=== PATIENT | male | born 1940 | race Caucasian/White ===

== ENCOUNTER 2017-11-10 04:03 | Inpatient (IN) | payer MEDICARE ==
[~2017-11-10] VITALS: Ht 185.4 cm; Wt 71.0 kg
[~2017-11-10 04:03] MED LIST: ACET325T9 PO; BENZ0.5T32 PO; CITA40TA5 PO; DULO30CA2 PO; HALO5TAB PO; LAMO100T PO; LORA0.5T PO; MAG355OR12 PO; MAGN2400 PO; MAGN400T3 PO; MENT113G6 TP; PRAZ2CAP2 PO; TRAZ-86 PO
[2017-11-10] MEDS ORDERED: TAMS0.4C2 PO (08:42)
[2017-11-10] MEDS ORDERED: HYDR25TA PO (08:42)
[2017-11-10] MEDS ORDERED: CEPH-264 PO (08:42)
[2017-11-10] MEDS ORDERED: ACETAMINOPHEN 325 MG TABLET PO PRN (09:45)
[2017-11-10] MEDS ORDERED: METHYL SALICYLATE/MENTHOL TOPICAL OINTMENT 29GM TUBE. TP PRN (09:45)
[2017-11-10] MEDS ORDERED: MAGNESIUM HYDROXIDE 2,400 MG/30 ML ORAL.SUSP. PO PRN (09:45)
[2017-11-10] MEDS ORDERED: MAG HYDROX/AL HYDROX/SIMETH 30 ML ORAL.SUSP PO PRN (09:45)
[2017-11-10 10:03] VITALS: BP 158/90
[2017-11-10 10:05] LABS: BASO % 0 % (0-3); EOS # 0.1 x10^3/uL (0.0-0.7); EOS % 1 % (0-3); HEMATOCRIT 45.3 % (39.0-53.0); HEMOGLOBIN 15.5 g/dL (13.0-17.5); LYMPH # 1.6 x10^3/uL (1.0-4.8); LYMPH % 21 % (24-48); MEAN CORPUSCULAR HEMOGLOBIN 32 pg (25-35); MEAN CORPUSCULAR HGB CONC 34 g/dL (31-37); MEAN CORPUSCULAR VOLUME 92 fL (79-100); MONO # 0.5 x10^3/uL (0.0-1.1); MONO % 7 % (0-9); NEUT # 5.3 x10^3uL (1.8-7.7); NEUT % 71 % (31-73); PLATELET COUNT 131 x10^3/uL (140-400); RED BLOOD COUNT 4.92 x10^6/uL (4.30-5.70); RED CELL DISTRIBUTION WIDTH 13.6 % (11.5-14.5); WHITE BLOOD COUNT 7.6 x10^3/uL (4.0-11.0)
[2017-11-10 10:25] LABS: ALBUMIN 3.6 g/dL (3.4-5.0); CALCIUM 8.9 mg/dL (8.5-10.1); CREATININE 0.9 mg/dL (0.7-1.3); GFR 82.3; POTASSIUM 4.2 mmol/L (3.5-5.1); TOTAL BILIRUBIN 0.6 mg/dL (0.2-1.0); TOTAL PROTEIN 7.1 g/dL (6.4-8.2)
--- NOTE | 2017-11-10 14:40 | CONS ---
DATE OF CONSULTATION: 11/10/2017 REASON FOR CONSULTATION: Medical management. HISTORY OF PRESENT ILLNESS: The patient is a 76-year-old male patient who was seen at [facility] Emergency Room. Apparently, police were called to his house by his as the patient apparently reported that on their arrival, the patient pulled live electrical wires out of the wall and appeared to be working on the furnace with exposed guidelines which was actively leaking gas. The patient reports he has been working on the wiring and gas in his house and he was mad that his called 911. He reports he believes that his is trying to kill him as she has taken out multiple life insurance policies including a 1-million policy on him and is angry that she has spent $40 per week to keep policies up-to-date. He also reported that he wrote letters to his and son about adjustment, but remainder of the speech is incoherent, very tangential, not with flight of ideas but denied any suicidal or homicidal ideation. The patient denies any hallucination, but he does report insomnia and difficulty sleeping. He is no longer taking his trazodone for sleep as it is ineffective. He was extensively evaluated in the Emergency Room, was found to have urinary tract infection and he did receive 1 gram of Rocephin and was [facility] stabilization. PAST MEDICAL HISTORY: Significant for benign prostatic hypertrophy, depression, schizophrenia, basal cell carcinoma. PAST SURGICAL HISTORY: Significant for cancerous skin resection, had also appendectomy. FAMILY HISTORY: Unremarkable. SOCIAL HISTORY: He is and lives with his . He does not smoke, drink alcohol or do recreational drugs. He is a former smoker, stopped about 20 years ago. REVIEW OF SYSTEMS: As per history of present illness. PHYSICAL EXAMINATION GENERAL: When I examined him, he was sitting on the edge of the bed, comfortably, in no apparent distress. There was no pallor, jaundice or cyanosis. No lymphadenopathy, no thyromegaly. No jugular venous distension. No limb edema. VITAL SIGNS: His heart rate was 89, blood pressure 158/90, temperature was 97.9, respiratory rate was 18 and oxygen saturation was 96%. HEENT: Showed normocephalic, atraumatic. NECK: Supple. HEART: Showed normal first and second sounds. No gallop, rub or murmur. CHEST: Clear to auscultation. No crepitation or rhonchi. ABDOMEN: Distended, soft, nontender. NEUROLOGIC: He was awake, alert, responding appropriately. He is very emotional ____. All his cranial nerves are intact. EXTREMITIES: He moves extremities without difficulty. LABORATORY DATA: Showed a white cell count of 7600, hemoglobin 15.5, hematocrit 45, MCV 92, and platelet count 231,000 with normal with manual differential. His serum sodium was 141, potassium 4.2, chloride 103, bicarbonate 30, anion gap of 8, BUN 20, creatinine 0.9, estimated GFR was 82 mL per minute. His glucose was 103, calcium was 8.9, magnesium 2. Total bilirubin, AST, ALT, alkaline phosphatase were normal. Total protein 7.1, albumin was 3.6. MEDICATIONS: He is currently on following medications: He is on cephalexin 500 mg twice a day, tamsulosin 0.4 mg at bedtime and hydroxyzine 25 mg 4 times a day as needed. IMPRESSION: In summary, this is a 76-year-old male patient who was taking apart the furnace, stopped taking medication, destroyed a water heater and cut holes in the roof, not sleeping and was brought to the Emergency Room by police. He was evaluated in the Emergency Room at the [facility] and was found to have urinary tract infection for which he was treated with IV antibiotic and was admitted to this facility for inpatient psychiatric stabilization. Medically, he is known to have UTI, hypertension, benign prostatic hypertrophy. He is also known to have basal cell carcinoma. Psychiatric history is significant depression and schizophrenia. All in all, medically seems to be stable. All his vital signs and all the lab work that are available now do seem to be stable. I will continue with all his current medications. Thank you, Dr. Hawk, for allowing me to participate in the care of this patient. MARYAM MARAVILLA MD DR: JOCELYNN/jessica JOB#: [id number] / [id number]
[2017-11-10 15:25] LABS: THYROID STIM HORMONE (TSH) 1.604 uIU/mL (0.358-3.740)
[2017-11-10 17:07] VITALS: BP 132/76
[2017-11-10 18:22] LABS: BILIRUBIN,URINE NEG (NEG); CLARITY,URINE CLOUDY; COLOR,URINE YELLOW; GLUCOSE,URINE NEG (NEG); NITRITE,URINE NEG (NEG); UROBILINOGEN,URINE 0.2 mg/dL (0.2 mg/dL)
[2017-11-10 18:23] LABS: BACTERIA,URINE FEW /HPF (0-FEW); SQUAMOUS EPITHELIAL CELL,UR OCC /LPF; WBC,URINE >40 /HPF (0-4)
[2017-11-10] MEDS: LACTOBACILLUS RHAMNOSUS GG 1 CAPSULE. PO SCH (19:36)
[2017-11-10] MEDS: hydrOXYzine HCL 25 MG TABLET PO PRN (19:36)
[2017-11-10] MEDS: CEPHALEXIN 250 MG CAPSULE PO SCH (19:36)
--- NOTE | 2017-11-10 20:48 | PDOC ---
Exam Note: Preston Note: Please also refer to the separate dictated note~for this date of service dictated separately.~Patient seen individually. Discussed the patient with Nursing staff reviewed the chart.~Reviewed interim history and current functioning. Reviewed vital signs,~Labs/ Radiology~and current medications noted below. Continue current treatment with the changes noted in the dictated addendum note Assessment: Vital Signs: Vital Signs Date Time Temp Pulse Resp B/P (MAP) Pulse Ox O2 Delivery O2 Flow Rate FiO2 11/10/17 17:07 97.5 69 18 132/76 (94) 96 Labs: Laboratory Tests Test 11/10/17 09:52 11/10/17 16:15 White Blood Count 7.6 x10^3/uL (4.0-11.0) Red Blood Count 4.92 x10^6/uL (4.30-5.70) Hemoglobin 15.5 g/dL (13.0-17.5) Hematocrit 45.3 % (39.0-53.0) Mean Corpuscular Volume 92 fL (79-100) Mean Corpuscular Hemoglobin 32 pg (25-35) Mean Corpuscular Hemoglobin Concent 34 g/dL (31-37) Red Cell Distribution Width 13.6 % (11.5-14.5) Platelet Count 131 x10^3/uL (140-400) L Neutrophils (%) (Auto) 71 % (31-73) Lymphocytes (%) (Auto) 21 % (24-48) L Monocytes (%) (Auto) 7 % (0-9) Eosinophils (%) (Auto) 1 % (0-3) Basophils (%) (Auto) 0 % (0-3) Neutrophils # (Auto) 5.3 x10^3uL (1.8-7.7) Lymphocytes # (Auto) 1.6 x10^3/uL (1.0-4.8) Monocytes # (Auto) 0.5 x10^3/uL (0.0-1.1) Eosinophils # (Auto) 0.1 x10^3/uL (0.0-0.7) Basophils # (Auto) 0.0 x10^3/uL (0.0-0.2) Sodium Level 141 mmol/L (136-145) Potassium Level 4.2 mmol/L (3.5-5.1) Chloride Level 103 mmol/L (98-107) Carbon Dioxide Level 30 mmol/L (21-32) Anion Gap 8 (6-14) Blood Urea Nitrogen 20 mg/dL (8-26) Creatinine 0.9 mg/dL (0.7-1.3) Estimated GFR (Cockcroft-Gault) 82.3 BUN/Creatinine Ratio 22 (6-20) H Glucose Level 103 mg/dL (70-99) H Calcium Level 8.9 mg/dL (8.5-10.1) Magnesium Level 2.0 mg/dL (1.8-2.4) Iron Level 90 ug/dL (65-175) Total Iron Binding Capacity 269 ug/dL (250-450) Iron Saturation 33 % (15-34) Total Bilirubin 0.6 mg/dL (0.2-1.0) Aspartate Amino Transferase (AST) 23 U/L (15-37) Alanine Aminotransferase (ALT) 34 U/L (16-63) Alkaline Phosphatase 99 U/L (46-116) Total Protein 7.1 g/dL (6.4-8.2) Albumin 3.6 g/dL (3.4-5.0) Albumin/Globulin Ratio 1.0 (1.0-1.7) Triglycerides Level 83 mg/dL (0-150) Cholesterol Level 184 mg/dL (0-200) LDL Cholesterol, Calculated 132 mg/dL (0-100) H VLDL Cholesterol, Calculated 16 mg/dL (0-40) Non-HDL Cholesterol Calculated 148 mg/dL (0-129) H HDL Cholesterol 36 mg/dL (40-60) L Cholesterol/HDL Ratio 5.0 Vitamin B12 Level 314 pg/mL (247-911) 25-Hydroxy Vitamin D Total 23.4 ng/mL (30-100) L Thyroid Stimulating Hormone (TSH) 1.604 uIU/mL (0.358-3.740) Treponema pallidum Antibody Nonreactive (Nonreactive) Urine Collection Type Unknown Urine Color Yellow Urine Clarity Cloudy Urine pH 6.5 Urine Specific [place] 1.020 Urine Protein Neg (NEG-TRACE) Urine Glucose (UA) Neg mg/dL (NEG) Urine Ketones (Stick) Neg mg/dL (NEG) Urine Blood Trace (NEG) Urine Nitrite Neg (NEG) Urine Bilirubin Neg (NEG) Urine Urobilinogen Dipstick 0.2 mg/dL (0.2 mg/dL) Urine Leukocyte Esterase Mod (NEG) Urine RBC 6-10 /HPF (0-2) Urine WBC >40 /HPF (0-4) Urine Squamous Epithelial Cells Occ /LPF Urine Bacteria Few /HPF (0-FEW) Current Medications: Meds: Current Medications Olanzapine (ZyPREXA ZYDIS) 2.5 mg PRN Q2HR PRN PO PSYCHOSIS; Start 11/10/17 at 08:45 Acetaminophen (Tylenol) 650 mg PRN Q6HRS PRN PO PAIN / TEMP; Start 11/10/17 at 09:45 Multi-Ingredient Ointment (Analgesic [place]) 1 maximo PRN QID PRN TP MUSCLE PAIN; Start 11/10/17 at 09:45 Al Hydroxide/Mg Hydroxide (Mylanta Plus Xs) 15 ml PRN AFTMEALHC PRN PO DYSPEPSIA; Start 11/10/17 at 09:45 Magnesium Hydroxide (Milk Of Magnesia) 2,400 mg PRN QHS PRN PO CONSTIPATION; Start 11/10/17 at 09:45 Hydroxyzine HCl (Atarax) 25 mg PRN QID PRN PO ANXIETY / AGITATION Last administered on 11/10/17at 19:36; Start 11/10/17 at 09:45 Tamsulosin HCl (Flomax) 0.4 mg DAILY PO ; Start 11/11/17 at 09:00 Cephalexin HCl (Keflex) 500 mg BID PO Last administered on 11/10/17at 19:36; Start 11/10/17 at 21:00; Stop 11/16/17 at 21:01 Lactobacillus Rhamnosus (Culturelle) 1 cap BID PO Last administered on at 19:36; Start 11/10/17 at 21:00 Active Scripts Active Reported Tamsulosin Hcl 0.4 Mg Cap.er.24h 0.4 Mg PO DAILY Hydroxyzine Hcl 25 Mg Tablet 25 Mg PO PRN QID PRN Keflex (Cephalexin) 500 Mg Capsule 500 Mg PO BID I have reviewed the current psychotropics carefully including drug interactions. Risk benefit ratio favors no change other than as noted in my dictated progress note. Diagnosis: Problems: (1) Schizoaffective disorder (2) Anxiety disorder (3) Bipolar affective, mixed, sev w/ psych (4) Impulse control disorder (5) Schizophrenia, paranoid, chronic with acute exacerbation ARABELLA PEACE MD Nov 10, 2017 20:48
[2017-11-10 22:10] LABS: THYROXINE 7.1 ug/dL (4.5-12.0)
--- NOTE | 2017-11-10 22:31 | HP ---
ADMIT DATE: 11/10/2017 PSYCHIATRIC ADMISSION HISTORY/EVALUATION This note covers elements not covered in my initial note 11/10/2017. IDENTIFYING DATA: The patient is a 76-year-old male who was referred to us from the Emergency Room at [facility]. I was called around 3 a.m. this morning after the patient was taken to the Emergency Room after he took apart the furnace in his house and there was a smell of gas all over the house. He had destroyed the water heater, cut holes in the roof of the house, had stopped taking his medications for schizoaffective disorder, bipolar type, prescribed by Dr. Escamilla at the [facility] [place]. He had marked insomnia. The police had been called to the home and he was brought to the Emergency Room by police on account of his dangerous behaviors. He was evaluated in the ER, found additionally to have a UTI, started on Keflex. 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 CHIEF COMPLAINT: "I had just opened the gas pipe. They said they would call the ambulance, but they called the police." The patient is extremely labile in his mood, crying, tearful as I met with him at some length in his room. Additionally, he has stopped all his psychotropics for some time at home. HISTORY OF PRESENT ILLNESS: The patient has a long history of schizoaffective disorder, bipolar type. He has been going to the [facility] [place] in [place], treated by Dr. Escamilla, psychiatrist. He has been noncompliant with the psychotropics for some time and getting increasingly psychotic with marked insomnia, agitation, mood lability, crying spells, and the dangerous behaviors noted above. No active suicidal or homicidal ideation. PAST PSYCHIATRIC HISTORY: The patient was hospitalized on the unit in 08/2015 after he slashed his throat while at home in a serious suicide attempt again after having stopped his psychotropics for some time for his schizoaffective disorder, bipolar type. He has been in outpatient treatment as above since then. In the past, the patient has been treated on Lamictal of 250 mg a day, Haldol decanoate, and Cymbalta along with oral Haldol 7.5 mg daily. PAST MEDICAL HISTORY: Positive for UTI, hypertension, BPH, basal cell carcinoma. PAST SURGICAL HISTORY: Status post appendectomy. ACCU-CHEKS: None. DIET: Regular, takes his medications whole, ambulates up ad tani. CODE STATUS: Full code. DRUG ALLERGIES: Negative. CURRENT PSYCHOTROPICS: Zyprexa was started p.r.n. 2.5 mg q. 2 hours max 10 mg 24 hours, hydroxyzine p.r.n. FAMILY HISTORY: Noncontributory. SOCIAL HISTORY: No alcohol, drug abuse, physical, sexual or elder abuse history is noted. Not known to be a perpetrator. He lives at home with his . REACTION TO HOSPITALIZATION: The patient accepting of it. ASSETS: Supportive and family and he lives at home with his . MENTAL STATUS EXAM: The patient was seen individually in his room evening of 11/10/2017. He is aware of the date 11/10/2017, extremely labile in his mood, crying, hyperverbal, difficult to understand at times. Insight limited, judgment marginal, language function intact, attention span short. Mood and affect labile. He is quite paranoid, psychotic. IMPRESSION: Schizoaffective disorder, bipolar type, mixed with psychotic features; bipolar 1 disorder, mixed with psychotic features; anxiety disorder, unspecified; impulse control disorder, unspecified; urinary tract infection. Rest as above. PLAN: Admit to geropsychiatry unit, [facility]. I will see the patient daily individually from a psychiatric standpoint, medical followup per Dr. Torres/Dr Cao. Continue the patient on his current psychotropics and after baseline assessment, we will restart oral Haldol and possible Haldol Decanoate. Consider restarting Lamictal for his bipolar disorder or Depakote. Further adjustments per baseline assessment. ARABELLA PEACE MD DR: WHITNEY/jessica JOB#: [id number] / [id number]
[2017-11-11 01:08] LABS: HEMOGLOBIN A1C 5.6 % (4.8-5.6)
[2017-11-11 05:51] VITALS: BP 103/70
[2017-11-11] MEDS: LACTOBACILLUS RHAMNOSUS GG 1 CAPSULE. PO SCH ×2 (10:03→20:15)
[2017-11-11] MEDS: TAMSULOSIN 0.4 MG CAP.ER.24H. PO SCH (10:03)
[2017-11-11] MEDS: CEPHALEXIN 250 MG CAPSULE PO SCH ×2 (10:03→20:15)
[2017-11-11 16:03] VITALS: BP 161/77
[2017-11-11] MEDS ORDERED: CHOLECALCIFEROL (VITAMIN D3) 50,000 UNIT CAPSULE PO SCH (18:15)
[2017-11-11] MEDS: HALOPERIDOL 5 MG TABLET PO SCH (20:15)
[2017-11-11] MEDS: ATORVASTATIN CALCIUM 10 MG TABLET. PO SCH (20:15)
[2017-11-11] MEDS: CHOLECALCIFEROL (VITAMIN D3) 50,000 UNIT CAPSULE PO SCH (20:16)
[2017-11-11] MEDS: lamoTRIgine 25 MG TABLET. PO SCH (20:16)
--- NOTE | 2017-11-11 20:47 | PDOC ---
Exam Note: Preston Note: Please also refer to the separate dictated note~for this date of service dictated separately.~Patient seen individually. Discussed the patient with Nursing staff reviewed the chart.~Reviewed interim history and current functioning. Reviewed vital signs,~Labs/ Radiology~and current medications noted below. Continue current treatment with the changes noted in the dictated addendum note Assessment: Vital Signs: Vital Signs Date Time Temp Pulse Resp B/P (MAP) Pulse Ox O2 Delivery O2 Flow Rate FiO2 11/11/17 16:03 97.7 92 20 161/77 (105) 96 I&O Intake and Output 11/11/17 07:00 Intake Total 1560 ml Balance 1560 ml Intake Oral 1560 ml # Voids 1 Current Medications: Meds: Current Medications Olanzapine (ZyPREXA ZYDIS) 2.5 mg PRN Q2HR PRN PO PSYCHOSIS; Start 11/10/17 at 08:45 Acetaminophen (Tylenol) 650 mg PRN Q6HRS PRN PO PAIN / TEMP; Start 11/10/17 at 09:45 Multi-Ingredient Ointment (Analgesic [place]) 1 maximo PRN QID PRN TP MUSCLE PAIN; Start 11/10/17 at 09:45 Al Hydroxide/Mg Hydroxide (Mylanta Plus Xs) 15 ml PRN AFTMEALHC PRN PO DYSPEPSIA; Start 11/10/17 at 09:45 Magnesium Hydroxide (Milk Of Magnesia) 2,400 mg PRN QHS PRN PO CONSTIPATION; Start 11/10/17 at 09:45 Hydroxyzine HCl (Atarax) 25 mg PRN QID PRN PO ANXIETY / AGITATION Last administered on 11/10/17at 19:36; Start 11/10/17 at 09:45 Tamsulosin HCl (Flomax) 0.4 mg DAILY PO Last administered on 11/11/17at 10:03; Start 11/11/17 at 09:00 Cephalexin HCl (Keflex) 500 mg BID PO Last administered on 11/11/17at 20:15; Start 11/10/17 at 21:00; Stop 11/16/17 at 21:01 Lactobacillus Rhamnosus (Culturelle) 1 cap BID PO Last administered on at 20:15; Start 11/10/17 at 21:00 Lamotrigine (LaMICtal) 25 mg HS PO Last administered on 11/11/17at 20:16; Start 11/11/17 at 21:00; Stop 11/16/17 at 09:00 Lamotrigine (LaMICtal) 50 mg HS PO ; Start 11/16/17 at 21:00; Stop 11/21/17 at 09 :00 Lamotrigine (LaMICtal) 75 mg HS PO ; Start 11/21/17 at 21:00; Stop 11/25/17 at 09: 00 Lamotrigine (LaMICtal) 100 mg HS PO ; Start 11/25/17 at 21:00 Haloperidol (Haldol) 5 mg HS PO Last administered on 11/11/17at 20:15; Start at 21:00 Vitamin D (Vitamin D3) 50,000 unit WEEKLY PO ; Start 11/11/17 at 18:15; Stop at 18:29; Status DC Atorvastatin Calcium (Lipitor) 10 mg QHS PO Last administered on 11/11/17 20: 15; Start 11/11/17 at 21:00 Vitamin D (Vitamin D3) 50,000 unit WEEKLY PO Last administered on 11/11/17at 20: 16; Start 11/11/17 at 21:00 Active Scripts Active Reported Tamsulosin Hcl 0.4 Mg Cap.er.24h 0.4 Mg PO DAILY Hydroxyzine Hcl 25 Mg Tablet 25 Mg PO PRN QID PRN Keflex (Cephalexin) 500 Mg Capsule 500 Mg PO BID I have reviewed the current psychotropics carefully including drug interactions. Risk benefit ratio favors no change other than as noted in my dictated progress note. Diagnosis: Problems: (1) Schizoaffective disorder (2) Anxiety disorder (3) Bipolar affective, mixed, sev w/ psych (4) Impulse control disorder (5) Schizophrenia, paranoid, chronic with acute exacerbation ARABELLA PEACE MD Nov 11, 2017 20:47
[2017-11-12 05:45] VITALS: BP 134/86
[2017-11-12] MEDS: CEPHALEXIN 250 MG CAPSULE PO SCH ×2 (08:56→20:17)
[2017-11-12] MEDS: LACTOBACILLUS RHAMNOSUS GG 1 CAPSULE. PO SCH ×2 (08:56→20:16)
[2017-11-12] MEDS: TAMSULOSIN 0.4 MG CAP.ER.24H. PO SCH (08:56)
[2017-11-12 16:07] VITALS: BP 158/86
--- NOTE | 2017-11-12 18:41 | PN ---
DATE: 11/11/2017 This late entry 11/11/2017 covers elements not covered in my initial note. SUBJECTIVE: I met with the patient in the evening. The patient was making statements to nursing staff that his is a prostitute and when he gets home, he is going to fix the furnace irrespective of what everyone thinks about it. He had made holes in the hinton, had made large hole on the side of the furnace, had stripped wires and they were found naked and a gas leak in the house. As a consequence of his actions, prompting this admission, but he is fairly oblivious of this and rationalizes all of this is appropriate. I have reviewed his past psychiatric records from his last hospitalization at [facility] in 2016. At the time of discharge, he was on Lamictal and Haldol along with Haldol Decanoate and the oral Haldol was 7.5 mg p.o. at bedtime. He had done well on that combination together with Cymbalta at that time. He does have a UTI, which is being treated. REVIEW OF SYSTEMS: No CV, , pulmonary, eye, ENT system symptoms on review. MENTAL STATUS EXAM: Oriented to himself and situation. Speech coherent, can be pressured at times. Abstraction fair, computation impaired, language function intact, attention span short. Mood and affect remains labile. LABORATORY DATA: Reviewed. IMPRESSION: Schizoaffective disorder, bipolar type, mixed with psychotic features; anxiety disorder, unspecified; cognitive disorder, unspecified. PLAN: Lengthy review of his past treatments. We will restart him on Lamictal 25 mg a day increasing in 5 days to 50 mg a day, 5 days later to 75, and 5 days later to 100 mg a day and start Haldol oral 5 mg p.o. at bedtime. Consider Cymbalta as an antidepressant, Depakote as a mood stabilizer if manic spells are more evident. We will make further adjustments as clinically indicated. MAN Barrera PEACE MD DR: WHITNEY/jessica JOB#: [id number] / [id number]
[2017-11-12] MEDS: ATORVASTATIN CALCIUM 10 MG TABLET. PO SCH (20:16)
[2017-11-12] MEDS: HALOPERIDOL 5 MG TABLET PO SCH (20:16)
[2017-11-12] MEDS: lamoTRIgine 25 MG TABLET. PO SCH (20:17)
--- NOTE | 2017-11-12 20:47 | PDOC ---
Exam Note: Preston Note: Please also refer to the separate dictated note~for this date of service dictated separately.~Patient seen individually. Discussed the patient with Nursing staff reviewed the chart.~Reviewed interim history and current functioning. Reviewed vital signs,~Labs/ Radiology~and current medications noted below. Continue current treatment with the changes noted in the dictated addendum note Assessment: Vital Signs: Vital Signs Date Time Temp Pulse Resp B/P (MAP) Pulse Ox O2 Delivery O2 Flow Rate FiO2 11/12/17 16:07 97.6 102 20 158/86 (110) 98 I&O Intake and Output 11/12/17 07:00 Intake Total 1680 ml Balance 1680 ml Intake Oral 1680 ml Current Medications: Meds: Current Medications Olanzapine (ZyPREXA ZYDIS) 2.5 mg PRN Q2HR PRN PO PSYCHOSIS; Start 11/10/17 at 08:45 Acetaminophen (Tylenol) 650 mg PRN Q6HRS PRN PO PAIN / TEMP; Start 11/10/17 at 09:45 Multi-Ingredient Ointment (Analgesic [place]) 1 maximo PRN QID PRN TP MUSCLE PAIN; Start 11/10/17 at 09:45 Al Hydroxide/Mg Hydroxide (Mylanta Plus Xs) 15 ml PRN AFTMEALHC PRN PO DYSPEPSIA; Start 11/10/17 at 09:45 Magnesium Hydroxide (Milk Of Magnesia) 2,400 mg PRN QHS PRN PO CONSTIPATION; Start 11/10/17 at 09:45 Hydroxyzine HCl (Atarax) 25 mg PRN QID PRN PO ANXIETY / AGITATION Last administered on 11/10/17at 19:36; Start 11/10/17 at 09:45 Tamsulosin HCl (Flomax) 0.4 mg DAILY PO Last administered on 11/12/17at 08:56; Start 11/11/17 at 09:00 Cephalexin HCl (Keflex) 500 mg BID PO Last administered on 11/12/17at 20:17; Start 11/10/17 at 21:00; Stop 11/16/17 at 21:01 Lactobacillus Rhamnosus (Culturelle) 1 cap BID PO Last administered on at 20:16; Start 11/10/17 at 21:00 Lamotrigine (LaMICtal) 25 mg HS PO Last administered on 11/12/17at 20:17; Start 11/11/17 at 21:00; Stop 11/16/17 at 09:00 Lamotrigine (LaMICtal) 50 mg HS PO ; Start 11/16/17 at 21:00; Stop 11/21/17 at 09 :00 Lamotrigine (LaMICtal) 75 mg HS PO ; Start 11/21/17 at 21:00; Stop 11/25/17 at 09: 00 Lamotrigine (LaMICtal) 100 mg HS PO ; Start 11/25/17 at 21:00 Haloperidol (Haldol) 5 mg HS PO Last administered on 11/12/17at 20:16; Start at 21:00 Vitamin D (Vitamin D3) 50,000 unit WEEKLY PO ; Start 11/11/17 at 18:15; Stop at 18:29; Status DC Atorvastatin Calcium (Lipitor) 10 mg QHS PO Last administered on 11/12/17at 20: 16; Start 11/11/17 at 21:00 Vitamin D (Vitamin D3) 50,000 unit WEEKLY PO Last administered on 11/11/17at 20: 16; Start 11/11/17 at 21:00 Active Scripts Active Reported Tamsulosin Hcl 0.4 Mg Cap.er.24h 0.4 Mg PO DAILY Hydroxyzine Hcl 25 Mg Tablet 25 Mg PO PRN QID PRN Keflex (Cephalexin) 500 Mg Capsule 500 Mg PO BID I have reviewed the current psychotropics carefully including drug interactions. Risk benefit ratio favors no change other than as noted in my dictated progress note. Diagnosis: Problems: (1) Schizoaffective disorder (2) Anxiety disorder (3) Bipolar affective, mixed, sev w/ psych (4) Impulse control disorder (5) Schizophrenia, paranoid, chronic with acute exacerbation ARABELLA PEACE MD Nov 12, 2017 20:47
[2017-11-13 05:45] VITALS: BP 157/81
[2017-11-13] MEDS: LACTOBACILLUS RHAMNOSUS GG 1 CAPSULE. PO SCH ×2 (08:23→20:00)
[2017-11-13] MEDS: CEPHALEXIN 250 MG CAPSULE PO SCH ×2 (08:23→20:02)
[2017-11-13] MEDS: TAMSULOSIN 0.4 MG CAP.ER.24H. PO SCH (08:23)
[2017-11-13 15:59] VITALS: BP_SYST 140; BP_SYST 151; BP_DIAS 68; BP_DIAS 84
[2017-11-13] MEDS: HALOPERIDOL 5 MG TABLET PO SCH (20:00)
[2017-11-13] MEDS: ATORVASTATIN CALCIUM 10 MG TABLET. PO SCH (20:00)
[2017-11-13] MEDS: lamoTRIgine 25 MG TABLET. PO SCH (20:00)
--- NOTE | 2017-11-13 22:45 | PDOC ---
Exam Note: Preston Note: Please also refer to the separate dictated note~for this date of service dictated separately.~Patient seen individually. Discussed the patient with Nursing staff reviewed the chart.~Reviewed interim history and current functioning. Reviewed vital signs,~Labs/ Radiology~and current medications noted below. Continue current treatment with the changes noted in the dictated addendum note Assessment: Vital Signs: Vital Signs Date Time Temp Pulse Resp B/P (MAP) Pulse Ox O2 Delivery O2 Flow Rate FiO2 11/13/17 15:59 97.4 64 20 151/84 (106) 96 I&O Intake and Output 11/13/17 07:00 Intake Total 1798 ml Balance 1798 ml Intake Oral 1798 ml Current Medications: Meds: Current Medications Olanzapine (ZyPREXA ZYDIS) 2.5 mg PRN Q2HR PRN PO PSYCHOSIS; Start 11/10/17 at 08:45 Acetaminophen (Tylenol) 650 mg PRN Q6HRS PRN PO PAIN / TEMP; Start 11/10/17 at 09:45 Multi-Ingredient Ointment (Analgesic [place]) 1 maximo PRN QID PRN TP MUSCLE PAIN; Start 11/10/17 at 09:45 Al Hydroxide/Mg Hydroxide (Mylanta Plus Xs) 15 ml PRN AFTMEALHC PRN PO DYSPEPSIA; Start 11/10/17 at 09:45 Magnesium Hydroxide (Milk Of Magnesia) 2,400 mg PRN QHS PRN PO CONSTIPATION; Start 11/10/17 at 09:45 Hydroxyzine HCl (Atarax) 25 mg PRN QID PRN PO ANXIETY / AGITATION Last administered on 11/10/17at 19:36; Start 11/10/17 at 09:45 Tamsulosin HCl (Flomax) 0.4 mg DAILY PO Last administered on 11/13/17at 08:23; Start 11/11/17 at 09:00 Cephalexin HCl (Keflex) 500 mg BID PO Last administered on 11/13/17at 20:02; Start 11/10/17 at 21:00; Stop 11/16/17 at 21:01 Lactobacillus Rhamnosus (Culturelle) 1 cap BID PO Last administered on at 20:00; Start 11/10/17 at 21:00 Lamotrigine (LaMICtal) 25 mg HS PO Last administered on 11/13/17at 20:00; Start 11/11/17 at 21:00; Stop 11/16/17 at 09:00 Lamotrigine (LaMICtal) 50 mg HS PO ; Start 11/16/17 at 21:00; Stop 11/21/17 at 09 :00 Lamotrigine (LaMICtal) 75 mg HS PO ; Start 11/21/17 at 21:00; Stop 11/25/17 at 09: 00 Lamotrigine (LaMICtal) 100 mg HS PO ; Start 11/25/17 at 21:00 Haloperidol (Haldol) 5 mg HS PO Last administered on 11/13/17at 20:00; Start at 21:00 Vitamin D (Vitamin D3) 50,000 unit WEEKLY PO ; Start 11/11/17 at 18:15; Stop at 18:29; Status DC Atorvastatin Calcium (Lipitor) 10 mg QHS PO Last administered on 11/13/17at 20: 00; Start 11/11/17 at 21:00 Vitamin D (Vitamin D3) 50,000 unit WEEKLY PO Last administered on 11/11/17at 20: 16; Start 11/11/17 at 21:00 Active Scripts Active Reported Tamsulosin Hcl 0.4 Mg Cap.er.24h 0.4 Mg PO DAILY Hydroxyzine Hcl 25 Mg Tablet 25 Mg PO PRN QID PRN Keflex (Cephalexin) 500 Mg Capsule 500 Mg PO BID I have reviewed the current psychotropics carefully including drug interactions. Risk benefit ratio favors no change other than as noted in my dictated progress note. Diagnosis: Problems: (1) Schizoaffective disorder (2) Anxiety disorder (3) Bipolar affective, mixed, sev w/ psych (4) Impulse control disorder (5) Schizophrenia, paranoid, chronic with acute exacerbation ARABELLA PEACE MD Nov 13, 2017 22:45
[2017-11-14 06:07] VITALS: BP 137/89
[2017-11-14] MEDS: CEPHALEXIN 250 MG CAPSULE PO SCH ×2 (08:27→19:48)
[2017-11-14] MEDS: TAMSULOSIN 0.4 MG CAP.ER.24H. PO SCH (08:27)
[2017-11-14] MEDS: LACTOBACILLUS RHAMNOSUS GG 1 CAPSULE. PO SCH ×2 (08:27→19:48)
[2017-11-14 16:11] VITALS: BP 167/73
--- NOTE | 2017-11-14 17:56 | PN ---
DATE: 11/12/2017 This is a late entry 11/12/2017 covers elements not covered in my initial note 11/12/2017. SUBJECTIVE: I met with the patient in the evening. The patient slept 7 hours previous evening, he remains somewhat hyperverbal at times but otherwise appropriate on the unit. REVIEW OF SYSTEMS: No CV, , pulmonary, eye system symptoms on review. MENTAL STATUS EXAM: Oriented to himself and situation. Speech is coherent, rapid at times. Abstraction fair, computation impaired, language function intact. Mood and affect remain somewhat labile, anxious at times, grandiose. 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 He did participate in exercise group and pleasant, medication compliant. I processed the above with him and he is reluctant, hesitant discussing this further. LABORATORY DATA: Reviewed. IMPRESSION: Schizoaffective disorder, bipolar type, mixed with psychotic features; cognitive disorder, unspecified; urinary tract infection. Rest unchanged. PLAN: Treat the UTI. The patient has been started on Haldol 5 mg at bedtime and he responded to Lamictal in the past, which has been reinitiated and we will increase gradually. ARABELLA PEACE MD DR: WHITNEY/jessica JOB#: [id number] / [id number]
[2017-11-14] MEDS: ATORVASTATIN CALCIUM 10 MG TABLET. PO SCH (19:48)
[2017-11-14] MEDS: lamoTRIgine 25 MG TABLET. PO SCH (19:49)
[2017-11-14] MEDS: HALOPERIDOL 5 MG TABLET PO SCH (19:49)
--- NOTE | 2017-11-14 20:53 | PDOC ---
Exam Note: Preston Note: Please also refer to the separate dictated note~for this date of service dictated separately.~Patient seen individually. Discussed the patient with Nursing staff reviewed the chart.~Reviewed interim history and current functioning. Reviewed vital signs,~Labs/ Radiology~and current medications noted below. Continue current treatment with the changes noted in the dictated addendum note Assessment: Vital Signs: Vital Signs Date Time Temp Pulse Resp B/P (MAP) Pulse Ox O2 Delivery O2 Flow Rate FiO2 11/14/17 16:11 98.0 85 18 167/73 (104) 96 I&O Intake and Output 11/14/17 07:00 Intake Total 1440 ml Balance 1440 ml Intake Oral 1440 ml Current Medications: Meds: Current Medications Olanzapine (ZyPREXA ZYDIS) 2.5 mg PRN Q2HR PRN PO PSYCHOSIS; Start 11/10/17 at 08:45 Acetaminophen (Tylenol) 650 mg PRN Q6HRS PRN PO PAIN / TEMP; Start 11/10/17 at 09:45 Multi-Ingredient Ointment (Analgesic [place]) 1 maximo PRN QID PRN TP MUSCLE PAIN; Start 11/10/17 at 09:45 Al Hydroxide/Mg Hydroxide (Mylanta Plus Xs) 15 ml PRN AFTMEALHC PRN PO DYSPEPSIA; Start 11/10/17 at 09:45 Magnesium Hydroxide (Milk Of Magnesia) 2,400 mg PRN QHS PRN PO CONSTIPATION; Start 11/10/17 at 09:45 Hydroxyzine HCl (Atarax) 25 mg PRN QID PRN PO ANXIETY / AGITATION Last administered on 11/10/17at 19:36; Start 11/10/17 at 09:45 Tamsulosin HCl (Flomax) 0.4 mg DAILY PO Last administered on 11/14/17at 08:27; Start 11/11/17 at 09:00 Cephalexin HCl (Keflex) 500 mg BID PO Last administered on 11/14/17at 19:48; Start 11/10/17 at 21:00; Stop 11/16/17 at 21:01 Lactobacillus Rhamnosus (Culturelle) 1 cap BID PO Last administered on at 19:48; Start 11/10/17 at 21:00 Lamotrigine (LaMICtal) 25 mg HS PO Last administered on 11/14/17 19:49; Start 11/11/17 at 21:00; Stop 11/16/17 at 09:00 Lamotrigine (LaMICtal) 50 mg HS PO ; Start 11/16/17 at 21:00; Stop 11/21/17 at 09 :00 Lamotrigine (LaMICtal) 75 mg HS PO ; Start 11/21/17 at 21:00; Stop 11/25/17 at 09: 00 Lamotrigine (LaMICtal) 100 mg HS PO ; Start 11/25/17 at 21:00 Haloperidol (Haldol) 5 mg HS PO Last administered on 11/14/17 19:49; Start at 21:00 Vitamin D (Vitamin D3) 50,000 unit WEEKLY PO ; Start 11/11/17 at 18:15; Stop at 18:29; Status DC Atorvastatin Calcium (Lipitor) 10 mg QHS PO Last administered on 11/14/17 19: 48; Start 11/11/17 at 21:00 Vitamin D (Vitamin D3) 50,000 unit WEEKLY PO Last administered on 11/11/17at 20: 16; Start 11/11/17 at 21:00 Active Scripts Active Reported Tamsulosin Hcl 0.4 Mg Cap.er.24h 0.4 Mg PO DAILY Hydroxyzine Hcl 25 Mg Tablet 25 Mg PO PRN QID PRN Keflex (Cephalexin) 500 Mg Capsule 500 Mg PO BID I have reviewed the current psychotropics carefully including drug interactions. Risk benefit ratio favors no change other than as noted in my dictated progress note. Diagnosis: Problems: (1) Schizoaffective disorder (2) Anxiety disorder (3) Bipolar affective, mixed, sev w/ psych (4) Impulse control disorder (5) Schizophrenia, paranoid, chronic with acute exacerbation ARABELLA PEACE MD Nov 14, 2017 20:53
--- NOTE | 2017-11-14 22:44 | PN ---
DATE: 11/13/2017 This late entry 11/13/2017 covers elements not covered in my initial note. SUBJECTIVE: I met with the patient in the evening. 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 REVIEW OF SYSTEMS: No CV, , pulmonary, eye, ENT system symptoms on review. Reliability varies. MENTAL STATUS EXAM: Oriented to himself and situation. Speech coherent, still somewhat pressured. Abstraction fair, computation impaired, language function intact. Mood and affect less labile. LABORATORY DATA: Reviewed. IMPRESSION: Unchanged from initial note. PLAN: Continue current psychotropics including Haldol, gradually increase the Lamictal. MAN Barrera PEACE MD DR: WHITNEY/jessica JOB#: [id number] / [id number]
--- NOTE | 2017-11-14 23:17 | PN ---
DATE: 11/14/2017 This note covers elements not covered in my initial note 11/14/2017. SUBJECTIVE: I met with the patient in the evening. I met with him in his room. He states he talked to his today, told her he wanted to be discharged tomorrow, but the told him he was not ready to come home. She is really concerned about circumstances prompting admission. REVIEW OF SYSTEMS: No CV, , pulmonary, eye, ENT system symptoms on review. MENTAL STATUS EXAM: Oriented to himself and situation. Speech coherent, less pressured. Abstraction fair, computation impaired, language function intact. Mood and affect less labile. LABORATORY DATA: Reviewed. IMPRESSION: Unchanged from initial note. PLAN: No change from a psychiatric standpoint, gradually increase Lamictal. Maintain Haldol. MAN Barrera PEACE MD DR: WHITNEY/jessica JOB#: [id number] / [id number]
[2017-11-15 05:54] VITALS: BP 146/83
[2017-11-15] MEDS: TAMSULOSIN 0.4 MG CAP.ER.24H. PO SCH (08:23)
[2017-11-15] MEDS: LACTOBACILLUS RHAMNOSUS GG 1 CAPSULE. PO SCH ×2 (08:23→19:32)
[2017-11-15] MEDS: CEPHALEXIN 250 MG CAPSULE PO SCH ×2 (08:24→19:32)
[2017-11-15 16:23] VITALS: BP 150/96
[2017-11-15] MEDS: HALOPERIDOL 5 MG TABLET PO SCH (19:32)
[2017-11-15] MEDS: lamoTRIgine 25 MG TABLET. PO SCH (19:32)
[2017-11-15] MEDS: ATORVASTATIN CALCIUM 10 MG TABLET. PO SCH (19:32)
--- NOTE | 2017-11-15 20:51 | PDOC ---
Exam Note: Preston Note: Please also refer to the separate dictated note~for this date of service dictated separately.~Patient seen individually. Discussed the patient with Nursing staff reviewed the chart.~Reviewed interim history and current functioning. Reviewed vital signs,~Labs/ Radiology~and current medications noted below. Continue current treatment with the changes noted in the dictated addendum note Assessment: Vital Signs: Vital Signs Date Time Temp Pulse Resp B/P (MAP) Pulse Ox O2 Delivery O2 Flow Rate FiO2 11/15/17 16:23 97.5 105 20 150/96 (114) 95 Room Air I&O Intake and Output 11/15/17 07:00 Intake Total 1440 ml Balance 1440 ml Intake Oral 1440 ml Current Medications: Meds: Current Medications Olanzapine (ZyPREXA ZYDIS) 2.5 mg PRN Q2HR PRN PO PSYCHOSIS; Start 11/10/17 at 08:45 Acetaminophen (Tylenol) 650 mg PRN Q6HRS PRN PO PAIN / TEMP; Start 11/10/17 at 09:45 Multi-Ingredient Ointment (Analgesic [place]) 1 maximo PRN QID PRN TP MUSCLE PAIN; Start 11/10/17 at 09:45 Al Hydroxide/Mg Hydroxide (Mylanta Plus Xs) 15 ml PRN AFTMEALHC PRN PO DYSPEPSIA; Start 11/10/17 at 09:45 Magnesium Hydroxide (Milk Of Magnesia) 2,400 mg PRN QHS PRN PO CONSTIPATION; Start 11/10/17 at 09:45 Hydroxyzine HCl (Atarax) 25 mg PRN QID PRN PO ANXIETY / AGITATION Last administered on 11/10/17at 19:36; Start 11/10/17 at 09:45 Tamsulosin HCl (Flomax) 0.4 mg DAILY PO Last administered on 11/15/17at 08:23; Start 11/11/17 at 09:00 Cephalexin HCl (Keflex) 500 mg BID PO Last administered on 11/15/17at 19:32; Start 11/10/17 at 21:00; Stop 11/16/17 at 21:01 Lactobacillus Rhamnosus (Culturelle) 1 cap BID PO Last administered on at 19:32; Start 11/10/17 at 21:00 Lamotrigine (LaMICtal) 25 mg HS PO Last administered on 11/15/17 19:32; Start 11/11/17 at 21:00; Stop 11/16/17 at 09:00 Lamotrigine (LaMICtal) 50 mg HS PO ; Start 11/16/17 at 21:00; Stop 11/21/17 at 09 :00 Lamotrigine (LaMICtal) 75 mg HS PO ; Start 11/21/17 at 21:00; Stop 11/25/17 at 09: 00 Lamotrigine (LaMICtal) 100 mg HS PO ; Start 11/25/17 at 21:00 Haloperidol (Haldol) 5 mg HS PO Last administered on 11/15/17 19:32; Start at 21:00 Vitamin D (Vitamin D3) 50,000 unit WEEKLY PO ; Start 11/11/17 at 18:15; Stop at 18:29; Status DC Atorvastatin Calcium (Lipitor) 10 mg QHS PO Last administered on 11/15/17 19: 32; Start 11/11/17 at 21:00 Vitamin D (Vitamin D3) 50,000 unit WEEKLY PO Last administered on 11/11/17at 20: 16; Start 11/11/17 at 21:00 Active Scripts Active Reported Tamsulosin Hcl 0.4 Mg Cap.er.24h 0.4 Mg PO DAILY Hydroxyzine Hcl 25 Mg Tablet 25 Mg PO PRN QID PRN Keflex (Cephalexin) 500 Mg Capsule 500 Mg PO BID I have reviewed the current psychotropics carefully including drug interactions. Risk benefit ratio favors no change other than as noted in my dictated progress note. Diagnosis: Problems: (1) Schizoaffective disorder (2) Anxiety disorder (3) Bipolar affective, mixed, sev w/ psych (4) Impulse control disorder (5) Schizophrenia, paranoid, chronic with acute exacerbation ARABELLA PEACE MD Nov 15, 2017 20:51
[2017-11-16 07:24] VITALS: BP 131/84
[2017-11-16] MEDS: TAMSULOSIN 0.4 MG CAP.ER.24H. PO SCH (09:00)
[2017-11-16] MEDS: LACTOBACILLUS RHAMNOSUS GG 1 CAPSULE. PO SCH ×2 (09:00→19:20)
[2017-11-16] MEDS: CEPHALEXIN 250 MG CAPSULE PO SCH ×2 (09:00→19:21)
[2017-11-16 16:36] VITALS: BP 150/90
[2017-11-16] MEDS: ATORVASTATIN CALCIUM 10 MG TABLET. PO SCH (19:21)
[2017-11-16] MEDS: HALOPERIDOL 5 MG TABLET PO SCH (19:21)
--- NOTE | 2017-11-16 19:57 | PN ---
DATE: 11/15/2017 PSYCHIATRIC PROGRESS NOTE This is a late entry for 11/15/2017, covers elements not covered in my initial note. SUBJECTIVE: I met with the patient in the evening. The patient did well the previous evening and during the day, he is less hyperverbal, less grandiose. He still has pressure of speech. REVIEW OF SYSTEMS: No CV, , pulmonary, eye, ENT system symptoms on review. Reliability varies. MENTAL STATUS EXAM: Oriented to himself and situation. Speech coherent, rapid at times. Abstraction fair, computation impaired, language function intact, attention span short. Mood and affect somewhat labile, manic, but less so than before. LABORATORY DATA: Reviewed. IMPRESSION: Schizoaffective disorder, bipolar type, mixed with psychotic features, in partial remission; urinary tract infection. PLAN: Continue current psychotropics including gradually increasing the Lamictal. Maintain Haldol 5 mg at bedtime. MAN Barrera PEACE MD DR: WHITNEY/jessica JOB#: [id number] / [id number]
[2017-11-16] MEDS ORDERED: lamoTRIgine 25 MG TABLET. PO SCH (21:00)
[2017-11-17 05:32] VITALS: BP 140/82
[2017-11-17 06:44] LABS: ALBUMIN 3.8 g/dL (3.4-5.0); ALBUMIN/GLOBULIN RATIO 1.1 (1.0-1.7); CALCIUM 9.4 mg/dL (8.5-10.1); CREATININE 0.9 mg/dL (0.7-1.3); GFR 82.3; POTASSIUM 4.3 mmol/L (3.5-5.1); TOTAL BILIRUBIN 0.7 mg/dL (0.2-1.0); TOTAL PROTEIN 7.4 g/dL (6.4-8.2)
[2017-11-17 06:53] LABS: BASO % 0 % (0-3); EOS # 0.1 x10^3/uL (0.0-0.7); EOS % 2 % (0-3); HEMATOCRIT 47.5 % (39.0-53.0); HEMOGLOBIN 16.3 g/dL (13.0-17.5); LYMPH # 2.4 x10^3/uL (1.0-4.8); LYMPH % 30 % (24-48); MEAN CORPUSCULAR HEMOGLOBIN 32 pg (25-35); MEAN CORPUSCULAR HGB CONC 34 g/dL (31-37); MEAN CORPUSCULAR VOLUME 92 fL (79-100); MONO # 0.7 x10^3/uL (0.0-1.1); MONO % 9 % (0-9); NEUT # 4.8 x10^3uL (1.8-7.7); NEUT % 59 % (31-73); PLATELET COUNT 115 x10^3/uL (140-400); RED BLOOD COUNT 5.17 x10^6/uL (4.30-5.70); RED CELL DISTRIBUTION WIDTH 13.3 % (11.5-14.5); WHITE BLOOD COUNT 8.1 x10^3/uL (4.0-11.0)
[2017-11-17] MEDS: TAMSULOSIN 0.4 MG CAP.ER.24H. PO SCH (08:03)
[2017-11-17] MEDS: LACTOBACILLUS RHAMNOSUS GG 1 CAPSULE. PO SCH ×2 (08:03→20:17)
[2017-11-17 15:54] VITALS: BP 129/77
--- NOTE | 2017-11-17 18:40 | PN ---
DATE: 11/16/2017 PSYCHIATRIC PROGRESS NOTE This is a late entry for 11/16/2017, covers elements not covered in my initial note. SUBJECTIVE: I met with the patient in the evening. The patient is alert, oriented x 4. Slept 6-3/4 hours. She has been anxious, restless, hyperverbal at times, ambulating up and down the hallway. REVIEW OF SYSTEMS: No CV, , pulmonary, eye, ENT system symptoms on review. MENTAL STATUS EXAM: Oriented to himself and situation. Speech coherent, rapid at times. Abstraction fair, computation impaired, language function intact, attention span short. Mood and affect remain somewhat labile, manic, but less so than before. LABORATORY DATA: Reviewed. IMPRESSION: Unchanged from initial note. PLAN: Continue current psychotropics. Adjust as clinically indicated. MAN Barrera PEACE MD DR: WHITNEY/jessica JOB#: [id number] / [id number]
--- NOTE | 2017-11-17 20:01 | PDOC ---
Exam Note: Preston Note: Late entry for date of service 16 November 2017. Please also refer to the separate dictated note~for this date of service dictated separately.~Patient seen individually. Discussed the patient with Nursing staff reviewed the chart.~ Reviewed interim history and current functioning. Reviewed vital signs,~Labs/ Radiology~and current medications noted below. Continue current treatment with the changes noted in the dictated addendum note Assessment: Vital Signs: VS - Last 72 Hours, by Label Date Time Temp Pulse Resp B/P (MAP) Pulse Ox O2 Delivery O2 Flow Rate FiO2 11/17/17 15:54 98.5 83 18 129/77 (94) 95 Room Air 11/17/17 05:32 97.5 69 20 140/82 (101) 97 Room Air 11/16/17 16:36 97.7 109 18 150/90 (110) 96 11/16/17 07:24 98.1 87 22 131/84 (100) 95 Room Air 11/15/17 16:23 97.5 105 20 150/96 (114) 95 Room Air 11/15/17 05:54 98.6 91 20 146/83 (104) 95 Room Air Vital Signs Date Time Temp Pulse Resp B/P (MAP) Pulse Ox O2 Delivery O2 Flow Rate FiO2 11/17/17 15:54 98.5 83 18 129/77 (94) 95 Room Air I&O Intake and Output 11/17/17 07:00 Intake Total 1560 ml Balance 1560 ml Intake Oral 1560 ml # Bowel Movements 1 Labs: Laboratory Tests Test 11/17/17 06:13 White Blood Count 8.1 x10^3/uL (4.0-11.0) Red Blood Count 5.17 x10^6/uL (4.30-5.70) Hemoglobin 16.3 g/dL (13.0-17.5) Hematocrit 47.5 % (39.0-53.0) Mean Corpuscular Volume 92 fL (79-100) Mean Corpuscular Hemoglobin 32 pg (25-35) Mean Corpuscular Hemoglobin Concent 34 g/dL (31-37) Red Cell Distribution Width 13.3 % (11.5-14.5) Platelet Count 115 x10^3/uL (140-400) L Neutrophils (%) (Auto) 59 % (31-73) Lymphocytes (%) (Auto) 30 % (24-48) Monocytes (%) (Auto) 9 % (0-9) Eosinophils (%) (Auto) 2 % (0-3) Basophils (%) (Auto) 0 % (0-3) Neutrophils # (Auto) 4.8 x10^3uL (1.8-7.7) Lymphocytes # (Auto) 2.4 x10^3/uL (1.0-4.8) Monocytes # (Auto) 0.7 x10^3/uL (0.0-1.1) Eosinophils # (Auto) 0.1 x10^3/uL (0.0-0.7) Basophils # (Auto) 0.0 x10^3/uL (0.0-0.2) Sodium Level 137 mmol/L (136-145) Potassium Level 4.3 mmol/L (3.5-5.1) Chloride Level 102 mmol/L (98-107) Carbon Dioxide Level 33 mmol/L (21-32) H Anion Gap 2 (6-14) L Blood Urea Nitrogen 12 mg/dL (8-26) Creatinine 0.9 mg/dL (0.7-1.3) Estimated GFR (Cockcroft-Gault) 82.3 BUN/Creatinine Ratio 13 (6-20) Glucose Level 101 mg/dL (70-99) H Calcium Level 9.4 mg/dL (8.5-10.1) Total Bilirubin 0.7 mg/dL (0.2-1.0) Aspartate Amino Transferase (AST) 20 U/L (15-37) Alanine Aminotransferase (ALT) 35 U/L (16-63) Alkaline Phosphatase 96 U/L (46-116) Total Protein 7.4 g/dL (6.4-8.2) Albumin 3.8 g/dL (3.4-5.0) Albumin/Globulin Ratio 1.1 (1.0-1.7) Current Medications: Meds: Current Medications Olanzapine (ZyPREXA ZYDIS) 2.5 mg PRN Q2HR PRN PO PSYCHOSIS; Start 11/10/17 at 08:45 Acetaminophen (Tylenol) 650 mg PRN Q6HRS PRN PO PAIN / TEMP; Start 11/10/17 at 09:45 Multi-Ingredient Ointment (Analgesic [place]) 1 maximo PRN QID PRN TP MUSCLE PAIN; Start 11/10/17 at 09:45 Al Hydroxide/Mg Hydroxide (Mylanta Plus Xs) 15 ml PRN AFTMEALHC PRN PO DYSPEPSIA; Start 11/10/17 at 09:45 Magnesium Hydroxide (Milk Of Magnesia) 2,400 mg PRN QHS PRN PO CONSTIPATION; Start 11/10/17 at 09:45 Hydroxyzine HCl (Atarax) 25 mg PRN QID PRN PO ANXIETY / AGITATION Last administered on 11/10/17at 19:36; Start 11/10/17 at 09:45 Tamsulosin HCl (Flomax) 0.4 mg DAILY PO Last administered on 11/17/17at 08:03; Start 11/11/17 at 09:00 Cephalexin HCl (Keflex) 500 mg BID PO Last administered on 11/16/17at 19:21; Start 11/10/17 at 21:00; Stop 11/16/17 at 21:01; Status DC Lactobacillus Rhamnosus (Culturelle) 1 cap BID PO Last administered on at 08:03; Start 11/10/17 at 21:00 Lamotrigine (LaMICtal) 25 mg HS PO Last administered on 11/15/17at 19:32; Start 11/11/17 at 21:00; Stop 11/16/17 at 09:00; Status DC Lamotrigine (LaMICtal) 50 mg HS PO Last administered on 11/16/17at 19:41; Start 11/16/17 at 21:00; Stop 11/17/17 at 18:29; Status DC Lamotrigine (LaMICtal) 75 mg HS PO ; Start 11/21/17 at 21:00; Stop 11/21/17 at 21: 00; Status DC Lamotrigine (LaMICtal) 100 mg HS PO ; Start 11/25/17 at 21:00; Stop 11/25/17 at 21 :00; Status DC Haloperidol (Haldol) 5 mg HS PO Last administered on 11/16/17at 19:21; Start at 21:00 Vitamin D (Vitamin D3) 50,000 unit WEEKLY PO ; Start 11/11/17 at 18:15; Stop at 18:29; Status DC Atorvastatin Calcium (Lipitor) 10 mg QHS PO Last administered on 11/16/17at 19: 21; Start 11/11/17 at 21:00 Vitamin D (Vitamin D3) 50,000 unit WEEKLY PO Last administered on 11/11/17at 20: 16; Start 11/11/17 at 21:00 Divalproex Sodium (Depakote Er) 500 mg QHS PO ; Start 11/17/17 at 21:00 Active Scripts Active Reported Tamsulosin Hcl 0.4 Mg Cap.er.24h 0.4 Mg PO DAILY Hydroxyzine Hcl 25 Mg Tablet 25 Mg PO PRN QID PRN Keflex (Cephalexin) 500 Mg Capsule 500 Mg PO BID I have reviewed the current psychotropics carefully including drug interactions. Risk benefit ratio favors no change other than as noted in my dictated progress note. Diagnosis: Problems: (1) Schizoaffective disorder (2) Anxiety disorder (3) Bipolar affective, mixed, sev w/ psych (4) Impulse control disorder (5) Schizophrenia, paranoid, chronic with acute exacerbation ARABELLA PEACE MD Nov 17, 2017 20:01
[2017-11-17] MEDS: HALOPERIDOL 5 MG TABLET PO SCH (20:17)
[2017-11-17] MEDS: ATORVASTATIN CALCIUM 10 MG TABLET. PO SCH (20:17)
[2017-11-17] MEDS: DIVALPROEX ER 500 MG TAB.ER.24H PO SCH (20:19)
[2017-11-18 05:28] VITALS: BP 135/79
[2017-11-18] MEDS: LACTOBACILLUS RHAMNOSUS GG 1 CAPSULE. PO SCH ×2 (07:55→19:27)
[2017-11-18] MEDS: TAMSULOSIN 0.4 MG CAP.ER.24H. PO SCH (07:55)
[2017-11-18] MEDS: CHOLECALCIFEROL (VITAMIN D3) 50,000 UNIT CAPSULE PO SCH (07:56)
[2017-11-18 15:59] VITALS: BP 154/80
[2017-11-18] MEDS: ATORVASTATIN CALCIUM 10 MG TABLET. PO SCH (19:27)
[2017-11-18] MEDS: HALOPERIDOL 5 MG TABLET PO SCH (19:27)
[2017-11-18] MEDS: DIVALPROEX ER 500 MG TAB.ER.24H PO SCH (19:27)
--- NOTE | 2017-11-18 20:49 | PDOC ---
Exam Note: Preston Note: Please also refer to the separate dictated note~for this date of service dictated separately.~Patient seen individually. Discussed the patient with Nursing staff reviewed the chart.~Reviewed interim history and current functioning. Reviewed vital signs,~Labs/ Radiology~and current medications noted below. Continue current treatment with the changes noted in the dictated addendum note Assessment: Vital Signs: Vital Signs Date Time Temp Pulse Resp B/P (MAP) Pulse Ox O2 Delivery O2 Flow Rate FiO2 11/18/17 15:59 96.7 79 20 154/80 (104) 96 Room Air I&O Intake and Output 11/18/17 06:59 Intake Total 1200 ml Balance 1200 ml Intake Oral 1200 ml Current Medications: Meds: Current Medications Olanzapine (ZyPREXA ZYDIS) 2.5 mg PRN Q2HR PRN PO PSYCHOSIS; Start 11/10/17 at 08:45 Acetaminophen (Tylenol) 650 mg PRN Q6HRS PRN PO PAIN / TEMP; Start 11/10/17 at 09:45 Multi-Ingredient Ointment (Analgesic [place]) 1 maximo PRN QID PRN TP MUSCLE PAIN; Start 11/10/17 at 09:45 Al Hydroxide/Mg Hydroxide (Mylanta Plus Xs) 15 ml PRN AFTMEALHC PRN PO DYSPEPSIA; Start 11/10/17 at 09:45 Magnesium Hydroxide (Milk Of Magnesia) 2,400 mg PRN QHS PRN PO CONSTIPATION; Start 11/10/17 at 09:45 Hydroxyzine HCl (Atarax) 25 mg PRN QID PRN PO ANXIETY / AGITATION Last administered on 11/10/17at 19:36; Start 11/10/17 at 09:45 Tamsulosin HCl (Flomax) 0.4 mg DAILY PO Last administered on 11/18/17at 07:55; Start 11/11/17 at 09:00 Cephalexin HCl (Keflex) 500 mg BID PO Last administered on 11/16/17at 19:21; Start 11/10/17 at 21:00; Stop 11/16/17 at 21:01; Status DC Lactobacillus Rhamnosus (Culturelle) 1 cap BID PO Last administered on at 19:27; Start 11/10/17 at 21:00 Lamotrigine (LaMICtal) 25 mg HS PO Last administered on 11/15/17 19:32; Start 11/11/17 at 21:00; Stop 11/16/17 at 09:00; Status DC Lamotrigine (LaMICtal) 50 mg HS PO Last administered on 11/16/17 19:41; Start 11/16/17 at 21:00; Stop 11/17/17 at 18:29; Status DC Lamotrigine (LaMICtal) 75 mg HS PO ; Start 11/21/17 at 21:00; Stop 11/21/17 at 21: 00; Status DC Lamotrigine (LaMICtal) 100 mg HS PO ; Start 11/25/17 at 21:00; Stop 11/25/17 at 21 :00; Status DC Haloperidol (Haldol) 5 mg HS PO Last administered on 11/18/17 19:27; Start at 21:00 Vitamin D (Vitamin D3) 50,000 unit WEEKLY PO ; Start 11/11/17 at 18:15; Stop at 18:29; Status DC Atorvastatin Calcium (Lipitor) 10 mg QHS PO Last administered on 11/18/17at 19: 27; Start 11/11/17 at 21:00 Vitamin D (Vitamin D3) 50,000 unit WEEKLY PO Last administered on 11/18/17at 07: 56; Start 11/11/17 at 21:00 Divalproex Sodium (Depakote Er) 500 mg QHS PO Last administered on 11/18/17 19 :27; Start 11/17/17 at 21:00 Active Scripts Active Reported Tamsulosin Hcl 0.4 Mg Cap.er.24h 0.4 Mg PO DAILY Hydroxyzine Hcl 25 Mg Tablet 25 Mg PO PRN QID PRN Keflex (Cephalexin) 500 Mg Capsule 500 Mg PO BID I have reviewed the current psychotropics carefully including drug interactions. Risk benefit ratio favors no change other than as noted in my dictated progress note. Diagnosis: Problems: (1) Schizoaffective disorder (2) Anxiety disorder (3) Bipolar affective, mixed, sev w/ psych (4) Impulse control disorder (5) Schizophrenia, paranoid, chronic with acute exacerbation ARABELLA PEACE MD Nov 18, 2017 20:49
[2017-11-19 05:42] VITALS: BP 139/81
[2017-11-19] MEDS: LACTOBACILLUS RHAMNOSUS GG 1 CAPSULE. PO SCH ×2 (07:53→19:20)
[2017-11-19] MEDS: TAMSULOSIN 0.4 MG CAP.ER.24H. PO SCH (07:53)
[2017-11-19 15:53] VITALS: BP 136/85
[2017-11-19] MEDS: ATORVASTATIN CALCIUM 10 MG TABLET. PO SCH (19:20)
[2017-11-19] MEDS: HALOPERIDOL 5 MG TABLET PO SCH (19:20)
[2017-11-19] MEDS: DIVALPROEX ER 500 MG TAB.ER.24H PO SCH (19:20)
[2017-11-19] MEDS: traZODone 50 MG TABLET. PO SCH (19:23)
--- NOTE | 2017-11-19 19:55 | PDOC ---
Exam Note: Preston Note: Please also refer to the separate dictated note~for this date of service dictated separately.~Patient seen individually. Discussed the patient with Nursing staff reviewed the chart.~Reviewed interim history and current functioning. Reviewed vital signs,~Labs/ Radiology~and current medications noted below. Continue current treatment with the changes noted in the dictated addendum note Assessment: Vital Signs: Vital Signs Date Time Temp Pulse Resp B/P (MAP) Pulse Ox O2 Delivery O2 Flow Rate FiO2 11/19/17 15:53 98.1 80 16 136/85 (102) 97 11/18/17 15:59 Room Air I&O Intake and Output 11/19/17 06:59 Intake Total 1320 ml Balance 1320 ml Intake Oral 1320 ml Current Medications: Meds: Current Medications Olanzapine (ZyPREXA ZYDIS) 2.5 mg PRN Q2HR PRN PO PSYCHOSIS; Start 11/10/17 at 08:45 Acetaminophen (Tylenol) 650 mg PRN Q6HRS PRN PO PAIN / TEMP; Start 11/10/17 at 09:45 Multi-Ingredient Ointment (Analgesic [place]) 1 maximo PRN QID PRN TP MUSCLE PAIN; Start 11/10/17 at 09:45 Al Hydroxide/Mg Hydroxide (Mylanta Plus Xs) 15 ml PRN AFTMEALHC PRN PO DYSPEPSIA; Start 11/10/17 at 09:45 Magnesium Hydroxide (Milk Of Magnesia) 2,400 mg PRN QHS PRN PO CONSTIPATION; Start 11/10/17 at 09:45 Hydroxyzine HCl (Atarax) 25 mg PRN QID PRN PO ANXIETY / AGITATION Last administered on 11/10/17at 19:36; Start 11/10/17 at 09:45 Tamsulosin HCl (Flomax) 0.4 mg DAILY PO Last administered on 11/19/17at 07:53; Start 11/11/17 at 09:00 Cephalexin HCl (Keflex) 500 mg BID PO Last administered on 11/16/17at 19:21; Start 11/10/17 at 21:00; Stop 11/16/17 at 21:01; Status DC Lactobacillus Rhamnosus (Culturelle) 1 cap BID PO Last administered on at 19:20; Start 11/10/17 at 21:00 Lamotrigine (LaMICtal) 25 mg HS PO Last administered on 11/15/17at 19:32; Start 11/11/17 at 21:00; Stop 11/16/17 at 09:00; Status DC Lamotrigine (LaMICtal) 50 mg HS PO Last administered on 11/16/17at 19:41; Start 11/16/17 at 21:00; Stop 11/17/17 at 18:29; Status DC Lamotrigine (LaMICtal) 75 mg HS PO ; Start 11/21/17 at 21:00; Stop 11/21/17 at 21: 00; Status DC Lamotrigine (LaMICtal) 100 mg HS PO ; Start 11/25/17 at 21:00; Stop 11/25/17 at 21 :00; Status DC Haloperidol (Haldol) 5 mg HS PO Last administered on 11/19/17at 19:20; Start at 21:00 Vitamin D (Vitamin D3) 50,000 unit WEEKLY PO ; Start 11/11/17 at 18:15; Stop at 18:29; Status DC Atorvastatin Calcium (Lipitor) 10 mg QHS PO Last administered on 11/19/17at 19: 20; Start 11/11/17 at 21:00 Vitamin D (Vitamin D3) 50,000 unit WEEKLY PO Last administered on 11/18/17at 07: 56; Start 11/11/17 at 21:00 Divalproex Sodium (Depakote Er) 500 mg QHS PO Last administered on 11/19/17at 19 :20; Start 11/17/17 at 21:00 Trazodone HCl (Desyrel) 50 mg QHS PO Last administered on 11/19/17at 19:23; Start 11/19/17 at 21:00 Trazodone HCl (Desyrel) 50 mg PRN QHS PRN PO insomnia; Start 11/19/17 at 18:45 Active Scripts Active Reported Tamsulosin Hcl 0.4 Mg Cap.er.24h 0.4 Mg PO DAILY Hydroxyzine Hcl 25 Mg Tablet 25 Mg PO PRN QID PRN Keflex (Cephalexin) 500 Mg Capsule 500 Mg PO BID I have reviewed the current psychotropics carefully including drug interactions. Risk benefit ratio favors no change other than as noted in my dictated progress note. Diagnosis: Problems: (1) Schizoaffective disorder (2) Anxiety disorder (3) Bipolar affective, mixed, sev w/ psych (4) Impulse control disorder (5) Schizophrenia, paranoid, chronic with acute exacerbation ARABELLA PEACE MD Nov 19, 2017 19:55
--- NOTE | 2017-11-19 23:43 | PN ---
DATE: 11/17/2017 PSYCHIATRIC PROGRESS NOTE This is a late entry 11/17/2017 covers elements not covered in my initial note 11/17/2017. SUBJECTIVE: I met with the patient in the evening. The patient has been tearful, anxious, slept 6 hours previous evening. 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 Addressed this with him, insight is somewhat limited. REVIEW OF SYSTEMS: No CV, , pulmonary, eye, ENT system symptoms on review. MENTAL STATUS EXAM: Reasonably oriented. Speech coherent, somewhat pressured. Abstraction fair, computation impaired, language function intact, attention span short. Mood and affect remain somewhat labile. LABORATORY DATA: Reviewed. IMPRESSION: Unchanged from initial note. PLAN: Continue psychotropics from initial note. Given his bipolar symptoms, we will change the Lamictal to Depakote ER 500 mg at bedtime. Check CBC, CMP, valproic acid level in 3 days. Adjust as clinically indicated. MAN Barrera PEACE MD DR: WHITNEY/jessica JOB#: [id number] / [id number]
--- NOTE | 2017-11-19 23:44 | PN ---
DATE: 11/18/2017 PSYCHIATRIC PROGRESS NOTE This is a late entry 11/18/2017, covers elements not covered in my initial note 11/18/2017. SUBJECTIVE: The patient was staffed at treatment team meeting morning of 11/18/2017. Seen individually in the evening. Reviewed his progress history at length. He slept 6 hours previous evening. Appetite 100%, cooperative, pleasant, tearful at times, still delusional about his . REVIEW OF SYSTEMS: No CV, , pulmonary, eye system symptoms on review. MENTAL STATUS EXAM: Reasonably oriented. Speech coherent, somewhat pressured at times. Abstraction fair, computation impaired, language function intact, attention span short. Mood and affect somewhat anxious, labile. He was tearful in the morning, better in the evening. LABORATORY DATA: Reviewed. IMPRESSION: Bipolar 1 disorder, mixed with psychotic features; anxiety disorder, unspecified. PLAN: Continue psychotropics from initial note including the Haldol, Depakote along with Zyprexa and hydroxyzine p.r.n. MAN Barrera PEACE MD DR: WHITNEY/jessica JOB#: [id number] / [id number]
[2017-11-20 05:52] VITALS: BP 123/72
[2017-11-20 07:39] LABS: BASO % 0 % (0-3); EOS # 0.1 x10^3/uL (0.0-0.7); EOS % 1 % (0-3); HEMATOCRIT 48.2 % (39.0-53.0); HEMOGLOBIN 16.3 g/dL (13.0-17.5); LYMPH # 2.3 x10^3/uL (1.0-4.8); LYMPH % 31 % (24-48); MEAN CORPUSCULAR HEMOGLOBIN 31 pg (25-35); MEAN CORPUSCULAR HGB CONC 34 g/dL (31-37); MEAN CORPUSCULAR VOLUME 93 fL (79-100); MONO # 0.6 x10^3/uL (0.0-1.1); MONO % 8 % (0-9); NEUT # 4.4 x10^3uL (1.8-7.7); NEUT % 59 % (31-73); PLATELET COUNT 116 x10^3/uL (140-400); RED CELL DISTRIBUTION WIDTH 13.4 % (11.5-14.5); WHITE BLOOD COUNT 7.3 x10^3/uL (4.0-11.0)
[2017-11-20] MEDS: TAMSULOSIN 0.4 MG CAP.ER.24H. PO SCH (08:16)
[2017-11-20] MEDS: LACTOBACILLUS RHAMNOSUS GG 1 CAPSULE. PO SCH ×2 (08:16→19:57)
[2017-11-20 08:20] LABS: ALBUMIN 3.5 g/dL (3.4-5.0); ALBUMIN/GLOBULIN RATIO 0.9 (1.0-1.7); ALK PHOS 93 U/L (46-116); ALT (SGPT) 30 U/L (16-63); ANION GAP 3 (6-14); AST (SGOT) 17 U/L (15-37); BLOOD UREA NITROGEN 12 mg/dL (8-26); BUN/CREATININE RATIO 12 (6-20); CALCIUM 9.3 mg/dL (8.5-10.1); CARBON DIOXIDE 35 mmol/L (21-32); CHLORIDE 103 mmol/L (98-107); GFR 72.8; GLUCOSE 88 mg/dL (70-99); POTASSIUM 4.6 mmol/L (3.5-5.1); SODIUM 141 mmol/L (136-145); TOTAL BILIRUBIN 0.6 mg/dL (0.2-1.0); TOTAL PROTEIN 7.2 g/dL (6.4-8.2)
[2017-11-20 08:24] LABS: VAL ACID 38 mcg/mL (50-100)
[2017-11-20 15:56] VITALS: BP 148/76
[2017-11-20] MEDS: DIVALPROEX ER 500 MG TAB.ER.24H PO SCH (19:59)
[2017-11-20] MEDS: HALOPERIDOL 5 MG TABLET PO SCH (19:59)
[2017-11-20] MEDS: ATORVASTATIN CALCIUM 10 MG TABLET. PO SCH (19:59)
[2017-11-20] MEDS: traZODone 50 MG TABLET. PO SCH (19:59)
--- NOTE | 2017-11-20 22:23 | PDOC ---
Exam Note: Preston Note: Please also refer to the separate dictated note~for this date of service dictated separately.~Patient seen individually. Discussed the patient with Nursing staff reviewed the chart.~Reviewed interim history and current functioning. Reviewed vital signs,~Labs/ Radiology~and current medications noted below. Continue current treatment with the changes noted in the dictated addendum note Assessment: Vital Signs: Vital Signs Date Time Temp Pulse Resp B/P (MAP) Pulse Ox O2 Delivery O2 Flow Rate FiO2 11/20/17 15:56 98.1 78 18 148/76 (100) 96 11/18/17 15:59 Room Air I&O Intake and Output 11/20/17 06:59 Intake Total 1200 ml Balance 1200 ml Intake Oral 1200 ml Labs: Laboratory Tests Test 11/20/17 07:17 White Blood Count 7.3 x10^3/uL (4.0-11.0) Red Blood Count 5.20 x10^6/uL (4.30-5.70) Hemoglobin 16.3 g/dL (13.0-17.5) Hematocrit 48.2 % (39.0-53.0) Mean Corpuscular Volume 93 fL (79-100) Mean Corpuscular Hemoglobin 31 pg (25-35) Mean Corpuscular Hemoglobin Concent 34 g/dL (31-37) Red Cell Distribution Width 13.4 % (11.5-14.5) Platelet Count 116 x10^3/uL (140-400) L Neutrophils (%) (Auto) 59 % (31-73) Lymphocytes (%) (Auto) 31 % (24-48) Monocytes (%) (Auto) 8 % (0-9) Eosinophils (%) (Auto) 1 % (0-3) Basophils (%) (Auto) 0 % (0-3) Neutrophils # (Auto) 4.4 x10^3uL (1.8-7.7) Lymphocytes # (Auto) 2.3 x10^3/uL (1.0-4.8) Monocytes # (Auto) 0.6 x10^3/uL (0.0-1.1) Eosinophils # (Auto) 0.1 x10^3/uL (0.0-0.7) Basophils # (Auto) 0.0 x10^3/uL (0.0-0.2) Sodium Level 141 mmol/L (136-145) Potassium Level 4.6 mmol/L (3.5-5.1) Chloride Level 103 mmol/L (98-107) Carbon Dioxide Level 35 mmol/L (21-32) H Anion Gap 3 (6-14) L Blood Urea Nitrogen 12 mg/dL (8-26) Creatinine 1.0 mg/dL (0.7-1.3) Estimated GFR (Cockcroft-Gault) 72.8 BUN/Creatinine Ratio 12 (6-20) Glucose Level 88 mg/dL (70-99) Calcium Level 9.3 mg/dL (8.5-10.1) Total Bilirubin 0.6 mg/dL (0.2-1.0) Aspartate Amino Transferase (AST) 17 U/L (15-37) Alanine Aminotransferase (ALT) 30 U/L (16-63) Alkaline Phosphatase 93 U/L (46-116) Total Protein 7.2 g/dL (6.4-8.2) Albumin 3.5 g/dL (3.4-5.0) Albumin/Globulin Ratio 0.9 (1.0-1.7) L Valproic Acid Level 38 mcg/mL (50-100) L Valproic Acid Last Dose Date 11/19/17 Valproic Acid Last Dose Time 2100 Current Medications: Meds: Current Medications Olanzapine (ZyPREXA ZYDIS) 2.5 mg PRN Q2HR PRN PO PSYCHOSIS; Start 11/10/17 at 08:45 Acetaminophen (Tylenol) 650 mg PRN Q6HRS PRN PO PAIN / TEMP; Start 11/10/17 at 09:45 Multi-Ingredient Ointment (Analgesic [place]) 1 maximo PRN QID PRN TP MUSCLE PAIN; Start 11/10/17 at 09:45 Al Hydroxide/Mg Hydroxide (Mylanta Plus Xs) 15 ml PRN AFTMEALHC PRN PO DYSPEPSIA; Start 11/10/17 at 09:45 Magnesium Hydroxide (Milk Of Magnesia) 2,400 mg PRN QHS PRN PO CONSTIPATION; Start 11/10/17 at 09:45 Hydroxyzine HCl (Atarax) 25 mg PRN QID PRN PO ANXIETY / AGITATION Last administered on 11/10/17at 19:36; Start 11/10/17 at 09:45 Tamsulosin HCl (Flomax) 0.4 mg DAILY PO Last administered on 11/20/17 08:16; Start 11/11/17 at 09:00 Cephalexin HCl (Keflex) 500 mg BID PO Last administered on 11/16/17 19:21; Start 11/10/17 at 21:00; Stop 11/16/17 at 21:01; Status DC Lactobacillus Rhamnosus (Culturelle) 1 cap BID PO Last administered on at 19:57; Start 11/10/17 at 21:00 Lamotrigine (LaMICtal) 25 mg HS PO Last administered on 11/15/17 19:32; Start 11/11/17 at 21:00; Stop 11/16/17 at 09:00; Status DC Lamotrigine (LaMICtal) 50 mg HS PO Last administered on 11/16/17at 19:41; Start 11/16/17 at 21:00; Stop 11/17/17 at 18:29; Status DC Lamotrigine (LaMICtal) 75 mg HS PO ; Start 11/21/17 at 21:00; Stop 11/21/17 at 21: 00; Status DC Lamotrigine (LaMICtal) 100 mg HS PO ; Start 11/25/17 at 21:00; Stop 11/25/17 at 21 :00; Status DC Haloperidol (Haldol) 5 mg HS PO Last administered on 11/20/17at 19:59; Start at 21:00 Vitamin D (Vitamin D3) 50,000 unit WEEKLY PO ; Start 11/11/17 at 18:15; Stop at 18:29; Status DC Atorvastatin Calcium (Lipitor) 10 mg QHS PO Last administered on 11/20/17at 19: 59; Start 11/11/17 at 21:00 Vitamin D (Vitamin D3) 50,000 unit WEEKLY PO Last administered on 11/18/17at 07: 56; Start 11/11/17 at 21:00 Divalproex Sodium (Depakote Er) 500 mg QHS PO Last administered on 11/19/17at 19 :20; Start 11/17/17 at 21:00; Stop 11/20/17 at 18:17; Status DC Trazodone HCl (Desyrel) 50 mg QHS PO Last administered on 11/20/17at 19:59; Start 11/19/17 at 21:00 Trazodone HCl (Desyrel) 50 mg PRN QHS PRN PO insomnia; Start 11/19/17 at 18:45 Divalproex Sodium (Depakote Er) 1,000 mg QHS PO Last administered on 11/20/17at 19:59; Start 11/20/17 at 21:00 Active Scripts Active Reported Tamsulosin Hcl 0.4 Mg Cap.er.24h 0.4 Mg PO DAILY Hydroxyzine Hcl 25 Mg Tablet 25 Mg PO PRN QID PRN Keflex (Cephalexin) 500 Mg Capsule 500 Mg PO BID I have reviewed the current psychotropics carefully including drug interactions. Risk benefit ratio favors no change other than as noted in my dictated progress note. Diagnosis: Problems: (1) Schizoaffective disorder (2) Anxiety disorder (3) Bipolar affective, mixed, sev w/ psych (4) Impulse control disorder (5) Schizophrenia, paranoid, chronic with acute exacerbation ARABELLA PEACE MD Nov 20, 2017 22:23
[2017-11-20] MEDS: traZODone 50 MG TABLET. PO PRN (23:02)
[2017-11-21] MEDS: hydrOXYzine HCL 25 MG TABLET PO PRN (00:12)
[2017-11-21 05:58] VITALS: BP 130/75
[2017-11-21] MEDS: LACTOBACILLUS RHAMNOSUS GG 1 CAPSULE. PO SCH ×2 (07:57→20:01)
[2017-11-21] MEDS: TAMSULOSIN 0.4 MG CAP.ER.24H. PO SCH (07:57)
[2017-11-21 16:15] VITALS: BP 128/76
[2017-11-21] MEDS: traZODone 50 MG TABLET. PO SCH (20:01)
[2017-11-21] MEDS: ATORVASTATIN CALCIUM 10 MG TABLET. PO SCH (20:01)
[2017-11-21] MEDS: HALOPERIDOL 5 MG TABLET PO SCH (20:01)
[2017-11-21] MEDS: DIVALPROEX ER 500 MG TAB.ER.24H PO SCH (20:01)
--- NOTE | 2017-11-21 20:55 | PDOC ---
Exam Note: Preston Note: Please also refer to the separate dictated note~for this date of service dictated separately.~Patient seen individually. Discussed the patient with Nursing staff reviewed the chart.~Reviewed interim history and current functioning. Reviewed vital signs,~Labs/ Radiology~and current medications noted below. Continue current treatment with the changes noted in the dictated addendum note Assessment: Vital Signs: Vital Signs Date Time Temp Pulse Resp B/P (MAP) Pulse Ox O2 Delivery O2 Flow Rate FiO2 11/21/17 16:15 97.4 70 16 128/76 (93) 98 11/21/17 05:58 Room Air I&O Intake and Output 11/21/17 07:00 Intake Total 1680 ml Balance 1680 ml Intake Oral 1680 ml Current Medications: Meds: Current Medications Olanzapine (ZyPREXA ZYDIS) 2.5 mg PRN Q2HR PRN PO PSYCHOSIS; Start 11/10/17 at 08:45 Acetaminophen (Tylenol) 650 mg PRN Q6HRS PRN PO PAIN / TEMP; Start 11/10/17 at 09:45 Multi-Ingredient Ointment (Analgesic [place]) 1 maximo PRN QID PRN TP MUSCLE PAIN; Start 11/10/17 at 09:45 Al Hydroxide/Mg Hydroxide (Mylanta Plus Xs) 15 ml PRN AFTMEALHC PRN PO DYSPEPSIA; Start 11/10/17 at 09:45 Magnesium Hydroxide (Milk Of Magnesia) 2,400 mg PRN QHS PRN PO CONSTIPATION; Start 11/10/17 at 09:45 Hydroxyzine HCl (Atarax) 25 mg PRN QID PRN PO ANXIETY / AGITATION Last administered on 11/21/17at 00:12; Start 11/10/17 at 09:45 Tamsulosin HCl (Flomax) 0.4 mg DAILY PO Last administered on 11/21/17at 07:57; Start 11/11/17 at 09:00 Cephalexin HCl (Keflex) 500 mg BID PO Last administered on 11/16/17at 19:21; Start 11/10/17 at 21:00; Stop 11/16/17 at 21:01; Status DC Lactobacillus Rhamnosus (Culturelle) 1 cap BID PO Last administered on at 20:01; Start 11/10/17 at 21:00 Lamotrigine (LaMICtal) 25 mg HS PO Last administered on 11/15/17at 19:32; Start 11/11/17 at 21:00; Stop 11/16/17 at 09:00; Status DC Lamotrigine (LaMICtal) 50 mg HS PO Last administered on 11/16/17at 19:41; Start 11/16/17 at 21:00; Stop 11/17/17 at 18:29; Status DC Lamotrigine (LaMICtal) 75 mg HS PO ; Start 11/21/17 at 21:00; Stop 11/21/17 at 21: 00; Status DC Lamotrigine (LaMICtal) 100 mg HS PO ; Start 11/25/17 at 21:00; Stop 11/25/17 at 21 :00; Status DC Haloperidol (Haldol) 5 mg HS PO Last administered on 11/21/17at 20:01; Start at 21:00 Vitamin D (Vitamin D3) 50,000 unit WEEKLY PO ; Start 11/11/17 at 18:15; Stop at 18:29; Status DC Atorvastatin Calcium (Lipitor) 10 mg QHS PO Last administered on 11/21/17at 20:01 ; Start 11/11/17 at 21:00 Vitamin D (Vitamin D3) 50,000 unit WEEKLY PO Last administered on 11/18/17at 07: 56; Start 11/11/17 at 21:00 Divalproex Sodium (Depakote Er) 500 mg QHS PO Last administered on 11/19/17at 19 :20; Start 11/17/17 at 21:00; Stop 11/20/17 at 18:17; Status DC Trazodone HCl (Desyrel) 50 mg QHS PO Last administered on 11/21/17at 20:01; Start 11/19/17 at 21:00 Trazodone HCl (Desyrel) 50 mg PRN QHS PRN PO insomnia Last administered on 11/20at 23:02; Start 11/19/17 at 18:45 Divalproex Sodium (Depakote Er) 1,000 mg QHS PO Last administered on 11/21/17at 20:01; Start 11/20/17 at 21:00 Active Scripts Active Reported Tamsulosin Hcl 0.4 Mg Cap.er.24h 0.4 Mg PO DAILY Hydroxyzine Hcl 25 Mg Tablet 25 Mg PO PRN QID PRN Keflex (Cephalexin) 500 Mg Capsule 500 Mg PO BID I have reviewed the current psychotropics carefully including drug interactions. Risk benefit ratio favors no change other than as noted in my dictated progress note. Diagnosis: Problems: (1) Schizoaffective disorder (2) Anxiety disorder (3) Bipolar affective, mixed, sev w/ psych (4) Impulse control disorder (5) Schizophrenia, paranoid, chronic with acute exacerbation ARABELLA PEACE MD Nov 21, 2017 20:55
[2017-11-21] MEDS ORDERED: lamoTRIgine 25 MG TABLET. PO SCH (21:00)
[2017-11-21] MEDS: traZODone 50 MG TABLET. PO PRN (22:34)
--- NOTE | 2017-11-21 23:07 | PN ---
DATE: 11/19/2017 This is a late entry, 11/19/2017, covers the elements not covered in my initial note. SUBJECTIVE: I met with the patient in the evening. The patient slept 4-1/4 hours the previous evening. He remains somewhat hyperverbal, fixated on rationalizing what he did at home including making holes in [place] and destroying the water heater, was something that he had to do to fix the "problem." Processed this with him. REVIEW OF SYSTEMS: No CV, , pulmonary, eye, ENT system symptoms on review. MENTAL STATUS EXAM: Oriented to himself and situation. Speech coherent, rapid at times. Abstraction fair, computation impaired, language function intact, attention span short. Mood and affect remain somewhat labile at times, hypomanic, but improved. LABORATORY DATA: Reviewed. IMPRESSION: Unchanged from initial note. PLAN: Start trazodone 50 mg at bedtime as needed, may repeat x 1 for insomnia. Continue rest unchanged and follow labs level of the Depakote on 11/20/2017, and adjust further as clinically indicated to reach therapeutic level. MAN Barrera PEACE MD DR: WHITNEY/jessica JOB#: [id number] / [id number]
--- NOTE | 2017-11-21 23:10 | PN ---
DATE: 11/20/2017 This is a late entry, 11/20/2017, covers the elements not covered in my initial note. SUBJECTIVE: I met with the patient in the evening. The patient has been fairly pleasant, slept 8-1/2 hours, remains somewhat hyperverbal, still rationalizes the circumstances prompting his admission. REVIEW OF SYSTEMS: No CV, , pulmonary, eye, ENT system symptoms on review. MENTAL STATUS EXAM: Oriented to himself and situation. Speech coherent, less pressured. Abstraction fair, computation impaired, language function intact, attention span short. Mood and affect remain somewhat labile, grandiose at times, less so than before. Valproic acid level is 38. IMPRESSION: Unchanged from initial note. PLAN: Increase Depakote ER from 500 mg at bedtime to 1000 mg at bedtime. Check CBC, CMP, valproic acid level in 3 days. Rest unchanged from initial note. MAN Barrera PEACE MD DR: WHITNEY/jessica JOB#: [id number] / [id number]
--- NOTE | 2017-11-21 23:13 | PN ---
DATE: 11/21/2017 This note covers the elements not covered in my initial note, 11/21/2017. SUBJECTIVE: I met with the patient in the evening in his room. The patient slept 3-3/4 hours the previous evening. He woke up in the evening after a nap, was somewhat delusional per nursing report; states, he saw a doctor he does not like and believes that someone from his past, unsure of this. Otherwise, calm, cooperative, pleasant, social, still somewhat hyperverbal. REVIEW OF SYSTEMS: No CV, , pulmonary, eye system symptoms on review. MENTAL STATUS EXAM: Oriented to himself and situation. Speech coherent, less pressured. Abstraction fair, computation impaired, language function intact, attention span short. Mood and affect somewhat labile, but improved. LABORATORY DATA: Reviewed. IMPRESSION: Unchanged from initial note. PLAN: No change from a psychiatric standpoint, Depakote was increased. ARABELLA PEACE MD DR: WHITNEY/jessica JOB#: [id number] / [id number]
[2017-11-22 06:16] VITALS: BP 131/86
[2017-11-22] MEDS: TAMSULOSIN 0.4 MG CAP.ER.24H. PO SCH (08:22)
[2017-11-22] MEDS: LACTOBACILLUS RHAMNOSUS GG 1 CAPSULE. PO SCH ×2 (08:22→19:34)
[2017-11-22 15:57] VITALS: BP 126/74
[2017-11-22] MEDS: HALOPERIDOL 5 MG TABLET PO SCH (19:34)
[2017-11-22] MEDS: traZODone 50 MG TABLET. PO SCH (19:34)
[2017-11-22] MEDS: DIVALPROEX ER 500 MG TAB.ER.24H PO SCH (19:34)
[2017-11-22] MEDS: ATORVASTATIN CALCIUM 10 MG TABLET. PO SCH (19:34)
--- NOTE | 2017-11-22 20:55 | PDOC ---
Exam Note: Preston Note: Please also refer to the separate dictated note~for this date of service dictated separately.~Patient seen individually. Discussed the patient with Nursing staff reviewed the chart.~Reviewed interim history and current functioning. Reviewed vital signs,~Labs/ Radiology~and current medications noted below. Continue current treatment with the changes noted in the dictated addendum note Assessment: Vital Signs: Vital Signs Date Time Temp Pulse Resp B/P (MAP) Pulse Ox O2 Delivery O2 Flow Rate FiO2 11/22/17 15:57 98.0 69 20 126/74 (91) 97 11/21/17 05:58 Room Air I&O Intake and Output 11/22/17 06:59 Intake Total 1800 ml Balance 1800 ml Intake Oral 1800 ml # Voids 1 Current Medications: Meds: Current Medications Olanzapine (ZyPREXA ZYDIS) 2.5 mg PRN Q2HR PRN PO PSYCHOSIS; Start 11/10/17 at 08:45 Acetaminophen (Tylenol) 650 mg PRN Q6HRS PRN PO PAIN / TEMP; Start 11/10/17 at 09:45 Multi-Ingredient Ointment (Analgesic [place]) 1 maximo PRN QID PRN TP MUSCLE PAIN; Start 11/10/17 at 09:45 Al Hydroxide/Mg Hydroxide (Mylanta Plus Xs) 15 ml PRN AFTMEALHC PRN PO DYSPEPSIA; Start 11/10/17 at 09:45 Magnesium Hydroxide (Milk Of Magnesia) 2,400 mg PRN QHS PRN PO CONSTIPATION; Start 11/10/17 at 09:45 Hydroxyzine HCl (Atarax) 25 mg PRN QID PRN PO ANXIETY / AGITATION Last administered on 11/21/17at 00:12; Start 11/10/17 at 09:45 Tamsulosin HCl (Flomax) 0.4 mg DAILY PO Last administered on 11/22/17at 08:22; Start 11/11/17 at 09:00 Cephalexin HCl (Keflex) 500 mg BID PO Last administered on 11/16/17at 19:21; Start 11/10/17 at 21:00; Stop 11/16/17 at 21:01; Status DC Lactobacillus Rhamnosus (Culturelle) 1 cap BID PO Last administered on at 19:34; Start 11/10/17 at 21:00 Lamotrigine (LaMICtal) 25 mg HS PO Last administered on 11/15/17 19:32; Start 11/11/17 at 21:00; Stop 11/16/17 at 09:00; Status DC Lamotrigine (LaMICtal) 50 mg HS PO Last administered on 11/16/17at 19:41; Start 11/16/17 at 21:00; Stop 11/17/17 at 18:29; Status DC Lamotrigine (LaMICtal) 75 mg HS PO ; Start 11/21/17 at 21:00; Stop 11/21/17 at 21: 00; Status DC Lamotrigine (LaMICtal) 100 mg HS PO ; Start 11/25/17 at 21:00; Stop 11/25/17 at 21 :00; Status DC Haloperidol (Haldol) 5 mg HS PO Last administered on 11/22/17 19:34; Start at 21:00 Vitamin D (Vitamin D3) 50,000 unit WEEKLY PO ; Start 11/11/17 at 18:15; Stop at 18:29; Status DC Atorvastatin Calcium (Lipitor) 10 mg QHS PO Last administered on 11/22/17 19:34 ; Start 11/11/17 at 21:00 Vitamin D (Vitamin D3) 50,000 unit WEEKLY PO Last administered on 11/18/17at 07: 56; Start 11/11/17 at 21:00 Divalproex Sodium (Depakote Er) 500 mg QHS PO Last administered on 11/19/17at 19 :20; Start 11/17/17 at 21:00; Stop 11/20/17 at 18:17; Status DC Trazodone HCl (Desyrel) 50 mg QHS PO Last administered on 11/22/17 19:34; Start 11/19/17 at 21:00 Trazodone HCl (Desyrel) 50 mg PRN QHS PRN PO insomnia Last administered on 22:34; Start 11/19/17 at 18:45 Divalproex Sodium (Depakote Er) 1,000 mg QHS PO Last administered on 11/22/17 19:34; Start 11/20/17 at 21:00 Active Scripts Active Reported Tamsulosin Hcl 0.4 Mg Cap.er.24h 0.4 Mg PO DAILY Hydroxyzine Hcl 25 Mg Tablet 25 Mg PO PRN QID PRN Keflex (Cephalexin) 500 Mg Capsule 500 Mg PO BID I have reviewed the current psychotropics carefully including drug interactions. Risk benefit ratio favors no change other than as noted in my dictated progress note. Diagnosis: Problems: (1) Schizoaffective disorder (2) Anxiety disorder (3) Bipolar affective, mixed, sev w/ psych (4) Impulse control disorder (5) Schizophrenia, paranoid, chronic with acute exacerbation ARABELLA PEACE MD Nov 22, 2017 20:55
[2017-11-23 06:34] VITALS: BP 132/79
[2017-11-23 07:02] LABS: BASO % 0 % (0-3); EOS # 0.1 x10^3/uL (0.0-0.7); EOS % 2 % (0-3); HEMATOCRIT 45.3 % (39.0-53.0); HEMOGLOBIN 15.4 g/dL (13.0-17.5); LYMPH # 2.1 x10^3/uL (1.0-4.8); LYMPH % 34 % (24-48); MEAN CORPUSCULAR HEMOGLOBIN 32 pg (25-35); MEAN CORPUSCULAR HGB CONC 34 g/dL (31-37); MEAN CORPUSCULAR VOLUME 93 fL (79-100); MONO # 0.5 x10^3/uL (0.0-1.1); MONO % 8 % (0-9); NEUT # 3.5 x10^3uL (1.8-7.7); NEUT % 56 % (31-73); PLATELET COUNT 104 x10^3/uL (140-400); RED BLOOD COUNT 4.86 x10^6/uL (4.30-5.70); RED CELL DISTRIBUTION WIDTH 13.1 % (11.5-14.5); WHITE BLOOD COUNT 6.2 x10^3/uL (4.0-11.0)
[2017-11-23 07:16] LABS: ALBUMIN 3.3 g/dL (3.4-5.0); ALK PHOS 82 U/L (46-116); ALT (SGPT) 28 U/L (16-63); ANION GAP 3 (6-14); AST (SGOT) 14 U/L (15-37); BLOOD UREA NITROGEN 10 mg/dL (8-26); BUN/CREATININE RATIO 11 (6-20); CALCIUM 9.1 mg/dL (8.5-10.1); CARBON DIOXIDE 34 mmol/L (21-32); CHLORIDE 102 mmol/L (98-107); CREATININE 0.9 mg/dL (0.7-1.3); GFR 82.3; GLUCOSE 84 mg/dL (70-99); POTASSIUM 4.2 mmol/L (3.5-5.1); SODIUM 139 mmol/L (136-145); TOTAL BILIRUBIN 0.5 mg/dL (0.2-1.0); TOTAL PROTEIN 6.7 g/dL (6.4-8.2)
[2017-11-23 07:18] LABS: VAL ACID 60 mcg/mL (50-100)
[2017-11-23] MEDS: TAMSULOSIN 0.4 MG CAP.ER.24H. PO SCH (08:53)
[2017-11-23] MEDS: LACTOBACILLUS RHAMNOSUS GG 1 CAPSULE. PO SCH ×2 (08:53→19:52)
[2017-11-23 16:21] VITALS: BP 137/76
[2017-11-23] MEDS: traZODone 50 MG TABLET. PO SCH (19:53)
[2017-11-23] MEDS: ATORVASTATIN CALCIUM 10 MG TABLET. PO SCH (19:53)
[2017-11-23] MEDS: DIVALPROEX ER 500 MG TAB.ER.24H PO SCH (19:53)
[2017-11-23] MEDS: HALOPERIDOL 5 MG TABLET PO SCH (19:53)
--- NOTE | 2017-11-23 20:36 | PDOC ---
Exam Note: [place] Note: Please also refer to the separate dictated note~for this date of service dictated separately.~Patient seen individually. Discussed the patient with Nursing staff reviewed the chart.~Reviewed interim history and current functioning. Reviewed vital signs,~Labs/ Radiology~and current medications noted below. Continue current treatment with the changes noted in the dictated addendum note Assessment: Vital Signs: Vital Signs Date Time Temp Pulse Resp B/P (MAP) Pulse Ox O2 Delivery O2 Flow Rate FiO2 11/23/17 16:21 97.5 74 16 137/76 (96) 98 11/21/17 05:58 Room Air I&O Intake and Output 11/23/17 06:59 Intake Total 1680 ml Balance 1680 ml Intake Oral 1680 ml # Voids 1 Labs: Laboratory Tests Test 11/23/17 06:19 White Blood Count 6.2 x10^3/uL (4.0-11.0) Red Blood Count 4.86 x10^6/uL (4.30-5.70) Hemoglobin 15.4 g/dL (13.0-17.5) Hematocrit 45.3 % (39.0-53.0) Mean Corpuscular Volume 93 fL (79-100) Mean Corpuscular Hemoglobin 32 pg (25-35) Mean Corpuscular Hemoglobin Concent 34 g/dL (31-37) Red Cell Distribution Width 13.1 % (11.5-14.5) Platelet Count 104 x10^3/uL (140-400) L Neutrophils (%) (Auto) 56 % (31-73) Lymphocytes (%) (Auto) 34 % (24-48) Monocytes (%) (Auto) 8 % (0-9) Eosinophils (%) (Auto) 2 % (0-3) Basophils (%) (Auto) 0 % (0-3) Neutrophils # (Auto) 3.5 x10^3uL (1.8-7.7) Lymphocytes # (Auto) 2.1 x10^3/uL (1.0-4.8) Monocytes # (Auto) 0.5 x10^3/uL (0.0-1.1) Eosinophils # (Auto) 0.1 x10^3/uL (0.0-0.7) Basophils # (Auto) 0.0 x10^3/uL (0.0-0.2) Sodium Level 139 mmol/L (136-145) Potassium Level 4.2 mmol/L (3.5-5.1) Chloride Level 102 mmol/L (98-107) Carbon Dioxide Level 34 mmol/L (21-32) H Anion Gap 3 (6-14) L Blood Urea Nitrogen 10 mg/dL (8-26) Creatinine 0.9 mg/dL (0.7-1.3) Estimated GFR (Cockcroft-Gault) 82.3 BUN/Creatinine Ratio 11 (6-20) Glucose Level 84 mg/dL (70-99) Calcium Level 9.1 mg/dL (8.5-10.1) Total Bilirubin 0.5 mg/dL (0.2-1.0) Aspartate Amino Transferase (AST) 14 U/L (15-37) L Alanine Aminotransferase (ALT) 28 U/L (16-63) Alkaline Phosphatase 82 U/L (46-116) Total Protein 6.7 g/dL (6.4-8.2) Albumin 3.3 g/dL (3.4-5.0) L Albumin/Globulin Ratio 1.0 (1.0-1.7) Valproic Acid Level 60 mcg/mL (50-100) Valproic Acid Last Dose Date 11/22/17 Valproic Acid Last Dose Time 2100 Current Medications: Meds: Current Medications Olanzapine (ZyPREXA ZYDIS) 2.5 mg PRN Q2HR PRN PO PSYCHOSIS; Start 11/10/17 at 08:45 Acetaminophen (Tylenol) 650 mg PRN Q6HRS PRN PO PAIN / TEMP; Start 11/10/17 at 09:45 Multi-Ingredient Ointment (Analgesic [place]) 1 maximo PRN QID PRN TP MUSCLE PAIN; Start 11/10/17 at 09:45 Al Hydroxide/Mg Hydroxide (Mylanta Plus Xs) 15 ml PRN AFTMEALHC PRN PO DYSPEPSIA; Start 11/10/17 at 09:45 Magnesium Hydroxide (Milk Of Magnesia) 2,400 mg PRN QHS PRN PO CONSTIPATION; Start 11/10/17 at 09:45 Hydroxyzine HCl (Atarax) 25 mg PRN QID PRN PO ANXIETY / AGITATION Last administered on 11/21/17at 00:12; Start 11/10/17 at 09:45 Tamsulosin HCl (Flomax) 0.4 mg DAILY PO Last administered on 11/23/17 08:53; Start 11/11/17 at 09:00 Cephalexin HCl (Keflex) 500 mg BID PO Last administered on 11/16/17 19:21; Start 11/10/17 at 21:00; Stop 11/16/17 at 21:01; Status DC Lactobacillus Rhamnosus (Culturelle) 1 cap BID PO Last administered on 19:52; Start 11/10/17 at 21:00 Lamotrigine (LaMICtal) 25 mg HS PO Last administered on 11/15/17 19:32; Start 11/11/17 at 21:00; Stop 11/16/17 at 09:00; Status DC Lamotrigine (LaMICtal) 50 mg HS PO Last administered on 11/16/17 19:41; Start 11/16/17 at 21:00; Stop 11/17/17 at 18:29; Status DC Lamotrigine (LaMICtal) 75 mg HS PO ; Start 11/21/17 at 21:00; Stop 11/21/17 at 21: 00; Status DC Lamotrigine (LaMICtal) 100 mg HS PO ; Start 11/25/17 at 21:00; Stop 11/25/17 at 21 :00; Status DC Haloperidol (Haldol) 5 mg HS PO Last administered on 11/23/17 19:53; Start at 21:00 Vitamin D (Vitamin D3) 50,000 unit WEEKLY PO ; Start 11/11/17 at 18:15; Stop at 18:29; Status DC Atorvastatin Calcium (Lipitor) 10 mg QHS PO Last administered on 11/23/17 19:53 ; Start 11/11/17 at 21:00 Vitamin D (Vitamin D3) 50,000 unit WEEKLY PO Last administered on 11/18/17at 07: 56; Start 11/11/17 at 21:00 Divalproex Sodium (Depakote Er) 500 mg QHS PO Last administered on 11/19/17at 19 :20; Start 11/17/17 at 21:00; Stop 11/20/17 at 18:17; Status DC Trazodone HCl (Desyrel) 50 mg QHS PO Last administered on 11/23/17at 19:53; Start 11/19/17 at 21:00 Trazodone HCl (Desyrel) 50 mg PRN QHS PRN PO insomnia Last administered on at 22:34; Start 11/19/17 at 18:45 Divalproex Sodium (Depakote Er) 1,000 mg QHS PO Last administered on 11/23/17 19:53; Start 11/20/17 at 21:00 Active Scripts Active Reported Tamsulosin Hcl 0.4 Mg Cap.er.24h 0.4 Mg PO DAILY Hydroxyzine Hcl 25 Mg Tablet 25 Mg PO PRN QID PRN Keflex (Cephalexin) 500 Mg Capsule 500 Mg PO BID I have reviewed the current psychotropics carefully including drug interactions. Risk benefit ratio favors no change other than as noted in my dictated progress note. Diagnosis: Problems: (1) Schizoaffective disorder (2) Anxiety disorder (3) Bipolar affective, mixed, sev w/ psych (4) Impulse control disorder (5) Schizophrenia, paranoid, chronic with acute exacerbation ARABELLA PEACE MD Nov 23, 2017 20:36
--- NOTE | 2017-11-23 21:39 | PN ---
DATE: 11/22/2017 PSYCHIATRIC PROGRESS NOTE This is a late entry, 11/22/2017, covers elements not covered in my initial note. SUBJECTIVE: I met with the patient in the evening. The patient slept 6-1/2 hours previous evening, compliant with medications. Overall, doing better, less hyperverbal. REVIEW OF SYSTEMS: No CV, , pulmonary, eye, ENT system symptoms on review. He still feels he needs to work on the equipment in his home, but not as fixated on this. MENTAL STATUS EXAM: Oriented to himself and situation. Speech coherent with some pressure of speech, less so than before. Abstraction fair, computation impaired, language function intact, attention span short. Mood and affect less manic and less grandiose. LABORATORY DATA: Reviewed. IMPRESSION: Schizoaffective disorder, bipolar type, mixed, in partial remission. PLAN: Continue psychotropics from my initial note. Check valproic acid level on 11/23/2017, adjust to reach therapeutic level. Previous level was 38, subtherapeutic. MAN Barrera PEACE MD DR: WHITNEY/jessica JOB#: [id number] / [id number]
[2017-11-24 06:12] VITALS: BP 137/84
[2017-11-24] MEDS: TAMSULOSIN 0.4 MG CAP.ER.24H. PO SCH (08:45)
[2017-11-24] MEDS: LACTOBACILLUS RHAMNOSUS GG 1 CAPSULE. PO SCH ×2 (08:45→19:58)
[2017-11-24 16:10] VITALS: BP 123/67
[2017-11-24] MEDS: HALOPERIDOL 5 MG TABLET PO SCH (19:58)
[2017-11-24] MEDS: traZODone 50 MG TABLET. PO SCH (19:58)
[2017-11-24] MEDS: ATORVASTATIN CALCIUM 10 MG TABLET. PO SCH (19:58)
[2017-11-24] MEDS: DIVALPROEX ER 500 MG TAB.ER.24H PO SCH (19:59)
--- NOTE | 2017-11-24 20:31 | PDOC ---
Exam Note: [place] Note: Please also refer to the separate dictated note~for this date of service dictated separately.~Patient seen individually. Discussed the patient with Nursing staff reviewed the chart.~Reviewed interim history and current functioning. Reviewed vital signs,~Labs/ Radiology~and current medications noted below. Continue current treatment with the changes noted in the dictated addendum note Assessment: Vital Signs: Vital Signs Date Time Temp Pulse Resp B/P (MAP) Pulse Ox O2 Delivery O2 Flow Rate FiO2 11/24/17 16:10 97.5 86 20 123/67 (85) 95 11/21/17 05:58 Room Air I&O Intake and Output 11/24/17 07:00 Intake Total 1500 ml Balance 1500 ml Intake Oral 1500 ml # Voids 1 Current Medications: Meds: Current Medications Olanzapine (ZyPREXA ZYDIS) 2.5 mg PRN Q2HR PRN PO PSYCHOSIS; Start 11/10/17 at 08:45 Acetaminophen (Tylenol) 650 mg PRN Q6HRS PRN PO PAIN / TEMP; Start 11/10/17 at 09:45 Multi-Ingredient Ointment (Analgesic [place]) 1 maximo PRN QID PRN TP MUSCLE PAIN; Start 11/10/17 at 09:45 Al Hydroxide/Mg Hydroxide (Mylanta Plus Xs) 15 ml PRN AFTMEALHC PRN PO DYSPEPSIA; Start 11/10/17 at 09:45 Magnesium Hydroxide (Milk Of Magnesia) 2,400 mg PRN QHS PRN PO CONSTIPATION; Start 11/10/17 at 09:45 Hydroxyzine HCl (Atarax) 25 mg PRN QID PRN PO ANXIETY / AGITATION Last administered on 11/21/17at 00:12; Start 11/10/17 at 09:45 Tamsulosin HCl (Flomax) 0.4 mg DAILY PO Last administered on 11/24/17at 08:45; Start 11/11/17 at 09:00 Cephalexin HCl (Keflex) 500 mg BID PO Last administered on 11/16/17at 19:21; Start 11/10/17 at 21:00; Stop 11/16/17 at 21:01; Status DC Lactobacillus Rhamnosus (Culturelle) 1 cap BID PO Last administered on at 19:58; Start 11/10/17 at 21:00 Lamotrigine (LaMICtal) 25 mg HS PO Last administered on 11/15/17 19:32; Start 11/11/17 at 21:00; Stop 11/16/17 at 09:00; Status DC Lamotrigine (LaMICtal) 50 mg HS PO Last administered on 11/16/17 19:41; Start 11/16/17 at 21:00; Stop 11/17/17 at 18:29; Status DC Lamotrigine (LaMICtal) 75 mg HS PO ; Start 11/21/17 at 21:00; Stop 11/21/17 at 21: 00; Status DC Lamotrigine (LaMICtal) 100 mg HS PO ; Start 11/25/17 at 21:00; Stop 11/25/17 at 21 :00; Status DC Haloperidol (Haldol) 5 mg HS PO Last administered on 11/24/17 19:58; Start at 21:00 Vitamin D (Vitamin D3) 50,000 unit WEEKLY PO ; Start 11/11/17 at 18:15; Stop at 18:29; Status DC Atorvastatin Calcium (Lipitor) 10 mg QHS PO Last administered on 11/24/17 19:58 ; Start 11/11/17 at 21:00 Vitamin D (Vitamin D3) 50,000 unit WEEKLY PO Last administered on 11/18/17 07: 56; Start 11/11/17 at 21:00 Divalproex Sodium (Depakote Er) 500 mg QHS PO Last administered on 11/19/17at 19 :20; Start 11/17/17 at 21:00; Stop 11/20/17 at 18:17; Status DC Trazodone HCl (Desyrel) 50 mg QHS PO Last administered on 11/24/17 19:58; Start 11/19/17 at 21:00 Trazodone HCl (Desyrel) 50 mg PRN QHS PRN PO insomnia Last administered on 22:34; Start 11/19/17 at 18:45 Divalproex Sodium (Depakote Er) 1,000 mg QHS PO Last administered on 11/24/17 19:59; Start 11/20/17 at 21:00 Active Scripts Active Reported Tamsulosin Hcl 0.4 Mg Cap.er.24h 0.4 Mg PO DAILY Hydroxyzine Hcl 25 Mg Tablet 25 Mg PO PRN QID PRN Keflex (Cephalexin) 500 Mg Capsule 500 Mg PO BID I have reviewed the current psychotropics carefully including drug interactions. Risk benefit ratio favors no change other than as noted in my dictated progress note. Diagnosis: Problems: (1) Schizoaffective disorder (2) Anxiety disorder (3) Bipolar affective, mixed, sev w/ psych (4) Impulse control disorder (5) Schizophrenia, paranoid, chronic with acute exacerbation ARABELLA PEACE MD Nov 24, 2017 20:31
--- NOTE | 2017-11-24 23:13 | PN ---
DATE: 11/23/2017 PSYCHIATRIC PROGRESS NOTE This is a late entry 11/23/2017 covers elements not covered in my initial note 11/23/2017. SUBJECTIVE: I met with the patient in the evening. The patient slept 6-3/4 hours previous evening. came to visit and thinks patient is doing better. He is less fixated on completing the repairs on his appliances at home after he is discharged. REVIREW OF SYSTEMS: No CV, , pulmonary, eye, ENT system symptoms on review. MENTAL STATUS EXAM: Oriented to himself and situation. Speech coherent, pressured at times, less so than before. Abstraction fair, computation impaired, language function intact, attention span short. Mood and affect remain somewhat withdrawn at times. LABORATORY DATA: Better. IMPRESSION: Unchanged from initial note. PLAN: Continue psychotropics from my initial note. MAN Barrera PEACE MD DR: WHITNEY/jessica JOB#: [id number] / [id number]
--- NOTE | 2017-11-24 23:17 | PN ---
DATE: 11/24/2017 PSYCHIATRIC PROGRESS NOTE This late entry 11/24/2017 covers elements not covered in my initial note 11/24/2017. SUBJECTIVE: I met with the patient in the afternoon. The patient slept 6-3/4 hours previous evening, pleasant, cooperative with shower. Family did not visit today. When questioned, he states he will hire someone to fix the furnace rather than doing it himself. REVIEW OF SYSTEMS: No CV, , pulmonary, eye, ENT system symptoms on review. MENTAL STATUS EXAM: Reasonably oriented. Speech coherent, abstraction fair, computation impaired, still some pressure of speech is evident. No suicidal or homicidal ideation. LABORATORY DATA: Reviewed. IMPRESSION: Unchanged from initial note. PLAN: Valproic acid level therapeutic at 60, continued Depakote at current dosage along with Haldol 5 mg at bedtime, hydroxyzine and Zyprexa p.r.n. MAN Barrera PEACE MD DR: WHITNEY/jessica JOB#: [id number] / [id number]
[2017-11-25 05:44] VITALS: BP 118/77
[2017-11-25] MEDS: CHOLECALCIFEROL (VITAMIN D3) 50,000 UNIT CAPSULE PO SCH (09:15)
[2017-11-25] MEDS: LACTOBACILLUS RHAMNOSUS GG 1 CAPSULE. PO SCH ×2 (09:15→20:09)
[2017-11-25] MEDS: TAMSULOSIN 0.4 MG CAP.ER.24H. PO SCH (09:15)
[2017-11-25 15:55] VITALS: BP 134/88
[2017-11-25] MEDS: DIVALPROEX ER 500 MG TAB.ER.24H PO SCH (20:08)
[2017-11-25] MEDS: traZODone 50 MG TABLET. PO SCH (20:09)
[2017-11-25] MEDS: HALOPERIDOL 5 MG TABLET PO SCH (20:09)
[2017-11-25] MEDS: ATORVASTATIN CALCIUM 10 MG TABLET. PO SCH (20:09)
--- NOTE | 2017-11-25 20:53 | PDOC ---
Exam Note: [place] Note: Please also refer to the separate dictated note~for this date of service dictated separately.~Patient seen individually. Discussed the patient with Nursing staff reviewed the chart.~Reviewed interim history and current functioning. Reviewed vital signs,~Labs/ Radiology~and current medications noted below. Continue current treatment with the changes noted in the dictated addendum note Assessment: Vital Signs: Vital Signs Date Time Temp Pulse Resp B/P (MAP) Pulse Ox O2 Delivery O2 Flow Rate FiO2 11/25/17 15:55 98.1 90 20 134/88 (103) 95 11/21/17 05:58 Room Air I&O Intake and Output 11/25/17 06:59 Intake Total 1558 ml Balance 1558 ml Intake Oral 1558 ml # Voids 1 Current Medications: Meds: Current Medications Olanzapine (ZyPREXA ZYDIS) 2.5 mg PRN Q2HR PRN PO PSYCHOSIS; Start 11/10/17 at 08:45 Acetaminophen (Tylenol) 650 mg PRN Q6HRS PRN PO PAIN / TEMP; Start 11/10/17 at 09:45 Multi-Ingredient Ointment (Analgesic [place]) 1 maximo PRN QID PRN TP MUSCLE PAIN; Start 11/10/17 at 09:45 Al Hydroxide/Mg Hydroxide (Mylanta Plus Xs) 15 ml PRN AFTMEALHC PRN PO DYSPEPSIA; Start 11/10/17 at 09:45 Magnesium Hydroxide (Milk Of Magnesia) 2,400 mg PRN QHS PRN PO CONSTIPATION; Start 11/10/17 at 09:45 Hydroxyzine HCl (Atarax) 25 mg PRN QID PRN PO ANXIETY / AGITATION Last administered on 11/21/17at 00:12; Start 11/10/17 at 09:45 Tamsulosin HCl (Flomax) 0.4 mg DAILY PO Last administered on 11/25/17at 09:15; Start 11/11/17 at 09:00 Cephalexin HCl (Keflex) 500 mg BID PO Last administered on 11/16/17at 19:21; Start 11/10/17 at 21:00; Stop 11/16/17 at 21:01; Status DC Lactobacillus Rhamnosus (Culturelle) 1 cap BID PO Last administered on at 20:09; Start 11/10/17 at 21:00 Lamotrigine (LaMICtal) 25 mg HS PO Last administered on 11/15/17 19:32; Start 11/11/17 at 21:00; Stop 11/16/17 at 09:00; Status DC Lamotrigine (LaMICtal) 50 mg HS PO Last administered on 11/16/17at 19:41; Start 11/16/17 at 21:00; Stop 11/17/17 at 18:29; Status DC Lamotrigine (LaMICtal) 75 mg HS PO ; Start 11/21/17 at 21:00; Stop 11/21/17 at 21: 00; Status DC Lamotrigine (LaMICtal) 100 mg HS PO ; Start 11/25/17 at 21:00; Stop 11/25/17 at 21 :00; Status DC Haloperidol (Haldol) 5 mg HS PO Last administered on 11/25/17 20:09; Start at 21:00 Vitamin D (Vitamin D3) 50,000 unit WEEKLY PO ; Start 11/11/17 at 18:15; Stop at 18:29; Status DC Atorvastatin Calcium (Lipitor) 10 mg QHS PO Last administered on 11/25/17 20:09 ; Start 11/11/17 at 21:00 Vitamin D (Vitamin D3) 50,000 unit WEEKLY PO Last administered on 11/25/17 09: 15; Start 11/11/17 at 21:00 Divalproex Sodium (Depakote Er) 500 mg QHS PO Last administered on 11/19/17 19 :20; Start 11/17/17 at 21:00; Stop 11/20/17 at 18:17; Status DC Trazodone HCl (Desyrel) 50 mg QHS PO Last administered on 11/25/17 20:09; Start 11/19/17 at 21:00 Trazodone HCl (Desyrel) 50 mg PRN QHS PRN PO insomnia Last administered on 22:34; Start 11/19/17 at 18:45 Divalproex Sodium (Depakote Er) 1,000 mg QHS PO Last administered on 11/25/17 20:08; Start 11/20/17 at 21:00 Active Scripts Active Reported Tamsulosin Hcl 0.4 Mg Cap.er.24h 0.4 Mg PO DAILY Hydroxyzine Hcl 25 Mg Tablet 25 Mg PO PRN QID PRN Keflex (Cephalexin) 500 Mg Capsule 500 Mg PO BID I have reviewed the current psychotropics carefully including drug interactions. Risk benefit ratio favors no change other than as noted in my dictated progress note. Diagnosis: Problems: (1) Schizoaffective disorder (2) Anxiety disorder (3) Bipolar affective, mixed, sev w/ psych (4) Impulse control disorder (5) Schizophrenia, paranoid, chronic with acute exacerbation ARABELLA PEACE MD Nov 25, 2017 20:53
[2017-11-25] MEDS ORDERED: lamoTRIgine 100 MG TABLET. PO SCH (21:00)
[2017-11-26 05:43] VITALS: BP 127/75
[2017-11-26] MEDS: TAMSULOSIN 0.4 MG CAP.ER.24H. PO SCH (08:57)
[2017-11-26] MEDS: LACTOBACILLUS RHAMNOSUS GG 1 CAPSULE. PO SCH ×2 (08:57→19:45)
[2017-11-26 16:33] VITALS: BP 138/79
[2017-11-26] MEDS: HALOPERIDOL 5 MG TABLET PO SCH (19:45)
[2017-11-26] MEDS: DIVALPROEX ER 500 MG TAB.ER.24H PO SCH (19:45)
[2017-11-26] MEDS: traZODone 50 MG TABLET. PO SCH (19:45)
[2017-11-26] MEDS: ATORVASTATIN CALCIUM 10 MG TABLET. PO SCH (19:45)
--- NOTE | 2017-11-26 22:38 | PN ---
DATE: 11/25/2017 PSYCHIATRIC PROGRESS NOTE This is a late entry 11/25/2017, covers elements not covered in my initial note 11/25/2017. SUBJECTIVE: I met with the patient in the evening, staffed at treatment team meeting with the entire team in the morning. The patient slept 4-1/2 hours previous evening, average 7 hours. Appetite 100%. REVIEW OF SYSTEMS: No CV, , pulmonary, eye, ENT system symptoms on review. MENTAL STATUS EXAM: Oriented to himself and situation. Speech coherent, still somewhat pressured. Abstraction fair, computation impaired, language function intact. Mood and affect, lability and grandiosity are improved. No suicidal or homicidal ideation. IMPRESSION: Unchanged from initial note. PLAN: Continue psychotropics mentioned in my initial note. MAN Barrera PEACE MD DR: WHITNEY/jessica JOB#: [id number] / [id number]
--- NOTE | 2017-11-26 23:00 | PDOC ---
Exam Note: [place] Note: Please also refer to the separate dictated note~for this date of service dictated separately.~Patient seen individually. Discussed the patient with Nursing staff reviewed the chart.~Reviewed interim history and current functioning. Reviewed vital signs,~Labs/ Radiology~and current medications noted below. Continue current treatment with the changes noted in the dictated addendum note Assessment: Vital Signs: Vital Signs Date Time Temp Pulse Resp B/P (MAP) Pulse Ox O2 Delivery O2 Flow Rate FiO2 11/26/17 16:33 97.8 76 20 138/79 (98) 98 Room Air I&O Intake and Output 11/26/17 06:59 Intake Total 810 ml Balance 810 ml Intake Oral 810 ml # Voids 1 Current Medications: Meds: Current Medications Olanzapine (ZyPREXA ZYDIS) 2.5 mg PRN Q2HR PRN PO PSYCHOSIS; Start 11/10/17 at 08:45 Acetaminophen (Tylenol) 650 mg PRN Q6HRS PRN PO PAIN / TEMP; Start 11/10/17 at 09:45 Multi-Ingredient Ointment (Analgesic [place]) 1 maximo PRN QID PRN TP MUSCLE PAIN; Start 11/10/17 at 09:45 Al Hydroxide/Mg Hydroxide (Mylanta Plus Xs) 15 ml PRN AFTMEALHC PRN PO DYSPEPSIA; Start 11/10/17 at 09:45 Magnesium Hydroxide (Milk Of Magnesia) 2,400 mg PRN QHS PRN PO CONSTIPATION; Start 11/10/17 at 09:45 Hydroxyzine HCl (Atarax) 25 mg PRN QID PRN PO ANXIETY / AGITATION Last administered on 11/21/17at 00:12; Start 11/10/17 at 09:45 Tamsulosin HCl (Flomax) 0.4 mg DAILY PO Last administered on 11/26/17at 08:57; Start 11/11/17 at 09:00 Cephalexin HCl (Keflex) 500 mg BID PO Last administered on 11/16/17at 19:21; Start 11/10/17 at 21:00; Stop 11/16/17 at 21:01; Status DC Lactobacillus Rhamnosus (Culturelle) 1 cap BID PO Last administered on at 19:45; Start 11/10/17 at 21:00 Lamotrigine (LaMICtal) 25 mg HS PO Last administered on 11/15/17 19:32; Start 11/11/17 at 21:00; Stop 11/16/17 at 09:00; Status DC Lamotrigine (LaMICtal) 50 mg HS PO Last administered on 11/16/17at 19:41; Start 11/16/17 at 21:00; Stop 11/17/17 at 18:29; Status DC Lamotrigine (LaMICtal) 75 mg HS PO ; Start 11/21/17 at 21:00; Stop 11/21/17 at 21: 00; Status DC Lamotrigine (LaMICtal) 100 mg HS PO ; Start 11/25/17 at 21:00; Stop 11/25/17 at 21 :00; Status DC Haloperidol (Haldol) 5 mg HS PO Last administered on 11/26/17 19:45; Start at 21:00 Vitamin D (Vitamin D3) 50,000 unit WEEKLY PO ; Start 11/11/17 at 18:15; Stop at 18:29; Status DC Atorvastatin Calcium (Lipitor) 10 mg QHS PO Last administered on 11/26/17 19:45 ; Start 11/11/17 at 21:00 Vitamin D (Vitamin D3) 50,000 unit WEEKLY PO Last administered on 11/25/17at 09: 15; Start 11/11/17 at 21:00 Divalproex Sodium (Depakote Er) 500 mg QHS PO Last administered on 11/19/17 19 :20; Start 11/17/17 at 21:00; Stop 11/20/17 at 18:17; Status DC Trazodone HCl (Desyrel) 50 mg QHS PO Last administered on 11/26/17 19:45; Start 11/19/17 at 21:00 Trazodone HCl (Desyrel) 50 mg PRN QHS PRN PO insomnia Last administered on 22:34; Start 11/19/17 at 18:45 Divalproex Sodium (Depakote Er) 1,000 mg QHS PO Last administered on 11/26/17 19:45; Start 11/20/17 at 21:00 Active Scripts Active Reported Tamsulosin Hcl 0.4 Mg Cap.er.24h 0.4 Mg PO DAILY Hydroxyzine Hcl 25 Mg Tablet 25 Mg PO PRN QID PRN Keflex (Cephalexin) 500 Mg Capsule 500 Mg PO BID I have reviewed the current psychotropics carefully including drug interactions. Risk benefit ratio favors no change other than as noted in my dictated progress note. Diagnosis: Problems: (1) Schizoaffective disorder (2) Anxiety disorder (3) Bipolar affective, mixed, sev w/ psych (4) Impulse control disorder (5) Schizophrenia, paranoid, chronic with acute exacerbation ARABELLA PEACE MD Nov 26, 2017 23:00
[2017-11-27 06:10] VITALS: BP 127/83
[2017-11-27] MEDS: TAMSULOSIN 0.4 MG CAP.ER.24H. PO SCH (08:11)
[2017-11-27] MEDS: LACTOBACILLUS RHAMNOSUS GG 1 CAPSULE. PO SCH ×2 (08:12→20:13)
[2017-11-27 16:12] VITALS: BP 135/76
[2017-11-27] MEDS: traZODone 50 MG TABLET. PO SCH (20:13)
[2017-11-27] MEDS: ATORVASTATIN CALCIUM 10 MG TABLET. PO SCH (20:13)
[2017-11-27] MEDS: DIVALPROEX ER 500 MG TAB.ER.24H PO SCH (20:13)
[2017-11-27] MEDS: HALOPERIDOL 5 MG TABLET PO SCH (20:13)
--- NOTE | 2017-11-27 22:32 | PDOC ---
Exam Note: [place] Note: Please also refer to the separate dictated note~for this date of service dictated separately.~Patient seen individually. Discussed the patient with Nursing staff reviewed the chart.~Reviewed interim history and current functioning. Reviewed vital signs,~Labs/ Radiology~and current medications noted below. Continue current treatment with the changes noted in the dictated addendum note Assessment: Vital Signs: Vital Signs Date Time Temp Pulse Resp B/P (MAP) Pulse Ox O2 Delivery O2 Flow Rate FiO2 11/27/17 16:12 98.8 73 18 135/76 (95) 97 Room Air I&O Intake and Output 11/27/17 06:59 Intake Total 720 ml Balance 720 ml Intake Oral 720 ml Current Medications: Meds: Current Medications Olanzapine (ZyPREXA ZYDIS) 2.5 mg PRN Q2HR PRN PO PSYCHOSIS; Start 11/10/17 at 08:45 Acetaminophen (Tylenol) 650 mg PRN Q6HRS PRN PO PAIN / TEMP; Start 11/10/17 at 09:45 Multi-Ingredient Ointment (Analgesic [place]) 1 maximo PRN QID PRN TP MUSCLE PAIN; Start 11/10/17 at 09:45 Al Hydroxide/Mg Hydroxide (Mylanta Plus Xs) 15 ml PRN AFTMEALHC PRN PO DYSPEPSIA; Start 11/10/17 at 09:45 Magnesium Hydroxide (Milk Of Magnesia) 2,400 mg PRN QHS PRN PO CONSTIPATION; Start 11/10/17 at 09:45 Hydroxyzine HCl (Atarax) 25 mg PRN QID PRN PO ANXIETY / AGITATION Last administered on 11/21/17at 00:12; Start 11/10/17 at 09:45 Tamsulosin HCl (Flomax) 0.4 mg DAILY PO Last administered on 11/27/17at 08:11; Start 11/11/17 at 09:00 Cephalexin HCl (Keflex) 500 mg BID PO Last administered on 11/16/17at 19:21; Start 11/10/17 at 21:00; Stop 11/16/17 at 21:01; Status DC Lactobacillus Rhamnosus (Culturelle) 1 cap BID PO Last administered on at 20:13; Start 11/10/17 at 21:00 Lamotrigine (LaMICtal) 25 mg HS PO Last administered on 11/15/17 19:32; Start 11/11/17 at 21:00; Stop 11/16/17 at 09:00; Status DC Lamotrigine (LaMICtal) 50 mg HS PO Last administered on 11/16/17at 19:41; Start 11/16/17 at 21:00; Stop 11/17/17 at 18:29; Status DC Lamotrigine (LaMICtal) 75 mg HS PO ; Start 11/21/17 at 21:00; Stop 11/21/17 at 21: 00; Status DC Lamotrigine (LaMICtal) 100 mg HS PO ; Start 11/25/17 at 21:00; Stop 11/25/17 at 21 :00; Status DC Haloperidol (Haldol) 5 mg HS PO Last administered on 11/27/17 20:13; Start at 21:00 Vitamin D (Vitamin D3) 50,000 unit WEEKLY PO ; Start 11/11/17 at 18:15; Stop at 18:29; Status DC Atorvastatin Calcium (Lipitor) 10 mg QHS PO Last administered on 11/27/17 20:13 ; Start 11/11/17 at 21:00 Vitamin D (Vitamin D3) 50,000 unit WEEKLY PO Last administered on 11/25/17 09: 15; Start 11/11/17 at 21:00 Divalproex Sodium (Depakote Er) 500 mg QHS PO Last administered on 11/19/17 19 :20; Start 11/17/17 at 21:00; Stop 11/20/17 at 18:17; Status DC Trazodone HCl (Desyrel) 50 mg QHS PO Last administered on 11/27/17 20:13; Start 11/19/17 at 21:00 Trazodone HCl (Desyrel) 50 mg PRN QHS PRN PO insomnia Last administered on 22:34; Start 11/19/17 at 18:45 Divalproex Sodium (Depakote Er) 1,000 mg QHS PO Last administered on 11/27/17 20:13; Start 11/20/17 at 21:00 Active Scripts Active Reported Tamsulosin Hcl 0.4 Mg Cap.er.24h 0.4 Mg PO DAILY Hydroxyzine Hcl 25 Mg Tablet 25 Mg PO PRN QID PRN Keflex (Cephalexin) 500 Mg Capsule 500 Mg PO BID I have reviewed the current psychotropics carefully including drug interactions. Risk benefit ratio favors no change other than as noted in my dictated progress note. Diagnosis: Problems: (1) Schizoaffective disorder (2) Anxiety disorder (3) Bipolar affective, mixed, sev w/ psych (4) Impulse control disorder (5) Schizophrenia, paranoid, chronic with acute exacerbation ARABELLA PEACE MD Nov 27, 2017 22:32
[2017-11-28 06:01] VITALS: BP 115/73
[2017-11-28] MEDS: LACTOBACILLUS RHAMNOSUS GG 1 CAPSULE. PO SCH ×2 (07:19→20:59)
[2017-11-28] MEDS: TAMSULOSIN 0.4 MG CAP.ER.24H. PO SCH (07:19)
[2017-11-28 16:12] VITALS: BP 134/74
--- NOTE | 2017-11-28 20:22 | PN ---
DATE: 11/27/2017 This is a late entry for 11/27/2017 and covers the elements not covered in my initial note. SUBJECTIVE: I met with the patient in the evening. The patient slept 6-1/2 hours previous evening. His visited him, the visit went well. Per nursing report, he has been cooperative, compliant, able to talk about getting professional help for this once again as I addressed with him individually. REVIEW OF SYSTEM: No CV, , pulmonary, eye, ENT system symptoms on review. MENTAL STATUS EXAM: Oriented to himself and situation. Speech coherent, less pressured. Abstraction fair, computation impaired, language function intact. Mood and affect improved. LABORATORY DATA: Reviewed. IMPRESSION: Unchanged from initial note. PLAN: Continue current psychotropics. MAN Barrera PEACE MD DR: WHITNEY/jessica JOB#: [id number] / [id number]
--- NOTE | 2017-11-28 20:41 | PDOC ---
Exam Note: Preston Note: Please also refer to the separate dictated note~for this date of service dictated separately.~Patient seen individually. Discussed the patient with Nursing staff reviewed the chart.~Reviewed interim history and current functioning. Reviewed vital signs,~Labs/ Radiology~and current medications noted below. Continue current treatment with the changes noted in the dictated addendum note Assessment: Vital Signs: Vital Signs Date Time Temp Pulse Resp B/P (MAP) Pulse Ox O2 Delivery O2 Flow Rate FiO2 11/28/17 16:12 97.9 81 20 134/74 (94) 97 11/28/17 06:01 Room Air I&O Intake and Output 11/28/17 06:59 Intake Total 1805 ml Balance 1805 ml Intake Oral 1805 ml Current Medications: Meds: Current Medications Olanzapine (ZyPREXA ZYDIS) 2.5 mg PRN Q2HR PRN PO PSYCHOSIS; Start 11/10/17 at 08:45 Acetaminophen (Tylenol) 650 mg PRN Q6HRS PRN PO PAIN / TEMP; Start 11/10/17 at 09:45 Multi-Ingredient Ointment (Analgesic [place]) 1 maximo PRN QID PRN TP MUSCLE PAIN; Start 11/10/17 at 09:45 Al Hydroxide/Mg Hydroxide (Mylanta Plus Xs) 15 ml PRN AFTMEALHC PRN PO DYSPEPSIA; Start 11/10/17 at 09:45 Magnesium Hydroxide (Milk Of Magnesia) 2,400 mg PRN QHS PRN PO CONSTIPATION; Start 11/10/17 at 09:45 Hydroxyzine HCl (Atarax) 25 mg PRN QID PRN PO ANXIETY / AGITATION Last administered on 11/21/17at 00:12; Start 11/10/17 at 09:45 Tamsulosin HCl (Flomax) 0.4 mg DAILY PO Last administered on 11/28/17at 07:19; Start 11/11/17 at 09:00 Cephalexin HCl (Keflex) 500 mg BID PO Last administered on 11/16/17at 19:21; Start 11/10/17 at 21:00; Stop 11/16/17 at 21:01; Status DC Lactobacillus Rhamnosus (Culturelle) 1 cap BID PO Last administered on at 07:19; Start 11/10/17 at 21:00 Lamotrigine (LaMICtal) 25 mg HS PO Last administered on 11/15/17 19:32; Start 11/11/17 at 21:00; Stop 11/16/17 at 09:00; Status DC Lamotrigine (LaMICtal) 50 mg HS PO Last administered on 11/16/17at 19:41; Start 11/16/17 at 21:00; Stop 11/17/17 at 18:29; Status DC Lamotrigine (LaMICtal) 75 mg HS PO ; Start 11/21/17 at 21:00; Stop 11/21/17 at 21: 00; Status DC Lamotrigine (LaMICtal) 100 mg HS PO ; Start 11/25/17 at 21:00; Stop 11/25/17 at 21 :00; Status DC Haloperidol (Haldol) 5 mg HS PO Last administered on 11/27/17at 20:13; Start at 21:00 Vitamin D (Vitamin D3) 50,000 unit WEEKLY PO ; Start 11/11/17 at 18:15; Stop at 18:29; Status DC Atorvastatin Calcium (Lipitor) 10 mg QHS PO Last administered on 11/27/17 20:13 ; Start 11/11/17 at 21:00 Vitamin D (Vitamin D3) 50,000 unit WEEKLY PO Last administered on 11/25/17 09: 15; Start 11/11/17 at 21:00 Divalproex Sodium (Depakote Er) 500 mg QHS PO Last administered on 11/19/17at 19 :20; Start 11/17/17 at 21:00; Stop 11/20/17 at 18:17; Status DC Trazodone HCl (Desyrel) 50 mg QHS PO Last administered on 11/27/17 20:13; Start 11/19/17 at 21:00 Trazodone HCl (Desyrel) 50 mg PRN QHS PRN PO insomnia Last administered on at 22:34; Start 11/19/17 at 18:45 Divalproex Sodium (Depakote Er) 1,000 mg QHS PO Last administered on 11/27/17 20:13; Start 11/20/17 at 21:00 Active Scripts Active Reported Tamsulosin Hcl 0.4 Mg Cap.er.24h 0.4 Mg PO DAILY Hydroxyzine Hcl 25 Mg Tablet 25 Mg PO PRN QID PRN Keflex (Cephalexin) 500 Mg Capsule 500 Mg PO BID I have reviewed the current psychotropics carefully including drug interactions. Risk benefit ratio favors no change other than as noted in my dictated progress note. Diagnosis: Problems: (1) Schizoaffective disorder (2) Anxiety disorder (3) Bipolar affective, mixed, sev w/ psych (4) Impulse control disorder (5) Schizophrenia, paranoid, chronic with acute exacerbation ARABELLA PEACE MD Nov 28, 2017 20:41
[2017-11-28] MEDS: ATORVASTATIN CALCIUM 10 MG TABLET. PO SCH (20:59)
[2017-11-28] MEDS: traZODone 50 MG TABLET. PO SCH (20:59)
[2017-11-28] MEDS: DIVALPROEX ER 500 MG TAB.ER.24H PO SCH (21:00)
[2017-11-28] MEDS: HALOPERIDOL 5 MG TABLET PO SCH (21:00)
--- NOTE | 2017-11-29 00:39 | PN ---
DATE: 11/26/2017 This is a late entry for 11/26/2017 covers elements not covered in my initial note. SUBJECTIVE: I met with the patient in the evening. The patient slept reasonably well. He remains a little hyperverbal, but has spent quite a bit of time with him individually in his room as he sat with me. He talked at length about getting back home and hiring professional help to fix any problems with the furnace etc. rather than doing it himself. Able to process in detail reasons for his change of plans. REVIEW OF SYSTEMS: No CV, , pulmonary, eye, ENT system symptoms on review. MENTAL STATUS EXAM: Oriented to himself and situation. Speech slightly pressured, improved. Abstraction fair, computation impaired, language function intact, attention span short. Mood and affect less manic. IMPRESSION: Unchanged from initial note. PLAN: Continue current psychotropics. Valproic acid level therapeutic at 60. ARABELLA PEACE MD DR: WHITNEY/jessica JOB#: [id number] / [id number]
[2017-11-29 06:03] VITALS: BP 128/73
[2017-11-29] MEDS: LACTOBACILLUS RHAMNOSUS GG 1 CAPSULE. PO SCH ×2 (07:23→19:17)
[2017-11-29] MEDS: TAMSULOSIN 0.4 MG CAP.ER.24H. PO SCH (07:23)
[2017-11-29 16:00] VITALS: BP 121/79
[2017-11-29] MEDS: ATORVASTATIN CALCIUM 10 MG TABLET. PO SCH (19:17)
[2017-11-29] MEDS: DIVALPROEX ER 500 MG TAB.ER.24H PO SCH (19:17)
[2017-11-29] MEDS: HALOPERIDOL 5 MG TABLET PO SCH (19:18)
[2017-11-29] MEDS: traZODone 50 MG TABLET. PO SCH (19:18)
--- NOTE | 2017-11-29 19:57 | PDOC ---
Exam Note: Preston Note: Please also refer to the separate dictated note~for this date of service dictated separately.~Patient seen individually. Discussed the patient with Nursing staff reviewed the chart.~Reviewed interim history and current functioning. Reviewed vital signs,~Labs/ Radiology~and current medications noted below. Continue current treatment with the changes noted in the dictated addendum note Assessment: Vital Signs: Vital Signs Date Time Temp Pulse Resp B/P (MAP) Pulse Ox O2 Delivery O2 Flow Rate FiO2 11/29/17 16:00 97.4 86 19 121/79 (93) 99 11/28/17 06:01 Room Air I&O Intake and Output 11/29/17 06:59 Intake Total 1565 ml Balance 1565 ml Intake Oral 1565 ml Current Medications: Meds: Current Medications Olanzapine (ZyPREXA ZYDIS) 2.5 mg PRN Q2HR PRN PO PSYCHOSIS; Start 11/10/17 at 08:45 Acetaminophen (Tylenol) 650 mg PRN Q6HRS PRN PO PAIN / TEMP; Start 11/10/17 at 09:45 Multi-Ingredient Ointment (Analgesic [place]) 1 maximo PRN QID PRN TP MUSCLE PAIN; Start 11/10/17 at 09:45 Al Hydroxide/Mg Hydroxide (Mylanta Plus Xs) 15 ml PRN AFTMEALHC PRN PO DYSPEPSIA; Start 11/10/17 at 09:45 Magnesium Hydroxide (Milk Of Magnesia) 2,400 mg PRN QHS PRN PO CONSTIPATION; Start 11/10/17 at 09:45 Hydroxyzine HCl (Atarax) 25 mg PRN QID PRN PO ANXIETY / AGITATION Last administered on 11/21/17at 00:12; Start 11/10/17 at 09:45 Tamsulosin HCl (Flomax) 0.4 mg DAILY PO Last administered on 11/29/17at 07:23; Start 11/11/17 at 09:00 Cephalexin HCl (Keflex) 500 mg BID PO Last administered on 11/16/17at 19:21; Start 11/10/17 at 21:00; Stop 11/16/17 at 21:01; Status DC Lactobacillus Rhamnosus (Culturelle) 1 cap BID PO Last administered on at 19:17; Start 11/10/17 at 21:00 Lamotrigine (LaMICtal) 25 mg HS PO Last administered on 11/15/17 19:32; Start 11/11/17 at 21:00; Stop 11/16/17 at 09:00; Status DC Lamotrigine (LaMICtal) 50 mg HS PO Last administered on 11/16/17at 19:41; Start 11/16/17 at 21:00; Stop 11/17/17 at 18:29; Status DC Lamotrigine (LaMICtal) 75 mg HS PO ; Start 11/21/17 at 21:00; Stop 11/21/17 at 21: 00; Status DC Lamotrigine (LaMICtal) 100 mg HS PO ; Start 11/25/17 at 21:00; Stop 11/25/17 at 21 :00; Status DC Haloperidol (Haldol) 5 mg HS PO Last administered on 11/29/17 19:18; Start at 21:00 Vitamin D (Vitamin D3) 50,000 unit WEEKLY PO ; Start 11/11/17 at 18:15; Stop at 18:29; Status DC Atorvastatin Calcium (Lipitor) 10 mg QHS PO Last administered on 11/29/17 19:17 ; Start 11/11/17 at 21:00 Vitamin D (Vitamin D3) 50,000 unit WEEKLY PO Last administered on 11/25/17at 09: 15; Start 11/11/17 at 21:00 Divalproex Sodium (Depakote Er) 500 mg QHS PO Last administered on 11/19/17at 19 :20; Start 11/17/17 at 21:00; Stop 11/20/17 at 18:17; Status DC Trazodone HCl (Desyrel) 50 mg QHS PO Last administered on 11/29/17 19:18; Start 11/19/17 at 21:00 Trazodone HCl (Desyrel) 50 mg PRN QHS PRN PO insomnia Last administered on at 22:34; Start 11/19/17 at 18:45 Divalproex Sodium (Depakote Er) 1,000 mg QHS PO Last administered on 11/29/17at 19:17; Start 11/20/17 at 21:00 Active Scripts Active Reported Tamsulosin Hcl 0.4 Mg Cap.er.24h 0.4 Mg PO DAILY Hydroxyzine Hcl 25 Mg Tablet 25 Mg PO PRN QID PRN Keflex (Cephalexin) 500 Mg Capsule 500 Mg PO BID I have reviewed the current psychotropics carefully including drug interactions. Risk benefit ratio favors no change other than as noted in my dictated progress note. Diagnosis: Problems: (1) Schizoaffective disorder (2) Anxiety disorder (3) Bipolar affective, mixed, sev w/ psych (4) Impulse control disorder (5) Schizophrenia, paranoid, chronic with acute exacerbation ARABELLA PEACE MD Nov 29, 2017 19:57
--- NOTE | 2017-11-29 22:49 | PN ---
DATE: 11/28/2017 PSYCHIATRIC PROGRESS NOTE This is a late entry 11/28/2017, covers elements not covered in my initial note. SUBJECTIVE: I met with the patient in the evening. The patient slept 5-3/4 hours previous evening. Overall, more cooperative, compliant. He has been little suspicious that his is having an affair since he tried to call her, probably dialed the wrong number and the gentleman answered the telephone. This is per nursing report. REVIEW OF SYSTEMS: No CV, , pulmonary, eye, ENT system symptoms on review. MENTAL STATUS EXAM: Oriented, reasonably speech coherent, little pressured at times. Abstraction fair, computation impaired, language function intact, attention span short. Mood and affect showing improvement, less lability. LABORATORY DATA: Reviewed. IMPRESSION: Unchanged from initial note. PLAN: Continue current psychotropics. Valproic acid level therapeutic at 60. MAN Barrera PEACE MD DR: WHITNEY/jessica JOB#: [id number] / [id number]
[2017-11-30] MEDS ORDERED: ATOR10TA60 PO (05:03)
[2017-11-30] MEDS ORDERED: CHOL500021 PO (05:04)
[2017-11-30] MEDS ORDERED: DIVA500T17 PO (05:05)
[2017-11-30] MEDS ORDERED: HALO5TAB PO (05:06)
[2017-11-30] MEDS ORDERED: LACT1CAP21 PO (05:07)
[2017-11-30] MEDS ORDERED: OLAN5TAB9 PO (05:08)
[2017-11-30] MEDS ORDERED: TRAZ-85 PO ×2 (05:09→05:10)
[2017-11-30 06:05] VITALS: BP 128/73
[2017-11-30] MEDS: LACTOBACILLUS RHAMNOSUS GG 1 CAPSULE. PO SCH (08:56)
[2017-11-30] MEDS: TAMSULOSIN 0.4 MG CAP.ER.24H. PO SCH (08:57)
--- NOTE | 2017-11-30 18:32 | PDOC ---
Exam Note: Preston Note: Please also refer to the separate dictated note~for this date of service dictated separately.~Patient seen individually. Discussed the patient with Nursing staff reviewed the chart.~Reviewed interim history and current functioning. Reviewed vital signs,~Labs/ Radiology~and current medications noted below. Continue current treatment with the changes noted in the dictated addendum note Assessment: Vital Signs: Vital Signs Date Time Temp Pulse Resp B/P (MAP) Pulse Ox O2 Delivery O2 Flow Rate FiO2 11/30/17 06:05 98.0 78 17 128/73 (91) 96 11/28/17 06:01 Room Air I&O Intake and Output 11/30/17 07:00 Intake Total 1800 ml Balance 1800 ml Intake Oral 1800 ml Current Medications: Meds: Current Medications Olanzapine (ZyPREXA ZYDIS) 2.5 mg PRN Q2HR PRN PO PSYCHOSIS; Start 11/10/17 at 08:45; Stop 11/30/17 at 13:13; Status DC Acetaminophen (Tylenol) 650 mg PRN Q6HRS PRN PO PAIN / TEMP; Start 11/10/17 at 09:45; Stop 11/30/17 at 13:13; Status DC Multi-Ingredient Ointment (Analgesic [place]) 1 maximo PRN QID PRN TP MUSCLE PAIN; Start 11/10/17 at 09:45; Stop 11/30/17 at 13:13; Status DC Al Hydroxide/Mg Hydroxide (Mylanta Plus Xs) 15 ml PRN AFTMEALHC PRN PO DYSPEPSIA; Start 11/10/17 at 09:45; Stop 11/30/17 at 13:13; Status DC Magnesium Hydroxide (Milk Of Magnesia) 2,400 mg PRN QHS PRN PO CONSTIPATION; Start 11/10/17 at 09:45; Stop 11/30/17 at 13:13; Status DC Hydroxyzine HCl (Atarax) 25 mg PRN QID PRN PO ANXIETY / AGITATION Last administered on 11/21/17at 00:12; Start 11/10/17 at 09:45; Stop 11/30/17 at 13:13 ; Status DC Tamsulosin HCl (Flomax) 0.4 mg DAILY PO Last administered on 11/30/17at 08:57; Start 11/11/17 at 09:00; Stop 11/30/17 at 13:13; Status DC Cephalexin HCl (Keflex) 500 mg BID PO Last administered on 11/16/17 19:21; Start 11/10/17 at 21:00; Stop 11/16/17 at 21:01; Status DC Lactobacillus Rhamnosus (Culturelle) 1 cap BID PO Last administered on at 08:56; Start 11/10/17 at 21:00; Stop 11/30/17 at 13:13; Status DC Lamotrigine (LaMICtal) 25 mg HS PO Last administered on 11/15/17at 19:32; Start 11/11/17 at 21:00; Stop 11/16/17 at 09:00; Status DC Lamotrigine (LaMICtal) 50 mg HS PO Last administered on 11/16/17at 19:41; Start 11/16/17 at 21:00; Stop 11/17/17 at 18:29; Status DC Lamotrigine (LaMICtal) 75 mg HS PO ; Start 11/21/17 at 21:00; Stop 11/21/17 at 21: 00; Status DC Lamotrigine (LaMICtal) 100 mg HS PO ; Start 11/25/17 at 21:00; Stop 11/25/17 at 21 :00; Status DC Haloperidol (Haldol) 5 mg HS PO Last administered on 11/29/17 19:18; Start at 21:00; Stop 11/30/17 at 13:13; Status DC Vitamin D (Vitamin D3) 50,000 unit WEEKLY PO ; Start 11/11/17 at 18:15; Stop at 18:29; Status DC Atorvastatin Calcium (Lipitor) 10 mg QHS PO Last administered on 11/29/17 19:17 ; Start 11/11/17 at 21:00; Stop 11/30/17 at 13:13; Status DC Vitamin D (Vitamin D3) 50,000 unit WEEKLY PO Last administered on 11/25/17 09: 15; Start 11/11/17 at 21:00; Stop 11/30/17 at 13:13; Status DC Divalproex Sodium (Depakote Er) 500 mg QHS PO Last administered on 11/19/17at 19 :20; Start 11/17/17 at 21:00; Stop 11/20/17 at 18:17; Status DC Trazodone HCl (Desyrel) 50 mg QHS PO Last administered on 11/29/17at 19:18; Start 11/19/17 at 21:00; Stop 11/30/17 at 13:13; Status DC Trazodone HCl (Desyrel) 50 mg PRN QHS PRN PO insomnia Last administered on 22:34; Start 11/19/17 at 18:45; Stop 11/30/17 at 13:13; Status DC Divalproex Sodium (Depakote Er) 1,000 mg QHS PO Last administered on 11/29/17at 19:17; Start 11/20/17 at 21:00; Stop 11/30/17 at 13:13; Status DC Active Scripts Active Reported Trazodone Hcl 50 Mg Tablet 50 Mg PO PRN QHS PRN Trazodone Hcl 50 Mg Tablet 50 Mg PO HS Olanzapine 5 Mg Tablet 2.5 Mg PO PRN Q2HR PRN Culturelle (Lactobacillus Rhamnosus Gg) 1 Each Capsule 1 Each PO BID Haloperidol 5 Mg Tablet 5 Mg PO HS Divalproex Sodium Er (Divalproex Sodium) 500 Mg Tab.er.24h 2 Tab PO QHS D3-50 (Cholecalciferol (Vitamin D3)) 50,000 Unit Capsule 1 Cap PO WEEKLY Atorvastatin Calcium 10 Mg Tablet 10 Mg PO QHS Tamsulosin Hcl 0.4 Mg Cap.er.24h 0.4 Mg PO DAILY Hydroxyzine Hcl 25 Mg Tablet 25 Mg PO PRN QID PRN I have reviewed the current psychotropics carefully including drug interactions. Risk benefit ratio favors no change other than as noted in my dictated progress note. Diagnosis: Problems: (1) Schizoaffective disorder, bipolar type (2) Anxiety disorder (3) Bipolar affective, mixed, sev w/ psych (4) Impulse control disorder ARABELLA PEACE MD Nov 30, 2017 18:32
--- NOTE | 2017-12-01 01:16 | PN ---
DATE: 11/29/2017 PSYCHIATRIC PROGRESS NOTE This is a late entry 11/29/2017 covers elements not covered in my initial note 11/29/2017. SUBJECTIVE: I met with the patient in the evening. The patient's valproic acid level is 60. Overall, he is doing reasonably well. He slept 4 hours previous evening. REVIEW OF SYSTEMS: No CV, , pulmonary, eye, ENT system symptoms on review. Reliability fair. MENTAL STATUS EXAM: Oriented to himself and situation. Speech coherent, less pressured. Abstraction fair, computation impaired, language function intact, attention span short. Mood and affect showing improvement, less labile. LABORATORY DATA: Reviewed. IMPRESSION: Unchanged from initial note. PLAN: Continue current psychotropics with discharge to outpatient treatment 11/30/2017. MAN Barrera PEACE MD DR: WHITNEY/jessica JOB#: [id number] / [id number]
--- NOTE | 2017-12-01 13:06 | DS ---
DATE OF DISCHARGE: 11/30/2017 DISCHARGE SUMMARY/PSYCHIATRIC PROGRESS NOTE This is a late entry for date of service 11/30/2017 and covers the elements not covered in my initial note of 11/30/2017. REASON FOR ADMISSION: Please refer to the admission history for details. Briefly, the patient is a 76-year-old male referred to us from Emergency [facility] where he presented from home after he took apart his furnace at home, destroyed the water heater, cut holes in the roof, was manic, hyperverbal, psychotic, who had not been taking his medications. He has had marked insomnia. [facility] Behaviors were deemed dangerous, unmanageable at home, at significant risk according to the and then brought to the ER and referred to us for inpatient psychiatric stabilization. SIGNIFICANT FINDINGS AND CLINICAL COURSE: Following admission, the patient was seen daily individually by myself from a psychiatric standpoint, medical followup per Dr. Torres/Dr. Ziegler. The patient is extremely manic, grandiose, hyperverbal, psychotic and paranoid. His psychotropics were readjusted and he seemed to be stabilized on a combination of Depakote ER 1000 mg at bedtime with a Valproic acid level therapeutic at 60, Zyprexa p.r.n., hydroxyzine p.r.n. anxiety, Haldol 5 mg at bedtime and trazodone 50 mg at bedtime may repeat x 1 for insomnia. Gradually mood appeared to improve. He was much less hyperverbal, less psychotic, able to stop and think, and appropriate in his responses with the decision to "I will hire someone to do the job." CONDITION AT DISCHARGE: Improved. REVIEW OF SYSTEMS: No CV, , pulmonary, eye, ENT system symptoms on review. MENTAL STATUS EXAM: Oriented to himself and situation. Speech coherent, less pressured. Abstraction fair, computation impaired, language function intact, attention span short. Mood and affect improved. No psychotic symptoms, suicidal or homicidal ideation. LABORATORY DATA: Reviewed. FINAL DIAGNOSES: Bipolar 1 disorder, mixed with psychotic features, in partial remission; anxiety disorder, unspecified; impulse control disorder, unspecified; schizoaffective disorder, bipolar type, mixed with psychotic features, in partial remission. Rest unchanged from admission. DISCHARGE MEDICATIONS: Please refer to the MRAD. DISCHARGE INSTRUCTIONS: Outpatient psychiatric and medical followup at the local mental health center and with his primary care physician. Time for discharge day management greater than 30 minutes. ARABELLA PEACE MD DR: WHITNEY/jessica JOB#: [id number] / [id number]
== END 2017-11-30 13:00 | disposition home or self-care (01) | DRG 885 ==
LOC: GEROPSY 09:00
PROVIDERS: ADMIT Psychiatry & Neurology Psychiatry; ATTEND Psychiatry & Neurology Psychiatry
DX: F25.0 Schizoaffective disorder, bipolar type (principal); N39.0 Urinary tract infection, site not specified; C44.91 Basal cell carcinoma of skin, unspecified; F09 Unspecified mental disorder due to known physiological condition; F63.9 Impulse disorder, unspecified; G47.00 Insomnia, unspecified; I10 Essential (primary) hypertension; N40.0 Benign prostatic hyperplasia without lower urinary tract symptoms; Z79.899 Other long term (current) drug therapy; Z85.828 Personal history of other malignant neoplasm of skin; Z87.891 Personal history of nicotine dependence; Z90.49 Acquired absence of other specified parts of digestive tract; Z91.19 Patient's noncompliance with other medical treatment and regimen
CPT/HCPCS: 36415; 80053; 80061; 80164; 81001; 82306; 82607; 83036; 83540; 83550; 83735; 84436; 84443; 84480; 85025; 86592; 87086

== ENCOUNTER 2018-07-19 22:06 | Inpatient (IN) | payer MEDICARE ==
[~2018-07-19] VITALS: Ht 182.9 cm; Wt 93.0 kg
[~2018-07-19 22:06] MED LIST changes: +ATOR10TA60 PO; +CEPH-264 PO; +CHOL500021 PO; +DIVA500T17 PO; +HYDR25TA PO; +LACT1CAP21 PO; +OLAN5TAB9 PO; +TAMS0.4C2 PO; +TRAZ-120 PO
--- NOTE | 2018-07-19 22:21 | PDOC ---
Exam Note: Preston Note: Please also refer to the separate dictated note~for this date of service dictated separately. Discussed the patient with Nursing staff reviewed the chart.~Reviewed interim history and current functioning. Reviewed vital signs,~ Labs/ Radiology~and current medications noted below. Continue current treatment with the changes noted in the dictated addendum note Current Medications: Meds: Active Scripts Active Reported Trazodone Hcl 50 Mg Tablet 50 Mg PO PRN QHS PRN Trazodone Hcl 50 Mg Tablet 50 Mg PO HS Olanzapine 5 Mg Tablet 2.5 Mg PO PRN Q2HR PRN Culturelle (Lactobacillus Rhamnosus Gg) 1 Each Capsule 1 Each PO BID Haloperidol 5 Mg Tablet 5 Mg PO HS Divalproex Sodium Er (Divalproex Sodium) 500 Mg Tab.er.24h 2 Tab PO QHS D3-50 (Cholecalciferol (Vitamin D3)) 50,000 Unit Capsule 1 Cap PO WEEKLY Atorvastatin Calcium 10 Mg Tablet 10 Mg PO QHS Tamsulosin Hcl 0.4 Mg Cap.er.24h 0.4 Mg PO DAILY Hydroxyzine Hcl 25 Mg Tablet 25 Mg PO PRN QID PRN I have reviewed the current psychotropics carefully including drug interactions. Risk benefit ratio favors no change other than as noted in my dictated progress note. Diagnosis: Problems: (1) Schizoaffective disorder, bipolar type (2) Schizoaffective disorder (3) Anxiety disorder (4) Bipolar affective, mixed, sev w/ psych (5) Impulse control disorder (6) Schizophrenia, paranoid, chronic with acute exacerbation ARABELLA PEACE MD Jul 19, 2018 22:21
[2018-07-20] MEDS ORDERED: ACETAMINOPHEN 325 MG TABLET PO PRN (02:30)
[2018-07-20] MEDS ORDERED: MAG HYDROX/AL HYDROX/SIMETH 30 ML ORAL.SUSP PO PRN (02:30)
[2018-07-20] MEDS ORDERED: MAGNESIUM HYDROXIDE 2,400 MG/30 ML ORAL.SUSP. PO PRN (02:30)
[2018-07-20] MEDS ORDERED: METHYL SALICYLATE/MENTHOL TOPICAL OINTMENT 29GM TUBE. TP PRN (02:30)
[2018-07-20 02:35] VITALS: BP 160/77
[2018-07-20] MEDS ORDERED: CIPR250T30 PO (02:47)
[2018-07-20 06:08] VITALS: BP 134/82
[2018-07-20 07:47] LABS: ALBUMIN 3.7 g/dL (3.4-5.0); ALBUMIN/GLOBULIN RATIO 0.9 (1.0-1.7); CALCIUM 8.9 mg/dL (8.5-10.1); CREATININE 0.9 mg/dL (0.7-1.3); MAGNESIUM 1.9 mg/dL (1.8-2.4); POTASSIUM 4.2 mmol/L (3.5-5.1); TOTAL BILIRUBIN 0.5 mg/dL (0.2-1.0); TOTAL PROTEIN 7.6 g/dL (6.4-8.2)
[2018-07-20] MEDS: TAMSULOSIN 0.4 MG CAP.ER.24H. PO SCH (11:01)
[2018-07-20 16:07] VITALS: BP 181/93
--- NOTE | 2018-07-20 22:36 | PDOC ---
Exam Note: Preston Note: Please also refer to the separate dictated note~for this date of service dictated separately.~Patient seen individually. Discussed the patient with Nursing staff reviewed the chart.~Reviewed interim history and current functioning. Reviewed vital signs,~Labs/ Radiology~and current medications noted below. Continue current treatment with the changes noted in the dictated addendum note Assessment: Vital Signs: Vital Signs Date Time Temp Pulse Resp B/P (MAP) Pulse Ox O2 Delivery O2 Flow Rate FiO2 07/20/18 16:07 98.7 96 22 181/93 (122) 94 I&O Intake and Output 07/20/18 06:59 Intake Total 0 ml Balance 0 ml Intake Oral 0 ml Labs: Laboratory Tests Test 07/20/18 07:07 Sodium Level 143 mmol/L (136-145) Potassium Level 4.2 mmol/L (3.5-5.1) Chloride Level 104 mmol/L (98-107) Carbon Dioxide Level 31 mmol/L (21-32) Anion Gap 8 (6-14) Blood Urea Nitrogen 25 mg/dL (8-26) Creatinine 0.9 mg/dL (0.7-1.3) Estimated GFR (Cockcroft-Gault) 82.0 BUN/Creatinine Ratio 28 (6-20) H Glucose Level 106 mg/dL (70-99) H Calcium Level 8.9 mg/dL (8.5-10.1) Magnesium Level 1.9 mg/dL (1.8-2.4) Iron Level 99 ug/dL (65-175) Total Iron Binding Capacity 280 ug/dL (250-450) Iron Saturation 35 % (15-34) H Total Bilirubin 0.5 mg/dL (0.2-1.0) Aspartate Amino Transferase (AST) 15 U/L (15-37) Alanine Aminotransferase (ALT) 22 U/L (16-63) Alkaline Phosphatase 86 U/L (46-116) Total Protein 7.6 g/dL (6.4-8.2) Albumin 3.7 g/dL (3.4-5.0) Albumin/Globulin Ratio 0.9 (1.0-1.7) L 25-Hydroxy Vitamin D Total 25.8 ng/mL (30-100) L Thyroid Stimulating Hormone (TSH) 1.440 uIU/mL (0.358-3.740) Thyroxine (T4) 7.0 ug/dL (4.5-12.0) Total Triiodothyronine (TT3) 109 ng/dL (71-180) Treponema pallidum Antibody Nonreactive (Nonreactive) Current Medications: Meds: Current Medications Acetaminophen (Tylenol) 650 mg PRN Q6HRS PRN PO PAIN / TEMP Last administered on 07/20/18at 11:23; Start 07/20/18 at 02:30 Multi-Ingredient Ointment (Analgesic [place]) 1 maximo PRN QID PRN TP MUSCLE PAIN; Start 07/20/18 at 02:30 Al Hydroxide/Mg Hydroxide (Mylanta Plus Xs) 15 ml PRN AFTMEALHC PRN PO DYSPEPSIA; Start 07/20/18 at 02:30 Magnesium Hydroxide (Milk Of Magnesia) 2,400 mg PRN QHS PRN PO CONSTIPATION; Start 07/20/18 at 02:30 Tamsulosin HCl (Flomax) 0.4 mg DAILY PO Last administered on 07/20/18at 11:01; Start 07/20/18 at 09:00 Active Scripts Active Reported Cipro (Ciprofloxacin Hcl) 250 Mg Tablet 250 Mg PO BID 5 Days Trazodone Hcl 50 Mg Tablet 50 Mg PO PRN QHS PRN Trazodone Hcl 50 Mg Tablet 50 Mg PO HS Olanzapine 5 Mg Tablet 2.5 Mg PO PRN Q2HR PRN Culturelle (Lactobacillus Rhamnosus Gg) 1 Each Capsule 1 Each PO BID Haloperidol 5 Mg Tablet 5 Mg PO HS Divalproex Sodium Er (Divalproex Sodium) 500 Mg Tab.er.24h 2 Tab PO QHS D3-50 (Cholecalciferol (Vitamin D3)) 50,000 Unit Capsule 1 Cap PO WEEKLY Atorvastatin Calcium 10 Mg Tablet 10 Mg PO QHS Tamsulosin Hcl 0.4 Mg Cap.er.24h 0.4 Mg PO DAILY Hydroxyzine Hcl 25 Mg Tablet 25 Mg PO PRN QID PRN I have reviewed the current psychotropics carefully including drug interactions. Risk benefit ratio favors no change other than as noted in my dictated progress note. Diagnosis: Problems: (1) Schizoaffective disorder, bipolar type (2) Schizoaffective disorder (3) Anxiety disorder (4) Bipolar affective, mixed, sev w/ psych (5) Impulse control disorder (6) Schizophrenia, paranoid, chronic with acute exacerbation KOBI,MAN M MD Jul 20, 2018 22:36
--- NOTE | 2018-07-20 23:03 | CONS ---
DATE OF CONSULTATION: 07/20/2018 REASON FOR CONSULTATION: Consult for medical management. HISTORY OF PRESENT ILLNESS: The patient is a 77-year-old male patient, who apparently was admitted on account of taking gas water heater apart causing gas leak, he is paranoid, all these in a background of schizoaffective bipolar disorder and he was admitted here for inpatient psychiatric stabilization. PAST MEDICAL HISTORY: His past medical history is significant for benign prostatic hypertrophy, depression, schizophrenia, basal cell carcinoma. PAST SURGICAL HISTORY: Past surgical history is significant for cancerous skin section. He has had also appendectomy. FAMILY HISTORY: Unremarkable. SOCIAL HISTORY: He is , lives with his . He does not smoke, drink alcohol or use recreational drugs. He is a former smoker, stopped about 20 years ago. REVIEW OF SYSTEMS: As per history of present illness. PHYSICAL EXAMINATION: GENERAL: On examining him, he was standing in the corridor comfortably, in no apparent distress, slightly pale, but no jaundice, cyanosis or thyromegaly. No jugular venous distention. No lower limb edema. VITAL SIGNS: His heart rate was 73, blood pressure was 134/82, temperature was 97.5, respiratory rate 20 and oxygen saturation was 93%. HEENT: Examination of the head, eyes, ears, nose and throat showed normocephalic, atraumatic. NECK: Supple. HEART: Showed normal first and second heart sounds. No gallop, rub or murmur. CHEST: Clear to auscultation. No crepitation or rhonchi. ABDOMEN: Distended, soft, nontender. NEUROLOGIC: He was awake, alert and somewhat confused; however, has no lateralizing sign. All his cranial nerves are intact. EXTREMITIES: He moves extremities without difficulty. He ambulates without assistance or assistive devices. ALLERGIES: He has no known drug allergies. MEDICATIONS: He is currently on following medications: He is on ciprofloxacin 250 mg p.o. b.i.d. for urinary tract infection, tamsulosin 0.4 mg at bedtime for benign prostatic hypertrophy, atorvastatin calcium 10 mg at bedtime, divalproex sodium 500 mg, he takes 1000 mg at bedtime; trazodone 50 mg at bedtime and another 50 mg as needed at bedtime for insomnia, haloperidol 5 mg at bedtime, olanzapine for Zyprexa Zydis 5 mg, he takes 2.5 mg every 2 hours; hydroxyzine 25 mg 4 times a day, lactobacillus, rhamnosus 1 capsule twice a day, cholecalciferol for vitamin D3 50,000 international units once a week. LABORATORY DATA: His lab work showed serum sodium 143, potassium 4.2, chloride 104, bicarbonate 31, anion gap of 8, BUN 25, creatinine was 0.9, estimated GFR was 82 mL per minute. His glucose was 106, calcium was 8.9, magnesium was 1.9. Total bilirubin, AST, ALT, alkaline phosphatase were normal. His total protein was 7.6, albumin was 3.7. His other lab works are still pending at the time of this dictation. IMPRESSION AND PLAN: So, in summary, this is a 77-year-old male patient who was admitted on account of taking as gas water heater apart causing gas leak. Apparently, his called the police and he was yelling at her, paranoid. This is already the second time that he was admitted to this unit with the same complaint. Medically, he has multiple medical problems including urinary tract infection, hypertension, benign prostatic hypertrophy. He apparently has basal cell carcinoma removed; however all in all, the patient seems to be medically stable. All his vital signs are within normal range. His lab works just available for review are within normal range. I will follow up the rest of his labs and make any necessary recommendation. Thank you, Dr. Hawk, for allowing me to participate in the care of this patient. MARYAM MARAVILLA MD DR: JOCELYNN/jessica JOB#: [id number] / [id number]
[2018-07-21 05:51] VITALS: BP 155/88
[2018-07-21 07:25] LABS: BILIRUBIN,URINE NEG (NEG); CLARITY,URINE HAZY; COLOR,URINE YELLOW; GLUCOSE,URINE NEG (NEG); NITRITE,URINE NEG (NEG); RBC,URINE 0 /HPF (0-2); UROBILINOGEN,URINE 0.2 mg/dL (0.2 mg/dL)
[2018-07-21 07:26] LABS: BACTERIA,URINE 0 /HPF (0-FEW); SQUAMOUS EPITHELIAL CELL,UR OCC /LPF
[2018-07-21] MEDS: TAMSULOSIN 0.4 MG CAP.ER.24H. PO SCH (08:28)
[2018-07-21] MEDS: CHOLECALCIFEROL (VITAMIN D3) 50,000 UNIT CAPSULE PO SCH (12:59)
[2018-07-21 16:27] VITALS: BP 149/88
--- NOTE | 2018-07-21 19:25 | HP ---
ADMIT DATE: 07/20/2018 PSYCHIATRIC ADMISSION HISTORY AND EVALUATION This late entry date of service 07/20/2018 covers the elements not covered in my initial note. I met with the patient evening of 07/20/2018 and previously discussed with nursing staff on several occasions including prior to the patient's admission discussion with Gideon Shi, client care coordinator. IDENTIFYING DATA: The patient is a 77-year-old male referred back to us from the Emergency Room at where he presented with his on account of dangerous, out of control behaviors and failure for outpatient treatment at the [facility]. The patient was dismantling the hot water heater. He tried to install security cameras, was paranoid, suspicious, taking apart multiple objects in the home, was having reportedly flight of ideas, thinks his was a prostitute on the [employer] top 10 list. He presented to the Emergency Room with the assistance of the police department that the had called because of his dangerous out of control behaviors. He has been an inpatient in the past with us diagnosed with schizoaffective disorder, bipolar type, with psychotic features, then he stopped all his psychotropics. Shortly after he returned home from his last hospitalization. He had also refused to go to the [facility] for his outpatient treatment. CHIEF COMPLAINT: "I paid for the house. She is doing this. She is trying to take it away from me. I have to put cameras for this. Everyone is on it." HISTORY OF PRESENT ILLNESS: The patient has a history of schizoaffective disorder, bipolar type, mixed with psychotic features. He has been living at home with his , getting increasingly agitated with sleep and appetite changes, worsening mood swings, paranoia and anxiety. He took the gas heater apart caused gas leak, yelling at his , paranoid. He has had sleep and appetite changes. No active suicidal or homicidal ideation. PAST PSYCHIATRIC HISTORY: As above. MEDICAL HISTORY: Positive for BPH, hypertension, anxiety, skin cancer. DRUG ALLERGIES: Negative. CODE STATUS: Full code. ACCU-CHEKS: None. DIET: Regular. MEDICATIONS: Refused all his medications: Ambulates up ad tani. UA, 07/19/2018 ER was positive. He was started on Cipro for his UTI. CURRENT PSYCHOTROPICS: The patient was not taking any psychotropics prior to his admission having discontinued everything, but in the past, he was on Depakote ER 1000 mg at bedtime, Haldol 5 mg at bedtime, trazodone 50 mg at bedtime, may repeat x 1, Zyprexa p.r.n., and Atarax p.r.n. FAMILY HISTORY: Noncontributory. SOCIAL HISTORY: No history of alcohol, drug abuse, physical, sexual or elder abuse. He is not known to be a perpetrator. He has been admitted by his , Stacey Quiros who is his DPOA and is referred by Dr. Belinda Miller, his primary care physician. REACTION TO HOSPITALIZATION: The patient accepting of it albeit reluctantly. ASSETS: Supportive and he is cognitively reasonably intact. REVIEW OF SYSTEMS: No CV, , pulmonary, eye, ENT system symptoms on review. He has vague somatic symptoms. MENTAL STATUS EXAMINATION: The patient is oriented to himself and situation. Speech coherent, rapid at times difficult to understand. Abstraction fair, computation impaired, language function intact, attention span short. Mood and affect quite labile, anxious, distractable. No active suicidal or homicidal ideation. He is very paranoid as above. IMPRESSION: Schizoaffective disorder, bipolar type mixed with psychotic features; anxiety disorder, unspecified; impulse control disorder, unspecified. Rest as above. PLAN: Admit to Geropsychiatry Unit at [facility]. I will see the patient daily individually from a psychiatric standpoint. Medical followup per Dr. Torres. Restart patient on Depakote, but at a lower dosage Depakote ER 500 mg p.o. at bedtime. Check CBC, CMP, valproic acid level in 3 days. Restart Haldol 5 mg at bedtime, Zyprexa p.r.n., Atarax p.r.n. We will observe the patient's baseline, then make further adjustments as clinically indicated. MAN Barrera PEACE MD DR: WHITNEY/jessica JOB#: [id number] / [id number]
[2018-07-21] MEDS: ATORVASTATIN CALCIUM 10 MG TABLET. PO SCH (20:17)
[2018-07-21] MEDS: HALOPERIDOL 5 MG TABLET PO SCH (20:17)
[2018-07-21] MEDS: LACTOBACILLUS RHAMNOSUS GG 1 CAPSULE. PO SCH (20:17)
[2018-07-21] MEDS: DIVALPROEX ER 500 MG TAB.ER.24H PO SCH (20:17)
[2018-07-21] MEDS: traZODone 50 MG TABLET. PO SCH (20:18)
[2018-07-21] MEDS ORDERED: traZODone 50 MG TABLET. PO PRN (21:00)
--- NOTE | 2018-07-21 22:32 | PDOC ---
Exam Note: Preston Note: Please also refer to the separate dictated note~for this date of service dictated separately.~Patient seen individually. Discussed the patient with Nursing staff reviewed the chart.~Reviewed interim history and current functioning. Reviewed vital signs,~Labs/ Radiology~and current medications noted below. Continue current treatment with the changes noted in the dictated addendum note Assessment: Vital Signs: Vital Signs Date Time Temp Pulse Resp B/P (MAP) Pulse Ox O2 Delivery O2 Flow Rate FiO2 07/21/18 16:27 97.6 88 18 149/88 (108) 97 Room Air I&O Intake and Output 07/21/18 07:00 Intake Total 1320 ml Balance 1320 ml Intake Oral 1320 ml # Voids 1 Labs: Laboratory Tests Test 07/21/18 06:15 Urine Collection Type Unknown Urine Color Yellow Urine Clarity Hazy Urine pH 6.0 Urine Specific [place] 1.015 Urine Protein Neg (NEG-TRACE) Urine Glucose (UA) Neg mg/dL (NEG) Urine Ketones (Stick) Neg mg/dL (NEG) Urine Blood Neg (NEG) Urine Nitrite Neg (NEG) Urine Bilirubin Neg (NEG) Urine Urobilinogen Dipstick 0.2 mg/dL (0.2 mg/dL) Urine Leukocyte Esterase Trace (NEG) Urine RBC 0 /HPF (0-2) Urine WBC 1-4 /HPF (0-4) Urine Squamous Epithelial Cells Occ /LPF Urine Bacteria 0 /HPF (0-FEW) Current Medications: Meds: Current Medications Acetaminophen (Tylenol) 650 mg PRN Q6HRS PRN PO PAIN / TEMP Last administered on 07/20/18at 11:23; Start 07/20/18 at 02:30 Multi-Ingredient Ointment (Analgesic [place]) 1 maximo PRN QID PRN TP MUSCLE PAIN; Start 07/20/18 at 02:30 Al Hydroxide/Mg Hydroxide (Mylanta Plus Xs) 15 ml PRN AFTMEALHC PRN PO DYSPEPSIA; Start 07/20/18 at 02:30 Magnesium Hydroxide (Milk Of Magnesia) 2,400 mg PRN QHS PRN PO CONSTIPATION; Start 07/20/18 at 02:30 Tamsulosin HCl (Flomax) 0.4 mg DAILY PO Last administered on 07/21/18at 08:28; Start 07/20/18 at 09:00 Hydroxyzine HCl (Atarax) 25 mg PRN QID PRN PO ANXIETY / AGITATION; Start at 07:00 Divalproex Sodium (Depakote Er) 1,000 mg QHS PO Last administered on 07/21/18at 20:17; Start 07/21/18 at 21:00 Haloperidol (Haldol) 5 mg QHS PO Last administered on 07/21/18 20:17; Start at 21:00 Olanzapine (ZyPREXA ZYDIS) 2.5 mg PRN Q2HR PRN PO ANXIETY / AGITATION; Start at 07:00 Trazodone HCl (Desyrel) 50 mg QHS PO Last administered on 07/21/18at 20:18; Start 07/21/18 at 21:00 Trazodone HCl (Desyrel) 50 mg PRN QHS PRN PO INSOMNIA, MAY REPEAT X1; Start at 21:00 Vitamin D (Vitamin D3) 50,000 unit WEEKLY PO ; Start 07/28/18 at 09:00; Status UNV Atorvastatin Calcium (Lipitor) 10 mg QHS PO Last administered on 07/21/18 20: 17; Start 07/21/18 at 21:00 Lactobacillus Rhamnosus (Culturelle) 1 cap BID PO Last administered on at 20:17; Start 07/21/18 at 21:00 Vitamin D (Vitamin D3) 50,000 unit WEEKLY PO Last administered on 07/21/18at 12: 59; Start 07/21/18 at 12:30 Active Scripts Active Reported Cipro (Ciprofloxacin Hcl) 250 Mg Tablet 250 Mg PO BID 5 Days Trazodone Hcl 50 Mg Tablet 50 Mg PO PRN QHS PRN Trazodone Hcl 50 Mg Tablet 50 Mg PO HS Olanzapine 5 Mg Tablet 2.5 Mg PO PRN Q2HR PRN Culturelle (Lactobacillus Rhamnosus Gg) 1 Each Capsule 1 Each PO BID Haloperidol 5 Mg Tablet 5 Mg PO HS Divalproex Sodium Er (Divalproex Sodium) 500 Mg Tab.er.24h 2 Tab PO QHS D3-50 (Cholecalciferol (Vitamin D3)) 50,000 Unit Capsule 1 Cap PO WEEKLY Atorvastatin Calcium 10 Mg Tablet 10 Mg PO QHS Tamsulosin Hcl 0.4 Mg Cap.er.24h 0.4 Mg PO DAILY Hydroxyzine Hcl 25 Mg Tablet 25 Mg PO PRN QID PRN I have reviewed the current psychotropics carefully including drug interactions. Risk benefit ratio favors no change other than as noted in my dictated progress note. Diagnosis: Problems: (1) Schizoaffective disorder, bipolar type (2) Schizoaffective disorder (3) Anxiety disorder (4) Bipolar affective, mixed, sev w/ psych (5) Impulse control disorder (6) Schizophrenia, paranoid, chronic with acute exacerbation ARABELLA PEACE MD Jul 21, 2018 22:31
[2018-07-22 06:16] VITALS: BP 167/92
[2018-07-22] MEDS: LACTOBACILLUS RHAMNOSUS GG 1 CAPSULE. PO SCH ×2 (07:37→20:11)
[2018-07-22] MEDS: TAMSULOSIN 0.4 MG CAP.ER.24H. PO SCH (07:37)
[2018-07-22 15:53] VITALS: BP 150/84
[2018-07-22] MEDS: ATORVASTATIN CALCIUM 10 MG TABLET. PO SCH (20:12)
[2018-07-22] MEDS: HALOPERIDOL 5 MG TABLET PO SCH (20:12)
[2018-07-22] MEDS: traZODone 50 MG TABLET. PO SCH (20:12)
[2018-07-22] MEDS: DIVALPROEX ER 500 MG TAB.ER.24H PO SCH (20:12)
--- NOTE | 2018-07-22 21:54 | PDOC ---
Exam Note: Preston Note: Please also refer to the separate dictated note~for this date of service dictated separately.~Patient seen individually. Discussed the patient with Nursing staff reviewed the chart.~Reviewed interim history and current functioning. Reviewed vital signs,~Labs/ Radiology~and current medications noted below. Continue current treatment with the changes noted in the dictated addendum note Assessment: Vital Signs: Vital Signs Date Time Temp Pulse Resp B/P (MAP) Pulse Ox O2 Delivery O2 Flow Rate FiO2 07/22/18 15:53 98.2 96 20 150/84 (106) 95 Room Air I&O Intake and Output 07/22/18 06:59 Intake Total 840 ml Output Total 400 ml Balance 440 ml Intake Oral 840 ml Output Urine Total 400 ml # Voids 1 Current Medications: Meds: Current Medications Acetaminophen (Tylenol) 650 mg PRN Q6HRS PRN PO PAIN / TEMP Last administered on 07/20/18at 11:23; Start 07/20/18 at 02:30 Multi-Ingredient Ointment (Analgesic [place]) 1 maximo PRN QID PRN TP MUSCLE PAIN; Start 07/20/18 at 02:30 Al Hydroxide/Mg Hydroxide (Mylanta Plus Xs) 15 ml PRN AFTMEALHC PRN PO DYSPEPSIA; Start 07/20/18 at 02:30 Magnesium Hydroxide (Milk Of Magnesia) 2,400 mg PRN QHS PRN PO CONSTIPATION; Start 07/20/18 at 02:30 Tamsulosin HCl (Flomax) 0.4 mg DAILY PO Last administered on 07/22/18at 07:37; Start 07/20/18 at 09:00 Hydroxyzine HCl (Atarax) 25 mg PRN QID PRN PO ANXIETY / AGITATION; Start at 07:00 Divalproex Sodium (Depakote Er) 1,000 mg QHS PO Last administered on 07/22/18 20:12; Start 07/21/18 at 21:00 Haloperidol (Haldol) 5 mg QHS PO Last administered on 07/22/18at 20:12; Start at 21:00 Olanzapine (ZyPREXA ZYDIS) 2.5 mg PRN Q2HR PRN PO ANXIETY / AGITATION; Start at 07:00 Trazodone HCl (Desyrel) 50 mg QHS PO Last administered on 07/22/18at 20:12; Start 07/21/18 at 21:00 Trazodone HCl (Desyrel) 50 mg PRN QHS PRN PO INSOMNIA, MAY REPEAT X1; Start at 21:00 Vitamin D (Vitamin D3) 50,000 unit WEEKLY PO ; Start 07/28/18 at 09:00; Status UNV Atorvastatin Calcium (Lipitor) 10 mg QHS PO Last administered on 07/22/18at 20:12 ; Start 07/21/18 at 21:00 Lactobacillus Rhamnosus (Culturelle) 1 cap BID PO Last administered on at 20:11; Start 07/21/18 at 21:00 Vitamin D (Vitamin D3) 50,000 unit WEEKLY PO Last administered on 07/21/18at 12: 59; Start 07/21/18 at 12:30 Active Scripts Active Reported Cipro (Ciprofloxacin Hcl) 250 Mg Tablet 250 Mg PO BID 5 Days Trazodone Hcl 50 Mg Tablet 50 Mg PO PRN QHS PRN Trazodone Hcl 50 Mg Tablet 50 Mg PO HS Olanzapine 5 Mg Tablet 2.5 Mg PO PRN Q2HR PRN Culturelle (Lactobacillus Rhamnosus Gg) 1 Each Capsule 1 Each PO BID Haloperidol 5 Mg Tablet 5 Mg PO HS Divalproex Sodium Er (Divalproex Sodium) 500 Mg Tab.er.24h 2 Tab PO QHS D3-50 (Cholecalciferol (Vitamin D3)) 50,000 Unit Capsule 1 Cap PO WEEKLY Atorvastatin Calcium 10 Mg Tablet 10 Mg PO QHS Tamsulosin Hcl 0.4 Mg Cap.er.24h 0.4 Mg PO DAILY Hydroxyzine Hcl 25 Mg Tablet 25 Mg PO PRN QID PRN I have reviewed the current psychotropics carefully including drug interactions. Risk benefit ratio favors no change other than as noted in my dictated progress note. Diagnosis: Problems: (1) Schizoaffective disorder, bipolar type (2) Schizoaffective disorder (3) Anxiety disorder (4) Bipolar affective, mixed, sev w/ psych (5) Impulse control disorder (6) Schizophrenia, paranoid, chronic with acute exacerbation ARABELLA PEACE MD Jul 22, 2018 21:54
--- NOTE | 2018-07-22 23:52 | PN ---
DATE: 07/21/2018 This late entry for 07/21/2018 covers elements not covered in my initial note. SUBJECTIVE: I met with the patient in the evening at length and staffed at treatment team meeting. The patient remains quite psychotic, paranoid. He had stopped all his psychotropics prior to admission. We restarted Haldol and Depakote. We will repeat labs level. Slept 6-1/2 hours previous night. REVIEW OF SYSTEMS: No CV, , pulmonary, eye system symptoms on review. MENTAL STATUS EXAM: Oriented to himself and situation. Speech coherent, rapid at times, very paranoid, talking about his , things he was doing at home trying to justify it where he was taking apart the gas line, amongst other things. Abstraction fair, computation impaired, language function intact. Short-term memory is impaired. No suicidal or homicidal ideation. LABORATORY DATA: Reviewed. IMPRESSION: Unchanged from initial note, schizoaffective disorder, bipolar type, mixed with psychotic features. Rest unchanged. PLAN: Continue current psychotropics that we restarted and follow labs level on the Depakote. MAN Barrera PEACE MD DR: WHITNEY/jessica JOB#: [id number] / [id number]
[2018-07-23 05:37] VITALS: BP 160/89
[2018-07-23] MEDS: LACTOBACILLUS RHAMNOSUS GG 1 CAPSULE. PO SCH ×2 (08:57→19:35)
[2018-07-23] MEDS: TAMSULOSIN 0.4 MG CAP.ER.24H. PO SCH (08:57)
[2018-07-23 15:36] VITALS: BP 126/80
[2018-07-23] MEDS: HALOPERIDOL 5 MG TABLET PO SCH (19:35)
[2018-07-23] MEDS: DIVALPROEX ER 500 MG TAB.ER.24H PO SCH (19:35)
[2018-07-23] MEDS: ATORVASTATIN CALCIUM 10 MG TABLET. PO SCH (19:35)
[2018-07-23] MEDS: traZODone 50 MG TABLET. PO SCH (19:35)
[2018-07-23] MEDS: MIRTAZAPINE 7.5 MG TABLET. PO SCH (20:28)
--- NOTE | 2018-07-23 21:57 | PDOC ---
Exam Note: Preston Note: Please also refer to the separate dictated note~for this date of service dictated separately.~Patient seen individually. Discussed the patient with Nursing staff reviewed the chart.~Reviewed interim history and current functioning. Reviewed vital signs,~Labs/ Radiology~and current medications noted below. Continue current treatment with the changes noted in the dictated addendum note Assessment: Vital Signs: Vital Signs Date Time Temp Pulse Resp B/P (MAP) Pulse Ox O2 Delivery O2 Flow Rate FiO2 07/23/18 15:36 97.6 71 18 126/80 (95) 97 07/23/18 05:37 Room Air I&O Intake and Output 07/23/18 06:59 Intake Total 600 ml Balance 600 ml Intake Oral 600 ml Current Medications: Meds: Current Medications Acetaminophen (Tylenol) 650 mg PRN Q6HRS PRN PO PAIN / TEMP Last administered on 07/20/18at 11:23; Start 07/20/18 at 02:30 Multi-Ingredient Ointment (Analgesic [place]) 1 maximo PRN QID PRN TP MUSCLE PAIN; Start 07/20/18 at 02:30 Al Hydroxide/Mg Hydroxide (Mylanta Plus Xs) 15 ml PRN AFTMEALHC PRN PO DYSPEPSIA; Start 07/20/18 at 02:30 Magnesium Hydroxide (Milk Of Magnesia) 2,400 mg PRN QHS PRN PO CONSTIPATION; Start 07/20/18 at 02:30 Tamsulosin HCl (Flomax) 0.4 mg DAILY PO Last administered on 07/23/18at 08:57; Start 07/20/18 at 09:00 Hydroxyzine HCl (Atarax) 25 mg PRN QID PRN PO ANXIETY / AGITATION; Start at 07:00 Divalproex Sodium (Depakote Er) 1,000 mg QHS PO Last administered on 07/23/18at 19:35; Start 07/21/18 at 21:00 Haloperidol (Haldol) 5 mg QHS PO Last administered on 07/23/18at 19:35; Start at 21:00 Olanzapine (ZyPREXA ZYDIS) 2.5 mg PRN Q2HR PRN PO ANXIETY / AGITATION; Start at 07:00 Trazodone HCl (Desyrel) 50 mg QHS PO Last administered on 07/23/18 19:35; Start 07/21/18 at 21:00 Trazodone HCl (Desyrel) 50 mg PRN QHS PRN PO INSOMNIA, MAY REPEAT X1; Start at 21:00 Vitamin D (Vitamin D3) 50,000 unit WEEKLY PO ; Start 07/28/18 at 09:00; Status UNV Atorvastatin Calcium (Lipitor) 10 mg QHS PO Last administered on 07/23/18 19:35 ; Start 07/21/18 at 21:00 Lactobacillus Rhamnosus (Culturelle) 1 cap BID PO Last administered on 19:35; Start 07/21/18 at 21:00 Vitamin D (Vitamin D3) 50,000 unit WEEKLY PO Last administered on 07/21/18at 12: 59; Start 07/21/18 at 12:30 Mirtazapine (Remeron) 7.5 mg QHS PO Last administered on 07/23/18at 20:28; Start 07/23/18 at 21:00 Active Scripts Active Reported Cipro (Ciprofloxacin Hcl) 250 Mg Tablet 250 Mg PO BID 5 Days Trazodone Hcl 50 Mg Tablet 50 Mg PO PRN QHS PRN Trazodone Hcl 50 Mg Tablet 50 Mg PO HS Olanzapine 5 Mg Tablet 2.5 Mg PO PRN Q2HR PRN Culturelle (Lactobacillus Rhamnosus Gg) 1 Each Capsule 1 Each PO BID Haloperidol 5 Mg Tablet 5 Mg PO HS Divalproex Sodium Er (Divalproex Sodium) 500 Mg Tab.er.24h 2 Tab PO QHS D3-50 (Cholecalciferol (Vitamin D3)) 50,000 Unit Capsule 1 Cap PO WEEKLY Atorvastatin Calcium 10 Mg Tablet 10 Mg PO QHS Tamsulosin Hcl 0.4 Mg Cap.er.24h 0.4 Mg PO DAILY Hydroxyzine Hcl 25 Mg Tablet 25 Mg PO PRN QID PRN I have reviewed the current psychotropics carefully including drug interactions. Risk benefit ratio favors no change other than as noted in my dictated progress note. Diagnosis: Problems: (1) Schizoaffective disorder, bipolar type (2) Schizoaffective disorder (3) Anxiety disorder (4) Bipolar affective, mixed, sev w/ psych (5) Impulse control disorder (6) Schizophrenia, paranoid, chronic with acute exacerbation ARABELLA PEACE MD Jul 23, 2018 21:57
[2018-07-24 05:57] VITALS: BP_SYST 149
[2018-07-24] MEDS: LACTOBACILLUS RHAMNOSUS GG 1 CAPSULE. PO SCH ×2 (08:09→19:45)
[2018-07-24] MEDS: TAMSULOSIN 0.4 MG CAP.ER.24H. PO SCH (08:09)
[2018-07-24 08:10] LABS: HEMATOCRIT 47.6 % (39.0-53.0); HEMOGLOBIN 16.2 g/dL (13.0-17.5); RED BLOOD COUNT 5.12 x10^6/uL (4.30-5.70); RED CELL DISTRIBUTION WIDTH 13.6 % (11.5-14.5); WHITE BLOOD COUNT 6.3 x10^3/uL (4.0-11.0)
[2018-07-24 08:26] LABS: ALBUMIN 3.6 g/dL (3.4-5.0); ALBUMIN/GLOBULIN RATIO 0.9 (1.0-1.7); ALK PHOS 83 U/L (46-116); ALT (SGPT) 19 U/L (16-63); ANION GAP 7 (6-14); AST (SGOT) 13 U/L (15-37); BLOOD UREA NITROGEN 16 mg/dL (8-26); BUN/CREATININE RATIO 18 (6-20); CALCIUM 9.1 mg/dL (8.5-10.1); CARBON DIOXIDE 30 mmol/L (21-32); CHLORIDE 104 mmol/L (98-107); CREATININE 0.9 mg/dL (0.7-1.3); GLUCOSE 93 mg/dL (70-99); POTASSIUM 4.1 mmol/L (3.5-5.1); SODIUM 141 mmol/L (136-145); TOTAL BILIRUBIN 0.7 mg/dL (0.2-1.0); TOTAL PROTEIN 7.7 g/dL (6.4-8.2)
[2018-07-24 08:28] LABS: VAL ACID 41 mcg/mL (50-100)
[2018-07-24 16:10] VITALS: BP 169/96
[2018-07-24] MEDS: HALOPERIDOL 5 MG TABLET PO SCH (19:44)
[2018-07-24] MEDS: ATORVASTATIN CALCIUM 10 MG TABLET. PO SCH (19:45)
[2018-07-24] MEDS: traZODone 50 MG TABLET. PO SCH (19:45)
[2018-07-24] MEDS: DIVALPROEX ER 500 MG TAB.ER.24H PO SCH (19:45)
[2018-07-24] MEDS: MIRTAZAPINE 7.5 MG TABLET. PO SCH (19:46)
--- NOTE | 2018-07-24 22:16 | PN ---
DATE: 07/22/2018 PSYCHIATRIC PROGRESS NOTE This late entry 07/22/2018 covers elements not covered in my initial note. SUBJECTIVE: I met with the patient in the evening. The patient slept 5 hours previous night. He has had a good day, quite obsessive about believing his is stealing his money, restless at night. During the day on 07/22/2018, he was smiling, rambling in his speech, somewhat labile in his mood. REVIEW OF SYSTEMS: No CV, , pulmonary, eye, ENT system symptoms on review. MENTAL STATUS EXAM: Oriented to himself and situation. Speech coherent, rapid at times. Abstraction fair, computation impaired, language function intact, attention span short. Mood and affect remain somewhat grandiose, labile. LABORATORY DATA: Reviewed. We will check valproic acid level post-3 doses of Depakote. IMPRESSION: Unchanged from initial note. PLAN: No change from initial note. TSH is 1.8. MAN Barrera PEACE MD DR: WHITNEY/jessica JOB#: [id number] / [id number]
--- NOTE | 2018-07-24 22:43 | PDOC ---
Exam Note: Preston Note: Please also refer to the separate dictated note~for this date of service dictated separately.~Patient seen individually. Discussed the patient with Nursing staff reviewed the chart.~Reviewed interim history and current functioning. Reviewed vital signs,~Labs/ Radiology~and current medications noted below. Continue current treatment with the changes noted in the dictated addendum note Assessment: Vital Signs: Vital Signs Date Time Temp Pulse Resp B/P (MAP) Pulse Ox O2 Delivery O2 Flow Rate FiO2 07/24/18 16:10 98.7 102 20 169/96 (120) 94 07/23/18 05:37 Room Air I&O Intake and Output 07/24/18 07:00 Intake Total 600 ml Balance 600 ml Intake Oral 600 ml Labs: Laboratory Tests Test 07/24/18 07:54 White Blood Count 6.3 x10^3/uL (4.0-11.0) Red Blood Count 5.12 x10^6/uL (4.30-5.70) Hemoglobin 16.2 g/dL (13.0-17.5) Hematocrit 47.6 % (39.0-53.0) Mean Corpuscular Volume 93 fL (79-100) Mean Corpuscular Hemoglobin 32 pg (25-35) Mean Corpuscular Hemoglobin Concent 34 g/dL (31-37) Red Cell Distribution Width 13.6 % (11.5-14.5) Platelet Count 120 x10^3/uL (140-400) L Sodium Level 141 mmol/L (136-145) Potassium Level 4.1 mmol/L (3.5-5.1) Chloride Level 104 mmol/L (98-107) Carbon Dioxide Level 30 mmol/L (21-32) Anion Gap 7 (6-14) Blood Urea Nitrogen 16 mg/dL (8-26) Creatinine 0.9 mg/dL (0.7-1.3) Estimated GFR (Cockcroft-Gault) 82.0 BUN/Creatinine Ratio 18 (6-20) Glucose Level 93 mg/dL (70-99) Calcium Level 9.1 mg/dL (8.5-10.1) Total Bilirubin 0.7 mg/dL (0.2-1.0) Aspartate Amino Transferase (AST) 13 U/L (15-37) L Alanine Aminotransferase (ALT) 19 U/L (16-63) Alkaline Phosphatase 83 U/L (46-116) Total Protein 7.7 g/dL (6.4-8.2) Albumin 3.6 g/dL (3.4-5.0) Albumin/Globulin Ratio 0.9 (1.0-1.7) L Valproic Acid Level 41 mcg/mL (50-100) L Valproic Acid Last Dose Date 07/23/2018 Valproic Acid Last Dose Time 2100 Current Medications: Meds: Current Medications Acetaminophen (Tylenol) 650 mg PRN Q6HRS PRN PO PAIN / TEMP Last administered on 07/20/18at 11:23; Start 07/20/18 at 02:30 Multi-Ingredient Ointment (Analgesic [place]) 1 maximo PRN QID PRN TP MUSCLE PAIN; Start 07/20/18 at 02:30 Al Hydroxide/Mg Hydroxide (Mylanta Plus Xs) 15 ml PRN AFTMEALHC PRN PO DYSPEPSIA; Start 07/20/18 at 02:30 Magnesium Hydroxide (Milk Of Magnesia) 2,400 mg PRN QHS PRN PO CONSTIPATION; Start 07/20/18 at 02:30 Tamsulosin HCl (Flomax) 0.4 mg DAILY PO Last administered on 07/24/18at 08:09; Start 07/20/18 at 09:00 Hydroxyzine HCl (Atarax) 25 mg PRN QID PRN PO ANXIETY / AGITATION; Start at 07:00 Divalproex Sodium (Depakote Er) 1,000 mg QHS PO Last administered on 07/24/18 19:45; Start 07/21/18 at 21:00 Haloperidol (Haldol) 5 mg QHS PO Last administered on 07/24/18at 19:44; Start at 21:00 Olanzapine (ZyPREXA ZYDIS) 2.5 mg PRN Q2HR PRN PO ANXIETY / AGITATION; Start at 07:00 Trazodone HCl (Desyrel) 50 mg QHS PO Last administered on 07/24/18at 19:45; Start 07/21/18 at 21:00 Trazodone HCl (Desyrel) 50 mg PRN QHS PRN PO INSOMNIA, MAY REPEAT X1; Start at 21:00 Vitamin D (Vitamin D3) 50,000 unit WEEKLY PO ; Start 07/28/18 at 09:00; Status UNV Atorvastatin Calcium (Lipitor) 10 mg QHS PO Last administered on 07/24/18 19:45 ; Start 07/21/18 at 21:00 Lactobacillus Rhamnosus (Culturelle) 1 cap BID PO Last administered on 19:45; Start 07/21/18 at 21:00 Vitamin D (Vitamin D3) 50,000 unit WEEKLY PO Last administered on 07/21/18at 12: 59; Start 07/21/18 at 12:30 Mirtazapine (Remeron) 7.5 mg QHS PO Last administered on 07/24/18 19:46; Start 07/23/18 at 21:00 Risperidone (RisperDAL CONSTA) 25 mg Q2WKS IM ; Start 07/25/18 at 09:00 Active Scripts Active Reported Cipro (Ciprofloxacin Hcl) 250 Mg Tablet 250 Mg PO BID 5 Days Trazodone Hcl 50 Mg Tablet 50 Mg PO PRN QHS PRN Trazodone Hcl 50 Mg Tablet 50 Mg PO HS Olanzapine 5 Mg Tablet 2.5 Mg PO PRN Q2HR PRN Culturelle (Lactobacillus Rhamnosus Gg) 1 Each Capsule 1 Each PO BID Haloperidol 5 Mg Tablet 5 Mg PO HS Divalproex Sodium Er (Divalproex Sodium) 500 Mg Tab.er.24h 2 Tab PO QHS D3-50 (Cholecalciferol (Vitamin D3)) 50,000 Unit Capsule 1 Cap PO WEEKLY Atorvastatin Calcium 10 Mg Tablet 10 Mg PO QHS Tamsulosin Hcl 0.4 Mg Cap.er.24h 0.4 Mg PO DAILY Hydroxyzine Hcl 25 Mg Tablet 25 Mg PO PRN QID PRN I have reviewed the current psychotropics carefully including drug interactions. Risk benefit ratio favors no change other than as noted in my dictated progress note. Diagnosis: Problems: (1) Schizoaffective disorder, bipolar type (2) Schizoaffective disorder (3) Anxiety disorder (4) Bipolar affective, mixed, sev w/ psych (5) Impulse control disorder (6) Schizophrenia, paranoid, chronic with acute exacerbation ARABELLA PEACE MD Jul 24, 2018 22:43
[2018-07-25 05:48] VITALS: BP 170/78
[2018-07-25] MEDS: LACTOBACILLUS RHAMNOSUS GG 1 CAPSULE. PO SCH ×2 (07:59→20:22)
[2018-07-25] MEDS: TAMSULOSIN 0.4 MG CAP.ER.24H. PO SCH (07:59)
[2018-07-25] MEDS: risperiDONE MICROSPHERES 25 MG/2 ML DISP.SYRIN. IM SCH (09:57)
[2018-07-25 16:07] VITALS: BP 131/80
[2018-07-25] MEDS: HALOPERIDOL 5 MG TABLET PO SCH (20:22)
[2018-07-25] MEDS: DIVALPROEX ER 500 MG TAB.ER.24H PO SCH (20:22)
[2018-07-25] MEDS: traZODone 50 MG TABLET. PO SCH (20:22)
[2018-07-25] MEDS: MIRTAZAPINE 7.5 MG TABLET. PO SCH (20:23)
[2018-07-25] MEDS: ATORVASTATIN CALCIUM 10 MG TABLET. PO SCH (20:23)
--- NOTE | 2018-07-25 22:39 | PDOC ---
Exam Note: Preston Note: Please also refer to the separate dictated note~for this date of service dictated separately.~Patient seen individually. Discussed the patient with Nursing staff reviewed the chart.~Reviewed interim history and current functioning. Reviewed vital signs,~Labs/ Radiology~and current medications noted below. Continue current treatment with the changes noted in the dictated addendum note Assessment: Vital Signs: Vital Signs Date Time Temp Pulse Resp B/P (MAP) Pulse Ox O2 Delivery O2 Flow Rate FiO2 07/25/18 16:07 97.6 84 20 131/80 (97) 96 07/23/18 05:37 Room Air I&O Intake and Output 07/25/18 07:00 Intake Total 1500 ml Balance 1500 ml Intake Oral 1500 ml Current Medications: Meds: Current Medications Acetaminophen (Tylenol) 650 mg PRN Q6HRS PRN PO PAIN / TEMP Last administered on 07/20/18at 11:23; Start 07/20/18 at 02:30 Multi-Ingredient Ointment (Analgesic [place]) 1 maximo PRN QID PRN TP MUSCLE PAIN; Start 07/20/18 at 02:30 Al Hydroxide/Mg Hydroxide (Mylanta Plus Xs) 15 ml PRN AFTMEALHC PRN PO DYSPEPSIA; Start 07/20/18 at 02:30 Magnesium Hydroxide (Milk Of Magnesia) 2,400 mg PRN QHS PRN PO CONSTIPATION; Start 07/20/18 at 02:30 Tamsulosin HCl (Flomax) 0.4 mg DAILY PO Last administered on 07/25/18at 07:59; Start 07/20/18 at 09:00 Hydroxyzine HCl (Atarax) 25 mg PRN QID PRN PO ANXIETY / AGITATION; Start at 07:00 Divalproex Sodium (Depakote Er) 1,000 mg QHS PO Last administered on 07/25/18 20:22; Start 07/21/18 at 21:00 Haloperidol (Haldol) 5 mg QHS PO Last administered on 07/25/18at 20:22; Start at 21:00 Olanzapine (ZyPREXA ZYDIS) 2.5 mg PRN Q2HR PRN PO ANXIETY / AGITATION; Start at 07:00 Trazodone HCl (Desyrel) 50 mg QHS PO Last administered on 07/25/18 20:22; Start 07/21/18 at 21:00 Trazodone HCl (Desyrel) 50 mg PRN QHS PRN PO INSOMNIA, MAY REPEAT X1; Start at 21:00 Vitamin D (Vitamin D3) 50,000 unit WEEKLY PO ; Start 07/28/18 at 09:00; Status UNV Atorvastatin Calcium (Lipitor) 10 mg QHS PO Last administered on 07/25/18 20:23 ; Start 07/21/18 at 21:00 Lactobacillus Rhamnosus (Culturelle) 1 cap BID PO Last administered on 20:22; Start 07/21/18 at 21:00 Vitamin D (Vitamin D3) 50,000 unit WEEKLY PO Last administered on 07/21/18at 12: 59; Start 07/21/18 at 12:30 Mirtazapine (Remeron) 7.5 mg QHS PO Last administered on 07/25/18 20:23; Start 07/23/18 at 21:00 Risperidone (RisperDAL CONSTA) 25 mg Q2WKS IM Last administered on 07/25/18 09: 57; Start 07/25/18 at 09:00 Active Scripts Active Reported Cipro (Ciprofloxacin Hcl) 250 Mg Tablet 250 Mg PO BID 5 Days Trazodone Hcl 50 Mg Tablet 50 Mg PO PRN QHS PRN Trazodone Hcl 50 Mg Tablet 50 Mg PO HS Olanzapine 5 Mg Tablet 2.5 Mg PO PRN Q2HR PRN Culturelle (Lactobacillus Rhamnosus Gg) 1 Each Capsule 1 Each PO BID Haloperidol 5 Mg Tablet 5 Mg PO HS Divalproex Sodium Er (Divalproex Sodium) 500 Mg Tab.er.24h 2 Tab PO QHS D3-50 (Cholecalciferol (Vitamin D3)) 50,000 Unit Capsule 1 Cap PO WEEKLY Atorvastatin Calcium 10 Mg Tablet 10 Mg PO QHS Tamsulosin Hcl 0.4 Mg Cap.er.24h 0.4 Mg PO DAILY Hydroxyzine Hcl 25 Mg Tablet 25 Mg PO PRN QID PRN I have reviewed the current psychotropics carefully including drug interactions. Risk benefit ratio favors no change other than as noted in my dictated progress note. Diagnosis: Problems: (1) Schizoaffective disorder, bipolar type (2) Schizoaffective disorder (3) Anxiety disorder (4) Bipolar affective, mixed, sev w/ psych (5) Impulse control disorder (6) Schizophrenia, paranoid, chronic with acute exacerbation ARABELLA PEACE MD Jul 25, 2018 22:39
--- NOTE | 2018-07-25 22:45 | PN ---
DATE: 07/23/2018 This late entry for 07/23/2018 covers elements not covered in my initial note. SUBJECTIVE: I met with the patient in the evening. The patient slept 3-3/4 hours previous night. He has been wandering, crying, somewhat depressed, paranoid, saying he is going to "today." I processed this with him. REVIEW OF SYSTEMS: No CV, , pulmonary, eye, ENT system symptoms on review. Reliability varies. MENTAL STATUS EXAM: Oriented to himself and situation. Speech is coherent, low in volume. Abstraction fair, computation impaired, language function intact. Mood and affect somewhat dysphoric, depressed. LABORATORY DATA: Reviewed. IMPRESSION: Unchanged from initial note. PLAN: Start Remeron 7.5 mg p.o. at bedtime to help with insomnia and anxiety. Rest unchanged for initial note. MAN Barrera PEACE MD DR: WHITNEY/jessica JOB#: [id number] / [id number]
--- NOTE | 2018-07-25 22:46 | PN ---
DATE: 07/24/2018 This late entry for 07/24/2018 covers elements not covered in my initial note. SUBJECTIVE: I met with the patient in the evening. The patient slept 9 hours previous night. He has been somewhat depressed, anxious, paranoid, but better. He was hugging me during rounds, wanting to make sure he can get to go home. REVIEW OF SYSTEMS: No CV, , pulmonary, eye system symptoms on review. MENTAL STATUS EXAM: Oriented to himself and situation. Speech, low in volume, at times pressured. Abstraction fair, computation impaired, language function intact, attention span short. Mood and affect somewhat anxious, labile. LABORATORY DATA: Reviewed. IMPRESSION: Unchanged from initial note. PLAN: No change from initial note. MAN Barrera PEACE MD DR: WHITNEY/jessica JOB#: [id number] / [id number]
[2018-07-26 05:54] VITALS: BP 136/64
[2018-07-26] MEDS: LACTOBACILLUS RHAMNOSUS GG 1 CAPSULE. PO SCH ×2 (08:12→20:34)
[2018-07-26] MEDS: TAMSULOSIN 0.4 MG CAP.ER.24H. PO SCH (08:12)
[2018-07-26 16:25] VITALS: BP 122/80
--- NOTE | 2018-07-26 18:54 | PN ---
DATE: 07/25/2018 PSYCHIATRIC PROGRESS NOTE This late entry 07/25/2018 covers elements not covered in my initial note. SUBJECTIVE: I met with the patient in the evening. The patient slept 5-3/4 hours previous night. He has been somewhat demanding, especially at shift change. He is paranoid, believes people are trying to kill him. He told the nursing staff he believed there were giving him pills to commit suicide, asking staff to check his to make sure there were giving it to the right person. He did take his medications. REVIEW OF SYSTEMS: No CV, , pulmonary, eye, ENT system symptoms on review. He recognizes he may not be returning home and was quite agitated about this, processed with him individually. MENTAL STATUS EXAM: Oriented to himself and situation. Speech is coherent, pressured at times. Abstraction fair, computation impaired, language function intact, attention span short. Mood and affect remain somewhat labile, grandiose at times. LABORATORY DATA: Reviewed. IMPRESSION: Unchanged from initial note, bipolar 1 disorder, mixed with psychotic features. Rest unchanged. PLAN: Start Risperdal Consta 25 mg IM q.2 weeks. Continue rest unchanged for now. ARABELLA PEACE MD DR: WHITNEY/jessica JOB#: [id number] / [id number]
[2018-07-26] MEDS: MIRTAZAPINE 7.5 MG TABLET. PO SCH (20:34)
[2018-07-26] MEDS: HALOPERIDOL 5 MG TABLET PO SCH (20:34)
[2018-07-26] MEDS: DIVALPROEX ER 500 MG TAB.ER.24H PO SCH (20:36)
[2018-07-26] MEDS: DIVALPROEX ER 250 MG TAB.ER.24H. PO SCH (20:37)
[2018-07-26] MEDS: traZODone 50 MG TABLET. PO SCH (20:37)
[2018-07-26] MEDS: ATORVASTATIN CALCIUM 10 MG TABLET. PO SCH (20:37)
--- NOTE | 2018-07-26 22:12 | PDOC ---
Exam Note: Preston Note: Please also refer to the separate dictated note~for this date of service dictated separately.~Patient seen individually. Discussed the patient with Nursing staff reviewed the chart.~Reviewed interim history and current functioning. Reviewed vital signs,~Labs/ Radiology~and current medications noted below. Continue current treatment with the changes noted in the dictated addendum note Assessment: Vital Signs: Vital Signs Date Time Temp Pulse Resp B/P (MAP) Pulse Ox O2 Delivery O2 Flow Rate FiO2 07/26/18 16:25 98.4 89 24 122/80 (94) 95 Room Air I&O Intake and Output 07/26/18 06:59 Intake Total 1500 ml Balance 1500 ml Intake Oral 1500 ml Current Medications: Meds: Current Medications Acetaminophen (Tylenol) 650 mg PRN Q6HRS PRN PO PAIN / TEMP Last administered on 07/20/18at 11:23; Start 07/20/18 at 02:30 Multi-Ingredient Ointment (Analgesic [place]) 1 maximo PRN QID PRN TP MUSCLE PAIN; Start 07/20/18 at 02:30 Al Hydroxide/Mg Hydroxide (Mylanta Plus Xs) 15 ml PRN AFTMEALHC PRN PO DYSPEPSIA; Start 07/20/18 at 02:30 Magnesium Hydroxide (Milk Of Magnesia) 2,400 mg PRN QHS PRN PO CONSTIPATION; Start 07/20/18 at 02:30 Tamsulosin HCl (Flomax) 0.4 mg DAILY PO Last administered on 07/26/18at 08:12; Start 07/20/18 at 09:00 Hydroxyzine HCl (Atarax) 25 mg PRN QID PRN PO ANXIETY / AGITATION; Start at 07:00 Divalproex Sodium (Depakote Er) 1,000 mg QHS PO Last administered on 07/25/18at 20:22; Start 07/21/18 at 21:00; Stop 07/26/18 at 18:22; Status DC Haloperidol (Haldol) 5 mg QHS PO Last administered on 07/26/18at 20:34; Start at 21:00 Olanzapine (ZyPREXA ZYDIS) 2.5 mg PRN Q2HR PRN PO ANXIETY / AGITATION; Start at 07:00 Trazodone HCl (Desyrel) 50 mg QHS PO Last administered on 07/26/18 20:37; Start 07/21/18 at 21:00 Trazodone HCl (Desyrel) 50 mg PRN QHS PRN PO INSOMNIA, MAY REPEAT X1; Start at 21:00 Vitamin D (Vitamin D3) 50,000 unit WEEKLY PO ; Start 07/28/18 at 09:00; Status UNV Atorvastatin Calcium (Lipitor) 10 mg QHS PO Last administered on 07/26/18 20:37 ; Start 07/21/18 at 21:00 Lactobacillus Rhamnosus (Culturelle) 1 cap BID PO Last administered on 20:34; Start 07/21/18 at 21:00 Vitamin D (Vitamin D3) 50,000 unit WEEKLY PO Last administered on 07/21/18 12: 59; Start 07/21/18 at 12:30 Mirtazapine (Remeron) 7.5 mg QHS PO Last administered on 07/26/18 20:34; Start 07/23/18 at 21:00 Risperidone (RisperDAL CONSTA) 25 mg Q2WKS IM Last administered on 07/25/18 09: 57; Start 07/25/18 at 09:00 Divalproex Sodium (Depakote Er) 1,000 mg QHS PO Last administered on 07/26/18 20:36; Start 07/26/18 at 21:00 Divalproex Sodium (Depakote Er) 250 mg QHS PO Last administered on 07/26/18 20: 37; Start 07/26/18 at 21:00 Active Scripts Active Reported Cipro (Ciprofloxacin Hcl) 250 Mg Tablet 250 Mg PO BID 5 Days Trazodone Hcl 50 Mg Tablet 50 Mg PO PRN QHS PRN Trazodone Hcl 50 Mg Tablet 50 Mg PO HS Olanzapine 5 Mg Tablet 2.5 Mg PO PRN Q2HR PRN Culturelle (Lactobacillus Rhamnosus Gg) 1 Each Capsule 1 Each PO BID Haloperidol 5 Mg Tablet 5 Mg PO HS Divalproex Sodium Er (Divalproex Sodium) 500 Mg Tab.er.24h 2 Tab PO QHS D3-50 (Cholecalciferol (Vitamin D3)) 50,000 Unit Capsule 1 Cap PO WEEKLY Atorvastatin Calcium 10 Mg Tablet 10 Mg PO QHS Tamsulosin Hcl 0.4 Mg Cap.er.24h 0.4 Mg PO DAILY Hydroxyzine Hcl 25 Mg Tablet 25 Mg PO PRN QID PRN I have reviewed the current psychotropics carefully including drug interactions. Risk benefit ratio favors no change other than as noted in my dictated progress note. Diagnosis: Problems: (1) Schizoaffective disorder, bipolar type (2) Schizoaffective disorder (3) Anxiety disorder (4) Bipolar affective, mixed, sev w/ psych (5) Impulse control disorder (6) Schizophrenia, paranoid, chronic with acute exacerbation ARABELLA PEACE MD Jul 26, 2018 22:12
[2018-07-27 05:50] VITALS: BP 160/83
[2018-07-27] MEDS: LACTOBACILLUS RHAMNOSUS GG 1 CAPSULE. PO SCH ×2 (07:49→21:12)
[2018-07-27] MEDS: TAMSULOSIN 0.4 MG CAP.ER.24H. PO SCH (07:49)
--- NOTE | 2018-07-27 13:34 | EKG ---
[address] [address] Test Date: 2018-07-23 Test Time: 05:33:03 Pat Name: HERBERT WINTERS Department: Room: [facility] Gender: Net Programmer: : [id number] Requested By: ARABELLA PEACE Order Number: [id number] Reading MD: Carl Singh MD Measurements Intervals [place] Rate: P: OR: QRS: QRSD: T: QT: QTc: Interpretive Statements SR PAC'S Electronically Signed On 07-28-2018 11:37:04 [employer] by Carl Singh MD
[2018-07-27 16:20] VITALS: BP 128/75
--- NOTE | 2018-07-27 20:47 | PN ---
DATE: 07/26/2018 PSYCHIATRIC PROGRESS NOTE This late entry 07/26/2018 covers elements not covered in my initial note. SUBJECTIVE: I met with the patient in the evening. The patient slept 8 hours previous night. He did well at night. Today, during the day on 07/26/2018, he did well until 4:30 p.m., then was intrusive, calling the nursing aides "dumsonia bitch." This is per nursing report. He threw his Zyprexa on the floor, trying to push the trash out of the trashcan, disorganized, had to be placed in the vest hallway, which is where I met with him. REVIEW OF SYSTEMS: No CV, , pulmonary, eye, ENT system symptoms on review. Reliability poor. MENTAL STATUS EXAM: Oriented to himself and situation. Speech coherent, rapid at times somewhat circumstantial, disorganized. Abstraction fair, computation impaired, language function intact, attention span short. Mood and affect labile. LABORATORY DATA: Reviewed. IMPRESSION: Schizoaffective disorder, bipolar type, mixed with psychotic features. Rest unchanged. PLAN: Valproic acid level subtherapeutic at 41 on Depakote ER 1000 mg at bedtime. We will increase to 1250 mg at bedtime. Check CBC, CMP, valproic acid level in 3 days. Continue Risperdal Consta. Rest unchanged for now. MAN Barrera PEACE MD DR: WHITNEY/jessica JOB#: [id number] / [id number]
[2018-07-27] MEDS: ATORVASTATIN CALCIUM 10 MG TABLET. PO SCH (21:11)
[2018-07-27] MEDS: traZODone 50 MG TABLET. PO SCH (21:11)
[2018-07-27] MEDS: DIVALPROEX ER 250 MG TAB.ER.24H. PO SCH (21:12)
[2018-07-27] MEDS: MIRTAZAPINE 7.5 MG TABLET. PO SCH (21:12)
[2018-07-27] MEDS: HALOPERIDOL 5 MG TABLET PO SCH (21:12)
[2018-07-27] MEDS: DIVALPROEX ER 500 MG TAB.ER.24H PO SCH (21:12)
--- NOTE | 2018-07-27 22:28 | PDOC ---
Exam Note: Preston Note: Please also refer to the separate dictated note~for this date of service dictated separately.~Patient seen individually. Discussed the patient with Nursing staff reviewed the chart.~Reviewed interim history and current functioning. Reviewed vital signs,~Labs/ Radiology~and current medications noted below. Continue current treatment with the changes noted in the dictated addendum note Assessment: Vital Signs: Vital Signs Date Time Temp Pulse Resp B/P (MAP) Pulse Ox O2 Delivery O2 Flow Rate FiO2 07/27/18 16:20 97.8 80 16 128/75 (92) 96 07/26/18 16:25 Room Air I&O Intake and Output 07/27/18 06:59 Intake Total 780 ml Balance 780 ml Intake Oral 780 ml Current Medications: Meds: Current Medications Acetaminophen (Tylenol) 650 mg PRN Q6HRS PRN PO PAIN / TEMP Last administered on 07/20/18at 11:23; Start 07/20/18 at 02:30 Multi-Ingredient Ointment (Analgesic [place]) 1 maximo PRN QID PRN TP MUSCLE PAIN; Start 07/20/18 at 02:30 Al Hydroxide/Mg Hydroxide (Mylanta Plus Xs) 15 ml PRN AFTMEALHC PRN PO DYSPEPSIA; Start 07/20/18 at 02:30 Magnesium Hydroxide (Milk Of Magnesia) 2,400 mg PRN QHS PRN PO CONSTIPATION; Start 07/20/18 at 02:30 Tamsulosin HCl (Flomax) 0.4 mg DAILY PO Last administered on 07/27/18at 07:49; Start 07/20/18 at 09:00 Hydroxyzine HCl (Atarax) 25 mg PRN QID PRN PO ANXIETY / AGITATION; Start at 07:00 Divalproex Sodium (Depakote Er) 1,000 mg QHS PO Last administered on 07/25/18at 20:22; Start 07/21/18 at 21:00; Stop 07/26/18 at 18:22; Status DC Haloperidol (Haldol) 5 mg QHS PO Last administered on 07/27/18at 21:12; Start at 21:00 Olanzapine (ZyPREXA ZYDIS) 2.5 mg PRN Q2HR PRN PO ANXIETY / AGITATION; Start at 07:00 Trazodone HCl (Desyrel) 50 mg QHS PO Last administered on 07/27/18 21:11; Start 07/21/18 at 21:00 Trazodone HCl (Desyrel) 50 mg PRN QHS PRN PO INSOMNIA, MAY REPEAT X1; Start at 21:00 Vitamin D (Vitamin D3) 50,000 unit WEEKLY PO ; Start 07/28/18 at 09:00; Status UNV Atorvastatin Calcium (Lipitor) 10 mg QHS PO Last administered on 07/27/18 21:11 ; Start 07/21/18 at 21:00 Lactobacillus Rhamnosus (Culturelle) 1 cap BID PO Last administered on 21:12; Start 07/21/18 at 21:00 Vitamin D (Vitamin D3) 50,000 unit WEEKLY PO Last administered on 07/21/18 12: 59; Start 07/21/18 at 12:30 Mirtazapine (Remeron) 7.5 mg QHS PO Last administered on 07/27/18 21:12; Start 07/23/18 at 21:00 Risperidone (RisperDAL CONSTA) 25 mg Q2WKS IM Last administered on 07/25/18 09: 57; Start 07/25/18 at 09:00 Divalproex Sodium (Depakote Er) 1,000 mg QHS PO Last administered on 07/27/18 21:12; Start 07/26/18 at 21:00 Divalproex Sodium (Depakote Er) 250 mg QHS PO Last administered on 07/27/18 21: 12; Start 07/26/18 at 21:00 Active Scripts Active Reported Cipro (Ciprofloxacin Hcl) 250 Mg Tablet 250 Mg PO BID 5 Days Trazodone Hcl 50 Mg Tablet 50 Mg PO PRN QHS PRN Trazodone Hcl 50 Mg Tablet 50 Mg PO HS Olanzapine 5 Mg Tablet 2.5 Mg PO PRN Q2HR PRN Culturelle (Lactobacillus Rhamnosus Gg) 1 Each Capsule 1 Each PO BID Haloperidol 5 Mg Tablet 5 Mg PO HS Divalproex Sodium Er (Divalproex Sodium) 500 Mg Tab.er.24h 2 Tab PO QHS D3-50 (Cholecalciferol (Vitamin D3)) 50,000 Unit Capsule 1 Cap PO WEEKLY Atorvastatin Calcium 10 Mg Tablet 10 Mg PO QHS Tamsulosin Hcl 0.4 Mg Cap.er.24h 0.4 Mg PO DAILY Hydroxyzine Hcl 25 Mg Tablet 25 Mg PO PRN QID PRN I have reviewed the current psychotropics carefully including drug interactions. Risk benefit ratio favors no change other than as noted in my dictated progress note. Diagnosis: Problems: (1) Schizoaffective disorder, bipolar type (2) Schizoaffective disorder (3) Anxiety disorder (4) Bipolar affective, mixed, sev w/ psych (5) Impulse control disorder (6) Schizophrenia, paranoid, chronic with acute exacerbation ARABELLA PEACE MD Jul 27, 2018 22:28
[2018-07-28 06:13] VITALS: BP 137/89
[2018-07-28] MEDS: LACTOBACILLUS RHAMNOSUS GG 1 CAPSULE. PO SCH ×2 (07:39→19:34)
[2018-07-28] MEDS: TAMSULOSIN 0.4 MG CAP.ER.24H. PO SCH (07:39)
[2018-07-28] MEDS: CHOLECALCIFEROL (VITAMIN D3) 50,000 UNIT CAPSULE PO SCH (07:42)
[2018-07-28] MEDS ORDERED: CHOLECALCIFEROL (VITAMIN D3) 50,000 UNIT CAPSULE PO SCH (09:00)
[2018-07-28 16:30] VITALS: BP 140/85
[2018-07-28] MEDS: DIVALPROEX ER 250 MG TAB.ER.24H. PO SCH (19:34)
[2018-07-28] MEDS: ATORVASTATIN CALCIUM 10 MG TABLET. PO SCH (19:34)
[2018-07-28] MEDS: DIVALPROEX ER 500 MG TAB.ER.24H PO SCH (19:34)
[2018-07-28] MEDS: traZODone 50 MG TABLET. PO SCH (19:34)
[2018-07-28] MEDS: HALOPERIDOL 5 MG TABLET PO SCH (19:35)
[2018-07-28] MEDS: MIRTAZAPINE 7.5 MG TABLET. PO SCH (19:43)
--- NOTE | 2018-07-28 22:18 | PDOC ---
Exam Note: [place] Note: Please also refer to the separate dictated note~for this date of service dictated separately.~Patient seen individually. Discussed the patient with Nursing staff reviewed the chart.~Reviewed interim history and current functioning. Reviewed vital signs,~Labs/ Radiology~and current medications noted below. Continue current treatment with the changes noted in the dictated addendum note Assessment: Vital Signs: Vital Signs Date Time Temp Pulse Resp B/P (MAP) Pulse Ox O2 Delivery O2 Flow Rate FiO2 07/28/18 16:30 97.7 85 17 140/85 (103) 96 Room Air I&O Intake and Output 07/28/18 06:59 Intake Total 1320 ml Balance 1320 ml Intake Oral 1320 ml # Voids 1 Current Medications: Meds: Current Medications Acetaminophen (Tylenol) 650 mg PRN Q6HRS PRN PO PAIN / TEMP Last administered on 07/20/18at 11:23; Start 07/20/18 at 02:30 Multi-Ingredient Ointment (Analgesic [place]) 1 maximo PRN QID PRN TP MUSCLE PAIN; Start 07/20/18 at 02:30 Al Hydroxide/Mg Hydroxide (Mylanta Plus Xs) 15 ml PRN AFTMEALHC PRN PO DYSPEPSIA; Start 07/20/18 at 02:30 Magnesium Hydroxide (Milk Of Magnesia) 2,400 mg PRN QHS PRN PO CONSTIPATION; Start 07/20/18 at 02:30 Tamsulosin HCl (Flomax) 0.4 mg DAILY PO Last administered on 07/28/18at 07:39; Start 07/20/18 at 09:00 Hydroxyzine HCl (Atarax) 25 mg PRN QID PRN PO ANXIETY / AGITATION; Start at 07:00 Divalproex Sodium (Depakote Er) 1,000 mg QHS PO Last administered on 07/25/18at 20:22; Start 07/21/18 at 21:00; Stop 07/26/18 at 18:22; Status DC Haloperidol (Haldol) 5 mg QHS PO Last administered on 07/28/18at 19:35; Start at 21:00 Olanzapine (ZyPREXA ZYDIS) 2.5 mg PRN Q2HR PRN PO ANXIETY / AGITATION; Start at 07:00 Trazodone HCl (Desyrel) 50 mg QHS PO Last administered on 07/28/18 19:34; Start 07/21/18 at 21:00 Trazodone HCl (Desyrel) 50 mg PRN QHS PRN PO INSOMNIA, MAY REPEAT X1; Start at 21:00 Vitamin D (Vitamin D3) 50,000 unit WEEKLY PO ; Start 07/28/18 at 09:00; Status UNV Atorvastatin Calcium (Lipitor) 10 mg QHS PO Last administered on 07/28/18 19:34 ; Start 07/21/18 at 21:00 Lactobacillus Rhamnosus (Culturelle) 1 cap BID PO Last administered on 19:34; Start 07/21/18 at 21:00 Vitamin D (Vitamin D3) 50,000 unit WEEKLY PO Last administered on 07/28/18 07: 42; Start 07/21/18 at 12:30 Mirtazapine (Remeron) 7.5 mg QHS PO Last administered on 07/28/18 19:43; Start 07/23/18 at 21:00 Risperidone (RisperDAL CONSTA) 25 mg Q2WKS IM Last administered on 07/25/18 09: 57; Start 07/25/18 at 09:00 Divalproex Sodium (Depakote Er) 1,000 mg QHS PO Last administered on 07/28/18 19:34; Start 07/26/18 at 21:00 Divalproex Sodium (Depakote Er) 250 mg QHS PO Last administered on 07/28/18 19: 34; Start 07/26/18 at 21:00 Active Scripts Active Reported Cipro (Ciprofloxacin Hcl) 250 Mg Tablet 250 Mg PO BID 5 Days Trazodone Hcl 50 Mg Tablet 50 Mg PO PRN QHS PRN Trazodone Hcl 50 Mg Tablet 50 Mg PO HS Olanzapine 5 Mg Tablet 2.5 Mg PO PRN Q2HR PRN Culturelle (Lactobacillus Rhamnosus Gg) 1 Each Capsule 1 Each PO BID Haloperidol 5 Mg Tablet 5 Mg PO HS Divalproex Sodium Er (Divalproex Sodium) 500 Mg Tab.er.24h 2 Tab PO QHS D3-50 (Cholecalciferol (Vitamin D3)) 50,000 Unit Capsule 1 Cap PO WEEKLY Atorvastatin Calcium 10 Mg Tablet 10 Mg PO QHS Tamsulosin Hcl 0.4 Mg Cap.er.24h 0.4 Mg PO DAILY Hydroxyzine Hcl 25 Mg Tablet 25 Mg PO PRN QID PRN I have reviewed the current psychotropics carefully including drug interactions. Risk benefit ratio favors no change other than as noted in my dictated progress note. Diagnosis: Problems: (1) Schizoaffective disorder, bipolar type (2) Schizoaffective disorder (3) Anxiety disorder (4) Bipolar affective, mixed, sev w/ psych (5) Impulse control disorder (6) Schizophrenia, paranoid, chronic with acute exacerbation ARABELLA PEACE MD Jul 28, 2018 22:18
[2018-07-29 06:53] VITALS: BP 128/80
[2018-07-29 07:42] LABS: BASO % 0 % (0-3); EOS # 0.1 x10^3/uL (0.0-0.7); EOS % 2 % (0-3); HEMATOCRIT 46.1 % (39.0-53.0); HEMOGLOBIN 15.6 g/dL (13.0-17.5); LYMPH # 2.1 x10^3/uL (1.0-4.8); LYMPH % 37 % (24-48); MEAN CORPUSCULAR HEMOGLOBIN 31 pg (25-35); MEAN CORPUSCULAR HGB CONC 34 g/dL (31-37); MEAN CORPUSCULAR VOLUME 92 fL (79-100); MONO # 0.5 x10^3/uL (0.0-1.1); MONO % 9 % (0-9); NEUT # 2.9 x10^3uL (1.8-7.7); NEUT % 52 % (31-73); PLATELET COUNT 106 x10^3/uL (140-400); RED CELL DISTRIBUTION WIDTH 13.5 % (11.5-14.5); WHITE BLOOD COUNT 5.7 x10^3/uL (4.0-11.0)
[2018-07-29 07:55] LABS: ALBUMIN 3.5 g/dL (3.4-5.0); ALBUMIN/GLOBULIN RATIO 0.9 (1.0-1.7); ALK PHOS 75 U/L (46-116); ALT (SGPT) 20 U/L (16-63); ANION GAP 7 (6-14); AST (SGOT) 14 U/L (15-37); BLOOD UREA NITROGEN 16 mg/dL (8-26); BUN/CREATININE RATIO 18 (6-20); CALCIUM 9.2 mg/dL (8.5-10.1); CARBON DIOXIDE 31 mmol/L (21-32); CHLORIDE 101 mmol/L (98-107); CREATININE 0.9 mg/dL (0.7-1.3); GLUCOSE 83 mg/dL (70-99); POTASSIUM 4.2 mmol/L (3.5-5.1); SODIUM 139 mmol/L (136-145); TOTAL BILIRUBIN 0.6 mg/dL (0.2-1.0); TOTAL PROTEIN 7.3 g/dL (6.4-8.2)
[2018-07-29 08:11] LABS: VAL ACID 85 mcg/mL (50-100)
[2018-07-29] MEDS: LACTOBACILLUS RHAMNOSUS GG 1 CAPSULE. PO SCH ×2 (08:18→19:51)
[2018-07-29] MEDS: TAMSULOSIN 0.4 MG CAP.ER.24H. PO SCH (08:18)
[2018-07-29 15:42] VITALS: BP 127/73
[2018-07-29] MEDS: DIVALPROEX ER 250 MG TAB.ER.24H. PO SCH (19:50)
[2018-07-29] MEDS: ATORVASTATIN CALCIUM 10 MG TABLET. PO SCH (19:51)
[2018-07-29] MEDS: HALOPERIDOL 5 MG TABLET PO SCH (19:51)
[2018-07-29] MEDS: DIVALPROEX ER 500 MG TAB.ER.24H PO SCH (19:51)
[2018-07-29] MEDS: traZODone 50 MG TABLET. PO SCH (19:52)
[2018-07-29] MEDS: MIRTAZAPINE 7.5 MG TABLET. PO SCH (19:53)
--- NOTE | 2018-07-29 21:19 | PN ---
DATE: 07/27/2018 PSYCHIATRIC PROGRESS NOTE This late entry 07/27/2018 covers elements not covered in my initial note. SUBJECTIVE: I met with the patient in the evening. The patient slept 6 hours previous night. He was quite delusional, psychotic previous night and nursing staff described him as being "manic and crazy" at night. He is delusional, believes his is a prostitute, [place] stole his dog and quite disorganized. REVIEW OF SYSTEMS: No CV, , pulmonary, eye, ENT system symptoms on review. Reliability poor. MENTAL STATUS EXAM: Oriented to himself and situation. Speech coherent, rapid at times. Abstraction fair, computation impaired, language function intact, attention span short. Mood and affect labile, psychotic. LABORATORY DATA: Reviewed. IMPRESSION: Unchanged from initial note. PLAN: No change from initial note. We started Risperdal Consta, will adjust as indicated. ARABELLA PEACE MD DR: WIHTNEY/jessica JOB#: [id number] / [id number]
--- NOTE | 2018-07-29 21:20 | PN ---
DATE: 07/28/2018 PSYCHIATRIC PROGRESS NOTE This late entry 07/28/2018 covers elements not covered in my initial note. SUBJECTIVE: I met with the patient in the evening and staffed at a treatment team meeting with the entire team earlier in the day. The patient slept 5 hours previous night. Appetite 100%. He has been sexually inappropriate with one of the female staff members, manic, still hyperverbal. REVIEW OF SYSTEMS: No CV, , pulmonary, eye system symptoms on review. Reliability poor. MENTAL STATUS EXAM: Oriented to himself and situation. Speech coherent, rapid at times. Abstraction fair, computation impaired, language function intact. Mood and affect labile. LABORATORY DATA: Reviewed. IMPRESSION: Unchanged from initial note. PLAN: No change from initial note. MAN Barrera PEACE MD DR: WHITNEY/jessica JOB#: [id number] / [id number]
--- NOTE | 2018-07-29 22:37 | PDOC ---
Exam Note: [place] Note: Please also refer to the separate dictated note~for this date of service dictated separately.~Patient seen individually. Discussed the patient with Nursing staff reviewed the chart.~Reviewed interim history and current functioning. Reviewed vital signs,~Labs/ Radiology~and current medications noted below. Continue current treatment with the changes noted in the dictated addendum note Assessment: Vital Signs: Vital Signs Date Time Temp Pulse Resp B/P (MAP) Pulse Ox O2 Delivery O2 Flow Rate FiO2 07/29/18 15:42 97.8 84 20 127/73 (91) 96 Room Air I&O Intake and Output 07/29/18 06:59 Intake Total 840 ml Balance 840 ml Intake Oral 840 ml Labs: Laboratory Tests Test 07/29/18 07:13 White Blood Count 5.7 x10^3/uL (4.0-11.0) Red Blood Count 5.00 x10^6/uL (4.30-5.70) Hemoglobin 15.6 g/dL (13.0-17.5) Hematocrit 46.1 % (39.0-53.0) Mean Corpuscular Volume 92 fL (79-100) Mean Corpuscular Hemoglobin 31 pg (25-35) Mean Corpuscular Hemoglobin Concent 34 g/dL (31-37) Red Cell Distribution Width 13.5 % (11.5-14.5) Platelet Count 106 x10^3/uL (140-400) L Neutrophils (%) (Auto) 52 % (31-73) Lymphocytes (%) (Auto) 37 % (24-48) Monocytes (%) (Auto) 9 % (0-9) Eosinophils (%) (Auto) 2 % (0-3) Basophils (%) (Auto) 0 % (0-3) Neutrophils # (Auto) 2.9 x10^3uL (1.8-7.7) Lymphocytes # (Auto) 2.1 x10^3/uL (1.0-4.8) Monocytes # (Auto) 0.5 x10^3/uL (0.0-1.1) Eosinophils # (Auto) 0.1 x10^3/uL (0.0-0.7) Basophils # (Auto) 0.0 x10^3/uL (0.0-0.2) Sodium Level 139 mmol/L (136-145) Potassium Level 4.2 mmol/L (3.5-5.1) Chloride Level 101 mmol/L (98-107) Carbon Dioxide Level 31 mmol/L (21-32) Anion Gap 7 (6-14) Blood Urea Nitrogen 16 mg/dL (8-26) Creatinine 0.9 mg/dL (0.7-1.3) Estimated GFR (Cockcroft-Gault) 82.0 BUN/Creatinine Ratio 18 (6-20) Glucose Level 83 mg/dL (70-99) Calcium Level 9.2 mg/dL (8.5-10.1) Total Bilirubin 0.6 mg/dL (0.2-1.0) Aspartate Amino Transferase (AST) 14 U/L (15-37) L Alanine Aminotransferase (ALT) 20 U/L (16-63) Alkaline Phosphatase 75 U/L (46-116) Total Protein 7.3 g/dL (6.4-8.2) Albumin 3.5 g/dL (3.4-5.0) Albumin/Globulin Ratio 0.9 (1.0-1.7) L Valproic Acid Level 85 mcg/mL (50-100) Valproic Acid Last Dose Date 07/28/18 Valproic Acid Last Dose Time 2100 Current Medications: Meds: Current Medications Acetaminophen (Tylenol) 650 mg PRN Q6HRS PRN PO PAIN / TEMP Last administered on 07/20/18at 11:23; Start 07/20/18 at 02:30 Multi-Ingredient Ointment (Analgesic [place]) 1 maximo PRN QID PRN TP MUSCLE PAIN; Start 07/20/18 at 02:30 Al Hydroxide/Mg Hydroxide (Mylanta Plus Xs) 15 ml PRN AFTMEALHC PRN PO DYSPEPSIA; Start 07/20/18 at 02:30 Magnesium Hydroxide (Milk Of Magnesia) 2,400 mg PRN QHS PRN PO CONSTIPATION; Start 07/20/18 at 02:30 Tamsulosin HCl (Flomax) 0.4 mg DAILY PO Last administered on 07/29/18at 08:18; Start 07/20/18 at 09:00 Hydroxyzine HCl (Atarax) 25 mg PRN QID PRN PO ANXIETY / AGITATION; Start at 07:00 Divalproex Sodium (Depakote Er) 1,000 mg QHS PO Last administered on 07/25/18 20:22; Start 07/21/18 at 21:00; Stop 07/26/18 at 18:22; Status DC Haloperidol (Haldol) 5 mg QHS PO Last administered on 07/29/18 19:51; Start at 21:00 Olanzapine (ZyPREXA ZYDIS) 2.5 mg PRN Q2HR PRN PO ANXIETY / AGITATION; Start at 07:00 Trazodone HCl (Desyrel) 50 mg QHS PO Last administered on 07/29/18 19:52; Start 07/21/18 at 21:00 Trazodone HCl (Desyrel) 50 mg PRN QHS PRN PO INSOMNIA, MAY REPEAT X1; Start at 21:00 Vitamin D (Vitamin D3) 50,000 unit WEEKLY PO ; Start 07/28/18 at 09:00; Status UNV Atorvastatin Calcium (Lipitor) 10 mg QHS PO Last administered on 07/29/18 19:51 ; Start 07/21/18 at 21:00 Lactobacillus Rhamnosus (Culturelle) 1 cap BID PO Last administered on 19:51; Start 07/21/18 at 21:00 Vitamin D (Vitamin D3) 50,000 unit WEEKLY PO Last administered on 07/28/18 07: 42; Start 07/21/18 at 12:30 Mirtazapine (Remeron) 7.5 mg QHS PO Last administered on 07/29/18 19:53; Start 07/23/18 at 21:00 Risperidone (RisperDAL CONSTA) 25 mg Q2WKS IM Last administered on 07/25/18 09: 57; Start 07/25/18 at 09:00 Divalproex Sodium (Depakote Er) 1,000 mg QHS PO Last administered on 07/29/18 19:51; Start 07/26/18 at 21:00 Divalproex Sodium (Depakote Er) 250 mg QHS PO Last administered on 07/29/18 19: 50; Start 07/26/18 at 21:00 Active Scripts Active Reported Cipro (Ciprofloxacin Hcl) 250 Mg Tablet 250 Mg PO BID 5 Days Trazodone Hcl 50 Mg Tablet 50 Mg PO PRN QHS PRN Trazodone Hcl 50 Mg Tablet 50 Mg PO HS Olanzapine 5 Mg Tablet 2.5 Mg PO PRN Q2HR PRN Culturelle (Lactobacillus Rhamnosus Gg) 1 Each Capsule 1 Each PO BID Haloperidol 5 Mg Tablet 5 Mg PO HS Divalproex Sodium Er (Divalproex Sodium) 500 Mg Tab.er.24h 2 Tab PO QHS D3-50 (Cholecalciferol (Vitamin D3)) 50,000 Unit Capsule 1 Cap PO WEEKLY Atorvastatin Calcium 10 Mg Tablet 10 Mg PO QHS Tamsulosin Hcl 0.4 Mg Cap.er.24h 0.4 Mg PO DAILY Hydroxyzine Hcl 25 Mg Tablet 25 Mg PO PRN QID PRN I have reviewed the current psychotropics carefully including drug interactions. Risk benefit ratio favors no change other than as noted in my dictated progress note. Diagnosis: Problems: (1) Schizoaffective disorder, bipolar type (2) Schizoaffective disorder (3) Anxiety disorder (4) Bipolar affective, mixed, sev w/ psych (5) Impulse control disorder (6) Schizophrenia, paranoid, chronic with acute exacerbation ARABELLA PEACE MD Jul 29, 2018 22:37
[2018-07-30 05:57] VITALS: BP 151/92
[2018-07-30] MEDS: TAMSULOSIN 0.4 MG CAP.ER.24H. PO SCH (08:30)
[2018-07-30] MEDS: LACTOBACILLUS RHAMNOSUS GG 1 CAPSULE. PO SCH ×2 (08:30→19:53)
[2018-07-30 15:39] VITALS: BP 116/74
[2018-07-30] MEDS: DIVALPROEX ER 250 MG TAB.ER.24H. PO SCH (19:53)
[2018-07-30] MEDS: ATORVASTATIN CALCIUM 10 MG TABLET. PO SCH (19:53)
[2018-07-30] MEDS: DIVALPROEX ER 500 MG TAB.ER.24H PO SCH (19:53)
[2018-07-30] MEDS: traZODone 50 MG TABLET. PO SCH (19:53)
[2018-07-30] MEDS: HALOPERIDOL 5 MG TABLET PO SCH (19:53)
[2018-07-30] MEDS: MIRTAZAPINE 7.5 MG TABLET. PO SCH (19:54)
--- NOTE | 2018-07-30 23:36 | PN ---
DATE: 07/30/2018 SUBJECTIVE: The patient was seen today, met with the staff, chart reviewed. The patient continues to be anxious, tense, and confused at times. He is able to walk without a walker. The patient is still having problems with concentration and thinking. OBSERVATION: VITAL SIGNS: Temperature 96.9, blood pressure 151/92, pulse 94, respirations 22, O2 sat 93%. Slept about 7 hours last night. The patient's appetite has improved. MEDICATIONS: The patient's current medications include Depakote 250 mg at night and 1000 mg at night, Risperdal 25 mg injection q. 2 weeks, mirtazapine 7.5 mg at night, trazodone 50 mg at night p.r.n. and 50 mg at night daily, Haldol 5 mg at night. The patient is not having any side effects to the medications. LABORATORY DATA: The patient's lab reviewed. ASSESSMENT: Schizoaffective disorder, bipolar type, anxiety disorder, unspecified, and impulse control disorder, unspecified. PLAN: Continue with the treatment. LUANN SIMON MD DR: JOSE MANUEL/jessica JOB#: [id number] / [id number]
[2018-07-31 06:36] VITALS: BP 124/78
[2018-07-31] MEDS: LACTOBACILLUS RHAMNOSUS GG 1 CAPSULE. PO SCH ×2 (08:19→19:39)
[2018-07-31] MEDS: TAMSULOSIN 0.4 MG CAP.ER.24H. PO SCH (08:19)
[2018-07-31 16:32] VITALS: BP 130/80
[2018-07-31] MEDS: HALOPERIDOL 5 MG TABLET PO SCH (19:38)
[2018-07-31] MEDS: DIVALPROEX ER 500 MG TAB.ER.24H PO SCH (19:38)
[2018-07-31] MEDS: traZODone 50 MG TABLET. PO SCH (19:38)
[2018-07-31] MEDS: MIRTAZAPINE 7.5 MG TABLET. PO SCH (19:39)
[2018-07-31] MEDS: ATORVASTATIN CALCIUM 10 MG TABLET. PO SCH (19:39)
[2018-07-31] MEDS: DIVALPROEX ER 250 MG TAB.ER.24H. PO SCH (19:39)
--- NOTE | 2018-08-01 02:43 | PN ---
DATE: 07/31/2018 SUBJECTIVE: The patient was seen today, met with the staff, chart reviewed. The patient continues to be anxious, tense. No recent falls. The patient still has problems with concentration and thinking. OBSERVATION: VITAL SIGNS: Stable. GENERAL: The patient's sleep and appetite have improved. PSYCHIATRIC: The patient is not having any physical complaints. No major side effects to the medications. CURRENT MEDICATIONS: Currently is on Depakote 250 mg at night and 1000 mg also at night, Risperdal 25 mg injections q. 2 weeks, mirtazapine 7.5 mg at night, trazodone 50 mg at night p.r.n. and 50 mg at night daily, Haldol 5 mg at night. The patient is not having any problems with medications. LABORATORY DATA: Reviewed. ASSESSMENT: Schizoaffective disorder, bipolar type; anxiety disorder, unspecified; and impulse control disorder, unspecified. LUANN SIMON MD DR: JOSE MANUEL/jessica JOB#: [id number] / [id number]
--- NOTE | 2018-08-01 03:26 | PN ---
DATE: 07/29/2018 PSYCHIATRIC PROGRESS NOTE This late entry of 07/29/2018 covers elements not covered in my initial note. SUBJECTIVE: I met with the patient in the evening. The patient slept 8-3/4 hours previous night. He is compliant with his medications. He mumbles in his speech, difficult to understand, continues to have pressured speech. He has been wandering. REVIEW OF SYSTEMS: No CV, , pulmonary, eye system symptoms on review. Reliability poor. MENTAL STATUS EXAM: Oriented to himself and situation. Speech as above. Abstraction fair, computation impaired, language function intact. Attention span short. As he was talking, he seemed quite paranoid. LABORATORY DATA: Reviewed. IMPRESSION: Unchanged from initial note. Valproic acid level on 07/29/2018 is 85, which is therapeutic. We will continue psychotropics for now, may need to increase Haldol further, continue on Risperdal Consta. ARABELLA PEACE MD DR: WHITNEY/jessica JOB#: [id number] / [id number]
[2018-08-01 06:11] VITALS: BP 128/70
[2018-08-01] MEDS: LACTOBACILLUS RHAMNOSUS GG 1 CAPSULE. PO SCH ×2 (08:11→20:44)
[2018-08-01] MEDS: TAMSULOSIN 0.4 MG CAP.ER.24H. PO SCH (08:11)
[2018-08-01 16:30] VITALS: BP 146/84
[2018-08-01] MEDS: DIVALPROEX ER 250 MG TAB.ER.24H. PO SCH (20:43)
[2018-08-01] MEDS: DIVALPROEX ER 500 MG TAB.ER.24H PO SCH (20:43)
[2018-08-01] MEDS: MIRTAZAPINE 7.5 MG TABLET. PO SCH (20:44)
[2018-08-01] MEDS: ATORVASTATIN CALCIUM 10 MG TABLET. PO SCH (20:44)
[2018-08-01] MEDS: HALOPERIDOL 5 MG TABLET PO SCH (20:44)
[2018-08-01] MEDS: traZODone 50 MG TABLET. PO SCH (20:44)
[2018-08-02 06:41] VITALS: BP 129/73
--- NOTE | 2018-08-02 07:02 | PN ---
DATE: 08/01/2018 SUBJECTIVE: The patient was seen today, met with the staff, chart reviewed. Staff reports no major problems. The patient is sleeping well, appetite fair and is not presenting with any physical complaints. OBSERVATION: VITAL SIGNS: Temperature 97.4, blood pressure 128/70, pulse 81, respirations 18, O2 sat 95%. Slept about 7 hours last night. CURRENT MEDICATIONS: The patient's current medications include Depakote 250 mg at night and 1000 mg daily, Risperdal 25 mg injections q. 2 weeks, mirtazapine 7.5 mg at night, trazodone 50 mg at night p.r.n. and 50 mg at night daily and Haldol 5 mg at night. The patient is not having any side effects. ASSESSMENT: 1. 1. Schizoaffective disorder, bipolar type. 2. 2. Anxiety disorder, unspecified. 3. 3. Impulse control disorder, unspecified. PLAN: The patient needing placement. Discharge depends on finding a placement. LUANN SIMON MD DR: JOSE MANUEL/jessica JOB#: [id number] / [id number]
[2018-08-02] MEDS: TAMSULOSIN 0.4 MG CAP.ER.24H. PO SCH (08:31)
[2018-08-02] MEDS: LACTOBACILLUS RHAMNOSUS GG 1 CAPSULE. PO SCH ×2 (08:31→21:05)
[2018-08-02 16:28] VITALS: BP 135/88
[2018-08-02] MEDS: DIVALPROEX ER 250 MG TAB.ER.24H. PO SCH (21:04)
[2018-08-02] MEDS: DIVALPROEX ER 500 MG TAB.ER.24H PO SCH (21:04)
[2018-08-02] MEDS: MIRTAZAPINE 7.5 MG TABLET. PO SCH (21:04)
[2018-08-02] MEDS: HALOPERIDOL 5 MG TABLET PO SCH (21:04)
[2018-08-02] MEDS: ATORVASTATIN CALCIUM 10 MG TABLET. PO SCH (21:05)
[2018-08-02] MEDS: traZODone 50 MG TABLET. PO SCH (21:06)
--- NOTE | 2018-08-03 02:56 | PN ---
DATE: 08/02/2018 SUBJECTIVE: The patient was seen today, met with the staff, chart reviewed. Staff reports no major behavior problems. The patient is sleeping well, not having any physical complaints. OBSERVATION: VITAL SIGNS: Temperature 98.1, blood pressure 135/88, pulse 82, respirations 19, O2 sat 96%. CURRENT MEDICATIONS: Include Depakote, Risperdal, mirtazapine, trazodone and Haldol. ASSESSMENT: Schizoaffective disorder, bipolar type; anxiety disorder, unspecified, and impulse control disorder, unspecified. PLAN: Continue with the treatment. LUANN SIMON MD DR: JOSE MANUEL/jessica JOB#: [id number] / [id number]
[2018-08-03 06:29] VITALS: BP 120/78
[2018-08-03] MEDS: TAMSULOSIN 0.4 MG CAP.ER.24H. PO SCH (08:14)
[2018-08-03] MEDS: LACTOBACILLUS RHAMNOSUS GG 1 CAPSULE. PO SCH ×2 (08:14→20:28)
[2018-08-03 17:32] VITALS: BP 135/72
[2018-08-03] MEDS: MIRTAZAPINE 7.5 MG TABLET. PO SCH (20:28)
[2018-08-03] MEDS: ATORVASTATIN CALCIUM 10 MG TABLET. PO SCH (20:28)
[2018-08-03] MEDS: DIVALPROEX ER 250 MG TAB.ER.24H. PO SCH (20:28)
[2018-08-03] MEDS: HALOPERIDOL 5 MG TABLET PO SCH (20:28)
[2018-08-03] MEDS: DIVALPROEX ER 500 MG TAB.ER.24H PO SCH (20:28)
[2018-08-03] MEDS: traZODone 50 MG TABLET. PO SCH (20:29)
[2018-08-04 07:48] LABS: BASO % 0 % (0-3); EOS # 0.2 x10^3/uL (0.0-0.7); EOS % 3 % (0-3); HEMATOCRIT 43.5 % (39.0-53.0); HEMOGLOBIN 14.7 g/dL (13.0-17.5); LYMPH # 1.7 x10^3/uL (1.0-4.8); LYMPH % 31 % (24-48); MEAN CORPUSCULAR HEMOGLOBIN 31 pg (25-35); MEAN CORPUSCULAR HGB CONC 34 g/dL (31-37); MEAN CORPUSCULAR VOLUME 92 fL (79-100); MONO # 0.6 x10^3/uL (0.0-1.1); MONO % 11 % (0-9); NEUT % 55 % (31-73); PLATELET COUNT 92 x10^3/uL (140-400); RED BLOOD COUNT 4.72 x10^6/uL (4.30-5.70); RED CELL DISTRIBUTION WIDTH 13.6 % (11.5-14.5); WHITE BLOOD COUNT 5.6 x10^3/uL (4.0-11.0)
[2018-08-04 08:00] LABS: ALBUMIN 3.3 g/dL (3.4-5.0); CALCIUM 8.8 mg/dL (8.5-10.1); CREATININE 0.8 mg/dL (0.7-1.3); POTASSIUM 4.2 mmol/L (3.5-5.1); TOTAL BILIRUBIN 0.4 mg/dL (0.2-1.0); TOTAL PROTEIN 6.7 g/dL (6.4-8.2)
[2018-08-04] MEDS: LACTOBACILLUS RHAMNOSUS GG 1 CAPSULE. PO SCH ×2 (08:22→19:18)
[2018-08-04] MEDS: TAMSULOSIN 0.4 MG CAP.ER.24H. PO SCH (08:22)
[2018-08-04] MEDS: CHOLECALCIFEROL (VITAMIN D3) 50,000 UNIT CAPSULE PO SCH (08:24)
[2018-08-04 11:07] VITALS: BP 121/73
[2018-08-04] MEDS: hydrOXYzine HCL 25 MG TABLET PO PRN ×2 (12:25→15:43)
[2018-08-04 16:34] VITALS: BP 146/71
[2018-08-04] MEDS: DIVALPROEX ER 250 MG TAB.ER.24H. PO SCH (19:18)
[2018-08-04] MEDS: ATORVASTATIN CALCIUM 10 MG TABLET. PO SCH (19:18)
[2018-08-04] MEDS: HALOPERIDOL 5 MG TABLET PO SCH (19:18)
[2018-08-04] MEDS: DIVALPROEX ER 500 MG TAB.ER.24H PO SCH (19:18)
[2018-08-04] MEDS: MIRTAZAPINE 7.5 MG TABLET. PO SCH (19:19)
[2018-08-04] MEDS: traZODone 50 MG TABLET. PO SCH (19:19)
--- NOTE | 2018-08-05 00:12 | PN ---
DATE: 08/04/2018 SUBJECTIVE: The patient was seen today, met with the staff, chart reviewed. The patient continues to have problems with his behavior, refusing medications, increased agitation. The patient is also getting paranoid. The patient was given p.r.n. medication for increased agitation. OBSERVATION: VITAL SIGNS: Temperature 97.4, blood pressure 146/71, pulse 81, respirations 20, O2 sat 96%. MEDICATIONS: Reviewed. Currently on Depakote, Risperdal, mirtazapine, trazodone and Haldol. ASSESSMENT: Schizoaffective disorder, bipolar type; anxiety disorder, unspecified, and impulse control disorder, unspecified. PLAN: To continue with the treatment. LUANN SIMON MD DR: JOSE MANUEL/jessica JOB#: [id number] / [id number]
[2018-08-05 06:10] VITALS: BP 164/84
[2018-08-05] MEDS: TAMSULOSIN 0.4 MG CAP.ER.24H. PO SCH (07:35)
[2018-08-05] MEDS: LACTOBACILLUS RHAMNOSUS GG 1 CAPSULE. PO SCH ×2 (07:35→19:20)
[2018-08-05 16:19] VITALS: BP 129/80
[2018-08-05] MEDS: DIVALPROEX ER 500 MG TAB.ER.24H PO SCH (19:19)
[2018-08-05] MEDS: DIVALPROEX ER 250 MG TAB.ER.24H. PO SCH (19:19)
[2018-08-05] MEDS: ATORVASTATIN CALCIUM 10 MG TABLET. PO SCH (19:20)
[2018-08-05] MEDS: HALOPERIDOL 5 MG TABLET PO SCH (19:20)
[2018-08-05] MEDS: traZODone 50 MG TABLET. PO SCH (19:20)
[2018-08-05] MEDS: MIRTAZAPINE 7.5 MG TABLET. PO SCH (19:20)
--- NOTE | 2018-08-05 23:27 | PN ---
DATE: 08/05/2018 SUBJECTIVE: The patient was seen today, met with the staff, chart reviewed. Staff reports continued behavior problems, confusion at time and coherent, otherwise no major behavioral problems. OBSERVATION: VITAL SIGNS: Temperature 97.8, blood pressure 164/84, pulse 74, respiration 18, O2 sat 93%. GENERAL: Slept about 4 hours last night. CURRENT MEDICATIONS: The patient is currently not presenting with any medical issues, no side effects. He is currently on Depakote, Risperdal, mirtazapine, trazodone and Haldol. ASSESSMENT: 1. Schizoaffective disorder, bipolar type. 2. Anxiety disorder, unspecified and impulse control disorder, unspecified. PLAN: To continue with the treatment. LUANN SIMON MD DR: JOSE MANUEL/jessica JOB#: [id number] / [id number]
[2018-08-06 06:01] VITALS: BP 163/86
[2018-08-06] MEDS: LACTOBACILLUS RHAMNOSUS GG 1 CAPSULE. PO SCH ×2 (08:06→19:58)
[2018-08-06] MEDS: TAMSULOSIN 0.4 MG CAP.ER.24H. PO SCH (08:07)
[2018-08-06 16:54] VITALS: BP 136/83
--- NOTE | 2018-08-06 18:16 | PN ---
DATE: 08/06/2018 SUBJECTIVE: The patient was seen today, met with the staff, chart reviewed. The patient still has episodes where he gets confused, tends to pace and has not had any falls. OBSERVATION: VITAL SIGNS: Temperature 97.8, blood pressure 163/86, pulse 65, respirations 18, O2 sat 97%. Slept about 5 hours last night. CURRENT MEDICATIONS: The patient's current medications include Depakote, Risperdal, mirtazapine, trazodone and Haldol, and not having any side effects. ASSESSMENT: 1. Schizoaffective disorder, bipolar type. 2. Anxiety disorder, unspecified. 3. Impulse control disorder, unspecified. PLAN: To continue with the treatment. LUANN SIMON MD DR: JOSE MANUEL/jessica JOB#: [id number] / [id number]
[2018-08-06] MEDS: DIVALPROEX ER 250 MG TAB.ER.24H. PO SCH (19:57)
[2018-08-06] MEDS: DIVALPROEX ER 500 MG TAB.ER.24H PO SCH (19:57)
[2018-08-06] MEDS: HALOPERIDOL 5 MG TABLET PO SCH (19:57)
[2018-08-06] MEDS: MIRTAZAPINE 7.5 MG TABLET. PO SCH (19:57)
[2018-08-06] MEDS: traZODone 50 MG TABLET. PO SCH (19:58)
[2018-08-06] MEDS: ATORVASTATIN CALCIUM 10 MG TABLET. PO SCH (19:58)
[2018-08-07 05:39] VITALS: BP 146/84
[2018-08-07] MEDS: LACTOBACILLUS RHAMNOSUS GG 1 CAPSULE. PO SCH ×2 (08:20→20:04)
[2018-08-07] MEDS: TAMSULOSIN 0.4 MG CAP.ER.24H. PO SCH (08:20)
[2018-08-07 15:30] VITALS: BP 133/69
[2018-08-07] MEDS: ATORVASTATIN CALCIUM 10 MG TABLET. PO SCH (20:01)
[2018-08-07] MEDS: DIVALPROEX ER 250 MG TAB.ER.24H. PO SCH (20:01)
[2018-08-07] MEDS: DIVALPROEX ER 500 MG TAB.ER.24H PO SCH (20:02)
[2018-08-07] MEDS: MIRTAZAPINE 7.5 MG TABLET. PO SCH (20:04)
[2018-08-07] MEDS: traZODone 50 MG TABLET. PO SCH (20:05)
[2018-08-07] MEDS: HALOPERIDOL 5 MG TABLET PO SCH (20:08)
--- NOTE | 2018-08-07 22:48 | PDOC ---
Exam Note: [place] Note: Please also refer to the separate dictated note~for this date of service dictated separately.~Patient seen individually. Discussed the patient with Nursing staff reviewed the chart.~Reviewed interim history and current functioning. Reviewed vital signs,~Labs/ Radiology~and current medications noted below. Continue current treatment with the changes noted in the dictated addendum note Assessment: Vital Signs: Vital Signs Date Time Temp Pulse Resp B/P (MAP) Pulse Ox O2 Delivery O2 Flow Rate FiO2 08/07/18 15:30 97.8 72 18 133/69 (90) 96 Room Air I&O Intake and Output 08/07/18 07:00 Intake Total 1200 ml Balance 1200 ml Intake Oral 1200 ml # Voids 1 Current Medications: Meds: Current Medications Acetaminophen (Tylenol) 650 mg PRN Q6HRS PRN PO PAIN / TEMP Last administered on 07/20/18at 11:23; Start 07/20/18 at 02:30 Multi-Ingredient Ointment (Analgesic [place]) 1 maximo PRN QID PRN TP MUSCLE PAIN; Start 07/20/18 at 02:30 Al Hydroxide/Mg Hydroxide (Mylanta Plus Xs) 15 ml PRN AFTMEALHC PRN PO DYSPEPSIA; Start 07/20/18 at 02:30 Magnesium Hydroxide (Milk Of Magnesia) 2,400 mg PRN QHS PRN PO CONSTIPATION; Start 07/20/18 at 02:30 Tamsulosin HCl (Flomax) 0.4 mg DAILY PO Last administered on 08/07/18at 08:20; Start 07/20/18 at 09:00 Hydroxyzine HCl (Atarax) 25 mg PRN QID PRN PO ANXIETY / AGITATION Last administered on 08/04/18at 15:43; Start 07/21/18 at 07:00 Divalproex Sodium (Depakote Er) 1,000 mg QHS PO Last administered on 07/25/18 20:22; Start 07/21/18 at 21:00; Stop 07/26/18 at 18:22; Status DC Haloperidol (Haldol) 5 mg QHS PO Last administered on 08/07/18at 20:08; Start at 21:00 Olanzapine (ZyPREXA ZYDIS) 2.5 mg PRN Q2HR PRN PO ANXIETY / AGITATION Last administered on 08/04/18 16:01; Start 07/21/18 at 07:00 Trazodone HCl (Desyrel) 50 mg QHS PO Last administered on 08/07/18 20:05; Start 07/21/18 at 21:00 Trazodone HCl (Desyrel) 50 mg PRN QHS PRN PO INSOMNIA, MAY REPEAT X1; Start at 21:00 Vitamin D (Vitamin D3) 50,000 unit WEEKLY PO ; Start 07/28/18 at 09:00; Status UNV Atorvastatin Calcium (Lipitor) 10 mg QHS PO Last administered on 08/07/18 20: 01; Start 07/21/18 at 21:00 Lactobacillus Rhamnosus (Culturelle) 1 cap BID PO Last administered on 20:04; Start 07/21/18 at 21:00 Vitamin D (Vitamin D3) 50,000 unit WEEKLY PO Last administered on 08/04/18 08: 24; Start 07/21/18 at 12:30 Mirtazapine (Remeron) 7.5 mg QHS PO Last administered on 08/07/18 20:04; Start 07/23/18 at 21:00 Risperidone (RisperDAL [place]) 25 mg Q2WKS IM Last administered on 07/25/18 09: 57; Start 07/25/18 at 09:00 Divalproex Sodium (Depakote Er) 1,000 mg QHS PO Last administered on 08/07/18 20:02; Start 07/26/18 at 21:00 Divalproex Sodium (Depakote Er) 250 mg QHS PO Last administered on 08/07/18 20 :01; Start 07/26/18 at 21:00 Active Scripts Active Reported Cipro (Ciprofloxacin Hcl) 250 Mg Tablet 250 Mg PO BID 5 Days Trazodone Hcl 50 Mg Tablet 50 Mg PO PRN QHS PRN Trazodone Hcl 50 Mg Tablet 50 Mg PO HS Olanzapine 5 Mg Tablet 2.5 Mg PO PRN Q2HR PRN Culturelle (Lactobacillus Rhamnosus Gg) 1 Each Capsule 1 Each PO BID Haloperidol 5 Mg Tablet 5 Mg PO HS Divalproex Sodium Er (Divalproex Sodium) 500 Mg Tab.er.24h 2 Tab PO QHS D3-50 (Cholecalciferol (Vitamin D3)) 50,000 Unit Capsule 1 Cap PO WEEKLY Atorvastatin Calcium 10 Mg Tablet 10 Mg PO QHS Tamsulosin Hcl 0.4 Mg Cap.er.24h 0.4 Mg PO DAILY Hydroxyzine Hcl 25 Mg Tablet 25 Mg PO PRN QID PRN I have reviewed the current psychotropics carefully including drug interactions. Risk benefit ratio favors no change other than as noted in my dictated progress note. Diagnosis: Problems: (1) Schizoaffective disorder, bipolar type (2) Schizoaffective disorder (3) Anxiety disorder (4) Bipolar affective, mixed, sev w/ psych (5) Impulse control disorder (6) Schizophrenia, paranoid, chronic with acute exacerbation ARABELLA PEACE MD Aug 07, 2018 22:48
--- NOTE | 2018-08-07 23:43 | PN ---
DATE: 08/07/2018 SUBJECTIVE: The patient was seen today, met with the staff, chart reviewed. Staff reports no major problems. Still has episodes of confusion, tend to pace a lot. OBSERVATION: VITAL SIGNS: Temperature 97.2, blood pressure 146/84, pulse 77, respirations 20, O2 sat 100%. Slept about 4 hours last night. CURRENT MEDICATIONS: The patient's current medications include Depakote, Risperdal, mirtazapine, trazodone and Haldol. The patient is not having any physical complaints. No major side effects to medications. ASSESSMENT: 1. Schizoaffective disorder, bipolar type. 2. Anxiety disorder, unspecified. 3. Impulse control disorder, unspecified. PLAN: To continue with the treatment. LUANN SIMON MD DR: JOSE MANUEL/jessica JOB#: [id number] / [id number]
[2018-08-08 06:33] VITALS: BP 147/82
[2018-08-08] MEDS: TAMSULOSIN 0.4 MG CAP.ER.24H. PO SCH (08:24)
[2018-08-08] MEDS: LACTOBACILLUS RHAMNOSUS GG 1 CAPSULE. PO SCH ×2 (08:24→19:23)
[2018-08-08] MEDS: risperiDONE MICROSPHERES 25 MG/2 ML DISP.SYRIN. IM SCH (15:24)
[2018-08-08 17:43] VITALS: BP 144/78
[2018-08-08] MEDS: DIVALPROEX ER 250 MG TAB.ER.24H. PO SCH (19:23)
[2018-08-08] MEDS: MIRTAZAPINE 7.5 MG TABLET. PO SCH (19:23)
[2018-08-08] MEDS: traZODone 50 MG TABLET. PO SCH (19:23)
[2018-08-08] MEDS: ATORVASTATIN CALCIUM 10 MG TABLET. PO SCH (19:24)
[2018-08-08] MEDS: HALOPERIDOL 5 MG TABLET PO SCH (19:24)
[2018-08-08] MEDS: DIVALPROEX ER 500 MG TAB.ER.24H PO SCH (19:24)
--- NOTE | 2018-08-08 22:21 | PDOC ---
Exam Note: Preston Note: "This is a late entry for 08/07/18. The template note for 08/07/18 was completed in error and should be disregarded." Please also refer to the separate dictated note~for this date of service dictated separately.~Patient seen individually. Discussed the patient with Nursing staff reviewed the chart.~ Reviewed interim history and current functioning. Reviewed vital signs,~Labs/ Radiology~and current medications noted below. Continue current treatment with the changes noted in the dictated addendum note Assessment: Vital Signs: Vital Signs Date Time Temp Pulse Resp B/P (MAP) Pulse Ox O2 Delivery O2 Flow Rate FiO2 08/08/18 17:43 98.1 80 20 144/78 (100) 96 08/07/18 15:30 Room Air I&O Intake and Output 08/08/18 07:00 Intake Total 1320 ml Balance 1320 ml Intake Oral 1320 ml Current Medications: Meds: Current Medications Acetaminophen (Tylenol) 650 mg PRN Q6HRS PRN PO PAIN / TEMP Last administered on 07/20/18at 11:23; Start 07/20/18 at 02:30 Multi-Ingredient Ointment (Analgesic [place]) 1 maximo PRN QID PRN TP MUSCLE PAIN; Start 07/20/18 at 02:30 Al Hydroxide/Mg Hydroxide (Mylanta Plus Xs) 15 ml PRN AFTMEALHC PRN PO DYSPEPSIA; Start 07/20/18 at 02:30 Magnesium Hydroxide (Milk Of Magnesia) 2,400 mg PRN QHS PRN PO CONSTIPATION; Start 07/20/18 at 02:30 Tamsulosin HCl (Flomax) 0.4 mg DAILY PO Last administered on 08/08/18at 08:24; Start 07/20/18 at 09:00 Hydroxyzine HCl (Atarax) 25 mg PRN QID PRN PO ANXIETY / AGITATION Last administered on 08/04/18 15:43; Start 07/21/18 at 07:00 Divalproex Sodium (Depakote Er) 1,000 mg QHS PO Last administered on 07/25/18 20:22; Start 07/21/18 at 21:00; Stop 07/26/18 at 18:22; Status DC Haloperidol (Haldol) 5 mg QHS PO Last administered on 08/08/18at 19:24; Start at 21:00 Olanzapine (ZyPREXA ZYDIS) 2.5 mg PRN Q2HR PRN PO ANXIETY / AGITATION Last administered on 08/04/18 16:01; Start 07/21/18 at 07:00 Trazodone HCl (Desyrel) 50 mg QHS PO Last administered on 08/08/18 19:23; Start 07/21/18 at 21:00 Trazodone HCl (Desyrel) 50 mg PRN QHS PRN PO INSOMNIA, MAY REPEAT X1; Start at 21:00 Vitamin D (Vitamin D3) 50,000 unit WEEKLY PO ; Start 07/28/18 at 09:00; Status UNV Atorvastatin Calcium (Lipitor) 10 mg QHS PO Last administered on 08/08/18 19: 24; Start 07/21/18 at 21:00 Lactobacillus Rhamnosus (Culturelle) 1 cap BID PO Last administered on 19:23; Start 07/21/18 at 21:00 Vitamin D (Vitamin D3) 50,000 unit WEEKLY PO Last administered on 08/04/18 08: 24; Start 07/21/18 at 12:30 Mirtazapine (Remeron) 7.5 mg QHS PO Last administered on 08/08/18 19:23; Start 07/23/18 at 21:00 Risperidone (RisperDAL CONSTA) 25 mg Q2WKS IM Last administered on 08/08/18 15 :24; Start 07/25/18 at 09:00 Divalproex Sodium (Depakote Er) 1,000 mg QHS PO Last administered on 08/08/18 19:24; Start 07/26/18 at 21:00 Divalproex Sodium (Depakote Er) 250 mg QHS PO Last administered on 08/08/18 19 :23; Start 07/26/18 at 21:00 Active Scripts Active Reported Cipro (Ciprofloxacin Hcl) 250 Mg Tablet 250 Mg PO BID 5 Days Trazodone Hcl 50 Mg Tablet 50 Mg PO PRN QHS PRN Trazodone Hcl 50 Mg Tablet 50 Mg PO HS Olanzapine 5 Mg Tablet 2.5 Mg PO PRN Q2HR PRN Culturelle (Lactobacillus Rhamnosus Gg) 1 Each Capsule 1 Each PO BID Haloperidol 5 Mg Tablet 5 Mg PO HS Divalproex Sodium Er (Divalproex Sodium) 500 Mg Tab.er.24h 2 Tab PO QHS D3-50 (Cholecalciferol (Vitamin D3)) 50,000 Unit Capsule 1 Cap PO WEEKLY Atorvastatin Calcium 10 Mg Tablet 10 Mg PO QHS Tamsulosin Hcl 0.4 Mg Cap.er.24h 0.4 Mg PO DAILY Hydroxyzine Hcl 25 Mg Tablet 25 Mg PO PRN QID PRN I have reviewed the current psychotropics carefully including drug interactions. Risk benefit ratio favors no change other than as noted in my dictated progress note. Diagnosis: Problems: (1) Schizoaffective disorder, bipolar type (2) Schizoaffective disorder (3) Anxiety disorder (4) Bipolar affective, mixed, sev w/ psych (5) Impulse control disorder (6) Schizophrenia, paranoid, chronic with acute exacerbation ARABELLA PECAE MD Aug 08, 2018 22:21
--- NOTE | 2018-08-08 23:09 | PDOC ---
Exam Note: Preston Note: Please also refer to the separate dictated note~for this date of service dictated separately.~Patient seen individually. Discussed the patient with Nursing staff reviewed the chart.~Reviewed interim history and current functioning. Reviewed vital signs,~Labs/ Radiology~and current medications noted below. Continue current treatment with the changes noted in the dictated addendum note Assessment: Vital Signs: Vital Signs Date Time Temp Pulse Resp B/P (MAP) Pulse Ox O2 Delivery O2 Flow Rate FiO2 08/08/18 17:43 98.1 80 20 144/78 (100) 96 08/07/18 15:30 Room Air I&O Intake and Output 08/08/18 07:00 Intake Total 1320 ml Balance 1320 ml Intake Oral 1320 ml Current Medications: Meds: Current Medications Acetaminophen (Tylenol) 650 mg PRN Q6HRS PRN PO PAIN / TEMP Last administered on 07/20/18 11:23; Start 07/20/18 at 02:30 Multi-Ingredient Ointment (Analgesic [place]) 1 maximo PRN QID PRN TP MUSCLE PAIN; Start 07/20/18 at 02:30 Al Hydroxide/Mg Hydroxide (Mylanta Plus Xs) 15 ml PRN AFTMEALHC PRN PO DYSPEPSIA; Start 07/20/18 at 02:30 Magnesium Hydroxide (Milk Of Magnesia) 2,400 mg PRN QHS PRN PO CONSTIPATION; Start 07/20/18 at 02:30 Tamsulosin HCl (Flomax) 0.4 mg DAILY PO Last administered on 08/08/18at 08:24; Start 07/20/18 at 09:00 Hydroxyzine HCl (Atarax) 25 mg PRN QID PRN PO ANXIETY / AGITATION Last administered on 08/04/18at 15:43; Start 07/21/18 at 07:00 Divalproex Sodium (Depakote Er) 1,000 mg QHS PO Last administered on 07/25/18 20:22; Start 07/21/18 at 21:00; Stop 07/26/18 at 18:22; Status DC Haloperidol (Haldol) 5 mg QHS PO Last administered on 08/08/18at 19:24; Start at 21:00 Olanzapine (ZyPREXA ZYDIS) 2.5 mg PRN Q2HR PRN PO ANXIETY / AGITATION Last administered on 08/04/18 16:01; Start 07/21/18 at 07:00 Trazodone HCl (Desyrel) 50 mg QHS PO Last administered on 08/08/18 19:23; Start 07/21/18 at 21:00 Trazodone HCl (Desyrel) 50 mg PRN QHS PRN PO INSOMNIA, MAY REPEAT X1; Start at 21:00 Vitamin D (Vitamin D3) 50,000 unit WEEKLY PO ; Start 07/28/18 at 09:00; Status UNV Atorvastatin Calcium (Lipitor) 10 mg QHS PO Last administered on 08/08/18 19: 24; Start 07/21/18 at 21:00 Lactobacillus Rhamnosus (Culturelle) 1 cap BID PO Last administered on 19:23; Start 07/21/18 at 21:00 Vitamin D (Vitamin D3) 50,000 unit WEEKLY PO Last administered on 08/04/18 08: 24; Start 07/21/18 at 12:30 Mirtazapine (Remeron) 7.5 mg QHS PO Last administered on 08/08/18 19:23; Start 07/23/18 at 21:00 Risperidone (RisperDAL CONSTA) 25 mg Q2WKS IM Last administered on 08/08/18 15 :24; Start 07/25/18 at 09:00 Divalproex Sodium (Depakote Er) 1,000 mg QHS PO Last administered on 08/08/18 19:24; Start 07/26/18 at 21:00 Divalproex Sodium (Depakote Er) 250 mg QHS PO Last administered on 08/08/18 19 :23; Start 07/26/18 at 21:00 Active Scripts Active Reported Cipro (Ciprofloxacin Hcl) 250 Mg Tablet 250 Mg PO BID 5 Days Trazodone Hcl 50 Mg Tablet 50 Mg PO PRN QHS PRN Trazodone Hcl 50 Mg Tablet 50 Mg PO HS Olanzapine 5 Mg Tablet 2.5 Mg PO PRN Q2HR PRN Culturelle (Lactobacillus Rhamnosus Gg) 1 Each Capsule 1 Each PO BID Haloperidol 5 Mg Tablet 5 Mg PO HS Divalproex Sodium Er (Divalproex Sodium) 500 Mg Tab.er.24h 2 Tab PO QHS D3-50 (Cholecalciferol (Vitamin D3)) 50,000 Unit Capsule 1 Cap PO WEEKLY Atorvastatin Calcium 10 Mg Tablet 10 Mg PO QHS Tamsulosin Hcl 0.4 Mg Cap.er.24h 0.4 Mg PO DAILY Hydroxyzine Hcl 25 Mg Tablet 25 Mg PO PRN QID PRN I have reviewed the current psychotropics carefully including drug interactions. Risk benefit ratio favors no change other than as noted in my dictated progress note. Diagnosis: Problems: (1) Schizoaffective disorder, bipolar type (2) Schizoaffective disorder (3) Anxiety disorder (4) Bipolar affective, mixed, sev w/ psych (5) Impulse control disorder (6) Schizophrenia, paranoid, chronic with acute exacerbation ARABELLA PEACE MD Aug 08, 2018 23:09
[2018-08-09 06:37] VITALS: BP 126/82
[2018-08-09] MEDS: LACTOBACILLUS RHAMNOSUS GG 1 CAPSULE. PO SCH ×2 (07:44→20:55)
[2018-08-09] MEDS: TAMSULOSIN 0.4 MG CAP.ER.24H. PO SCH (07:44)
[2018-08-09 16:34] VITALS: BP 144/77
[2018-08-09] MEDS: DIVALPROEX ER 500 MG TAB.ER.24H PO SCH (20:53)
[2018-08-09] MEDS: ATORVASTATIN CALCIUM 10 MG TABLET. PO SCH (20:55)
[2018-08-09] MEDS: traZODone 50 MG TABLET. PO SCH (20:55)
[2018-08-09] MEDS: MIRTAZAPINE 7.5 MG TABLET. PO SCH (20:55)
[2018-08-09] MEDS: DIVALPROEX ER 250 MG TAB.ER.24H. PO SCH (20:55)
[2018-08-09] MEDS: HALOPERIDOL 5 MG TABLET PO SCH (20:55)
--- NOTE | 2018-08-09 22:46 | PN ---
DATE: 08/08/2018 PSYCHIATRIC PROGRESS NOTE This late entry 08/08/2018, covers elements not covered in my initial note. SUBJECTIVE: I met with the patient in the evening. The patient slept 5-1/4 hours previous night. Overall, he is doing better, still has some pressured speech, paranoia, but less manic. REVIEW OF SYSTEMS: No CV, , pulmonary, eye system symptoms on review. Reviewed information with Dr. Loera. MENTAL STATUS EXAM: Oriented to himself and situation. Speech coherent, low in volume, pressured. Abstraction fair, computation impaired, language function intact, attention span short. Mood and affect, somewhat anxious, paranoid, labile at times, but improved. LABORATORY DATA: Reviewed. IMPRESSION: Schizoaffective disorder, bipolar type, mixed with psychotic features, in partial remission. Rest unchanged. PLAN: Continue psychotropics from initial note. Valproic acid level is therapeutic. MAN Barrera PEACE MD DR: WHITNEY/jessica JOB#: [id number] / [id number]
--- NOTE | 2018-08-09 23:05 | PDOC ---
Exam Note: Preston Note: Please also refer to the separate dictated note~for this date of service dictated separately.~Patient seen individually. Discussed the patient with Nursing staff reviewed the chart.~Reviewed interim history and current functioning. Reviewed vital signs,~Labs/ Radiology~and current medications noted below. Continue current treatment with the changes noted in the dictated addendum note Assessment: Vital Signs: Vital Signs Date Time Temp Pulse Resp B/P (MAP) Pulse Ox O2 Delivery O2 Flow Rate FiO2 08/09/18 16:34 97.7 74 20 144/77 (99) 98 Room Air I&O Intake and Output 08/09/18 07:00 Intake Total 1320 ml Balance 1320 ml Intake Oral 1320 ml Current Medications: Meds: Current Medications Acetaminophen (Tylenol) 650 mg PRN Q6HRS PRN PO PAIN / TEMP Last administered on 07/20/18at 11:23; Start 07/20/18 at 02:30 Multi-Ingredient Ointment (Analgesic [place]) 1 maximo PRN QID PRN TP MUSCLE PAIN; Start 07/20/18 at 02:30 Al Hydroxide/Mg Hydroxide (Mylanta Plus Xs) 15 ml PRN AFTMEALHC PRN PO DYSPEPSIA; Start 07/20/18 at 02:30 Magnesium Hydroxide (Milk Of Magnesia) 2,400 mg PRN QHS PRN PO CONSTIPATION; Start 07/20/18 at 02:30 Tamsulosin HCl (Flomax) 0.4 mg DAILY PO Last administered on 08/09/18 07:44; Start 07/20/18 at 09:00 Hydroxyzine HCl (Atarax) 25 mg PRN QID PRN PO ANXIETY / AGITATION Last administered on 08/04/18at 15:43; Start 07/21/18 at 07:00 Divalproex Sodium (Depakote Er) 1,000 mg QHS PO Last administered on 07/25/18 20:22; Start 07/21/18 at 21:00; Stop 07/26/18 at 18:22; Status DC Haloperidol (Haldol) 5 mg QHS PO Last administered on 08/09/18 20:55; Start at 21:00 Olanzapine (ZyPREXA ZYDIS) 2.5 mg PRN Q2HR PRN PO ANXIETY / AGITATION Last administered on 08/04/18 16:01; Start 07/21/18 at 07:00 Trazodone HCl (Desyrel) 50 mg QHS PO Last administered on 08/09/18 20:55; Start 07/21/18 at 21:00 Trazodone HCl (Desyrel) 50 mg PRN QHS PRN PO INSOMNIA, MAY REPEAT X1; Start at 21:00 Vitamin D (Vitamin D3) 50,000 unit WEEKLY PO ; Start 07/28/18 at 09:00; Status UNV Atorvastatin Calcium (Lipitor) 10 mg QHS PO Last administered on 08/09/18 20: 55; Start 07/21/18 at 21:00 Lactobacillus Rhamnosus (Culturelle) 1 cap BID PO Last administered on 20:55; Start 07/21/18 at 21:00 Vitamin D (Vitamin D3) 50,000 unit WEEKLY PO Last administered on 08/04/18 08: 24; Start 07/21/18 at 12:30 Mirtazapine (Remeron) 7.5 mg QHS PO Last administered on 08/09/18 20:55; Start 07/23/18 at 21:00 Risperidone (RisperDAL CONSTA) 25 mg Q2WKS IM Last administered on 08/08/18 15 :24; Start 07/25/18 at 09:00 Divalproex Sodium (Depakote Er) 1,000 mg QHS PO Last administered on 08/09/18 20:53; Start 07/26/18 at 21:00 Divalproex Sodium (Depakote Er) 250 mg QHS PO Last administered on 08/09/18 20 :55; Start 07/26/18 at 21:00 Active Scripts Active Reported Cipro (Ciprofloxacin Hcl) 250 Mg Tablet 250 Mg PO BID 5 Days Trazodone Hcl 50 Mg Tablet 50 Mg PO PRN QHS PRN Trazodone Hcl 50 Mg Tablet 50 Mg PO HS Olanzapine 5 Mg Tablet 2.5 Mg PO PRN Q2HR PRN Culturelle (Lactobacillus Rhamnosus Gg) 1 Each Capsule 1 Each PO BID Haloperidol 5 Mg Tablet 5 Mg PO HS Divalproex Sodium Er (Divalproex Sodium) 500 Mg Tab.er.24h 2 Tab PO QHS D3-50 (Cholecalciferol (Vitamin D3)) 50,000 Unit Capsule 1 Cap PO WEEKLY Atorvastatin Calcium 10 Mg Tablet 10 Mg PO QHS Tamsulosin Hcl 0.4 Mg Cap.er.24h 0.4 Mg PO DAILY Hydroxyzine Hcl 25 Mg Tablet 25 Mg PO PRN QID PRN I have reviewed the current psychotropics carefully including drug interactions. Risk benefit ratio favors no change other than as noted in my dictated progress note. Diagnosis: Problems: (1) Schizoaffective disorder, bipolar type (2) Schizoaffective disorder (3) Anxiety disorder (4) Bipolar affective, mixed, sev w/ psych (5) Impulse control disorder (6) Schizophrenia, paranoid, chronic with acute exacerbation ARABELLA PEACE MD Aug 09, 2018 23:05
[2018-08-10 06:25] VITALS: BP 117/74
[2018-08-10] MEDS: TAMSULOSIN 0.4 MG CAP.ER.24H. PO SCH (06:35)
[2018-08-10] MEDS: LACTOBACILLUS RHAMNOSUS GG 1 CAPSULE. PO SCH ×2 (06:35→19:27)
[2018-08-10 16:46] VITALS: BP 132/77
[2018-08-10] MEDS: ATORVASTATIN CALCIUM 10 MG TABLET. PO SCH (19:27)
[2018-08-10] MEDS: traZODone 50 MG TABLET. PO SCH (19:27)
[2018-08-10] MEDS: DIVALPROEX ER 500 MG TAB.ER.24H PO SCH (19:27)
[2018-08-10] MEDS: MIRTAZAPINE 7.5 MG TABLET. PO SCH (19:27)
[2018-08-10] MEDS: DIVALPROEX ER 250 MG TAB.ER.24H. PO SCH (19:27)
[2018-08-10] MEDS: HALOPERIDOL 5 MG TABLET PO SCH (19:31)
--- NOTE | 2018-08-10 22:57 | PDOC ---
Exam Note: Preston Note: Please also refer to the separate dictated note~for this date of service dictated separately.~Patient seen individually. Discussed the patient with Nursing staff reviewed the chart.~Reviewed interim history and current functioning. Reviewed vital signs,~Labs/ Radiology~and current medications noted below. Continue current treatment with the changes noted in the dictated addendum note Assessment: Vital Signs: Vital Signs Date Time Temp Pulse Resp B/P (MAP) Pulse Ox O2 Delivery O2 Flow Rate FiO2 08/10/18 16:46 98.4 66 19 132/77 (95) 97 08/09/18 16:34 Room Air I&O Intake and Output 08/10/18 07:00 Intake Total 1680 ml Balance 1680 ml Intake Oral 1680 ml Current Medications: Meds: Current Medications Acetaminophen (Tylenol) 650 mg PRN Q6HRS PRN PO PAIN / TEMP Last administered on 07/20/18at 11:23; Start 07/20/18 at 02:30 Multi-Ingredient Ointment (Analgesic [place]) 1 maximo PRN QID PRN TP MUSCLE PAIN; Start 07/20/18 at 02:30 Al Hydroxide/Mg Hydroxide (Mylanta Plus Xs) 15 ml PRN AFTMEALHC PRN PO DYSPEPSIA; Start 07/20/18 at 02:30 Magnesium Hydroxide (Milk Of Magnesia) 2,400 mg PRN QHS PRN PO CONSTIPATION; Start 07/20/18 at 02:30 Tamsulosin HCl (Flomax) 0.4 mg DAILY PO Last administered on 08/10/18at 06:35; Start 07/20/18 at 09:00 Hydroxyzine HCl (Atarax) 25 mg PRN QID PRN PO ANXIETY / AGITATION Last administered on 08/04/18at 15:43; Start 07/21/18 at 07:00 Divalproex Sodium (Depakote Er) 1,000 mg QHS PO Last administered on 07/25/18 20:22; Start 07/21/18 at 21:00; Stop 07/26/18 at 18:22; Status DC Haloperidol (Haldol) 5 mg QHS PO Last administered on 08/10/18at 19:31; Start at 21:00 Olanzapine (ZyPREXA ZYDIS) 2.5 mg PRN Q2HR PRN PO ANXIETY / AGITATION Last administered on 08/04/18 16:01; Start 07/21/18 at 07:00 Trazodone HCl (Desyrel) 50 mg QHS PO Last administered on 08/10/18 19:27; Start 07/21/18 at 21:00 Trazodone HCl (Desyrel) 50 mg PRN QHS PRN PO INSOMNIA, MAY REPEAT X1; Start at 21:00 Vitamin D (Vitamin D3) 50,000 unit WEEKLY PO ; Start 07/28/18 at 09:00; Status UNV Atorvastatin Calcium (Lipitor) 10 mg QHS PO Last administered on 08/10/18 19: 27; Start 07/21/18 at 21:00 Lactobacillus Rhamnosus (Culturelle) 1 cap BID PO Last administered on 19:27; Start 07/21/18 at 21:00 Vitamin D (Vitamin D3) 50,000 unit WEEKLY PO Last administered on 08/04/18 08: 24; Start 07/21/18 at 12:30 Mirtazapine (Remeron) 7.5 mg QHS PO Last administered on 08/10/18 19:27; Start 07/23/18 at 21:00 Risperidone (RisperDAL [place]) 25 mg Q2WKS IM Last administered on 08/08/18 15 :24; Start 07/25/18 at 09:00 Divalproex Sodium (Depakote Er) 1,000 mg QHS PO Last administered on 08/10/18 19:27; Start 07/26/18 at 21:00 Divalproex Sodium (Depakote Er) 250 mg QHS PO Last administered on 08/10/18 19 :27; Start 07/26/18 at 21:00 Active Scripts Active Reported Cipro (Ciprofloxacin Hcl) 250 Mg Tablet 250 Mg PO BID 5 Days Trazodone Hcl 50 Mg Tablet 50 Mg PO PRN QHS PRN Trazodone Hcl 50 Mg Tablet 50 Mg PO HS Olanzapine 5 Mg Tablet 2.5 Mg PO PRN Q2HR PRN Culturelle (Lactobacillus Rhamnosus Gg) 1 Each Capsule 1 Each PO BID Haloperidol 5 Mg Tablet 5 Mg PO HS Divalproex Sodium Er (Divalproex Sodium) 500 Mg Tab.er.24h 2 Tab PO QHS D3-50 (Cholecalciferol (Vitamin D3)) 50,000 Unit Capsule 1 Cap PO WEEKLY Atorvastatin Calcium 10 Mg Tablet 10 Mg PO QHS Tamsulosin Hcl 0.4 Mg Cap.er.24h 0.4 Mg PO DAILY Hydroxyzine Hcl 25 Mg Tablet 25 Mg PO PRN QID PRN I have reviewed the current psychotropics carefully including drug interactions. Risk benefit ratio favors no change other than as noted in my dictated progress note. Diagnosis: Problems: (1) Schizoaffective disorder, bipolar type (2) Schizoaffective disorder (3) Anxiety disorder (4) Bipolar affective, mixed, sev w/ psych (5) Impulse control disorder (6) Schizophrenia, paranoid, chronic with acute exacerbation ARABELLA PEACE MD Aug 10, 2018 22:57
--- NOTE | 2018-08-11 01:12 | PN ---
DATE: 08/09/2018 PSYCHIATRIC PROGRESS NOTE This late entry of 08/09/2018, covers elements not covered in my initial note. SUBJECTIVE: I met with the patient in the evening. The patient slept 7-3/4 hours previous night. Overall, the patient has been less abrasive and less volatile. His visited him. REVIEW OF SYSTEMS: No CV, , pulmonary, eye system symptoms on review. MENTAL STATUS EXAM: Oriented to himself and situation. Speech is pressured, low in volume, difficult to understand at times, somewhat paranoid. Abstraction fair, computation impaired, language function intact. Attention span short. During my individual visit, he was repeating how he wants to be returning home, but is making alternate arrangements for more structured placement, and I addressed this with him, which is when he stated "I have no use talking to you." IMPRESSION: Unchanged from initial note. PLAN: No change from initial note. ARABELLA PEACE MD DR: WHITNEY/jessica JOB#: [id number] / [id number]
[2018-08-11 06:22] VITALS: BP 129/70
[2018-08-11] MEDS: TAMSULOSIN 0.4 MG CAP.ER.24H. PO SCH (08:21)
[2018-08-11] MEDS: LACTOBACILLUS RHAMNOSUS GG 1 CAPSULE. PO SCH ×2 (08:21→19:43)
[2018-08-11] MEDS: CHOLECALCIFEROL (VITAMIN D3) 50,000 UNIT CAPSULE PO SCH (08:30)
[2018-08-11 16:11] VITALS: BP 151/89
[2018-08-11] MEDS: DIVALPROEX ER 250 MG TAB.ER.24H. PO SCH (19:43)
[2018-08-11] MEDS: traZODone 50 MG TABLET. PO SCH (19:43)
[2018-08-11] MEDS: DIVALPROEX ER 500 MG TAB.ER.24H PO SCH (19:43)
[2018-08-11] MEDS: MIRTAZAPINE 7.5 MG TABLET. PO SCH (19:44)
[2018-08-11] MEDS: HALOPERIDOL 5 MG TABLET PO SCH (19:44)
[2018-08-11] MEDS: ATORVASTATIN CALCIUM 10 MG TABLET. PO SCH (19:44)
--- NOTE | 2018-08-11 22:41 | PDOC ---
Exam Note: Preston Note: Please also refer to the separate dictated note~for this date of service dictated separately.~Patient seen individually. Discussed the patient with Nursing staff reviewed the chart.~Reviewed interim history and current functioning. Reviewed vital signs,~Labs/ Radiology~and current medications noted below. Continue current treatment with the changes noted in the dictated addendum note Assessment: Vital Signs: Vital Signs Date Time Temp Pulse Resp B/P (MAP) Pulse Ox O2 Delivery O2 Flow Rate FiO2 08/11/18 16:11 97.8 72 20 151/89 (109) 95 Room Air I&O Intake and Output 08/11/18 07:00 Intake Total 2180 ml Balance 2180 ml Intake Oral 2180 ml # Bowel Movements 1 Current Medications: Meds: Current Medications Acetaminophen (Tylenol) 650 mg PRN Q6HRS PRN PO PAIN / TEMP Last administered on 07/20/18at 11:23; Start 07/20/18 at 02:30 Multi-Ingredient Ointment (Analgesic [place]) 1 maximo PRN QID PRN TP MUSCLE PAIN; Start 07/20/18 at 02:30 Al Hydroxide/Mg Hydroxide (Mylanta Plus Xs) 15 ml PRN AFTMEALHC PRN PO DYSPEPSIA; Start 07/20/18 at 02:30 Magnesium Hydroxide (Milk Of Magnesia) 2,400 mg PRN QHS PRN PO CONSTIPATION; Start 07/20/18 at 02:30 Tamsulosin HCl (Flomax) 0.4 mg DAILY PO Last administered on 08/11/18at 08:21; Start 07/20/18 at 09:00 Hydroxyzine HCl (Atarax) 25 mg PRN QID PRN PO ANXIETY / AGITATION Last administered on 08/04/18at 15:43; Start 07/21/18 at 07:00 Divalproex Sodium (Depakote Er) 1,000 mg QHS PO Last administered on 07/25/18 20:22; Start 07/21/18 at 21:00; Stop 07/26/18 at 18:22; Status DC Haloperidol (Haldol) 5 mg QHS PO Last administered on 08/10/18at 19:31; Start at 21:00; Stop 08/11/18 at 12:11; Status DC Olanzapine (ZyPREXA ZYDIS) 2.5 mg PRN Q2HR PRN PO ANXIETY / AGITATION Last administered on 08/04/18 16:01; Start 07/21/18 at 07:00 Trazodone HCl (Desyrel) 50 mg QHS PO Last administered on 08/11/18 19:43; Start 07/21/18 at 21:00 Trazodone HCl (Desyrel) 50 mg PRN QHS PRN PO INSOMNIA, MAY REPEAT X1; Start at 21:00 Vitamin D (Vitamin D3) 50,000 unit WEEKLY PO ; Start 07/28/18 at 09:00; Status UNV Atorvastatin Calcium (Lipitor) 10 mg QHS PO Last administered on 08/11/18 19: 44; Start 07/21/18 at 21:00 Lactobacillus Rhamnosus (Culturelle) 1 cap BID PO Last administered on 19:43; Start 07/21/18 at 21:00 Vitamin D (Vitamin D3) 50,000 unit WEEKLY PO Last administered on 08/11/18 08: 30; Start 07/21/18 at 12:30 Mirtazapine (Remeron) 7.5 mg QHS PO Last administered on 08/11/18 19:44; Start 07/23/18 at 21:00 Risperidone (RisperDAL [place]) 25 mg Q2WKS IM Last administered on 08/08/18 15 :24; Start 07/25/18 at 09:00 Divalproex Sodium (Depakote Er) 1,000 mg QHS PO Last administered on 08/11/18 19:43; Start 07/26/18 at 21:00 Divalproex Sodium (Depakote Er) 250 mg QHS PO Last administered on 08/11/18 19 :43; Start 07/26/18 at 21:00 Haloperidol (Haldol) 7.5 mg QHS PO Last administered on 08/11/18 19:44; Start 08/11/18 at 21:00 Active Scripts Active Reported Cipro (Ciprofloxacin Hcl) 250 Mg Tablet 250 Mg PO BID 5 Days Trazodone Hcl 50 Mg Tablet 50 Mg PO PRN QHS PRN Trazodone Hcl 50 Mg Tablet 50 Mg PO HS Olanzapine 5 Mg Tablet 2.5 Mg PO PRN Q2HR PRN Culturelle (Lactobacillus Rhamnosus Gg) 1 Each Capsule 1 Each PO BID Haloperidol 5 Mg Tablet 5 Mg PO HS Divalproex Sodium Er (Divalproex Sodium) 500 Mg Tab.er.24h 2 Tab PO QHS D3-50 (Cholecalciferol (Vitamin D3)) 50,000 Unit Capsule 1 Cap PO WEEKLY Atorvastatin Calcium 10 Mg Tablet 10 Mg PO QHS Tamsulosin Hcl 0.4 Mg Cap.er.24h 0.4 Mg PO DAILY Hydroxyzine Hcl 25 Mg Tablet 25 Mg PO PRN QID PRN I have reviewed the current psychotropics carefully including drug interactions. Risk benefit ratio favors no change other than as noted in my dictated progress note. Diagnosis: Problems: (1) Schizoaffective disorder, bipolar type (2) Schizoaffective disorder (3) Anxiety disorder (4) Bipolar affective, mixed, sev w/ psych (5) Impulse control disorder (6) Schizophrenia, paranoid, chronic with acute exacerbation ARABELLA PEACE MD Aug 11, 2018 22:41
[2018-08-12 06:27] VITALS: BP 130/81
[2018-08-12] MEDS: LACTOBACILLUS RHAMNOSUS GG 1 CAPSULE. PO SCH ×2 (07:59→19:29)
[2018-08-12] MEDS: TAMSULOSIN 0.4 MG CAP.ER.24H. PO SCH (07:59)
[2018-08-12 08:17] LABS: BASO % 0 % (0-3); EOS # 0.1 x10^3/uL (0.0-0.7); EOS % 2 % (0-3); HEMATOCRIT 43.4 % (39.0-53.0); HEMOGLOBIN 14.7 g/dL (13.0-17.5); LYMPH # 1.8 x10^3/uL (1.0-4.8); LYMPH % 32 % (24-48); MEAN CORPUSCULAR HEMOGLOBIN 32 pg (25-35); MEAN CORPUSCULAR HGB CONC 34 g/dL (31-37); MEAN CORPUSCULAR VOLUME 93 fL (79-100); MONO # 0.7 x10^3/uL (0.0-1.1); MONO % 12 % (0-9); NEUT % 54 % (31-73); PLATELET COUNT 106 x10^3/uL (140-400); RED BLOOD COUNT 4.67 x10^6/uL (4.30-5.70); RED CELL DISTRIBUTION WIDTH 13.7 % (11.5-14.5); WHITE BLOOD COUNT 5.6 x10^3/uL (4.0-11.0)
[2018-08-12 08:30] LABS: ALBUMIN 3.2 g/dL (3.4-5.0); CALCIUM 8.8 mg/dL (8.5-10.1); CREATININE 0.9 mg/dL (0.7-1.3); POTASSIUM 4.3 mmol/L (3.5-5.1); TOTAL BILIRUBIN 0.3 mg/dL (0.2-1.0); TOTAL PROTEIN 6.5 g/dL (6.4-8.2)
[2018-08-12 16:14] VITALS: BP 128/76
--- NOTE | 2018-08-12 18:48 | PN ---
DATE: 08/10/2018 PSYCHIATRIC PROGRESS NOTE This late entry 08/10/2018 covers elements not covered in my initial note. SUBJECTIVE: I met with the patient in the evening. The patient slept 7-1/4 hours previous night. He has been somewhat disorganized, wanders, repetitive with pressure of speech, paranoid as I met with him. He is convinced his is a prostitute, talking about a billion dollars and $500,000 are owed to him. REVIEW OF SYSTEMS: No CV, , pulmonary, eye, ENT system symptoms on review. He is obsessing about his . MENTAL STATUS EXAM: Oriented to himself and situation. Speech coherent, low in volume, rapid, abstraction fair, computation impaired, language function intact, attention span short. Mood and affect somewhat labile. LABORATORY DATA: Reviewed. IMPRESSION: Unchanged from initial note. PLAN: No change from initial note, but we may need to increase Haldol since Depakote is therapeutic. ARABELLA PEACE MD DR: WHITNEY/jessica JOB#: [id number] / [id number]
--- NOTE | 2018-08-12 18:53 | PN ---
DATE: 08/11/2018 PSYCHIATRIC PROGRESS NOTE This late entry 08/11/2018 covers elements not covered in my initial note. SUBJECTIVE: I met with the patient in the evening and staffed at a treatment team meeting with the entire team earlier in the day. The patient slept 8 hours previous night. He remains somewhat paranoid with pressure of speech, anxious. REVIEW OF SYSTEMS: No CV, , pulmonary, eye system symptoms on review. MENTAL STATUS EXAM: Oriented to himself and situation. Speech, low in volume, coherent, rapid at times. Abstraction fair, computation impaired, language function intact, attention span short. Mood and affect somewhat anxious, labile, still paranoid. LABORATORY DATA: Reviewed. Social Service staff indicates [facility] [employer] [facility] program will follow him post-discharge. Appetite 100%. IMPRESSION: Unchanged from initial note. PLAN: Increase Haldol from 5 mg at bedtime to 7.5 mg at bedtime. Rest unchanged from initial note including Risperdal Consta and the Depakote with a level therapeutic at 85. MAN Barrera PEACE MD DR: WHITNEY/jessica JOB#: [id number] / [id number]
[2018-08-12] MEDS: HALOPERIDOL 5 MG TABLET PO SCH (19:28)
[2018-08-12] MEDS: traZODone 50 MG TABLET. PO SCH (19:29)
[2018-08-12] MEDS: DIVALPROEX ER 500 MG TAB.ER.24H PO SCH (19:29)
[2018-08-12] MEDS: DIVALPROEX ER 250 MG TAB.ER.24H. PO SCH (19:29)
[2018-08-12] MEDS: MIRTAZAPINE 7.5 MG TABLET. PO SCH (19:29)
[2018-08-12] MEDS: ATORVASTATIN CALCIUM 10 MG TABLET. PO SCH (19:29)
--- NOTE | 2018-08-12 22:50 | PDOC ---
Exam Note: Preston Note: Please also refer to the separate dictated note~for this date of service dictated separately.~Patient seen individually. Discussed the patient with Nursing staff reviewed the chart.~Reviewed interim history and current functioning. Reviewed vital signs,~Labs/ Radiology~and current medications noted below. Continue current treatment with the changes noted in the dictated addendum note Assessment: Vital Signs: Vital Signs Date Time Temp Pulse Resp B/P (MAP) Pulse Ox O2 Delivery O2 Flow Rate FiO2 08/12/18 16:14 98.1 63 16 128/76 (93) 97 Room Air I&O Intake and Output 08/12/18 07:00 Intake Total 1440 ml Balance 1440 ml Intake Oral 1440 ml Labs: Laboratory Tests Test 08/12/18 07:18 White Blood Count 5.6 x10^3/uL (4.0-11.0) Red Blood Count 4.67 x10^6/uL (4.30-5.70) Hemoglobin 14.7 g/dL (13.0-17.5) Hematocrit 43.4 % (39.0-53.0) Mean Corpuscular Volume 93 fL (79-100) Mean Corpuscular Hemoglobin 32 pg (25-35) Mean Corpuscular Hemoglobin Concent 34 g/dL (31-37) Red Cell Distribution Width 13.7 % (11.5-14.5) Platelet Count 106 x10^3/uL (140-400) L Neutrophils (%) (Auto) 54 % (31-73) Lymphocytes (%) (Auto) 32 % (24-48) Monocytes (%) (Auto) 12 % (0-9) H Eosinophils (%) (Auto) 2 % (0-3) Basophils (%) (Auto) 0 % (0-3) Neutrophils # (Auto) 3.0 x10^3uL (1.8-7.7) Lymphocytes # (Auto) 1.8 x10^3/uL (1.0-4.8) Monocytes # (Auto) 0.7 x10^3/uL (0.0-1.1) Eosinophils # (Auto) 0.1 x10^3/uL (0.0-0.7) Basophils # (Auto) 0.0 x10^3/uL (0.0-0.2) Sodium Level 140 mmol/L (136-145) Potassium Level 4.3 mmol/L (3.5-5.1) Chloride Level 102 mmol/L (98-107) Carbon Dioxide Level 31 mmol/L (21-32) Anion Gap 7 (6-14) Blood Urea Nitrogen 14 mg/dL (8-26) Creatinine 0.9 mg/dL (0.7-1.3) Estimated GFR (Cockcroft-Gault) 82.0 BUN/Creatinine Ratio 16 (6-20) Glucose Level 73 mg/dL (70-99) Calcium Level 8.8 mg/dL (8.5-10.1) Total Bilirubin 0.3 mg/dL (0.2-1.0) Aspartate Amino Transferase (AST) 12 U/L (15-37) L Alanine Aminotransferase (ALT) 20 U/L (16-63) Alkaline Phosphatase 66 U/L (46-116) Total Protein 6.5 g/dL (6.4-8.2) Albumin 3.2 g/dL (3.4-5.0) L Albumin/Globulin Ratio 1.0 (1.0-1.7) Current Medications: Meds: Current Medications Acetaminophen (Tylenol) 650 mg PRN Q6HRS PRN PO PAIN / TEMP Last administered on 07/20/18at 11:23; Start 07/20/18 at 02:30 Multi-Ingredient Ointment (Analgesic [place]) 1 maximo PRN QID PRN TP MUSCLE PAIN; Start 07/20/18 at 02:30 Al Hydroxide/Mg Hydroxide (Mylanta Plus Xs) 15 ml PRN AFTMEALHC PRN PO DYSPEPSIA; Start 07/20/18 at 02:30 Magnesium Hydroxide (Milk Of Magnesia) 2,400 mg PRN QHS PRN PO CONSTIPATION; Start 07/20/18 at 02:30 Tamsulosin HCl (Flomax) 0.4 mg DAILY PO Last administered on 08/12/18at 07:59; Start 07/20/18 at 09:00 Hydroxyzine HCl (Atarax) 25 mg PRN QID PRN PO ANXIETY / AGITATION Last administered on 08/04/18at 15:43; Start 07/21/18 at 07:00 Divalproex Sodium (Depakote Er) 1,000 mg QHS PO Last administered on 3/4/19at 20:22; Start 07/21/18 at 21:00; Stop 07/26/18 at 18:22; Status DC Haloperidol (Haldol) 5 mg QHS PO Last administered on 08/10/18 19:31; Start at 21:00; Stop 08/11/18 at 12:11; Status DC Olanzapine (ZyPREXA ZYDIS) 2.5 mg PRN Q2HR PRN PO ANXIETY / AGITATION Last administered on 08/04/18 16:01; Start 07/21/18 at 07:00 Trazodone HCl (Desyrel) 50 mg QHS PO Last administered on 08/12/18 19:29; Start 07/21/18 at 21:00 Trazodone HCl (Desyrel) 50 mg PRN QHS PRN PO INSOMNIA, MAY REPEAT X1; Start at 21:00 Vitamin D (Vitamin D3) 50,000 unit WEEKLY PO ; Start 07/28/18 at 09:00; Status UNV Atorvastatin Calcium (Lipitor) 10 mg QHS PO Last administered on 08/12/18 19: 29; Start 07/21/18 at 21:00 Lactobacillus Rhamnosus (Culturelle) 1 cap BID PO Last administered on 19:29; Start 07/21/18 at 21:00 Vitamin D (Vitamin D3) 50,000 unit WEEKLY PO Last administered on 08/11/18 08: 30; Start 07/21/18 at 12:30 Mirtazapine (Remeron) 7.5 mg QHS PO Last administered on 08/12/18 19:29; Start 07/23/18 at 21:00 Risperidone (RisperDAL CONSTA) 25 mg Q2WKS IM Last administered on 08/08/18 15 :24; Start 07/25/18 at 09:00 Divalproex Sodium (Depakote Er) 1,000 mg QHS PO Last administered on 08/12/18 19:29; Start 07/26/18 at 21:00 Divalproex Sodium (Depakote Er) 250 mg QHS PO Last administered on 08/12/18 19 :29; Start 07/26/18 at 21:00 Haloperidol (Haldol) 7.5 mg QHS PO Last administered on 08/12/18at 19:28; Start 08/11/18 at 21:00 Active Scripts Active Reported Cipro (Ciprofloxacin Hcl) 250 Mg Tablet 250 Mg PO BID 5 Days Trazodone Hcl 50 Mg Tablet 50 Mg PO PRN QHS PRN Trazodone Hcl 50 Mg Tablet 50 Mg PO HS Olanzapine 5 Mg Tablet 2.5 Mg PO PRN Q2HR PRN Culturelle (Lactobacillus Rhamnosus Gg) 1 Each Capsule 1 Each PO BID Haloperidol 5 Mg Tablet 5 Mg PO HS Divalproex Sodium Er (Divalproex Sodium) 500 Mg Tab.er.24h 2 Tab PO QHS D3-50 (Cholecalciferol (Vitamin D3)) 50,000 Unit Capsule 1 Cap PO WEEKLY Atorvastatin Calcium 10 Mg Tablet 10 Mg PO QHS Tamsulosin Hcl 0.4 Mg Cap.er.24h 0.4 Mg PO DAILY Hydroxyzine Hcl 25 Mg Tablet 25 Mg PO PRN QID PRN I have reviewed the current psychotropics carefully including drug interactions. Risk benefit ratio favors no change other than as noted in my dictated progress note. Diagnosis: Problems: (1) Schizoaffective disorder, bipolar type (2) Schizoaffective disorder (3) Anxiety disorder (4) Bipolar affective, mixed, sev w/ psych (5) Impulse control disorder (6) Schizophrenia, paranoid, chronic with acute exacerbation ARABELLA PEACE MD Aug 12, 2018 22:50
[2018-08-13 05:57] VITALS: BP 123/79
[2018-08-13] MEDS: TAMSULOSIN 0.4 MG CAP.ER.24H. PO SCH (08:01)
[2018-08-13] MEDS: LACTOBACILLUS RHAMNOSUS GG 1 CAPSULE. PO SCH ×2 (08:01→19:18)
--- NOTE | 2018-08-13 15:37 | PN ---
DATE: 08/12/2018 PSYCHIATRIC PROGRESS NOTE This is a late entry 08/12/2018 covers elements not covered in my initial note. SUBJECTIVE: I met with the patient in the evening at length. The patient slept 5-1/2 hours previous night, but he is doing about the same per nursing report. He continues to write long notes regarding insurance and large amounts of money and some unconnected events with his reflective of his ongoing paranoia and then it is improved. REVIEW OF SYSTEMS: No CV, , pulmonary, eye system symptoms on review. MENTAL STATUS EXAM: Oriented to himself and situation. Speech is low in volume, coherent, rapid at times. Abstraction fair, computation impaired, language function intact, attention span short. Mood and affect somewhat anxious, labile. LABORATORY DATA: Reviewed. IMPRESSION: Unchanged from initial note. PLAN: No change from initial note and we had increase the Haldol recently, we will see how he does the following treatment further. ARABELLA PEACE MD DR: WHITNEY/jessica JOB#: [id number] / [id number]
[2018-08-13 16:40] VITALS: BP 120/78
[2018-08-13] MEDS: DIVALPROEX ER 500 MG TAB.ER.24H PO SCH (19:18)
[2018-08-13] MEDS: DIVALPROEX ER 250 MG TAB.ER.24H. PO SCH (19:18)
[2018-08-13] MEDS: traZODone 50 MG TABLET. PO SCH (19:19)
[2018-08-13] MEDS: MIRTAZAPINE 7.5 MG TABLET. PO SCH (19:19)
[2018-08-13] MEDS: HALOPERIDOL 5 MG TABLET PO SCH (19:19)
[2018-08-13] MEDS: ATORVASTATIN CALCIUM 10 MG TABLET. PO SCH (19:20)
--- NOTE | 2018-08-13 23:17 | PDOC ---
Exam Note: Preston Note: Please also refer to the separate dictated note~for this date of service dictated separately.~Patient seen individually. Discussed the patient with Nursing staff reviewed the chart.~Reviewed interim history and current functioning. Reviewed vital signs,~Labs/ Radiology~and current medications noted below. Continue current treatment with the changes noted in the dictated addendum note Assessment: Vital Signs: Vital Signs Date Time Temp Pulse Resp B/P (MAP) Pulse Ox O2 Delivery O2 Flow Rate FiO2 08/13/18 16:40 97.7 64 20 120/78 (92) 97 Room Air I&O Intake and Output 08/13/18 07:00 Intake Total 840 ml Balance 840 ml Intake Oral 840 ml Current Medications: Meds: Current Medications Acetaminophen (Tylenol) 650 mg PRN Q6HRS PRN PO PAIN / TEMP Last administered on 07/20/18at 11:23; Start 07/20/18 at 02:30 Multi-Ingredient Ointment (Analgesic [place]) 1 maximo PRN QID PRN TP MUSCLE PAIN; Start 07/20/18 at 02:30 Al Hydroxide/Mg Hydroxide (Mylanta Plus Xs) 15 ml PRN AFTMEALHC PRN PO DYSPEPSIA; Start 07/20/18 at 02:30 Magnesium Hydroxide (Milk Of Magnesia) 2,400 mg PRN QHS PRN PO CONSTIPATION; Start 07/20/18 at 02:30 Tamsulosin HCl (Flomax) 0.4 mg DAILY PO Last administered on 08/13/18at 08:01; Start 07/20/18 at 09:00 Hydroxyzine HCl (Atarax) 25 mg PRN QID PRN PO ANXIETY / AGITATION Last administered on 08/04/18at 15:43; Start 07/21/18 at 07:00 Divalproex Sodium (Depakote Er) 1,000 mg QHS PO Last administered on 07/25/18 20:22; Start 07/21/18 at 21:00; Stop 07/26/18 at 18:22; Status DC Haloperidol (Haldol) 5 mg QHS PO Last administered on 08/10/18at 19:31; Start at 21:00; Stop 08/11/18 at 12:11; Status DC Olanzapine (ZyPREXA ZYDIS) 2.5 mg PRN Q2HR PRN PO ANXIETY / AGITATION Last administered on 08/04/18 16:01; Start 07/21/18 at 07:00 Trazodone HCl (Desyrel) 50 mg QHS PO Last administered on 08/13/18 19:19; Start 07/21/18 at 21:00 Trazodone HCl (Desyrel) 50 mg PRN QHS PRN PO INSOMNIA, MAY REPEAT X1; Start at 21:00 Vitamin D (Vitamin D3) 50,000 unit WEEKLY PO ; Start 07/28/18 at 09:00; Status UNV Atorvastatin Calcium (Lipitor) 10 mg QHS PO Last administered on 08/13/18 19: 20; Start 07/21/18 at 21:00 Lactobacillus Rhamnosus (Culturelle) 1 cap BID PO Last administered on 19:18; Start 07/21/18 at 21:00 Vitamin D (Vitamin D3) 50,000 unit WEEKLY PO Last administered on 08/11/18 08: 30; Start 07/21/18 at 12:30 Mirtazapine (Remeron) 7.5 mg QHS PO Last administered on 08/13/18 19:19; Start 07/23/18 at 21:00 Risperidone (RisperDAL [place]STA) 25 mg Q2WKS IM Last administered on 08/08/18 15 :24; Start 07/25/18 at 09:00 Divalproex Sodium (Depakote Er) 1,000 mg QHS PO Last administered on 08/13/18 19:18; Start 07/26/18 at 21:00 Divalproex Sodium (Depakote Er) 250 mg QHS PO Last administered on 08/13/18 19 :18; Start 07/26/18 at 21:00 Haloperidol (Haldol) 7.5 mg QHS PO Last administered on 08/13/18 19:19; Start 08/11/18 at 21:00 Active Scripts Active Reported Cipro (Ciprofloxacin Hcl) 250 Mg Tablet 250 Mg PO BID 5 Days Trazodone Hcl 50 Mg Tablet 50 Mg PO PRN QHS PRN Trazodone Hcl 50 Mg Tablet 50 Mg PO HS Olanzapine 5 Mg Tablet 2.5 Mg PO PRN Q2HR PRN Culturelle (Lactobacillus Rhamnosus Gg) 1 Each Capsule 1 Each PO BID Haloperidol 5 Mg Tablet 5 Mg PO HS Divalproex Sodium Er (Divalproex Sodium) 500 Mg Tab.er.24h 2 Tab PO QHS D3-50 (Cholecalciferol (Vitamin D3)) 50,000 Unit Capsule 1 Cap PO WEEKLY Atorvastatin Calcium 10 Mg Tablet 10 Mg PO QHS Tamsulosin Hcl 0.4 Mg Cap.er.24h 0.4 Mg PO DAILY Hydroxyzine Hcl 25 Mg Tablet 25 Mg PO PRN QID PRN I have reviewed the current psychotropics carefully including drug interactions. Risk benefit ratio favors no change other than as noted in my dictated progress note. Diagnosis: Problems: (1) Schizoaffective disorder, bipolar type (2) Schizoaffective disorder (3) Anxiety disorder (4) Bipolar affective, mixed, sev w/ psych (5) Impulse control disorder (6) Schizophrenia, paranoid, chronic with acute exacerbation ARABELLA PEACE MD Aug 13, 2018 23:17
[2018-08-14 06:16] VITALS: BP 132/74
[2018-08-14] MEDS: TAMSULOSIN 0.4 MG CAP.ER.24H. PO SCH (07:33)
[2018-08-14] MEDS: LACTOBACILLUS RHAMNOSUS GG 1 CAPSULE. PO SCH ×2 (07:33→19:14)
[2018-08-14 16:55] VITALS: BP 138/84
[2018-08-14] MEDS: ATORVASTATIN CALCIUM 10 MG TABLET. PO SCH (19:13)
[2018-08-14] MEDS: DIVALPROEX ER 250 MG TAB.ER.24H. PO SCH (19:13)
[2018-08-14] MEDS: DIVALPROEX ER 500 MG TAB.ER.24H PO SCH (19:14)
[2018-08-14] MEDS: HALOPERIDOL 5 MG TABLET PO SCH (19:14)
[2018-08-14] MEDS: traZODone 50 MG TABLET. PO SCH (19:14)
[2018-08-14] MEDS: MIRTAZAPINE 7.5 MG TABLET. PO SCH (19:14)
--- NOTE | 2018-08-14 23:42 | PDOC ---
Exam Note: Preston Note: Please also refer to the separate dictated note~for this date of service dictated separately.~Patient seen individually. Discussed the patient with Nursing staff reviewed the chart.~Reviewed interim history and current functioning. Reviewed vital signs,~Labs/ Radiology~and current medications noted below. Continue current treatment with the changes noted in the dictated addendum note Assessment: Vital Signs: Vital Signs Date Time Temp Pulse Resp B/P (MAP) Pulse Ox O2 Delivery O2 Flow Rate FiO2 08/14/18 16:55 97.6 61 19 138/84 (102) 97 Room Air I&O Intake and Output 08/14/18 07:00 Intake Total 1200 ml Balance 1200 ml Intake Oral 1200 ml # Voids 1 Current Medications: Meds: Current Medications Acetaminophen (Tylenol) 650 mg PRN Q6HRS PRN PO PAIN / TEMP Last administered on 07/20/18at 11:23; Start 07/20/18 at 02:30 Multi-Ingredient Ointment (Analgesic [place]) 1 maximo PRN QID PRN TP MUSCLE PAIN; Start 07/20/18 at 02:30 Al Hydroxide/Mg Hydroxide (Mylanta Plus Xs) 15 ml PRN AFTMEALHC PRN PO DYSPEPSIA; Start 07/20/18 at 02:30 Magnesium Hydroxide (Milk Of Magnesia) 2,400 mg PRN QHS PRN PO CONSTIPATION; Start 07/20/18 at 02:30 Tamsulosin HCl (Flomax) 0.4 mg DAILY PO Last administered on 08/14/18at 07:33; Start 07/20/18 at 09:00 Hydroxyzine HCl (Atarax) 25 mg PRN QID PRN PO ANXIETY / AGITATION Last administered on 08/04/18at 15:43; Start 07/21/18 at 07:00 Divalproex Sodium (Depakote Er) 1,000 mg QHS PO Last administered on 07/25/18 20:22; Start 07/21/18 at 21:00; Stop 07/26/18 at 18:22; Status DC Haloperidol (Haldol) 5 mg QHS PO Last administered on 08/10/18at 19:31; Start at 21:00; Stop 08/11/18 at 12:11; Status DC Olanzapine (ZyPREXA ZYDIS) 2.5 mg PRN Q2HR PRN PO ANXIETY / AGITATION Last administered on 08/04/18 16:01; Start 07/21/18 at 07:00 Trazodone HCl (Desyrel) 50 mg QHS PO Last administered on 08/14/18 19:14; Start 07/21/18 at 21:00 Trazodone HCl (Desyrel) 50 mg PRN QHS PRN PO INSOMNIA, MAY REPEAT X1; Start at 21:00 Vitamin D (Vitamin D3) 50,000 unit WEEKLY PO ; Start 07/28/18 at 09:00; Status UNV Atorvastatin Calcium (Lipitor) 10 mg QHS PO Last administered on 08/14/18 19: 13; Start 07/21/18 at 21:00 Lactobacillus Rhamnosus (Culturelle) 1 cap BID PO Last administered on 19:14; Start 07/21/18 at 21:00 Vitamin D (Vitamin D3) 50,000 unit WEEKLY PO Last administered on 08/11/18 08: 30; Start 07/21/18 at 12:30 Mirtazapine (Remeron) 7.5 mg QHS PO Last administered on 08/14/18 19:14; Start 07/23/18 at 21:00 Risperidone (RisperDAL [place]) 25 mg Q2WKS IM Last administered on 08/08/18 15 :24; Start 07/25/18 at 09:00 Divalproex Sodium (Depakote Er) 1,000 mg QHS PO Last administered on 08/14/18 19:14; Start 07/26/18 at 21:00 Divalproex Sodium (Depakote Er) 250 mg QHS PO Last administered on 08/14/18 19 :13; Start 07/26/18 at 21:00 Haloperidol (Haldol) 7.5 mg QHS PO Last administered on 08/14/18 19:14; Start 08/11/18 at 21:00 Active Scripts Active Reported Cipro (Ciprofloxacin Hcl) 250 Mg Tablet 250 Mg PO BID 5 Days Trazodone Hcl 50 Mg Tablet 50 Mg PO PRN QHS PRN Trazodone Hcl 50 Mg Tablet 50 Mg PO HS Olanzapine 5 Mg Tablet 2.5 Mg PO PRN Q2HR PRN Culturelle (Lactobacillus Rhamnosus Gg) 1 Each Capsule 1 Each PO BID Haloperidol 5 Mg Tablet 5 Mg PO HS Divalproex Sodium Er (Divalproex Sodium) 500 Mg Tab.er.24h 2 Tab PO QHS D3-50 (Cholecalciferol (Vitamin D3)) 50,000 Unit Capsule 1 Cap PO WEEKLY Atorvastatin Calcium 10 Mg Tablet 10 Mg PO QHS Tamsulosin Hcl 0.4 Mg Cap.er.24h 0.4 Mg PO DAILY Hydroxyzine Hcl 25 Mg Tablet 25 Mg PO PRN QID PRN I have reviewed the current psychotropics carefully including drug interactions. Risk benefit ratio favors no change other than as noted in my dictated progress note. Diagnosis: Problems: (1) Schizoaffective disorder, bipolar type (2) Schizoaffective disorder (3) Anxiety disorder (4) Bipolar affective, mixed, sev w/ psych (5) Impulse control disorder (6) Schizophrenia, paranoid, chronic with acute exacerbation ARABELLA PEACE MD Aug 14, 2018 23:42
[2018-08-15] MEDS: LACTOBACILLUS RHAMNOSUS GG 1 CAPSULE. PO SCH ×2 (07:56→19:48)
[2018-08-15] MEDS: TAMSULOSIN 0.4 MG CAP.ER.24H. PO SCH (07:56)
[2018-08-15 09:00] VITALS: BP 113/62
[2018-08-15 17:15] VITALS: BP 120/66
[2018-08-15] MEDS: DIVALPROEX ER 250 MG TAB.ER.24H. PO SCH (19:47)
[2018-08-15] MEDS: traZODone 50 MG TABLET. PO SCH (19:47)
[2018-08-15] MEDS: DIVALPROEX ER 500 MG TAB.ER.24H PO SCH (19:47)
[2018-08-15] MEDS: ATORVASTATIN CALCIUM 10 MG TABLET. PO SCH (19:48)
[2018-08-15] MEDS: MIRTAZAPINE 7.5 MG TABLET. PO SCH (19:48)
[2018-08-15] MEDS: HALOPERIDOL 5 MG TABLET PO SCH (19:48)
--- NOTE | 2018-08-15 20:54 | PN ---
DATE: 08/14/2018 PSYCHIATRIC PROGRESS NOTE This late entry 08/14/2018 covers elements not covered in my initial note. SUBJECTIVE: I met with the patient in the evening. The patient slept 8-1/2 hours previous night. He has been less paranoid and anxious. REVIEW OF SYSTEMS: No CV, , pulmonary, eye system symptoms on review. MENTAL STATUS EXAM: Oriented to himself and situation. Speech coherent, low in volume. Abstraction fair, computation impaired, language function intact. He still appears somewhat paranoid as I met with him. LABORATORY DATA: Reviewed. IMPRESSION: Unchanged from initial note. PLAN: No change from initial note. MAN Barrera PEACE MD DR: WHITNEY/jessica JOB#: [id number] / [id number]
--- NOTE | 2018-08-15 22:50 | PDOC ---
Exam Note: Preston Note: Please also refer to the separate dictated note~for this date of service dictated separately.~Patient seen individually. Discussed the patient with Nursing staff reviewed the chart.~Reviewed interim history and current functioning. Reviewed vital signs,~Labs/ Radiology~and current medications noted below. Continue current treatment with the changes noted in the dictated addendum note Assessment: Vital Signs: Vital Signs Date Time Temp Pulse Resp B/P (MAP) Pulse Ox O2 Delivery O2 Flow Rate FiO2 08/15/18 17:15 97.7 64 20 120/66 (84) 95 08/15/18 09:00 Room Air I&O Intake and Output 08/15/18 07:00 Intake Total 1180 ml Balance 1180 ml Intake Oral 1180 ml Current Medications: Meds: Current Medications Acetaminophen (Tylenol) 650 mg PRN Q6HRS PRN PO PAIN / TEMP Last administered on 07/20/18at 11:23; Start 07/20/18 at 02:30 Multi-Ingredient Ointment (Analgesic [place]) 1 maximo PRN QID PRN TP MUSCLE PAIN; Start 07/20/18 at 02:30 Al Hydroxide/Mg Hydroxide (Mylanta Plus Xs) 15 ml PRN AFTMEALHC PRN PO DYSPEPSIA; Start 07/20/18 at 02:30 Magnesium Hydroxide (Milk Of Magnesia) 2,400 mg PRN QHS PRN PO CONSTIPATION; Start 07/20/18 at 02:30 Tamsulosin HCl (Flomax) 0.4 mg DAILY PO Last administered on 08/15/18at 07:56; Start 07/20/18 at 09:00 Hydroxyzine HCl (Atarax) 25 mg PRN QID PRN PO ANXIETY / AGITATION Last administered on 08/04/18at 15:43; Start 07/21/18 at 07:00 Divalproex Sodium (Depakote Er) 1,000 mg QHS PO Last administered on 07/25/18 20:22; Start 07/21/18 at 21:00; Stop 07/26/18 at 18:22; Status DC Haloperidol (Haldol) 5 mg QHS PO Last administered on 08/10/18at 19:31; Start at 21:00; Stop 08/11/18 at 12:11; Status DC Olanzapine (ZyPREXA ZYDIS) 2.5 mg PRN Q2HR PRN PO ANXIETY / AGITATION Last administered on 08/04/18 16:01; Start 07/21/18 at 07:00 Trazodone HCl (Desyrel) 50 mg QHS PO Last administered on 08/15/18 19:47; Start 07/21/18 at 21:00 Trazodone HCl (Desyrel) 50 mg PRN QHS PRN PO INSOMNIA, MAY REPEAT X1; Start at 21:00 Vitamin D (Vitamin D3) 50,000 unit WEEKLY PO ; Start 07/28/18 at 09:00; Status UNV Atorvastatin Calcium (Lipitor) 10 mg QHS PO Last administered on 08/15/18 19: 48; Start 07/21/18 at 21:00 Lactobacillus Rhamnosus (Culturelle) 1 cap BID PO Last administered on 19:48; Start 07/21/18 at 21:00 Vitamin D (Vitamin D3) 50,000 unit WEEKLY PO Last administered on 08/11/18 08: 30; Start 07/21/18 at 12:30 Mirtazapine (Remeron) 7.5 mg QHS PO Last administered on 08/15/18 19:48; Start 07/23/18 at 21:00 Risperidone (RisperDAL [place]) 25 mg Q2WKS IM Last administered on 08/08/18 15 :24; Start 07/25/18 at 09:00 Divalproex Sodium (Depakote Er) 1,000 mg QHS PO Last administered on 08/15/18 19:47; Start 07/26/18 at 21:00 Divalproex Sodium (Depakote Er) 250 mg QHS PO Last administered on 08/15/18 19 :47; Start 07/26/18 at 21:00 Haloperidol (Haldol) 7.5 mg QHS PO Last administered on 08/15/18 19:48; Start 08/11/18 at 21:00 Active Scripts Active Reported Cipro (Ciprofloxacin Hcl) 250 Mg Tablet 250 Mg PO BID 5 Days Trazodone Hcl 50 Mg Tablet 50 Mg PO PRN QHS PRN Trazodone Hcl 50 Mg Tablet 50 Mg PO HS Olanzapine 5 Mg Tablet 2.5 Mg PO PRN Q2HR PRN Culturelle (Lactobacillus Rhamnosus Gg) 1 Each Capsule 1 Each PO BID Haloperidol 5 Mg Tablet 5 Mg PO HS Divalproex Sodium Er (Divalproex Sodium) 500 Mg Tab.er.24h 2 Tab PO QHS D3-50 (Cholecalciferol (Vitamin D3)) 50,000 Unit Capsule 1 Cap PO WEEKLY Atorvastatin Calcium 10 Mg Tablet 10 Mg PO QHS Tamsulosin Hcl 0.4 Mg Cap.er.24h 0.4 Mg PO DAILY Hydroxyzine Hcl 25 Mg Tablet 25 Mg PO PRN QID PRN I have reviewed the current psychotropics carefully including drug interactions. Risk benefit ratio favors no change other than as noted in my dictated progress note. Diagnosis: Problems: (1) Schizoaffective disorder, bipolar type (2) Schizoaffective disorder (3) Anxiety disorder (4) Bipolar affective, mixed, sev w/ psych (5) Impulse control disorder (6) Schizophrenia, paranoid, chronic with acute exacerbation ARABELLA PEACE MD Aug 15, 2018 22:50
[2018-08-16 06:04] VITALS: BP 133/83
[2018-08-16] MEDS: LACTOBACILLUS RHAMNOSUS GG 1 CAPSULE. PO SCH ×2 (07:41→19:51)
[2018-08-16] MEDS: TAMSULOSIN 0.4 MG CAP.ER.24H. PO SCH (07:41)
[2018-08-16 16:24] VITALS: BP 106/67
[2018-08-16] MEDS: HALOPERIDOL 5 MG TABLET PO SCH (19:50)
[2018-08-16] MEDS: DIVALPROEX ER 500 MG TAB.ER.24H PO SCH (19:51)
[2018-08-16] MEDS: ATORVASTATIN CALCIUM 10 MG TABLET. PO SCH (19:51)
[2018-08-16] MEDS: traZODone 50 MG TABLET. PO SCH (19:51)
[2018-08-16] MEDS: DIVALPROEX ER 250 MG TAB.ER.24H. PO SCH (19:51)
[2018-08-16] MEDS: MIRTAZAPINE 7.5 MG TABLET. PO SCH (19:51)
--- NOTE | 2018-08-16 22:24 | PN ---
DATE: 08/15/2018 PSYCHIATRIC PROGRESS NOTE This late entry 08/15/2018 covers elements not covered in my initial note. SUBJECTIVE: I met with the patient in the evening. The patient slept 6-1/4 hours previous night. He has been less paranoid. His visited him at lunch and the visit went a little better than before. REVIEW OF SYSTEMS: No CV, , pulmonary, eye, ENT system symptoms on review. MENTAL STATUS EXAM: Oriented to himself and situation. Speech has some latency, coherent. Abstraction fair, computation impaired, language function intact, attention span short. Mood and affect somewhat anxious, labile, less paranoid. LABORATORY DATA: Reviewed. IMPRESSION: Unchanged from initial note. PLAN: No change from initial note. MAN Barrera PEACE MD DR: WHITNEY/jessica JOB#: [id number] / [id number]
--- NOTE | 2018-08-16 23:05 | PDOC ---
Exam Note: Preston Note: Please also refer to the separate dictated note~for this date of service dictated separately.~Patient seen individually. Discussed the patient with Nursing staff reviewed the chart.~Reviewed interim history and current functioning. Reviewed vital signs,~Labs/ Radiology~and current medications noted below. Continue current treatment with the changes noted in the dictated addendum note Assessment: Vital Signs: Vital Signs Date Time Temp Pulse Resp B/P (MAP) Pulse Ox O2 Delivery O2 Flow Rate FiO2 08/16/18 16:24 98.7 64 18 106/67 (80) 95 Room Air I&O Intake and Output 08/16/18 07:00 Intake Total 1300 ml Balance 1300 ml Intake Oral 1300 ml Current Medications: Meds: Current Medications Acetaminophen (Tylenol) 650 mg PRN Q6HRS PRN PO PAIN / TEMP Last administered on 07/20/18at 11:23; Start 07/20/18 at 02:30 Multi-Ingredient Ointment (Analgesic [place]) 1 maximo PRN QID PRN TP MUSCLE PAIN; Start 07/20/18 at 02:30 Al Hydroxide/Mg Hydroxide (Mylanta Plus Xs) 15 ml PRN AFTMEALHC PRN PO DYSPEPSIA; Start 07/20/18 at 02:30 Magnesium Hydroxide (Milk Of Magnesia) 2,400 mg PRN QHS PRN PO CONSTIPATION; Start 07/20/18 at 02:30 Tamsulosin HCl (Flomax) 0.4 mg DAILY PO Last administered on 08/16/18at 07:41; Start 07/20/18 at 09:00 Hydroxyzine HCl (Atarax) 25 mg PRN QID PRN PO ANXIETY / AGITATION Last administered on 08/04/18at 15:43; Start 07/21/18 at 07:00 Divalproex Sodium (Depakote Er) 1,000 mg QHS PO Last administered on 07/25/18 20:22; Start 07/21/18 at 21:00; Stop 07/26/18 at 18:22; Status DC Haloperidol (Haldol) 5 mg QHS PO Last administered on 08/10/18at 19:31; Start at 21:00; Stop 08/11/18 at 12:11; Status DC Olanzapine (ZyPREXA ZYDIS) 2.5 mg PRN Q2HR PRN PO ANXIETY / AGITATION Last administered on 08/04/18 16:01; Start 07/21/18 at 07:00 Trazodone HCl (Desyrel) 50 mg QHS PO Last administered on 08/16/18 19:51; Start 07/21/18 at 21:00 Trazodone HCl (Desyrel) 50 mg PRN QHS PRN PO INSOMNIA, MAY REPEAT X1; Start at 21:00 Vitamin D (Vitamin D3) 50,000 unit WEEKLY PO ; Start 07/28/18 at 09:00; Status UNV Atorvastatin Calcium (Lipitor) 10 mg QHS PO Last administered on 08/16/18 19: 51; Start 07/21/18 at 21:00 Lactobacillus Rhamnosus (Culturelle) 1 cap BID PO Last administered on 19:51; Start 07/21/18 at 21:00 Vitamin D (Vitamin D3) 50,000 unit WEEKLY PO Last administered on 08/11/18 08: 30; Start 07/21/18 at 12:30 Mirtazapine (Remeron) 7.5 mg QHS PO Last administered on 08/16/18 19:51; Start 07/23/18 at 21:00 Risperidone (RisperDAL CONSTA) 25 mg Q2WKS IM Last administered on 08/08/18 15 :24; Start 07/25/18 at 09:00 Divalproex Sodium (Depakote Er) 1,000 mg QHS PO Last administered on 08/16/18 19:51; Start 07/26/18 at 21:00 Divalproex Sodium (Depakote Er) 250 mg QHS PO Last administered on 08/16/18 19 :51; Start 07/26/18 at 21:00 Haloperidol (Haldol) 7.5 mg QHS PO Last administered on 08/16/18 19:50; Start 08/11/18 at 21:00 Active Scripts Active Reported Cipro (Ciprofloxacin Hcl) 250 Mg Tablet 250 Mg PO BID 5 Days Trazodone Hcl 50 Mg Tablet 50 Mg PO PRN QHS PRN Trazodone Hcl 50 Mg Tablet 50 Mg PO HS Olanzapine 5 Mg Tablet 2.5 Mg PO PRN Q2HR PRN Culturelle (Lactobacillus Rhamnosus Gg) 1 Each Capsule 1 Each PO BID Haloperidol 5 Mg Tablet 5 Mg PO HS Divalproex Sodium Er (Divalproex Sodium) 500 Mg Tab.er.24h 2 Tab PO QHS D3-50 (Cholecalciferol (Vitamin D3)) 50,000 Unit Capsule 1 Cap PO WEEKLY Atorvastatin Calcium 10 Mg Tablet 10 Mg PO QHS Tamsulosin Hcl 0.4 Mg Cap.er.24h 0.4 Mg PO DAILY Hydroxyzine Hcl 25 Mg Tablet 25 Mg PO PRN QID PRN I have reviewed the current psychotropics carefully including drug interactions. Risk benefit ratio favors no change other than as noted in my dictated progress note. Diagnosis: Problems: (1) Schizoaffective disorder, bipolar type (2) Schizoaffective disorder (3) Anxiety disorder (4) Bipolar affective, mixed, sev w/ psych (5) Impulse control disorder (6) Schizophrenia, paranoid, chronic with acute exacerbation ARABELLA PEACE MD Aug 16, 2018 23:05
[2018-08-17 06:10] VITALS: BP 118/71
[2018-08-17] MEDS: TAMSULOSIN 0.4 MG CAP.ER.24H. PO SCH (07:58)
[2018-08-17] MEDS: LACTOBACILLUS RHAMNOSUS GG 1 CAPSULE. PO SCH ×2 (07:58→19:26)
[2018-08-17 16:01] VITALS: BP 121/71
[2018-08-17] MEDS: DIVALPROEX ER 250 MG TAB.ER.24H. PO SCH (19:24)
[2018-08-17] MEDS: MIRTAZAPINE 7.5 MG TABLET. PO SCH (19:24)
[2018-08-17] MEDS: DIVALPROEX ER 500 MG TAB.ER.24H PO SCH (19:25)
[2018-08-17] MEDS: HALOPERIDOL 5 MG TABLET PO SCH (19:26)
[2018-08-17] MEDS: ATORVASTATIN CALCIUM 10 MG TABLET. PO SCH (19:27)
[2018-08-17] MEDS: traZODone 50 MG TABLET. PO SCH (19:27)
--- NOTE | 2018-08-17 21:14 | PN ---
DATE: 08/16/2018 This is a late entry for 08/16/2018 covers elements not covered in my initial note. SUBJECTIVE: I met with the patient in the evening. The patient slept 7-1/4 hours previous night. He has been wandering, anxious, otherwise cooperative with cares, had complained of neck pain, received Tylenol, still somewhat delusional, but less so than before. At times, grandiose, again less so than before. REVIEW OF SYSTEMS: No CV, , pulmonary, eye system symptoms on review. MENTAL STATUS EXAM: Oriented to himself and situation. Speech, low in volume, coherent, rapid at times, typical for him. Abstraction fair, computation impaired, language function intact, attention span short. Mood and affect remains somewhat anxious, labile. LABORATORY DATA: Reviewed. IMPRESSION: Unchanged from initial note. PLAN: No change from initial note. MAN Barrera PEACE MD DR: WHITNEY/jessica JOB#: [id number] / [id number]
--- NOTE | 2018-08-17 23:07 | PDOC ---
Exam Note: Preston Note: Please also refer to the separate dictated note~for this date of service dictated separately.~Patient seen individually. Discussed the patient with Nursing staff reviewed the chart.~Reviewed interim history and current functioning. Reviewed vital signs,~Labs/ Radiology~and current medications noted below. Continue current treatment with the changes noted in the dictated addendum note Assessment: Vital Signs: Vital Signs Date Time Temp Pulse Resp B/P (MAP) Pulse Ox O2 Delivery O2 Flow Rate FiO2 08/17/18 16:01 94.4 73 20 121/71 (88) 98 08/16/18 16:24 Room Air I&O Intake and Output 08/17/18 06:59 Intake Total 1080 ml Balance 1080 ml Intake Oral 1080 ml Current Medications: Meds: Current Medications Acetaminophen (Tylenol) 650 mg PRN Q6HRS PRN PO PAIN / TEMP Last administered on 07/20/18at 11:23; Start 07/20/18 at 02:30 Multi-Ingredient Ointment (Analgesic [place]) 1 maximo PRN QID PRN TP MUSCLE PAIN; Start 07/20/18 at 02:30 Al Hydroxide/Mg Hydroxide (Mylanta Plus Xs) 15 ml PRN AFTMEALHC PRN PO DYSPEPSIA; Start 07/20/18 at 02:30 Magnesium Hydroxide (Milk Of Magnesia) 2,400 mg PRN QHS PRN PO CONSTIPATION; Start 07/20/18 at 02:30 Tamsulosin HCl (Flomax) 0.4 mg DAILY PO Last administered on 08/17/18at 07:58; Start 07/20/18 at 09:00 Hydroxyzine HCl (Atarax) 25 mg PRN QID PRN PO ANXIETY / AGITATION Last administered on 08/04/18at 15:43; Start 07/21/18 at 07:00 Divalproex Sodium (Depakote Er) 1,000 mg QHS PO Last administered on 07/25/18 20:22; Start 07/21/18 at 21:00; Stop 07/26/18 at 18:22; Status DC Haloperidol (Haldol) 5 mg QHS PO Last administered on 08/10/18at 19:31; Start at 21:00; Stop 08/11/18 at 12:11; Status DC Olanzapine (ZyPREXA ZYDIS) 2.5 mg PRN Q2HR PRN PO ANXIETY / AGITATION Last administered on 08/04/18 16:01; Start 07/21/18 at 07:00 Trazodone HCl (Desyrel) 50 mg QHS PO Last administered on 08/17/18 19:27; Start 07/21/18 at 21:00 Trazodone HCl (Desyrel) 50 mg PRN QHS PRN PO INSOMNIA, MAY REPEAT X1; Start at 21:00 Vitamin D (Vitamin D3) 50,000 unit WEEKLY PO ; Start 07/28/18 at 09:00; Status UNV Atorvastatin Calcium (Lipitor) 10 mg QHS PO Last administered on 08/17/18 19: 27; Start 07/21/18 at 21:00 Lactobacillus Rhamnosus (Culturelle) 1 cap BID PO Last administered on 19:26; Start 07/21/18 at 21:00 Vitamin D (Vitamin D3) 50,000 unit WEEKLY PO Last administered on 08/11/18at 08: 30; Start 07/21/18 at 12:30 Mirtazapine (Remeron) 7.5 mg QHS PO Last administered on 08/17/18 19:24; Start 07/23/18 at 21:00 Risperidone (RisperDAL CONSTA) 25 mg Q2WKS IM Last administered on 08/08/18 15 :24; Start 07/25/18 at 09:00 Divalproex Sodium (Depakote Er) 1,000 mg QHS PO Last administered on 08/17/18 19:25; Start 07/26/18 at 21:00 Divalproex Sodium (Depakote Er) 250 mg QHS PO Last administered on 08/17/18 19 :24; Start 07/26/18 at 21:00 Haloperidol (Haldol) 7.5 mg QHS PO Last administered on 08/17/18 19:26; Start 08/11/18 at 21:00 Active Scripts Active Reported Cipro (Ciprofloxacin Hcl) 250 Mg Tablet 250 Mg PO BID 5 Days Trazodone Hcl 50 Mg Tablet 50 Mg PO PRN QHS PRN Trazodone Hcl 50 Mg Tablet 50 Mg PO HS Olanzapine 5 Mg Tablet 2.5 Mg PO PRN Q2HR PRN Culturelle (Lactobacillus Rhamnosus Gg) 1 Each Capsule 1 Each PO BID Haloperidol 5 Mg Tablet 5 Mg PO HS Divalproex Sodium Er (Divalproex Sodium) 500 Mg Tab.er.24h 2 Tab PO QHS D3-50 (Cholecalciferol (Vitamin D3)) 50,000 Unit Capsule 1 Cap PO WEEKLY Atorvastatin Calcium 10 Mg Tablet 10 Mg PO QHS Tamsulosin Hcl 0.4 Mg Cap.er.24h 0.4 Mg PO DAILY Hydroxyzine Hcl 25 Mg Tablet 25 Mg PO PRN QID PRN I have reviewed the current psychotropics carefully including drug interactions. Risk benefit ratio favors no change other than as noted in my dictated progress note. Diagnosis: Problems: (1) Schizoaffective disorder, bipolar type (2) Schizoaffective disorder (3) Anxiety disorder (4) Bipolar affective, mixed, sev w/ psych (5) Impulse control disorder (6) Schizophrenia, paranoid, chronic with acute exacerbation ARABELLA PEACE MD Aug 17, 2018 23:07
[2018-08-18] MEDS ORDERED: MIRT15TA PO (00:36)
[2018-08-18] MEDS ORDERED: RISP37.5 IM (00:38)
[2018-08-18 05:55] VITALS: BP 111/72
[2018-08-18] MEDS: TAMSULOSIN 0.4 MG CAP.ER.24H. PO SCH (07:41)
[2018-08-18] MEDS: LACTOBACILLUS RHAMNOSUS GG 1 CAPSULE. PO SCH (07:41)
[2018-08-18] MEDS: CHOLECALCIFEROL (VITAMIN D3) 50,000 UNIT CAPSULE PO SCH (07:43)
--- NOTE | 2018-08-18 22:46 | PDOC ---
Exam Note: Preston Note: Please also refer to the separate dictated note~for this date of service dictated separately.~Patient seen individually. Discussed the patient with Nursing staff reviewed the chart.~Reviewed interim history and current functioning. Reviewed vital signs,~Labs/ Radiology~and current medications noted below. Continue current treatment with the changes noted in the dictated addendum note Assessment: Vital Signs: Vital Signs Date Time Temp Pulse Resp B/P (MAP) Pulse Ox O2 Delivery O2 Flow Rate FiO2 08/18/18 05:55 97.3 66 20 111/72 (85) 97 08/16/18 16:24 Room Air I&O Intake and Output 08/18/18 06:59 Intake Total 1680 ml Balance 1680 ml Intake Oral 1680 ml # Voids 1 Current Medications: Meds: Current Medications Acetaminophen (Tylenol) 650 mg PRN Q6HRS PRN PO PAIN / TEMP Last administered on 07/20/18at 11:23; Start 07/20/18 at 02:30; Stop 08/18/18 at 13:47; Status DC Multi-Ingredient Ointment (Analgesic [place]) 1 maximo PRN QID PRN TP MUSCLE PAIN; Start 07/20/18 at 02:30; Stop 08/18/18 at 13:47; Status DC Al Hydroxide/Mg Hydroxide (Mylanta Plus Xs) 15 ml PRN AFTMEALHC PRN PO DYSPEPSIA; Start 07/20/18 at 02:30; Stop 08/18/18 at 13:47; Status DC Magnesium Hydroxide (Milk Of Magnesia) 2,400 mg PRN QHS PRN PO CONSTIPATION; Start 07/20/18 at 02:30; Stop 08/18/18 at 13:47; Status DC Tamsulosin HCl (Flomax) 0.4 mg DAILY PO Last administered on 08/18/18at 07:41; Start 07/20/18 at 09:00; Stop 08/18/18 at 13:47; Status DC Hydroxyzine HCl (Atarax) 25 mg PRN QID PRN PO ANXIETY / AGITATION Last administered on 08/04/18at 15:43; Start 07/21/18 at 07:00; Stop 08/18/18 at 13:47 ; Status DC Divalproex Sodium (Depakote Er) 1,000 mg QHS PO Last administered on 07/25/18 20:22; Start 07/21/18 at 21:00; Stop 07/26/18 at 18:22; Status DC Haloperidol (Haldol) 5 mg QHS PO Last administered on 08/10/18 19:31; Start at 21:00; Stop 08/11/18 at 12:11; Status DC Olanzapine (ZyPREXA ZYDIS) 2.5 mg PRN Q2HR PRN PO ANXIETY / AGITATION Last administered on 08/04/18 16:01; Start 07/21/18 at 07:00; Stop 08/18/18 at 13:47 ; Status DC Trazodone HCl (Desyrel) 50 mg QHS PO Last administered on 08/17/18 19:27; Start 07/21/18 at 21:00; Stop 08/18/18 at 13:47; Status DC Trazodone HCl (Desyrel) 50 mg PRN QHS PRN PO INSOMNIA, MAY REPEAT X1; Start at 21:00; Stop 08/18/18 at 13:47; Status DC Vitamin D (Vitamin D3) 50,000 unit WEEKLY PO ; Start 07/28/18 at 09:00; Status UNV Atorvastatin Calcium (Lipitor) 10 mg QHS PO Last administered on 08/17/18 19: 27; Start 07/21/18 at 21:00; Stop 08/18/18 at 13:47; Status DC Lactobacillus Rhamnosus (Culturelle) 1 cap BID PO Last administered on 07:41; Start 07/21/18 at 21:00; Stop 08/18/18 at 13:47; Status DC Vitamin D (Vitamin D3) 50,000 unit WEEKLY PO Last administered on 08/18/18 07: 43; Start 07/21/18 at 12:30; Stop 08/18/18 at 13:47; Status DC Mirtazapine (Remeron) 7.5 mg QHS PO Last administered on 08/17/18 19:24; Start 07/23/18 at 21:00; Stop 08/18/18 at 13:47; Status DC Risperidone (RisperDAL CONSTA) 25 mg Q2WKS IM Last administered on 08/08/18at 15 :24; Start 07/25/18 at 09:00; Stop 08/18/18 at 13:47; Status DC Divalproex Sodium (Depakote Er) 1,000 mg QHS PO Last administered on 08/17/18at 19:25; Start 07/26/18 at 21:00; Stop 08/18/18 at 13:47; Status DC Divalproex Sodium (Depakote Er) 250 mg QHS PO Last administered on 08/17/18at 19 :24; Start 07/26/18 at 21:00; Stop 08/18/18 at 13:47; Status DC Haloperidol (Haldol) 7.5 mg QHS PO Last administered on 08/17/18at 19:26; Start 08/11/18 at 21:00; Stop 08/18/18 at 13:47; Status DC Active Scripts Active Reported Risperdal Consta (Risperidone Microspheres) 37.5 Mg/2 Ml Disp.syrin 25 Mg IM Q2WKS Remeron (Mirtazapine) 15 Mg Tablet 7.5 Mg PO HS Trazodone Hcl 50 Mg Tablet 50 Mg PO PRN QHS PRN Trazodone Hcl 50 Mg Tablet 50 Mg PO HS Olanzapine 5 Mg Tablet 2.5 Mg PO PRN Q2HR PRN Culturelle (Lactobacillus Rhamnosus Gg) 1 Each Capsule 1 Each PO BID Haloperidol 5 Mg Tablet 7.5 Mg PO HS Divalproex Sodium Er (Divalproex Sodium) 500 Mg Tab.er.24h 1,250 Mg PO QHS D3-50 (Cholecalciferol (Vitamin D3)) 50,000 Unit Capsule 1 Cap PO WEEKLY Atorvastatin Calcium 10 Mg Tablet 10 Mg PO QHS Tamsulosin Hcl 0.4 Mg Cap.er.24h 0.4 Mg PO DAILY Hydroxyzine Hcl 25 Mg Tablet 25 Mg PO PRN QID PRN I have reviewed the current psychotropics carefully including drug interactions. Risk benefit ratio favors no change other than as noted in my dictated progress note. Diagnosis: Problems: (1) Schizoaffective disorder, bipolar type (2) Schizoaffective disorder (3) Anxiety disorder (4) Bipolar affective, mixed, sev w/ psych (5) Impulse control disorder (6) Schizophrenia, paranoid, chronic with acute exacerbation ARABELLA PAECE MD Aug 18, 2018 22:46
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
--- NOTE | 2018-08-19 20:13 | PN ---
DATE: 08/17/2018 PSYCHIATRIC PROGRESS NOTE This late entry 08/17/2018 covers elements not covered in my initial note. SUBJECTIVE: I met with the patient in the evening. The patient slept 8 hours previous night. He remains somewhat grandiose, at times believes he invented the electric car amongst other things, but redirectable. Overall, seems less paranoid. REVIEW OF SYSTEMS: No CV, , pulmonary, eye system symptoms on review. MENTAL STATUS EXAM: Oriented to himself and situation. Speech has some latency, low in volume, rapid at times. Abstraction fair, computation impaired, language function intact. He is still somewhat grandiose, but improved. No suicidal or homicidal ideation. LABORATORY DATA: Reviewed. IMPRESSION: Unchanged from initial note. PLAN: No change from initial note. MAN Barrera PEACE MD DR: WHITNEY/jessica JOB#: [id number] / [id number]
== END 2018-08-18 13:20 | disposition home or self-care (01) | DRG 885 ==
LOC: GEROPSY 22:06
PROVIDERS: ADMIT Psychiatry & Neurology Psychiatry; ATTEND Psychiatry & Neurology Psychiatry
DX: F25.0 Schizoaffective disorder, bipolar type (principal); N39.0 Urinary tract infection, site not specified; F31.60 Bipolar disorder, current episode mixed, unspecified; F63.9 Impulse disorder, unspecified; N40.0 Benign prostatic hyperplasia without lower urinary tract symptoms; I10 Essential (primary) hypertension; Z91.14 Patient's other noncompliance with medication regimen; Z85.828 Personal history of other malignant neoplasm of skin; Z87.891 Personal history of nicotine dependence; Z79.899 Other long term (current) drug therapy; Z91.19 Patient's noncompliance with other medical treatment and regimen
CPT/HCPCS: 36415; 80053; 80164; 81001; 82306; 83540; 83550; 83735; 84436; 84443; 84480; 85025; 85027; 86592; 87086; 93005; J2794

== ENCOUNTER 2019-02-16 23:32 | Inpatient (IN) | payer MEDICARE ==
[~2019-02-16] VITALS: Ht 182.9 cm; Wt 93.2 kg
[~2019-02-16 23:32] MED LIST changes: +CIPR250T30 PO; -LAMO100T PO; +LAMO100T8 PO; -MAGN400T3 PO; +MAGN400T5 PO; +MIRT15TA PO; +RISP37.5 IM
[2019-02-17 00:58] VITALS: BP 173/79
--- NOTE | 2019-02-17 00:58 | NUR ---
Admission Note with Justification for Admission to [facility] Patient admitted to [facility] for protective oversight for emergency stabilization of acute psychiatric crisis. Pt admitted from: Hospital ER Mode of arrival: EMS Accompanied By: [facility] Staff Precipitating behaviors that initiated intake and admission: hyperverbal, insomnia,rewiring his house with no training, increased aggression, non-compliant with meds Description of failure of out patient attempts at stabilization in previous setting list behavior and medication trials: ER visit Behaviors and assessment findings upon admission: hyperverbal, restless Plan: Admit for protective oversight for adjustment and stabilization of medications, behaviors and mood. Intense treatment regimen including groups, medication adjustments, therapy, consistent regimen for ADL's, self care, and sleep hygiene. Daily monitoring by Inpatient staff, Psychiatry, and Medical Physician.
[2019-02-17] MEDS ORDERED: MAG HYDROX/AL HYDROX/SIMETH 30 ML ORAL.SUSP PO PRN (01:15)
[2019-02-17] MEDS ORDERED: METHYL SALICYLATE/MENTHOL TOPICAL OINTMENT 57GM TUBE. TP PRN (01:15)
[2019-02-17] MEDS ORDERED: MAGNESIUM HYDROXIDE 2,400 MG/30 ML ORAL.SUSP. PO PRN (01:15)
[2019-02-17] MEDS ORDERED: ACETAMINOPHEN 325 MG TABLET PO PRN (01:15)
[2019-02-17 05:20] VITALS: BP 127/77
[2019-02-17 05:55] LABS: BILIRUBIN,URINE NEG (NEG); CLARITY,URINE CLOUDY; COLOR,URINE YELLOW; GLUCOSE,URINE NEG (NEG); NITRITE,URINE POS (NEG); RBC,URINE OCC /HPF (0-2); UROBILINOGEN,URINE 0.2 mg/dL (0.2 mg/dL)
[2019-02-17 05:56] LABS: BACTERIA,URINE MOD /HPF (0-FEW); SQUAMOUS EPITHELIAL CELL,UR OCC /LPF; WBC,URINE >40 /HPF (0-4)
[2019-02-17 07:11] LABS: BASO % 0 % (0-3); EOS # 0.1 x10^3/uL (0.0-0.7); EOS % 2 % (0-3); HEMATOCRIT 44.5 % (39.0-53.0); LYMPH # 1.8 x10^3/uL (1.0-4.8); LYMPH % 24 % (24-48); MEAN CORPUSCULAR HEMOGLOBIN 32 pg (25-35); MEAN CORPUSCULAR HGB CONC 34 g/dL (31-37); MEAN CORPUSCULAR VOLUME 95 fL (79-100); MONO # 0.6 x10^3/uL (0.0-1.1); MONO % 8 % (0-9); NEUT % 66 % (31-73); PLATELET COUNT 115 x10^3/uL (140-400); RED BLOOD COUNT 4.68 x10^6/uL (4.30-5.70); RED CELL DISTRIBUTION WIDTH 13.8 % (11.5-14.5); WHITE BLOOD COUNT 7.5 x10^3/uL (4.0-11.0)
[2019-02-17 07:35] LABS: ALBUMIN 3.4 g/dL (3.4-5.0); ALBUMIN/GLOBULIN RATIO 0.9 (1.0-1.7); CALCIUM 8.9 mg/dL (8.5-10.1); CREATININE 0.8 mg/dL (0.7-1.3); GFR 93.7; MAGNESIUM 1.8 mg/dL (1.8-2.4); POTASSIUM 3.9 mmol/L (3.5-5.1); TOTAL BILIRUBIN 0.6 mg/dL (0.2-1.0); TOTAL PROTEIN 7.2 g/dL (6.4-8.2)
--- NOTE | 2019-02-17 09:23 | NUR ---
Call placed to Valeriy Quiros, /POA, with intent to establish patient pass code and inquire about preference for flu shot. Left message with request for return call. Awaiting call. Addendum: 02/17/19 at 1010 by EPIFANIO MERCADO Spoke to Valeriy, patient pass code established and consent for flu shot was provided. Notified Jude's nurse of this information.
--- NOTE | 2019-02-17 12:22 | NUR ---
Patient was in the dining room during rounding, allowed for morning assessment. Patient was very hyperverbal, busy talking to other patients. No agitation noted, pt denies pain, will continue to monitor.
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
[2019-02-17] MEDS ORDERED: FLU VAX QS 2019-20 (36MOS+)/PF 0.5 ML SYRINGE. VAX IM ONE (14:00)
[2019-02-17 16:33] VITALS: BP 137/72
[2019-02-17] MEDS ORDERED: risperiDONE 1 MG TABLET. PO ONE (18:30)
--- NOTE | 2019-02-17 18:35 | NUR ---
Patient was getting anxious, yelling at staff. Getting frustrated, wanting to talk to the [employer]. PRN richard ordered and given @1834. Will continue to monitor.
[2019-02-17] MEDS: LACTOBACILLUS RHAMNOSUS GG 1 CAPSULE. PO SCH (19:51)
[2019-02-17] MEDS: AMOXICILLIN 250 MG CAPSULE PO SCH (19:51)
[2019-02-17] MEDS: DIVALPROEX ER 500 MG TAB.ER.24H PO SCH (19:51)
--- NOTE | 2019-02-17 21:43 | NUR ---
Nursing note: Assumed care of pt in the hallway. He had calmed down from his previous outburst but is still hyper-verbal. He was talking about being given the wrong meds by a previous doctor, (not here). He was compliant with meds and assessment. No agitation, no c/o pain.
--- NOTE | 2019-02-17 21:50 | PDOC ---
Exam Note: Preston Note: Please also refer to the separate dictated note~for this date of service dictated separately. Discussed the patient with Nursing staff reviewed the chart.~Reviewed interim history and current functioning. Reviewed vital signs,~Labs/ Radiology~and current medications noted below. Continue current treatment with the changes noted in the dictated addendum note Assessment: Vital Signs/I&O: Vital Signs Date Time Temp Pulse Resp B/P (MAP) Pulse Ox O2 Delivery O2 Flow Rate FiO2 02/17/19 16:33 97.6 78 16 137/72 (93) 98 I & O 02/16/19 02/16/19 02/17/19 15:00 23:00 07:00 Intake Total 0 ml Balance 0 ml Labs: Laboratory Tests Test 02/17/19 05:40 02/17/19 06:40 Urine Collection Type Void Urine Color Yellow Urine Clarity Cloudy Urine pH 6.0 Urine Specific Madison 1.025 Urine Protein Trace (NEG-TRACE) Urine Glucose (UA) Neg mg/dL (NEG) Urine Ketones (Stick) Neg mg/dL (NEG) Urine Blood Mod (NEG) Urine Nitrite Pos (NEG) Urine Bilirubin Neg (NEG) Urine Urobilinogen Dipstick 0.2 mg/dL (0.2 mg/dL) Urine Leukocyte Esterase Large (NEG) Urine RBC Occ /HPF (0-2) Urine WBC >40 /HPF (0-4) Urine Squamous Epithelial Cells Occ /LPF Urine Bacteria Mod /HPF (0-FEW) White Blood Count 7.5 x10^3/uL (4.0-11.0) Red Blood Count 4.68 x10^6/uL (4.30-5.70) Hemoglobin 15.0 g/dL (13.0-17.5) Hematocrit 44.5 % (39.0-53.0) Mean Corpuscular Volume 95 fL (79-100) Mean Corpuscular Hemoglobin 32 pg (25-35) Mean Corpuscular Hemoglobin Concent 34 g/dL (31-37) Red Cell Distribution Width 13.8 % (11.5-14.5) Platelet Count 115 x10^3/uL (140-400) L Neutrophils (%) (Auto) 66 % (31-73) Lymphocytes (%) (Auto) 24 % (24-48) Monocytes (%) (Auto) 8 % (0-9) Eosinophils (%) (Auto) 2 % (0-3) Basophils (%) (Auto) 0 % (0-3) Neutrophils # (Auto) 5.0 x10^3uL (1.8-7.7) Lymphocytes # (Auto) 1.8 x10^3/uL (1.0-4.8) Monocytes # (Auto) 0.6 x10^3/uL (0.0-1.1) Eosinophils # (Auto) 0.1 x10^3/uL (0.0-0.7) Basophils # (Auto) 0.0 x10^3/uL (0.0-0.2) Sodium Level 140 mmol/L (136-145) Potassium Level 3.9 mmol/L (3.5-5.1) Chloride Level 103 mmol/L (98-107) Carbon Dioxide Level 29 mmol/L (21-32) Anion Gap 8 (6-14) Blood Urea Nitrogen 17 mg/dL (8-26) Creatinine 0.8 mg/dL (0.7-1.3) Estimated GFR (Cockcroft-Gault) 93.7 BUN/Creatinine Ratio 21 (6-20) H Glucose Level 92 mg/dL (70-99) Calcium Level 8.9 mg/dL (8.5-10.1) Magnesium Level 1.8 mg/dL (1.8-2.4) Iron Level 96 ug/dL (65-175) Total Iron Binding Capacity 239 ug/dL (250-450) L Iron Saturation 40 % (15-34) H Total Bilirubin 0.6 mg/dL (0.2-1.0) Aspartate Amino Transferase (AST) 21 U/L (15-37) Alanine Aminotransferase (ALT) 27 U/L (16-63) Alkaline Phosphatase 78 U/L (46-116) Total Protein 7.2 g/dL (6.4-8.2) Albumin 3.4 g/dL (3.4-5.0) Albumin/Globulin Ratio 0.9 (1.0-1.7) L Triglycerides Level 70 mg/dL (0-150) Cholesterol Level 202 mg/dL (0-200) H LDL Cholesterol, Calculated 150 mg/dL (0-100) H VLDL Cholesterol, Calculated 14 mg/dL (0-40) Non-HDL Cholesterol Calculated 164 mg/dL (0-129) H HDL Cholesterol 38 mg/dL (40-60) L Cholesterol/HDL Ratio 5.0 25-Hydroxy Vitamin D Total 39.2 ng/mL (30-100) Treponema pallidum Antibody Nonreactive (Nonreactive) Current Medications: Meds: Current Medications Medications (Trade) Dose Ordered Sig/Otto Route PRN Reason Start Time Stop Time Status Last Admin Dose Admin Influenza Virus Vaccine Quadrival (Afluria Quad (3yr Up) Syringe) 0.5 ml ONCE ONCE VAX IM 02/17/19 14:00 02/17/19 14:01 DC 02/17/19 14:34 Olanzapine (ZyPREXA ZYDIS) 5 mg PRN Q2HR PRN PO PSYCHOSIS 02/17/19 18:30 02/17/19 18:34 Risperidone (RisperDAL) 1 mg 1X ONCE PO 02/17/19 18:30 02/17/19 18:31 DC 02/17/19 18:34 Divalproex Sodium (Depakote Er) 500 mg QHS PO 02/17/19 21:00 02/17/19 19:51 Amoxicillin (Amoxil) 500 mg HMH289 PO 02/17/19 21:00 02/17/19 19:51 Lactobacillus Rhamnosus (Culturelle) 1 cap BID PO 02/17/19 21:00 02/17/19 19:51 I have reviewed the current psychotropics carefully including drug interactions. Risk benefit ratio favors no change other than as noted in my dictated progress note. Diagnosis: Problems: (1) Schizoaffective disorder, bipolar type (2) Schizoaffective disorder (3) Anxiety disorder (4) Bipolar affective, mixed, sev w/ psych (5) Impulse control disorder (6) Schizophrenia, paranoid, chronic with acute exacerbation ARABELLA PEACE MD Feb 17, 2019 21:50
[2019-02-18 00:08] LABS: HEMOGLOBIN A1C 5.7 % (4.8-5.6)
[2019-02-18 05:29] VITALS: BP 146/87
[2019-02-18] MEDS: LACTOBACILLUS RHAMNOSUS GG 1 CAPSULE. PO SCH ×2 (08:40→21:35)
[2019-02-18] MEDS: AMOXICILLIN 250 MG CAPSULE PO SCH ×3 (08:40→21:35)
[2019-02-18] MEDS: risperiDONE 1 MG TABLET. PO SCH (08:42)
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
[2019-02-18 15:51] VITALS: BP 154/94
--- NOTE | 2019-02-18 19:37 | NUR ---
Manic and hyper verbal prior to 10 a.m. and unable to redirect. Finally returned to his room. Calmer and more lucid and cooperative in afternoon.
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
[2019-02-18] MEDS: DIVALPROEX ER 500 MG TAB.ER.24H PO SCH (21:36)
--- NOTE | 2019-02-18 22:23 | PDOC ---
Exam Note: Preston Note: Please also refer to the separate dictated note~for this date of service dictated separately.~Patient seen individually. Discussed the patient with Nursing staff reviewed the chart.~Reviewed interim history and current functioning. Reviewed vital signs,~Labs/ Radiology~and current medications noted below. Continue current treatment with the changes noted in the dictated addendum note Assessment: Vital Signs/I&O: Vital Signs Date Time Temp Pulse Resp B/P (MAP) Pulse Ox O2 Delivery O2 Flow Rate FiO2 02/18/19 15:51 97.7 85 18 154/94 (114) 99.0 02/18/19 05:29 99 I & O 02/17/19 02/17/19 02/18/19 15:00 23:00 07:00 Intake Total 960 ml 480 ml 240 ml Balance 960 ml 480 ml 240 ml Current Medications: Meds: Current Medications Medications (Trade) Dose Ordered Sig/Otto Route PRN Reason Start Time Stop Time Status Last Admin Dose Admin Risperidone (RisperDAL) 1 mg DAILY PO 02/18/19 09:00 02/18/19 08:42 I have reviewed the current psychotropics carefully including drug interactions. Risk benefit ratio favors no change other than as noted in my dictated progress note. Diagnosis: Problems: (1) Schizoaffective disorder (2) Anxiety disorder (3) Bipolar affective, mixed, sev w/ psych (4) Impulse control disorder (5) Schizophrenia, paranoid, chronic with acute exacerbation (6) Schizoaffective disorder, bipolar type ARABELLA PEACE MD Feb 18, 2019 22:23
--- NOTE | 2019-02-19 01:57 | NUR ---
Nsg Note: Patient was in room in bed at time of assessment/medication administration. Patient seemed somewhat paranoid and will only take medications if told they are for his infection. Patient was given PRN Zyprexa with nighttime medications because he seemed somewhat agitated after he awoke to take his medications. He went to sleep shortly after this and has been sleeping since. No other notable behaviors at this time
[2019-02-19 06:14] VITALS: BP 149/86
[2019-02-19] MEDS: LACTOBACILLUS RHAMNOSUS GG 1 CAPSULE. PO SCH ×2 (09:19→20:22)
[2019-02-19] MEDS: risperiDONE 1 MG TABLET. PO SCH (09:19)
[2019-02-19] MEDS: AMOXICILLIN 250 MG CAPSULE PO SCH ×3 (09:20→20:22)
[2019-02-19 16:13] VITALS: BP 135/79
--- NOTE | 2019-02-19 16:17 | NUR ---
Was cooperative and compliant today. Confused, thought his mother was coming to visit at lunch time. Was able to feed self breakfast. Wanted me to check to see if he gets a 0200a.m. dose of sinemet because he reports he can feel when he needs it, and asked to be woken up to give. Also said that was how he took it at home. However, according to home med list he did not have it scheduled that way. Also explained the did have the BID continual release. Arm skin tear photographed and redressed with non adherent dressing and sleeve. Obsessed with his closet and med times. Addendum: 02/19/19 at 1817 by JUDI HERNÁNDEZ RN RN THIS NOTE IS IN ERROR, I CHARTED ON THE WRONG PT'S CHART.
--- NOTE | 2019-02-19 18:17 | NUR ---
Has been calm, cooperative and compliant with all meds and interactions with staff. No loud outbursts. Enjoyed watching chiefs game with peers. Social and interactive. Speech hyper at times and difficult to understand. Other times clear and polite.
[2019-02-19] MEDS: DIVALPROEX ER 500 MG TAB.ER.24H PO SCH (20:22)
--- NOTE | 2019-02-19 21:37 | PDOC ---
Exam Note: Preston Note: Please also refer to the separate dictated note~for this date of service dictated separately.~Patient seen individually. Discussed the patient with Nursing staff reviewed the chart.~Reviewed interim history and current functioning. Reviewed vital signs,~Labs/ Radiology~and current medications noted below. Continue current treatment with the changes noted in the dictated addendum note Assessment: Vital Signs/I&O: Vital Signs Date Time Temp Pulse Resp B/P (MAP) Pulse Ox O2 Delivery O2 Flow Rate FiO2 02/19/19 16:13 97.3 83 20 135/79 (97) 98 02/18/19 15:51 99.0 I & O 02/18/19 02/18/19 02/19/19 15:00 23:00 07:00 Intake Total 720 ml 240 ml 240 ml Balance 720 ml 240 ml 240 ml Current Medications: I have reviewed the current psychotropics carefully including drug interactions. Risk benefit ratio favors no change other than as noted in my dictated progress note. Diagnosis: Problems: (1) Schizoaffective disorder (2) Anxiety disorder (3) Bipolar affective, mixed, sev w/ psych (4) Impulse control disorder (5) Schizophrenia, paranoid, chronic with acute exacerbation (6) Schizoaffective disorder, bipolar type ARABELLA PEACE MD Feb 19, 2019 21:37
--- NOTE | 2019-02-20 01:29 | NUR ---
Nsg Note: Patient cooperative with medication pass. Sitting on the edge of his bed looking down and mumbling to himself. He was somewhat paranoid about what kind of medications he was getting and picked through them looking at them carefully but eventually took them all for me. Patient went to sleep shortly after this. No other notable behaviors at this time
[2019-02-20 05:50] VITALS: BP 189/95
[2019-02-20 06:36] LABS: BASO % 0 % (0-3); EOS # 0.1 x10^3/uL (0.0-0.7); EOS % 2 % (0-3); HEMATOCRIT 45.4 % (39.0-53.0); HEMOGLOBIN 15.2 g/dL (13.0-17.5); LYMPH # 1.5 x10^3/uL (1.0-4.8); LYMPH % 26 % (24-48); MEAN CORPUSCULAR HEMOGLOBIN 32 pg (25-35); MEAN CORPUSCULAR HGB CONC 34 g/dL (31-37); MEAN CORPUSCULAR VOLUME 95 fL (79-100); MONO # 0.4 x10^3/uL (0.0-1.1); MONO % 8 % (0-9); NEUT # 3.5 x10^3uL (1.8-7.7); NEUT % 64 % (31-73); PLATELET COUNT 103 x10^3/uL (140-400); RED BLOOD COUNT 4.79 x10^6/uL (4.30-5.70); RED CELL DISTRIBUTION WIDTH 13.7 % (11.5-14.5); WHITE BLOOD COUNT 5.5 x10^3/uL (4.0-11.0)
[2019-02-20 06:54] LABS: ALBUMIN 3.3 g/dL (3.4-5.0); ALBUMIN/GLOBULIN RATIO 0.8 (1.0-1.7); ALK PHOS 79 U/L (46-116); ALT (SGPT) 25 U/L (16-63); ANION GAP 6 (6-14); AST (SGOT) 19 U/L (15-37); BLOOD UREA NITROGEN 16 mg/dL (8-26); BUN/CREATININE RATIO 20 (6-20); CALCIUM 9.2 mg/dL (8.5-10.1); CARBON DIOXIDE 33 mmol/L (21-32); CHLORIDE 101 mmol/L (98-107); CREATININE 0.8 mg/dL (0.7-1.3); GFR 93.7; GLUCOSE 89 mg/dL (70-99); POTASSIUM 4.2 mmol/L (3.5-5.1); SODIUM 140 mmol/L (136-145); TOTAL BILIRUBIN 0.5 mg/dL (0.2-1.0); TOTAL PROTEIN 7.3 g/dL (6.4-8.2)
[2019-02-20 06:55] LABS: VAL ACID 31 mcg/mL (50-100)
[2019-02-20] MEDS: LACTOBACILLUS RHAMNOSUS GG 1 CAPSULE. PO SCH ×2 (07:49→19:53)
[2019-02-20] MEDS: AMOXICILLIN 250 MG CAPSULE PO SCH ×3 (07:49→19:53)
[2019-02-20] MEDS: risperiDONE 1 MG TABLET. PO SCH (07:49)
[2019-02-20] MEDS: risperiDONE MICROSPHERES 25 MG/2 ML DISP.SYRIN. IM SCH (09:25)
--- NOTE | 2019-02-20 14:38 | NUR ---
Patient is in the day room on assumption of care. He is in a pleasant mood. He was calm, cooperative and compliant with medications and assessments. He was not suspicious at all, and took all of his medications whole. First dose of Risperdal Consta IM given in left deltoid. Addendum: 02/20/19 at 1443 by DUNIA MICHAEL RN RN Patient was very agreeable even with the injection, stating "No pain, no gain, God Bless you miss." Denies pain/discomfort, denies SI/HI.
[2019-02-20 16:09] VITALS: BP 141/81
[2019-02-20] MEDS: DIVALPROEX ER 500 MG TAB.ER.24H PO SCH (19:53)
--- NOTE | 2019-02-20 21:48 | PDOC ---
Exam Note: Preston Note: Please also refer to the separate dictated note~for this date of service dictated separately.~Patient seen individually. Discussed the patient with Nursing staff reviewed the chart.~Reviewed interim history and current functioning. Reviewed vital signs,~Labs/ Radiology~and current medications noted below. Continue current treatment with the changes noted in the dictated addendum note Assessment: Vital Signs/I&O: Vital Signs Date Time Temp Pulse Resp B/P (MAP) Pulse Ox O2 Delivery O2 Flow Rate FiO2 02/20/19 16:09 97.3 100 16 141/81 (101) 96 02/20/19 05:50 Room Air 02/18/19 15:51 99.0 I & O 0 02/19/19 02/19/19 02/20/19 15:00 23:00 07:00 Intake Total 960 ml 360 ml Balance 960 ml 360 ml Labs: Laboratory Tests Test 02/20/19 06:23 White Blood Count 5.5 x10^3/uL (4.0-11.0) Red Blood Count 4.79 x10^6/uL (4.30-5.70) Hemoglobin 15.2 g/dL (13.0-17.5) Hematocrit 45.4 % (39.0-53.0) Mean Corpuscular Volume 95 fL (79-100) Mean Corpuscular Hemoglobin 32 pg (25-35) Mean Corpuscular Hemoglobin Concent 34 g/dL (31-37) Red Cell Distribution Width 13.7 % (11.5-14.5) Platelet Count 103 x10^3/uL (140-400) L Neutrophils (%) (Auto) 64 % (31-73) Lymphocytes (%) (Auto) 26 % (24-48) Monocytes (%) (Auto) 8 % (0-9) Eosinophils (%) (Auto) 2 % (0-3) Basophils (%) (Auto) 0 % (0-3) Neutrophils # (Auto) 3.5 x10^3uL (1.8-7.7) Lymphocytes # (Auto) 1.5 x10^3/uL (1.0-4.8) Monocytes # (Auto) 0.4 x10^3/uL (0.0-1.1) Eosinophils # (Auto) 0.1 x10^3/uL (0.0-0.7) Basophils # (Auto) 0.0 x10^3/uL (0.0-0.2) Sodium Level 140 mmol/L (136-145) Potassium Level 4.2 mmol/L (3.5-5.1) Chloride Level 101 mmol/L (98-107) Carbon Dioxide Level 33 mmol/L (21-32) H Anion Gap 6 (6-14) Blood Urea Nitrogen 16 mg/dL (8-26) Creatinine 0.8 mg/dL (0.7-1.3) Estimated GFR (Cockcroft-Gault) 93.7 BUN/Creatinine Ratio 20 (6-20) Glucose Level 89 mg/dL (70-99) Calcium Level 9.2 mg/dL (8.5-10.1) Total Bilirubin 0.5 mg/dL (0.2-1.0) Aspartate Amino Transferase (AST) 19 U/L (15-37) Alanine Aminotransferase (ALT) 25 U/L (16-63) Alkaline Phosphatase 79 U/L (46-116) Total Protein 7.3 g/dL (6.4-8.2) Albumin 3.3 g/dL (3.4-5.0) L Albumin/Globulin Ratio 0.8 (1.0-1.7) L Valproic Acid Level 31 mcg/mL (50-100) L Valproic Acid Last Dose Date 02/19/2019 Valproic Acid Last Dose Time 2100 Current Medications: Meds: Current Medications Medications (Trade) Dose Ordered Sig/Otto Route PRN Reason Start Time Stop Time Status Last Admin Dose Admin Risperidone (RisperDAL CONSTA) 25 mg Q2WKS IM 02/20/19 09:00 02/20/19 09:25 Divalproex Sodium (Depakote Er) 1,000 mg QHS PO 02/20/19 21:00 02/20/19 19:53 I have reviewed the current psychotropics carefully including drug interactions. Risk benefit ratio favors no change other than as noted in my dictated progress note. Diagnosis: Problems: (1) Schizoaffective disorder (2) Anxiety disorder (3) Bipolar affective, mixed, sev w/ psych (4) Impulse control disorder (5) Schizophrenia, paranoid, chronic with acute exacerbation (6) Schizoaffective disorder, bipolar type ARABELLA PEACE MD Feb 20, 2019 21:48
--- NOTE | 2019-02-20 23:09 | NUR ---
Nursing note: Assumed care of pt in the day room where he was watching tv. He was pleasant and cooperative. No c/o pain, no agitation, no hallucinations or delusions present. Alert to self and place.
[2019-02-21 06:02] VITALS: BP 154/86
--- NOTE | 2019-02-21 06:25 | PN ---
DATE: 02/18/2019 This late entry 02/18/2019 covers elements not covered in my initial note. SUBJECTIVE: I met with the patient in the evening. The patient slept 7 hours previous night. UA is positive. He does have a UTI and this is being treated. Per nursing report, he takes most of his psychotropics. If it is explained to him that it is necessary as part of his overall treatment and for the UTI; otherwise, he is somewhat resistive. He remains a little hyperverbal, but better than before. REVIEW OF SYSTEMS: No CV, , pulmonary, eye, ENT system symptoms on review. MENTAL STATUS EXAM: The patient is oriented to himself and situation. Speech coherent, still somewhat pressured. Abstraction fair, computation impaired, language function intact, attention span short. Mood and affect remain somewhat grandiose, labile, psychotic, but less so than before. LABORATORY DATA: Reviewed. IMPRESSION: Schizoaffective disorder, bipolar type, mixed with psychotic features, urinary tract infection. Rest unchanged. PLAN: Treat the UTI. Continue psychotropics per initial note including Risperdal 1 mg daily, Depakote ER 500 mg at bedtime. Check labs level, adjust to reach therapeutic level, Risperdal Consta 25 mg IM q. 2 weeks, Zyprexa p.r.n. ARABELLA PEACE MD DR: WHITNEY/jessica JOB#: [id number] / [id number]
[2019-02-21] MEDS: AMOXICILLIN 250 MG CAPSULE PO SCH ×3 (08:11→20:35)
[2019-02-21] MEDS: risperiDONE 1 MG TABLET. PO SCH (08:11)
[2019-02-21] MEDS: LACTOBACILLUS RHAMNOSUS GG 1 CAPSULE. PO SCH ×2 (08:11→20:35)
[2019-02-21] MEDS: hydrOXYzine HCL 25 MG TABLET PO PRN (08:57)
--- NOTE | 2019-02-21 09:04 | PN ---
DATE: 02/19/2019 PSYCHIATRIC PROGRESS NOTE This late entry 02/19/2019 covers elements not covered in my initial note. SUBJECTIVE: I met with the patient, evening of 02/19/2019 in his room. The patient slept 3-3/4 hours previous night. He is a little more interactive, little more compliant with medications. We will be checking labs the morning of 02/20/2019 and then adjust the Depakote. He still remains paranoid, somewhat hyperverbal. REVIEW OF SYSTEMS: No CV, , pulmonary, eye, ENT system symptoms on review. Reliability varies. MENTAL STATUS EXAM: Oriented to himself and situation. Speech a little pressured. Abstraction fair, computation impaired, language function intact, still somewhat delusional. No suicidal or homicidal ideation. LABORATORY DATA: Reviewed. IMPRESSION: Schizoaffective disorder, bipolar type, mixed with psychotic features, in partial remission, urinary tract infection, rest unchanged. PLAN: Continue current psychotropics. Check labs, morning of 02/20/2019, and then adjust Depakote. MAN Barrera PEACE MD DR: WHITNEY/jessica JOB#: [id number] / [id number]
--- NOTE | 2019-02-21 09:30 | NUR ---
ACTIVITY THERAPY ASSESSMENT Completed based on observation, interview and notes. Pt. was in the day room approached LEARNING SOLUTIONS SPECIALIST while she was speaking with another peer. Pt. was hyperverbal and difficult to understand. LEARNING SOLUTIONS SPECIALIST believed he was concerned about his and getting or taking fingerprints. He jumped to talking about how he grew up without a father figure and his mother in a car accident and then about his and how they met. LEARNING SOLUTIONS SPECIALIST needed to talk loudly, directly into Pt's ear when asking him questions due to him having difficulty hearing. When asked about hobbies, Pt. explained he has no hobbies but he used to fish a lot. Pt. walks around the neighborhood, drives to [employer] to get coffee in the mornings. When he wakes up in the middle of the night, he writes letters to Baljit Leal and Kiran Mckinnon. Pt. often fidgets and notes report he likes to "brayan." He likes Country/Western music ([employer]). LEARNING SOLUTIONS SPECIALIST talked briefly about stress and how Pt managed it. Pt. was adamant that he is non-violent and "won't end up in skilled nursing for being violent." Pt. struggled to focus on the conversation and continued to be hyperverbal, going back to concerns about his . Pt. became tearful and wanted to "rescue" her but with encouragement, he walked a lap around the unit with LEARNING SOLUTIONS SPECIALIST and returned to the day room. LEARNING SOLUTIONS SPECIALIST left the Pt. with a Joanne and set of wireless headphones, listening to [employer]. Pt. is often around the group/day room. He struggled expressing self clearly but is pleasant and attempts to talk to others and contribute to group discussions in groups. He does well watching and following along with exercise moves and motioning. Initial goal aimed to increase attention/concentration and leisure awareness: Pt. will participate in at least one Activity Therapy group per day.
--- NOTE | 2019-02-21 10:00 | NUR ---
Patient is in the day room on assumption of care. He is in a pleasant mood. He was calm, cooperative and compliant with medications and assessments. He was not suspicious at all, and took all of his medications whole. Began to get agitated in the day room, pointing at another patient and stating "This lady has been in my house for years and this needs to stop". Medicated with Atarax 25 at 0900, with good effect.
[2019-02-21 16:41] VITALS: BP 133/79
[2019-02-21] MEDS: DIVALPROEX ER 500 MG TAB.ER.24H PO SCH ×2 (20:35→21:00)
--- NOTE | 2019-02-21 21:35 | NUR ---
Pt sitting in dayroom at shift change. When attempting to give pt his evening medications, pt became agitated and resistive. Pt reports that, "I already took those", "It's a scam", "It's a cup of ". Pt very suspicious of staff at this time. On second attempt pt agreed to take antibiotic, but refused the Depokate. Attempted to explain the importance on medication compliance. Pt continued to state that it was a scam.
--- NOTE | 2019-02-21 22:22 | PDOC ---
Exam Note: Preston Note: Please also refer to the separate dictated note~for this date of service dictated separately.~Patient seen individually. Discussed the patient with Nursing staff reviewed the chart.~Reviewed interim history and current functioning. Reviewed vital signs,~Labs/ Radiology~and current medications noted below. Continue current treatment with the changes noted in the dictated addendum note Assessment: Vital Signs/I&O: Vital Signs Date Time Temp Pulse Resp B/P (MAP) Pulse Ox O2 Delivery O2 Flow Rate FiO2 02/21/19 16:41 98.4 84 16 133/79 (97) 98 02/20/19 05:50 Room Air 02/18/19 15:51 99.0 I & O 02/20/19 02/20/19 02/21/19 15:00 23:00 07:00 Intake Total 840 ml 240 ml 120 ml Balance 840 ml 240 ml 120 ml Current Medications: I have reviewed the current psychotropics carefully including drug interactions. Risk benefit ratio favors no change other than as noted in my dictated progress note. Diagnosis: Problems: (1) Schizoaffective disorder (2) Anxiety disorder (3) Bipolar affective, mixed, sev w/ psych (4) Impulse control disorder (5) Schizophrenia, paranoid, chronic with acute exacerbation (6) Schizoaffective disorder, bipolar type ARABELLA PEACE MD Feb 21, 2019 22:22
--- NOTE | 2019-02-22 01:30 | NUR ---
Pt very restless and hyperverbal. Attempted to give Atarax crushed in Gatorade. Pt refused saying he does not want anything to eat or drink from us because it poison, if he drinks it he will . Pt remains suspicious of staff, saying we are committing medicare fraud. Pt sitting in dayroom with staff at this time.
[2019-02-22 06:01] VITALS: BP 153/97
--- NOTE | 2019-02-22 06:53 | PN ---
DATE: 02/20/2019 PSYCHIATRIC PROGRESS NOTE This late entry 02/20/2019 covers the elements not covered in my initial note. SUBJECTIVE: I met with the patient in the evening of 02/20/2019 at length. Per nursing report from [facility], the patient slept 7 hours previous night. Urine culture showed less than 10,000 organisms. He has been paranoid regarding his medications at night, more cooperative with meds morning of 02/20/2019, sobbing in the day room. Generally had a good day, more verbal, interactive, less paranoid. When nursing staff addressed his medications with him, he accepted to take them and said "no pain. No gain" after he received the Risperdal Consta IM and then told the nursing staff "God bless you". Valproic acid level is 31, AST, ALT unremarkable. REVIEW OF SYSTEMS: No CV, , pulmonary, eye, ENT system symptoms on review. MENTAL STATUS EXAM: Reasonably oriented. Speech coherent, still somewhat pressured, but better than before. Abstraction fair, computation impaired, language function intact, attention span short. Mood and affect remain somewhat grandiose, labile, but lesser than before. LABORATORY DATA: Reviewed. IMPRESSION: Schizoaffective disorder, bipolar type, mixed with psychotic features; anxiety disorder, unspecified; impulse control disorder, unspecified. PLAN: Increase Depakote ER from 500 mg at bedtime to 1000 mg at bedtime. Continue oral Risperdal and the Risperdal Consta. Rest unchanged for now. ARABELLA PEACE MD DR: WHITNEY/jessica JOB#: [id number] / [id number]
[2019-02-22] MEDS: AMOXICILLIN 250 MG CAPSULE PO SCH ×3 (08:01→19:35)
[2019-02-22] MEDS: risperiDONE 0.5 MG TABLET. PO SCH (08:01)
[2019-02-22] MEDS: LACTOBACILLUS RHAMNOSUS GG 1 CAPSULE. PO SCH ×2 (08:01→19:35)
--- NOTE | 2019-02-22 08:02 | NUR ---
Patient has been hyperverbal, yelling and gesturing. He was taken to [facility] for de-escalation and lower stimulation level. These interventions were not effective. Nurse will attempt to give PRN zyprexa 5mg with morning medications for agitation and irritability.
--- NOTE | 2019-02-22 15:55 | NUR ---
Patient has been standing at [facility] window demanding to make phone calls. Nurse has restricted patient phone usage at this time. When allowed to call out earlier this morning he was delusional while on the telephone and speaking of the [employer], being held here against his will and needing to get a radiator repairer. He was also stating that the hospital would be "under investigation for medicare fraud" by the end of the day. Patient was also overheard to say "I don't know who that women is in my house, but those are not my kids". Nurse is unsure what he is referring to as he was unable to explain his comment. Will give PRN zyprexa to patient for psychosis and agitation per order.
[2019-02-22 16:13] VITALS: BP 128/77
[2019-02-22] MEDS: DIVALPROEX 125 MG CAP.SPRINK PO SCH (19:38)
--- NOTE | 2019-02-22 21:35 | PDOC ---
Exam Note: Preston Note: Please also refer to the separate dictated note~for this date of service dictated separately.~Patient seen individually. Discussed the patient with Nursing staff reviewed the chart.~Reviewed interim history and current functioning. Reviewed vital signs,~Labs/ Radiology~and current medications noted below. Continue current treatment with the changes noted in the dictated addendum note Assessment: Vital Signs/I&O: Vital Signs Date Time Temp Pulse Resp B/P (MAP) Pulse Ox O2 Delivery O2 Flow Rate FiO2 02/22/19 16:13 98.1 95 18 128/77 (94) 96 02/20/19 05:50 Room Air 02/18/19 15:51 99.0 I & O 02/21/19 02/21/19 02/22/19 14:59 22:59 06:59 Intake Total 960 ml 240 ml 120 ml Balance 960 ml 240 ml 120 ml Current Medications: Meds: Current Medications Medications (Trade) Dose Ordered Sig/Otto Route PRN Reason Start Time Stop Time Status Last Admin Dose Admin Risperidone (RisperDAL) 1.5 mg DAILY PO 02/22/19 09:00 02/22/19 08:01 Divalproex Sodium (Depakote Sprinkles) 500 mg BID PO 02/22/19 21:00 02/22/19 19:38 I have reviewed the current psychotropics carefully including drug interactions. Risk benefit ratio favors no change other than as noted in my dictated progress note. Diagnosis: Problems: (1) Schizoaffective disorder (2) Anxiety disorder (3) Bipolar affective, mixed, sev w/ psych (4) Impulse control disorder (5) Schizophrenia, paranoid, chronic with acute exacerbation (6) Schizoaffective disorder, bipolar type ARABELLA PEACE MD Feb 22, 2019 21:35
--- NOTE | 2019-02-22 21:44 | NUR ---
Nursing Note The patient was located in his room for his assessment and medication pass. The patient was compliant with his medication and took them whole. The patient was appropriate during interactions with this nurse. The patient is currently located in his room.
[2019-02-23 05:38] VITALS: BP 167/80
[2019-02-23 06:36] LABS: BASO % 0 % (0-3); EOS # 0.1 x10^3/uL (0.0-0.7); EOS % 2 % (0-3); HEMATOCRIT 45.1 % (39.0-53.0); HEMOGLOBIN 15.1 g/dL (13.0-17.5); LYMPH # 1.7 x10^3/uL (1.0-4.8); LYMPH % 30 % (24-48); MEAN CORPUSCULAR HEMOGLOBIN 32 pg (25-35); MEAN CORPUSCULAR HGB CONC 34 g/dL (31-37); MEAN CORPUSCULAR VOLUME 96 fL (79-100); MONO # 0.5 x10^3/uL (0.0-1.1); MONO % 9 % (0-9); NEUT # 3.2 x10^3uL (1.8-7.7); NEUT % 59 % (31-73); PLATELET COUNT 112 x10^3/uL (140-400); RED BLOOD COUNT 4.71 x10^6/uL (4.30-5.70); RED CELL DISTRIBUTION WIDTH 13.7 % (11.5-14.5); WHITE BLOOD COUNT 5.5 x10^3/uL (4.0-11.0)
--- NOTE | 2019-02-23 06:53 | PN ---
DATE: 02/21/2019 PSYCHIATRIC PROGRESS NOTE This late entry, 02/21, covers elements not covered in my initial note. SUBJECTIVE: I met with the patient evening of 02/21. Per Redd RN, patient slept 6 hours previous night. He has been less suspicious, compliant with medications, still hyperverbal, difficult to understand talk. Previous night, he was talking about "this lady has this and this has to change." He was talking about prostitutes and gets quite psychotic, grandiose, irritable, labile, wandering at night. REVIEW OF SYSTEMS: No CV, , pulmonary, eye, ENT system symptoms on review. MENTAL STATUS EXAM: Oriented to himself and situation. Speech coherent, rapid at times. Abstraction fair, computation impaired, language function intact. Mood and affect quite labile, grandiose, psychotic. LABORATORY DATA: Reviewed. IMPRESSION: Schizoaffective disorder, bipolar type, mixed with psychotic features. Rest unchanged. PLAN: Increase Risperdal from 1 mg daily to 1.5 mg daily. Continue Depakote ER 1000 mg at bedtime, Risperdal Consta 25 mg IM every 2 weeks, Zyprexa p.r.n. Rest unchanged. ARABELLA PEACE MD DR: WHITNEY/jessica JOB#: [id number] / [id number]
[2019-02-23 06:54] LABS: ALBUMIN 3.6 g/dL (3.4-5.0); ALBUMIN/GLOBULIN RATIO 0.8 (1.0-1.7); ALK PHOS 86 U/L (46-116); ALT (SGPT) 24 U/L (16-63); ANION GAP 6 (6-14); AST (SGOT) 16 U/L (15-37); BLOOD UREA NITROGEN 19 mg/dL (8-26); BUN/CREATININE RATIO 21 (6-20); CALCIUM 9.3 mg/dL (8.5-10.1); CARBON DIOXIDE 33 mmol/L (21-32); CHLORIDE 101 mmol/L (98-107); CREATININE 0.9 mg/dL (0.7-1.3); GFR 81.8; GLUCOSE 99 mg/dL (70-99); POTASSIUM 4.3 mmol/L (3.5-5.1); SODIUM 140 mmol/L (136-145); TOTAL BILIRUBIN 0.4 mg/dL (0.2-1.0); TOTAL PROTEIN 7.9 g/dL (6.4-8.2)
[2019-02-23 06:58] LABS: VAL ACID 41 mcg/mL (50-100)
[2019-02-23] MEDS: DIVALPROEX 125 MG CAP.SPRINK PO SCH ×2 (08:02→21:37)
[2019-02-23] MEDS: AMOXICILLIN 250 MG CAPSULE PO SCH ×3 (08:02→21:37)
[2019-02-23] MEDS: risperiDONE 0.5 MG TABLET. PO SCH (08:03)
[2019-02-23] MEDS: LACTOBACILLUS RHAMNOSUS GG 1 CAPSULE. PO SCH ×2 (08:04→21:37)
--- NOTE | 2019-02-23 09:03 | NUR ---
Patient is delusional, resistive and refusing most of his medications this morning. When nurse attempted to give patient his medications he only took the antibiotic and the lactobacillus and then stated "you are trying to poison me, those aren't from my doctor" and refused to take the rest. He then spit INTO the cup of remaining medications. Nurse crushed remaining medications and will give hidden in food at a later point this morning. Earlier, at breakfast, when nurse was opening his milk for him he stated "you took my identity. It's identity theft" and "the boys are 4-5 years old now". When asked what he meant he became irritated with nurse and said just go away. Patient standing in hallway near nurses station asking to make phone calls. As he is not cooperating with the nurse or taking his medications, he is not allowed to make phone calls at this time.
--- NOTE | 2019-02-23 10:19 | NUR ---
WEEKLY NOTE: Pt , Valeriy, participated in tx team via telephone. Pt is still delusional, mumbling speech, somewhat med compliant but suspicious. He believes that he should not be here and plans to [facility]. Pt also believes that Medicaid Fraud is happening by having him here. Pt has boundaries with using the phone as he calls his and yells at her. Pt is concerned about his not taking his medications and how to continue that upon discharge. Pt is taking Risperdal Consta IM and also on Depakote Sprinkles 500mg BID. ELOS for the next 10-14 days; consider placement as a step-down.
--- NOTE | 2019-02-23 10:21 | NUR ---
WEEKLY ACTIVITY THERAPY NOTE Date of Admission: 02/17/2019 Date of AT Assessment: 02/21/2019 Goal aimed: to increase attention/concentration and leisure awareness Initial goal: Pt. will participate in at least one Activity Therapy group per day. Weekly progress towards goal: achieved Group participation level: moderate to full Weekly highlights: several full group participations this week Behaviors observed: believes a female peer is his sister on Wednesday, anxious, hyperverbal, difficulty sitting still, slightly tearful on Wednesday, delusional, mumbling Plan: no change to goal Beneficial adaptations: walking unit or use of Joanne. wireless headphones-Kashmi to help refocus, gross motor activities
[2019-02-23 17:12] VITALS: BP 154/68
[2019-02-23] MEDS ORDERED: traZODone 50 MG TABLET. PO PRN (21:15)
[2019-02-23] MEDS: traZODone 50 MG TABLET. PO SCH (21:37)
[2019-02-23] MEDS: MIRTAZAPINE 7.5 MG TABLET. PO SCH (21:37)
--- NOTE | 2019-02-23 21:56 | PDOC ---
Exam Note: Preston Note: Please also refer to the separate dictated note~for this date of service dictated separately.~Patient seen individually. Discussed the patient with Nursing staff reviewed the chart.~Reviewed interim history and current functioning. Reviewed vital signs,~Labs/ Radiology~and current medications noted below. Continue current treatment with the changes noted in the dictated addendum note Assessment: Vital Signs/I&O: Vital Signs Date Time Temp Pulse Resp B/P (MAP) Pulse Ox O2 Delivery O2 Flow Rate FiO2 02/23/19 17:12 97.7 103 24 154/68 (96) 96 02/23/19 05:38 Room Air 02/18/19 15:51 99.0 I & O 02/22/19 02/22/19 02/23/19 15:00 23:00 07:00 Intake Total 480 ml 240 ml 120 ml Balance 480 ml 240 ml 120 ml Labs: Laboratory Tests Test 02/23/19 06:24 White Blood Count 5.5 x10^3/uL (4.0-11.0) Red Blood Count 4.71 x10^6/uL (4.30-5.70) Hemoglobin 15.1 g/dL (13.0-17.5) Hematocrit 45.1 % (39.0-53.0) Mean Corpuscular Volume 96 fL (79-100) Mean Corpuscular Hemoglobin 32 pg (25-35) Mean Corpuscular Hemoglobin Concent 34 g/dL (31-37) Red Cell Distribution Width 13.7 % (11.5-14.5) Platelet Count 112 x10^3/uL (140-400) L Neutrophils (%) (Auto) 59 % (31-73) Lymphocytes (%) (Auto) 30 % (24-48) Monocytes (%) (Auto) 9 % (0-9) Eosinophils (%) (Auto) 2 % (0-3) Basophils (%) (Auto) 0 % (0-3) Neutrophils # (Auto) 3.2 x10^3uL (1.8-7.7) Lymphocytes # (Auto) 1.7 x10^3/uL (1.0-4.8) Monocytes # (Auto) 0.5 x10^3/uL (0.0-1.1) Eosinophils # (Auto) 0.1 x10^3/uL (0.0-0.7) Basophils # (Auto) 0.0 x10^3/uL (0.0-0.2) Sodium Level 140 mmol/L (136-145) Potassium Level 4.3 mmol/L (3.5-5.1) Chloride Level 101 mmol/L (98-107) Carbon Dioxide Level 33 mmol/L (21-32) H Anion Gap 6 (6-14) Blood Urea Nitrogen 19 mg/dL (8-26) Creatinine 0.9 mg/dL (0.7-1.3) Estimated GFR (Cockcroft-Gault) 81.8 BUN/Creatinine Ratio 21 (6-20) H Glucose Level 99 mg/dL (70-99) Calcium Level 9.3 mg/dL (8.5-10.1) Total Bilirubin 0.4 mg/dL (0.2-1.0) Aspartate Amino Transferase (AST) 16 U/L (15-37) Alanine Aminotransferase (ALT) 24 U/L (16-63) Alkaline Phosphatase 86 U/L (46-116) Total Protein 7.9 g/dL (6.4-8.2) Albumin 3.6 g/dL (3.4-5.0) Albumin/Globulin Ratio 0.8 (1.0-1.7) L Valproic Acid Level 41 mcg/mL (50-100) L Valproic Acid Last Dose Date 02/22/19 Valproic Acid Last Dose Time 2100 Current Medications: Meds: Current Medications Medications (Trade) Dose Ordered Sig/Otto Route PRN Reason Start Time Stop Time Status Last Admin Dose Admin Mirtazapine (Remeron) 7.5 mg QHS PO 02/23/19 21:30 02/23/19 21:37 Trazodone HCl (Desyrel) 50 mg QHS PO 02/23/19 21:30 02/23/19 21:37 I have reviewed the current psychotropics carefully including drug interactions. Risk benefit ratio favors no change other than as noted in my dictated progress note. Diagnosis: Problems: (1) Schizoaffective disorder (2) Anxiety disorder (3) Bipolar affective, mixed, sev w/ psych (4) Impulse control disorder (5) Schizophrenia, paranoid, chronic with acute exacerbation (6) Schizoaffective disorder, bipolar type ARABELLA PEACE MD Feb 23, 2019 21:56
--- NOTE | 2019-02-24 01:33 | NUR ---
Nursing Note The patient was located in his room for his assessment and medication pass. The patient was compliant with his medication and took it whole. The patient was very brief with this nurse during interactions. The patient is currently sleeping in his room.
[2019-02-24 06:08] VITALS: BP 146/71
[2019-02-24] MEDS: LACTOBACILLUS RHAMNOSUS GG 1 CAPSULE. PO SCH ×2 (08:04→20:48)
[2019-02-24] MEDS: risperiDONE 0.5 MG TABLET. PO SCH (08:04)
[2019-02-24] MEDS: AMOXICILLIN 250 MG CAPSULE PO SCH ×3 (08:04→20:49)
[2019-02-24] MEDS: DIVALPROEX 125 MG CAP.SPRINK PO SCH ×2 (08:05→20:47)
--- NOTE | 2019-02-24 16:22 | NUR ---
Patient is sitting in the dayroom and is very anxious. 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 PRN richrad given @2445. Will continue to monitor.
[2019-02-24 16:33] VITALS: BP 150/90
[2019-02-24] MEDS: traZODone 50 MG TABLET. PO SCH (20:47)
[2019-02-24] MEDS: MIRTAZAPINE 7.5 MG TABLET. PO SCH (20:48)
[2019-02-24] MEDS ORDERED: MIRTAZAPINE 7.5 MG TABLET. PO SCH (21:00)
[2019-02-24] MEDS ORDERED: traZODone 50 MG TABLET. PO SCH (21:00)
--- NOTE | 2019-02-24 21:45 | PDOC ---
Exam Note: Preston Note: Please also refer to the separate dictated note~for this date of service dictated separately.~Patient seen individually. Discussed the patient with Nursing staff reviewed the chart.~Reviewed interim history and current functioning. Reviewed vital signs,~Labs/ Radiology~and current medications noted below. Continue current treatment with the changes noted in the dictated addendum note Assessment: Vital Signs/I&O: Vital Signs Date Time Temp Pulse Resp B/P (MAP) Pulse Ox O2 Delivery O2 Flow Rate FiO2 02/24/19 16:33 98.1 99 18 150/90 (110) 97 02/23/19 05:38 Room Air 02/18/19 15:51 99.0 I & O 02/23/19 02/23/19 02/24/19 15:00 23:00 07:00 Intake Total 480 ml 840 ml 120 ml Balance 480 ml 840 ml 120 ml Current Medications: I have reviewed the current psychotropics carefully including drug interactions. Risk benefit ratio favors no change other than as noted in my dictated progress note. Diagnosis: Problems: (1) Schizoaffective disorder (2) Anxiety disorder (3) Bipolar affective, mixed, sev w/ psych (4) Impulse control disorder (5) Schizophrenia, paranoid, chronic with acute exacerbation (6) Schizoaffective disorder, bipolar type ARABELLA PEACE MD Feb 24, 2019 21:45
--- NOTE | 2019-02-24 22:35 | PN ---
DATE: 02/23/2019 PSYCHIATRIC PROGRESS NOTE. This late entry of 02/23/2019 covers the elements not covered in my initial note. SUBJECTIVE: I met with the patient in the evening of 02/23/2019 and staffed at a treatment team meeting with the entire team in the morning. The patient's attended the treatment team meeting. I reviewed the patient's history, noncompliance with medications. desires to have him back home. Our recommendation he needs to be in a step-down facility for a few months before deciding if home is appropriate given his repeated noncompliance with psychotropics and significant psychotic, disorganized dangerous behaviors that emanate from this. He is delusional, talking about the FBI that he does not have a in the home. 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 Slept 6 hours. Appetite 100%. REVIEW OF SYSTEMS: No CV, , pulmonary, eye, ENT system symptoms on review. Reliability poor. MENTAL STATUS EXAM: Oriented to himself and situation. Speech coherent, rapid at times, difficult to understand. Abstraction fair, computation impaired, language function intact, attention span short. Mood and affect extremely labile, grandiose, psychotic. LABORATORY DATA: Reviewed. IMPRESSION: Schizoaffective disorder, bipolar type, mixed with psychotic features; anxiety disorder, unspecified; impulse control disorder, unspecified. Rest unchanged. PLAN: Continue current psychotropics. Repeat valproic acid level, adjust to reach therapeutic level. May need to increase Risperdal gradually. MAN Barrera PEACE MD DR: WHITNEY/jessica JOB#: [id number] / [id number]
--- NOTE | 2019-02-24 23:29 | NUR ---
Nursing Note The patient was compliant with his medication and took them whole. The patient was brief but appropriate during interactions with this nurse. The patient is currently sleeping in his room.
--- NOTE | 2019-02-25 00:18 | PN ---
DATE: 02/22/2019 PSYCHIATRIC PROGRESS NOTE This late entry 02/22/2019 covers elements not covered in my initial note. SUBJECTIVE: I met with the patient evening of 02/22/2019. Per PRETTY Saleh, the patient often refuses his medication, received Zyprexa at 8:02 p.m. previous evening due to agitation and before that at 4:00 p.m. At night, he was suspicious, hyperverbal, felt everything was a scam, meds had to be given hidden in food. 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 REVIEW OF SYSTEMS: No CV, , pulmonary, eye system symptoms on review. Reliability poor. MENTAL STATUS EXAM: Oriented to himself and situation. Speech as above. Abstraction fair, computation impaired, language function intact. Mood and affect extremely labile, inattentive, distractible, grandiose, psychotic. LABORATORY DATA: Reviewed. IMPRESSION: Schizoaffective disorder, bipolar type, mixed with psychotic features; anxiety disorder, unspecified; impulse control disorder, unspecified. PLAN: The patient definitely needs to be on a mood stabilizer. Start Depakote ER, but he is unable to take the ER, we will change it to Sprinkles 500 mg b.i.d. Check CBC, CMP, valproic acid level in 3 days. Continue rest of the psychotropics unchanged. Risperdal Consta has been started. May need to increase the oral Risperdal. MAN Barrera PEACE MD DR: WHITNEY/jessica JOB#: [id number] / [id number]
[2019-02-25 06:05] VITALS: BP 119/78
[2019-02-25] MEDS: LACTOBACILLUS RHAMNOSUS GG 1 CAPSULE. PO SCH ×2 (07:51→19:27)
[2019-02-25] MEDS: AMOXICILLIN 250 MG CAPSULE PO SCH ×3 (07:51→19:28)
[2019-02-25] MEDS: DIVALPROEX 125 MG CAP.SPRINK PO SCH ×2 (07:52→19:27)
[2019-02-25] MEDS: risperiDONE 2 MG TABLET. PO SCH (07:53)
--- NOTE | 2019-02-25 15:53 | NUR ---
Has been cooperative and compliant with whole meds today. Social with peers. In dayroom and groups when not eating. Alert to self, hyperverbal. Does not initiate conversation, but responds when spoken to. Speech difficult to understand at times.
[2019-02-25 15:56] VITALS: BP 149/80
[2019-02-25] MEDS: MIRTAZAPINE 7.5 MG TABLET. PO SCH (19:27)
[2019-02-25] MEDS: traZODone 50 MG TABLET. PO SCH (19:28)
--- NOTE | 2019-02-25 22:00 | PDOC ---
Exam Note: Preston Note: Please also refer to the separate dictated note~for this date of service dictated separately.~Patient seen individually. Discussed the patient with Nursing staff reviewed the chart.~Reviewed interim history and current functioning. Reviewed vital signs,~Labs/ Radiology~and current medications noted below. Continue current treatment with the changes noted in the dictated addendum note Assessment: Vital Signs/I&O: Vital Signs Date Time Temp Pulse Resp B/P (MAP) Pulse Ox O2 Delivery O2 Flow Rate FiO2 02/25/19 15:56 97.6 82 20 149/80 (103) 98 Room Air I & O 02/24/19 02/24/19 02/25/19 15:00 23:00 07:00 Intake Total 720 ml 480 ml 120 ml Balance 720 ml 480 ml 120 ml Current Medications: Meds: Current Medications Medications (Trade) Dose Ordered Sig/Otto Route PRN Reason Start Time Stop Time Status Last Admin Dose Admin Risperidone (RisperDAL) 2 mg DAILY PO 02/25/19 09:00 02/25/19 07:53 I have reviewed the current psychotropics carefully including drug interactions. Risk benefit ratio favors no change other than as noted in my dictated progress note. Diagnosis: Problems: (1) Schizoaffective disorder (2) Anxiety disorder (3) Bipolar affective, mixed, sev w/ psych (4) Impulse control disorder (5) Schizophrenia, paranoid, chronic with acute exacerbation (6) Schizoaffective disorder, bipolar type ARABELLA PEACE MD Feb 25, 2019 21:59
--- NOTE | 2019-02-25 23:45 | NUR ---
Pt sitting in day room watching television during interaction with this nurse. Pt calm, pleasant, and appropriate this evening. Pt cooperative with assessment and compliant with medications administered whole.
--- NOTE | 2019-02-26 06:24 | NUR ---
Pt sitting up in chair in his room this morning, agitated and hyper-verbal with pressured speech. Pt resistive with re-direction. Attempted to refuse PRN Zydis from this nurse. Pt was re-approached by another staff member and Zydis administered via oral syringe.
[2019-02-26 06:35] VITALS: BP 139/79
[2019-02-26] MEDS: AMOXICILLIN 250 MG CAPSULE PO SCH ×3 (07:46→21:10)
[2019-02-26] MEDS: risperiDONE 2 MG TABLET. PO SCH (07:47)
[2019-02-26] MEDS: LACTOBACILLUS RHAMNOSUS GG 1 CAPSULE. PO SCH ×2 (07:47→21:10)
[2019-02-26] MEDS: DIVALPROEX 125 MG CAP.SPRINK PO SCH ×2 (07:47→21:10)
--- NOTE | 2019-02-26 11:55 | NUR ---
Was A & O X4 at breakfast. Compliant and conversing appropriately, although speech is rapid. Interactive when spoken to. No negative behaviors this morning.
[2019-02-26 16:30] VITALS: BP 147/84
[2019-02-26] MEDS: MIRTAZAPINE 7.5 MG TABLET. PO SCH (21:10)
[2019-02-26] MEDS: traZODone 50 MG TABLET. PO SCH (21:11)
--- NOTE | 2019-02-27 01:18 | NUR ---
Last evening pt sat quietly in day room watching a movie. Meds were taken whole without any problem. Pt pleasant but did not want to converse with staff. After going to bed pt came to get staff because another pt was taking his shoes. After the situation was resolved pt went back to bed and has been sleeping well.
[2019-02-27 05:41] VITALS: BP 139/90
--- NOTE | 2019-02-27 06:49 | PN ---
DATE: 02/26/2019 SUBJECTIVE: The patient was seen today, met with the staff, chart reviewed and also covering for Dr. Hawk. The patient's behavior shows that he is still anxious and also feeling depressed and also exhibiting some mood swings, sometimes hyperverbal and also exhibiting some confusion and disorganized thinking. OBSERVATION: VITAL SIGNS: Temperature 97.2, blood pressure 139/79, pulse 84, respiration 18, O2 sat 97%. GENERAL: Slept about 6 hours last night. CURRENT MEDICATIONS: Include Risperdal 2 mg daily, trazodone 50 mg at night, mirtazapine 7.5 mg at night, Depakote 500 mg twice a day, Risperdal 25 mg IM q. 2 weeks. The patient is also on p.r.n. olanzapine 5 mg q. 2 hours p.r.n. LABORATORY DATA: The patient's labs reviewed. The patient's Depakote level was 41. ASSESSMENT: Schizoaffective disorder, bipolar type, mixed with psychotic features; anxiety disorder, unspecified; and impulse control disorder, unspecified. PLAN: To continue with the treatment. LUANN SIMON MD DR: JOSE MANUEL/jessica JOB#: [id number] / [id number]
--- NOTE | 2019-02-27 07:11 | PN ---
DATE: SUBJECTIVE: A 78-year-old male who is being treated for urinary tract infection. The patient seems to be doing somewhat better. Final culture reports have been returned. OBJECTIVE: VITAL SIGNS: The patient's blood pressure is 140/80, respiratory rate 18, pulse 84 and afebrile. GENERAL: The patient is alert at baseline mental status. LUNGS: Diminished, but basically clear. IMPRESSION: Urinary tract infection seems to have resolved. We will discontinue his amoxicillin. Continue to monitor for other psychiatric issues. DOMINICK HOPKINS MD DR: PEG/jessica JOB#: [id number] / [id number]
[2019-02-27] MEDS: AMOXICILLIN 250 MG CAPSULE PO SCH ×3 (07:56→20:31)
[2019-02-27] MEDS: LACTOBACILLUS RHAMNOSUS GG 1 CAPSULE. PO SCH ×2 (07:57→20:31)
[2019-02-27] MEDS: DIVALPROEX 125 MG CAP.SPRINK PO SCH ×2 (07:57→20:31)
[2019-02-27] MEDS: risperiDONE 2 MG TABLET. PO SCH (07:57)
[2019-02-27] MEDS: hydrOXYzine HCL 25 MG TABLET PO PRN (10:32)
--- NOTE | 2019-02-27 15:03 | NUR ---
Patient in the dining room for assessment and medication. He was calm, cooperative and compliant. Took his medications whole. While in the day room after morning group, he began to get agitated, stating "This place is bullshit, you are holding people captive, that's my sister over there, she isn't supposed to be here" (referring to another patient). Staff attempted to redirect without success. This script writer brought out PRN Atarax, which the patient swiped away into his lap, stating "I don't need that shit". He did not have any further outbursts.
[2019-02-27 16:14] VITALS: BP 103/69
[2019-02-27] MEDS: MIRTAZAPINE 7.5 MG TABLET. PO SCH (20:31)
[2019-02-27] MEDS: traZODone 50 MG TABLET. PO SCH (20:31)
--- NOTE | 2019-02-27 23:54 | NUR ---
Last evening pt spent time either in his room or day room, he was cooperative with meds taken whole. He was not very talkative but when he did speak it was garbled and difficult to understand. He did seem calm and went to bed when he was tired. No behaviors observed this shift.
--- NOTE | 2019-02-28 01:30 | NUR ---
Pt awake in his room sitting in chair talking to self speech garbled. When asked if he needed anything I could understand "I want you to record this" and he continued mumbling unintelligibly. Pt informed we had no recorder and continued his mumbling.
[2019-02-28 05:17] VITALS: BP 140/79
[2019-02-28] MEDS: LACTOBACILLUS RHAMNOSUS GG 1 CAPSULE. PO SCH ×2 (07:42→20:12)
[2019-02-28] MEDS: risperiDONE 2 MG TABLET. PO SCH (07:42)
[2019-02-28] MEDS: DIVALPROEX 125 MG CAP.SPRINK PO SCH ×2 (07:42→20:13)
[2019-02-28 09:33] LABS: BACTERIA,URINE 0 /HPF (0-FEW); BILIRUBIN,URINE NEG (NEG); CLARITY,URINE CLEAR; COLOR,URINE YELLOW; GLUCOSE,URINE NEG (NEG); NITRITE,URINE NEG (NEG); RBC,URINE 0 /HPF (0-2); UROBILINOGEN,URINE 0.2 mg/dL (0.2 mg/dL); WBC,URINE RARE /HPF (0-4)
--- NOTE | 2019-02-28 11:41 | PN ---
DATE: 02/27/2019 SUBJECTIVE: The patient was seen today, met with the staff, chart reviewed. The patient continued to exhibit behavior problems. He is hyperverbal and coherent, increased agitation, difficult to follow directions. The patient is also exhibiting increased psychomotor activity. OBSERVATION: VITAL SIGNS: Temperature 97.3, blood pressure 139/90, pulse 100, respirations 20, O2 sat 97%. Slept about 6 hours last night. The patient's appetite is fair. The patient is not having any side effects to the medications. LABORATORY DATA: The patient's lab reviewed. The patient's Depakote level was 41. MEDICATIONS: The patient's current medications include Risperdal 2 mg daily, trazodone 50 mg at night, mirtazapine 7.5 mg at night, Depakote 500 mg twice a day, Risperdal 25 mg IM q. 2 weeks. ASSESSMENT: 1. Schizoaffective disorder, bipolar type, mixed with psychotic features. 2. Anxiety disorder, unspecified. 3. Impulse control disorder, unspecified. PLAN: To continue with the treatment. LUANN SIMON MD DR: JOSE MANUEL/jessica JOB#: [id number] / [id number]
--- NOTE | 2019-02-28 14:25 | NUR ---
JESS met with pt to discuss his concerns about the "woman living in his house is not my ". Pt reports that "the woman in his house" took out a million dollar policy that he did not buy through [employer]. 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 He believes "that woman" is giving money to her 2 sisters and 1 brother. Pt reports that the love of his is here with him in the hospital and he just can't bear to leave right now as he needs to have the financial situation fixed first. "This has just been bothering me for the last couple weeks and I need help in getting this all settled".
--- NOTE | 2019-02-28 14:37 | NUR ---
Patient is in the dining room for assessments and medications. He is calm, cooperative and compliant. Hyperverbal, but hard to understand. No agitation, no c/o or s/s of pain or discomfort.
[2019-02-28 16:28] VITALS: BP 143/77
[2019-02-28] MEDS: traZODone 50 MG TABLET. PO SCH (20:12)
[2019-02-28] MEDS: MIRTAZAPINE 7.5 MG TABLET. PO SCH (20:12)
--- NOTE | 2019-02-28 21:55 | PDOC ---
Exam Note: Preston Note: Please also refer to the separate dictated note~for this date of service dictated separately.~Patient seen individually. Discussed the patient with Nursing staff reviewed the chart.~Reviewed interim history and current functioning. Reviewed vital signs,~Labs/ Radiology~and current medications noted below. Continue current treatment with the changes noted in the dictated addendum note Assessment: Vital Signs/I&O: Vital Signs Date Time Temp Pulse Resp B/P (MAP) Pulse Ox O2 Delivery O2 Flow Rate FiO2 02/28/19 16:28 97.2 86 16 143/77 (99) 98 02/28/19 05:17 Room Air I & O 02/27/19 02/27/19 02/28/19 15:00 23:00 07:00 Intake Total 960 ml 720 ml Balance 960 ml 720 ml Labs: Laboratory Tests Test 02/28/19 09:01 Urine Collection Type Unknown Urine Color Yellow Urine Clarity Clear Urine pH 7.5 Urine Specific [place] 1.015 Urine Protein Neg (NEG-TRACE) Urine Glucose (UA) Neg mg/dL (NEG) Urine Ketones (Stick) Neg mg/dL (NEG) Urine Blood Neg (NEG) Urine Nitrite Neg (NEG) Urine Bilirubin Neg (NEG) Urine Urobilinogen Dipstick 0.2 mg/dL (0.2 mg/dL) Urine Leukocyte Esterase Neg (NEG) Urine RBC 0 /HPF (0-2) Urine WBC Rare /HPF (0-4) Urine Squamous Epithelial Cells None /LPF Urine Bacteria 0 /HPF (0-FEW) Current Medications: Meds: Current Medications Medications (Trade) Dose Ordered Sig/Otto Route PRN Reason Start Time Stop Time Status Last Admin Dose Admin Divalproex Sodium (Depakote Sprinkles) 750 mg BID PO 02/28/19 21:00 02/28/19 20:13 I have reviewed the current psychotropics carefully including drug interactions. Risk benefit ratio favors no change other than as noted in my dictated progress note. Diagnosis: Problems: (1) Schizoaffective disorder (2) Anxiety disorder (3) Bipolar affective, mixed, sev w/ psych (4) Impulse control disorder (5) Schizophrenia, paranoid, chronic with acute exacerbation (6) Schizoaffective disorder, bipolar type ARABELLA PEACE MD Feb 28, 2019 21:55
--- NOTE | 2019-03-01 01:17 | PN ---
DATE: 02/25/2019 PSYCHIATRIC PROGRESS NOTE This late entry, 02/25, covers elements not covered in my initial note. SUBJECTIVE: I met with the patient morning of 02/25. According to PRETTY Phillips, patient is compliant with his medication, slept 5-3/4 hours previous night. He was quite paranoid, wrote a very extensive note, somewhat bizarre and grandiose, talking about millions of dollars, not trusting his and believing she is not his . Otherwise, he is a little more social at times. REVIEW OF SYSTEMS: No CV, , pulmonary, eye, ENT system symptoms on review. MENTAL STATUS EXAM: Oriented to himself, at times situation. Speech is difficult to understand, rapid at times. Abstraction fair, computation impaired, language function intact, attention span short. Mood and affect remains grandiose, labile, paranoid. LABORATORY DATA: Reviewed. No active suicidal or homicidal ideation. IMPRESSION: Unchanged from initial note. PLAN: No change from initial note. MAN Barrera PEACE MD DR: WHITNEY/jessica JOB#: [id number] / [id number]
--- NOTE | 2019-03-01 01:23 | PN ---
DATE: 02/24/2019 PSYCHIATRIC PROGRESS NOTE This late entry 02/24/2019 covers the elements not covered in my initial note. SUBJECTIVE: I met with the patient evening of 02/24/2019. Cleve Epps RN, the patient slept 7-1/2 hours previous night. He gets easily stimulated in social situations. He remains psychotic talking about prostitutes and million dollars and things that are unconnected believing his is who she say she is. He has not been combative. REVIEW OF SYSTEMS: No CV, , pulmonary, eye, ENT system symptoms on review. MENTAL STATUS EXAM: Oriented to himself and situation. Speech coherent, rapid, difficult to understand. Abstraction fair, computation impaired, language function intact, attention span short. Mood and affect remain grandiose, labile, still quite psychotic. LABORATORY DATA: Reviewed. IMPRESSION: Unchanged from initial note. PLAN: After the patient has been on Risperdal 1.5 mg a day for 3 days, we will increase to 2 mg a day. He is on Risperdal Consta 25 mg IM every 2 weeks. Maintain Depakote, adjust to reach therapeutic level. Rest unchanged for now. ARABELLA PEACE MD DR: WHITNEY/jessica JOB#: [id number] / [id number]
[2019-03-01 04:49] VITALS: BP 127/69
[2019-03-01 05:59] VITALS: BP 127/69
--- NOTE | 2019-03-01 06:37 | NUR ---
Last evening pt was quiet and cooperative. Meds taken without difficulty. This morning after seeing one of the female pts he is convinced she is his and was switched with the woman that lives in his house. Hs is talking loudly and moved to the [place].He has had no aggressive physical behavior.
[2019-03-01] MEDS: LACTOBACILLUS RHAMNOSUS GG 1 CAPSULE. PO SCH ×2 (08:21→20:16)
[2019-03-01] MEDS: DIVALPROEX 125 MG CAP.SPRINK PO SCH ×2 (08:21→20:16)
[2019-03-01] MEDS: risperiDONE 2 MG TABLET. PO SCH (08:22)
--- NOTE | 2019-03-01 12:31 | NUR ---
Patient has been very busy, hyperverbal with staff and patient's. Took medications whole, allowed for morning assessment. Patient was anxious, starting to cuss and raise his voice. PRN zyprexa given @0822. Patient has been asked to leave the dayroom a few times to go calm down in his room. Patient denied pain, will continue to monitor.
[2019-03-01] MEDS: hydrOXYzine HCL 25 MG TABLET PO PRN (12:59)
--- NOTE | 2019-03-01 13:15 | NUR ---
Patient was hyperverbal with staff again, resisting care, talking about prostitution and cursing. PRN Zyprexa and hydroxyzine given @1259. Patient refused to take these whole, they were syringed. Patient let some of this run out of his mouth. Sitting in his room. Will continue to monitor.
[2019-03-01 16:33] VITALS: BP 148/79
--- NOTE | 2019-03-01 16:42 | NUR ---
SW contacted pt to discuss pt continued delusional thinking re: the woman living in his house is not his and reports that he wants SW to make a couple calls to see what he can do to rectify the situation. Pt was dumbfounded as SW further discussed pt "financial concerns" and reports that pt is talking about a financial situation that happened with their sons in college and how they took out a loan with her sisters name on the loan. "[place] that was years ago. Where is this coming from". SW explained that pt is mostly medication compliant but is not sure if the doses will be adjusted at this time. SW will contact pt so that she can listen in during tx team and devise a better discharge plan. Pt did ask about [facility] in [place], [place]. She has a friend who has a family member there and wondered if that could be a part of pt plan/step-down program prior to coming home.
[2019-03-01] MEDS: MIRTAZAPINE 7.5 MG TABLET. PO SCH (20:15)
[2019-03-01] MEDS: traZODone 50 MG TABLET. PO SCH (20:16)
--- NOTE | 2019-03-01 22:04 | PDOC ---
Exam Note: Preston Note: Please also refer to the separate dictated note~for this date of service dictated separately.~Patient seen individually. Discussed the patient with Nursing staff reviewed the chart.~Reviewed interim history and current functioning. Reviewed vital signs,~Labs/ Radiology~and current medications noted below. Continue current treatment with the changes noted in the dictated addendum note Assessment: Vital Signs/I&O: Vital Signs Date Time Temp Pulse Resp B/P (MAP) Pulse Ox O2 Delivery O2 Flow Rate FiO2 03/01/19 16:33 97.5 90 18 148/79 (102) 98 03/01/19 04:49 Room Air I & O 02/28/19 02/28/19 03/01/19 15:00 23:00 07:00 Intake Total 840 ml 600 ml Balance 840 ml 600 ml Current Medications: I have reviewed the current psychotropics carefully including drug interactions. Risk benefit ratio favors no change other than as noted in my dictated progress note. Diagnosis: Problems: (1) Schizoaffective disorder (2) Anxiety disorder (3) Bipolar affective, mixed, sev w/ psych (4) Impulse control disorder (5) Schizophrenia, paranoid, chronic with acute exacerbation (6) Schizoaffective disorder, bipolar type ARABELLA PEACE MD Mar 01, 2019 22:04
--- NOTE | 2019-03-02 00:22 | NUR ---
Nursing Note Pt up going to the bathroom and waved the tech out of the room saying "I just have to pee, do I have to have permission and an escort to take a piss? Get the hell out of here!" Tech walked out and the patient toileted himself.
--- NOTE | 2019-03-02 04:56 | PN ---
DATE: 02/28/2019 PSYCHIATRIC PROGRESS NOTE This late entry 02/28/2019 covers elements not covered in my initial note. SUBJECTIVE: I met with the patient evening of 02/28/2019 and reviewed information with Dr. Ingram since Dr. Leger covered for me for the past 2 days. The patient slept 4 hours previous night. He was up at 1:30 a.m., mumbling, difficult to understand, telling nursing staff "I want you to record this." UA is negative post Amoxil. REVIEW OF SYSTEMS: No CV, , pulmonary, eye, ENT system symptoms on review. Reliability poor. MENTAL STATUS EXAMINATION: Oriented to himself and situation. Speech is difficult to understand, still pressured. Abstraction fair, computation impaired, language function intact, attention span short. Mood and affect remain somewhat anxious, labile, somewhat grandiose, still paranoid, talking about million dollars as I met with him. LABORATORY DATA: Reviewed. IMPRESSION: Bipolar disorder, mixed with psychotic features; anxiety disorder, unspecified. Rest unchanged. PLAN: His valproic acid level was 41 on Depakote 500 mg twice a day. We will increase it to 750 mg twice a day. Check CBC, CMP, valproic acid level in 3 days. Continue Risperdal 2 mg at bedtime and he also gets the Risperdal Consta. Rest unchanged for now. MAN Barrera PEACE MD DR: WHITNEY/jessica JOB#: [id number] / [id number]
[2019-03-02 06:38] VITALS: BP 123/70
[2019-03-02] MEDS: risperiDONE 2 MG TABLET. PO SCH (07:56)
[2019-03-02] MEDS: LACTOBACILLUS RHAMNOSUS GG 1 CAPSULE. PO SCH ×2 (07:56→19:59)
[2019-03-02] MEDS: DIVALPROEX 125 MG CAP.SPRINK PO SCH ×2 (07:56→19:59)
--- NOTE | 2019-03-02 11:07 | NUR ---
WEEKLY ACTIVITY THERAPY NOTE Date of Admission: 02/17/2019 Date of AT Assessment: 02/21/2019 Goal aimed: to increase attention/concentration and leisure awareness Initial goal: Pt. will participate in at least one Activity Therapy group per day. Weekly progress towards goal: achieved Group participation level: varied Weekly highlights: garden clean up Behaviors observed: paranoid/ suspicious on Wednesday afternoon, requested kindles/headphones on Wednesday, redirects fairly quickly as week progressed Plan: no change to goal Beneficial adaptations: walking unit or use of Joanne. wireless headphones-[employer] to help refocus, gross motor activities, invitation to groups
[2019-03-02 17:40] VITALS: BP 136/65
--- NOTE | 2019-03-02 18:02 | NUR ---
WEEKLY NOTE: Pt is eating 100% and sleeping on average 5 hours a night. Pt continues to be delusional and has been noted to mumble to himself. Pt attends group activities and is moderately participates. Pt is medication compliant, although at times is resistive and needs coaxing for compliance. Pt has agreed to have pt discharge to a step down program to which SW will send referrals. ELOS 10-12 days.
[2019-03-02] MEDS: MIRTAZAPINE 7.5 MG TABLET. PO SCH (19:59)
[2019-03-02] MEDS: traZODone 50 MG TABLET. PO SCH (19:59)
--- NOTE | 2019-03-02 22:02 | PDOC ---
Exam Note: Preston Note: Please also refer to the separate dictated note~for this date of service dictated separately.~Patient seen individually. Discussed the patient with Nursing staff reviewed the chart.~Reviewed interim history and current functioning. Reviewed vital signs,~Labs/ Radiology~and current medications noted below. Continue current treatment with the changes noted in the dictated addendum note Assessment: Vital Signs/I&O: Vital Signs Date Time Temp Pulse Resp B/P (MAP) Pulse Ox O2 Delivery O2 Flow Rate FiO2 03/02/19 17:40 97.9 108 16 136/65 (88) 95 Room Air I & O 03/01/19 03/01/19 03/02/19 15:00 23:00 07:00 Intake Total 960 ml 600 ml Balance 960 ml 600 ml Current Medications: I have reviewed the current psychotropics carefully including drug interactions. Risk benefit ratio favors no change other than as noted in my dictated progress note. Diagnosis: Problems: (1) Schizoaffective disorder (2) Anxiety disorder (3) Bipolar affective, mixed, sev w/ psych (4) Impulse control disorder (5) Schizophrenia, paranoid, chronic with acute exacerbation (6) Schizoaffective disorder, bipolar type ARABELLA PEACE MD Mar 02, 2019 22:02
--- NOTE | 2019-03-02 23:43 | NUR ---
Nursing Note Pt refuses meds, states I don't want that shit its making me dizzy and I am going to fall and break a hip if you don't stop feeding me that shit! Attempted to give in a snack PT refused, said he is not hungry at all.
[2019-03-03 06:22] VITALS: BP 131/74
[2019-03-03] MEDS: DIVALPROEX 125 MG CAP.SPRINK PO SCH ×2 (08:17→19:43)
[2019-03-03] MEDS: LACTOBACILLUS RHAMNOSUS GG 1 CAPSULE. PO SCH ×2 (08:18→19:43)
[2019-03-03] MEDS: risperiDONE 2 MG TABLET. PO SCH (08:18)
--- NOTE | 2019-03-03 10:15 | NUR ---
Nursing Note: Pt suspicious of medications this morning stating in part, "they make me dizzy, I'm not taking them." Attempted to hide meds in morning snack but pt still suspicious and threw away snack. As pt threw snack into the garbage he said, "I don't trust you." Pt walked away shaking his head. Will continue to monitor.
[2019-03-03 16:02] VITALS: BP 153/76
--- NOTE | 2019-03-03 18:37 | NUR ---
Nursing note: Pt became agitated and disruptive after dinner, upsetting other pts on the unit. He was unable to be redirected. A PRN was given. Will continue to monitor.
[2019-03-03] MEDS: MIRTAZAPINE 7.5 MG TABLET. PO SCH (19:43)
[2019-03-03] MEDS: traZODone 50 MG TABLET. PO SCH (19:43)
--- NOTE | 2019-03-03 20:20 | NUR ---
Nursing note: Assumed care of pt in the day room. He was calm until I took his medication to him. He refused and started his manic non-stop talking. He was moved into the quiet arechiga as he was making comments that could aggravate other pts. I asked him at least 3x if he would take his meds as that was what he needed to do to go home. He said he would stay here for 6years if he had to. He believes if he takes his meds they will make him unsteady and he will fall and . Pt given PRN meds SL.
[2019-03-03] MEDS: hydrOXYzine HCL 25 MG TABLET PO PRN (21:32)
--- NOTE | 2019-03-03 21:56 | PDOC ---
Exam Note: Preston Note: Please also refer to the separate dictated note~for this date of service dictated separately.~Patient seen individually. Discussed the patient with Nursing staff reviewed the chart.~Reviewed interim history and current functioning. Reviewed vital signs,~Labs/ Radiology~and current medications noted below. Continue current treatment with the changes noted in the dictated addendum note Assessment: Vital Signs/I&O: Vital Signs Date Time Temp Pulse Resp B/P (MAP) Pulse Ox O2 Delivery O2 Flow Rate FiO2 03/03/19 16:02 97.6 86 16 153/76 (101) 97 Room Air I & O 03/02/19 03/02/19 03/03/19 15:00 23:00 07:00 Intake Total 960 ml 240 ml 120 ml Balance 960 ml 240 ml 120 ml Current Medications: I have reviewed the current psychotropics carefully including drug interactions. Risk benefit ratio favors no change other than as noted in my dictated progress note. Diagnosis: Problems: (1) Schizoaffective disorder (2) Anxiety disorder (3) Bipolar affective, mixed, sev w/ psych (4) Impulse control disorder (5) Schizophrenia, paranoid, chronic with acute exacerbation (6) Schizoaffective disorder, bipolar type ARABELLA PEACE MD Mar 03, 2019 21:56
--- NOTE | 2019-03-04 03:09 | PN ---
DATE: 03/01/2019 PSYCHIATRIC PROGRESS NOTE This late entry 03/01/2019 covers elements not covered in my initial note. SUBJECTIVE: I met with the patient in the evening. According to PRETTY Garcia, the patient slept 5-1/2 hours previous night. Speech is rambling. Takes his medications whole in the morning. Became agitated and paranoid in the morning, received Zyprexa at 8:22 a.m. Talking about prostitutes and million dollars and his not being who she state she is and that the children are not his He was fixated on this at breakfast and lunch, received Zyprexa in the p.m. REVIEW OF SYSTEMS: No CV, , pulmonary, eye, ENT system symptoms on review. MENTAL STATUS EXAM: Oriented to himself and situation. Speech rapid, garbled and difficult to understand at times. Abstraction fair, computation impaired, language function intact, attention span short. Mood and affect, somewhat grandiose, labile, remains quite psychotic. LABORATORY DATA: Reviewed. IMPRESSION: Schizoaffective disorder, bipolar type, mixed with psychotic features; mild cognitive impairment; anxiety disorder, unspecified; impulse control disorder, unspecified. PLAN: Continue psychotropics from initial note. We are adjusting the Depakote to reach therapeutic level. Maintain Risperdal at current dosage. Remeron and trazodone unchanged. MAN Barrera PEACE MD DR: WHITNEY/jessica JOB#: [id number] / [id number]
--- NOTE | 2019-03-04 05:25 | PN ---
DATE: 03/02/2019 PSYCHIATRIC PROGRESS NOTE This late entry, 03/02, covers elements not covered in my initial note. SUBJECTIVE: I met with the patient evening of 03/02. Staffed at treatment team meeting with the entire team in the morning. The patient slept 5 hours average. Appetite 75%. He remains hyperverbal. Takes medications whole. Still fixated on talking about prostitution and million dollars and not believing his who she states she is and their children are not his. Received PRNs to help with this. REVIEW OF SYSTEMS: No CV, , pulmonary, eye, ENT system symptoms on review. MENTAL STATUS EXAM: Oriented to himself and situation. Speech as above. Abstraction fair, computation impaired, language function intact, attention span short. Mood and affect remains quite grandiose, labile, psychotic. LABORATORY DATA: Reviewed. IMPRESSION: Schizoaffective disorder, bipolar type, mixed with psychotic features; anxiety disorder, unspecified; mild cognitive impairment. Rest unchanged. PLAN: Continue current psychotropics. Depakote has been adjusted. Repeat lab levels are awaited. We will adjust to reach therapeutic level since he is on Depakote Sprinkles 750 b.i.d. instead of 500 b.i.d. Continue Risperdal Consta along with oral Risperdal 2 mg a day, may need to increase this if psychotic symptoms persist despite the above. ARABELLA PEACE MD DR: WHITNEY/jessica JOB#: [id number] / [id number]
[2019-03-04 06:32] VITALS: BP 155/86
[2019-03-04 07:06] LABS: BASO % 0 % (0-3); EOS # 0.1 x10^3/uL (0.0-0.7); EOS % 1 % (0-3); HEMATOCRIT 42.9 % (39.0-53.0); HEMOGLOBIN 14.4 g/dL (13.0-17.5); LYMPH # 1.2 x10^3/uL (1.0-4.8); LYMPH % 12 % (24-48); MEAN CORPUSCULAR HEMOGLOBIN 32 pg (25-35); MEAN CORPUSCULAR HGB CONC 34 g/dL (31-37); MEAN CORPUSCULAR VOLUME 95 fL (79-100); MONO # 0.8 x10^3/uL (0.0-1.1); MONO % 8 % (0-9); NEUT # 7.6 x10^3uL (1.8-7.7); NEUT % 78 % (31-73); PLATELET COUNT 123 x10^3/uL (140-400); RED BLOOD COUNT 4.53 x10^6/uL (4.30-5.70); RED CELL DISTRIBUTION WIDTH 13.3 % (11.5-14.5); WHITE BLOOD COUNT 9.7 x10^3/uL (4.0-11.0)
[2019-03-04 07:12] LABS: ALBUMIN 3.3 g/dL (3.4-5.0); ALBUMIN/GLOBULIN RATIO 0.8 (1.0-1.7); ALK PHOS 77 U/L (46-116); ALT (SGPT) 15 U/L (16-63); ANION GAP 6 (6-14); AST (SGOT) 13 U/L (15-37); BLOOD UREA NITROGEN 17 mg/dL (8-26); BUN/CREATININE RATIO 21 (6-20); CALCIUM 8.9 mg/dL (8.5-10.1); CARBON DIOXIDE 32 mmol/L (21-32); CHLORIDE 104 mmol/L (98-107); CREATININE 0.8 mg/dL (0.7-1.3); GFR 93.7; GLUCOSE 97 mg/dL (70-99); POTASSIUM 4.3 mmol/L (3.5-5.1); SODIUM 142 mmol/L (136-145); TOTAL BILIRUBIN 0.3 mg/dL (0.2-1.0); TOTAL PROTEIN 7.2 g/dL (6.4-8.2)
[2019-03-04 07:56] LABS: VAL ACID 19 mcg/mL (50-100)
[2019-03-04] MEDS: risperiDONE 2 MG TABLET. PO SCH (08:14)
[2019-03-04] MEDS: DIVALPROEX 125 MG CAP.SPRINK PO SCH ×2 (08:14→19:35)
[2019-03-04] MEDS: LACTOBACILLUS RHAMNOSUS GG 1 CAPSULE. PO SCH ×2 (08:14→19:34)
--- NOTE | 2019-03-04 11:47 | NUR ---
Pt. was offered PO scheduled meds multiple times this morning. Refused each time. Was sitting in dayroom and became loud and disruptive, paranoid rambling, yelling, "why don't you just kill me!" States meds will make him dizzy. Told he must go to his room as he was disruptive and scaring other pts. Given meds per syringe in his room with 3 staff present. He swallowed them and provided juice to drink. Angry, yelling, left seated in his room to deescalate.
[2019-03-04 16:19] VITALS: BP 121/75
--- NOTE | 2019-03-04 18:25 | PN ---
DATE: 03/03/2019 PSYCHIATRIC PROGRESS NOTE This note covers elements not covered in my initial note of 03/03/2019. SUBJECTIVE: I met with the patient in the evening at length. Per PRETTY Garcia, the patient slept 6-1/4 hours previous night. He refused his medications today, and by the time, I saw him in the evening, he was extremely psychotic, agitated, loud with me when I questioned him about his . This seemed to trigger his psychosis. His [id number] came to get his hearing aid to clean it and he refused to talk about it. REVIEW OF SYSTEMS: No CV, , pulmonary, eye system symptoms on review. MENTAL STATUS EXAM: Oriented to himself and situation. Speech rapid, difficult to understand, somewhat slurred, difficult for him. Abstraction fair, computation impaired, language function intact, attention span short. Mood and affect labile. LABORATORY DATA: Reviewed. IMPRESSION: Schizoaffective disorder, bipolar type, mixed with psychotic features; anxiety disorder, unspecified; mild cognitive impairment. PLAN: Encourage compliance with his treatment. May need to increase Risperdal Consta. After he has been compliant with Depakote for 3 days, we will check a valproic acid level since the current level is subtherapeutic, probably due to noncompliance. Continue rest unchanged. ARABELLA PEACE MD DR: WHITNEY/jessica JOB#: [id number] / [id number]
[2019-03-04] MEDS: traZODone 50 MG TABLET. PO SCH (19:35)
[2019-03-04] MEDS: MIRTAZAPINE 7.5 MG TABLET. PO SCH (19:35)
--- NOTE | 2019-03-04 20:17 | NUR ---
Nursing note: Pt has depakote sprinkles and has been non-compliant with meds. Order placed to change medication to liquid Depakene.
[2019-03-04] MEDS: VALPROATE ACID 250 MG/5 ML ORAL SOLUTION PO SCH (20:21)
--- NOTE | 2019-03-04 22:57 | NUR ---
Nursing note: Assumed care of pt in his room where he was sleeping but easily awakened. He was compliant with meds crushed and administered SL. He was very sleepy and went right back to sleep after taking meds. NO c/o pain, no agitation.
--- NOTE | 2019-03-04 23:06 | PDOC ---
Exam Note: Preston Note: Please also refer to the separate dictated note~for this date of service dictated separately.~Patient seen individually. Discussed the patient with Nursing staff reviewed the chart.~Reviewed interim history and current functioning. Reviewed vital signs,~Labs/ Radiology~and current medications noted below. Continue current treatment with the changes noted in the dictated addendum note Assessment: Vital Signs/I&O: Vital Signs Date Time Temp Pulse Resp B/P (MAP) Pulse Ox O2 Delivery O2 Flow Rate FiO2 03/04/19 16:19 97.9 81 20 121/75 (90) 98 Room Air I & O 03/03/19 03/03/19 03/04/19 14:59 22:59 06:59 Intake Total 1200 ml 480 ml 120 ml Balance 1200 ml 480 ml 120 ml Labs: Laboratory Tests Test 03/04/19 06:39 White Blood Count 9.7 x10^3/uL (4.0-11.0) Red Blood Count 4.53 x10^6/uL (4.30-5.70) Hemoglobin 14.4 g/dL (13.0-17.5) Hematocrit 42.9 % (39.0-53.0) Mean Corpuscular Volume 95 fL (79-100) Mean Corpuscular Hemoglobin 32 pg (25-35) Mean Corpuscular Hemoglobin Concent 34 g/dL (31-37) Red Cell Distribution Width 13.3 % (11.5-14.5) Platelet Count 123 x10^3/uL (140-400) L Neutrophils (%) (Auto) 78 % (31-73) H Lymphocytes (%) (Auto) 12 % (24-48) L Monocytes (%) (Auto) 8 % (0-9) Eosinophils (%) (Auto) 1 % (0-3) Basophils (%) (Auto) 0 % (0-3) Neutrophils # (Auto) 7.6 x10^3uL (1.8-7.7) Lymphocytes # (Auto) 1.2 x10^3/uL (1.0-4.8) Monocytes # (Auto) 0.8 x10^3/uL (0.0-1.1) Eosinophils # (Auto) 0.1 x10^3/uL (0.0-0.7) Basophils # (Auto) 0.0 x10^3/uL (0.0-0.2) Sodium Level 142 mmol/L (136-145) Potassium Level 4.3 mmol/L (3.5-5.1) Chloride Level 104 mmol/L (98-107) Carbon Dioxide Level 32 mmol/L (21-32) Anion Gap 6 (6-14) Blood Urea Nitrogen 17 mg/dL (8-26) Creatinine 0.8 mg/dL (0.7-1.3) Estimated GFR (Cockcroft-Gault) 93.7 BUN/Creatinine Ratio 21 (6-20) H Glucose Level 97 mg/dL (70-99) Calcium Level 8.9 mg/dL (8.5-10.1) Total Bilirubin 0.3 mg/dL (0.2-1.0) Aspartate Amino Transferase (AST) 13 U/L (15-37) L Alanine Aminotransferase (ALT) 15 U/L (16-63) L Alkaline Phosphatase 77 U/L (46-116) Total Protein 7.2 g/dL (6.4-8.2) Albumin 3.3 g/dL (3.4-5.0) L Albumin/Globulin Ratio 0.8 (1.0-1.7) L Valproic Acid Level 19 mcg/mL (50-100) L Valproic Acid Last Dose Date 03/03/2019 Valproic Acid Last Dose Time 2100 Current Medications: Meds: Current Medications Medications (Trade) Dose Ordered Sig/Otto Route PRN Reason Start Time Stop Time Status Last Admin Dose Admin Valproic Acid (Depakene) 750 mg [id number] PO 03/04/19 21:00 03/04/19 20:21 I have reviewed the current psychotropics carefully including drug interactions. Risk benefit ratio favors no change other than as noted in my dictated progress note. Diagnosis: Problems: (1) Schizoaffective disorder (2) Anxiety disorder (3) Bipolar affective, mixed, sev w/ psych (4) Impulse control disorder (5) Schizophrenia, paranoid, chronic with acute exacerbation (6) Schizoaffective disorder, bipolar type ARABELLA PEACE MD Mar 04, 2019 23:06
[2019-03-05 04:54] VITALS: BP 150/75
[2019-03-05] MEDS: risperiDONE 2 MG TABLET. PO SCH (07:58)
[2019-03-05] MEDS: LACTOBACILLUS RHAMNOSUS GG 1 CAPSULE. PO SCH ×2 (07:58→20:52)
[2019-03-05] MEDS: VALPROATE ACID 250 MG/5 ML ORAL SOLUTION PO SCH ×3 (08:01→20:52)
[2019-03-05 16:20] VITALS: BP 143/78
--- NOTE | 2019-03-05 19:22 | NUR ---
Has been compliant with meds this day because they have been changed to liquid. He thinks he is drinking a shot of whiskey. Still hyper verbal at times and difficult to understand. Wants discharged, his consistent focus.
[2019-03-05] MEDS: traZODone 50 MG TABLET. PO SCH (20:52)
[2019-03-05] MEDS: MIRTAZAPINE 7.5 MG TABLET. PO SCH (20:52)
--- NOTE | 2019-03-05 23:10 | NUR ---
Nursing Note: Assumed care of pt. this evening, he was sitting out in the day room. He has been calm, hyperverbal at times, and cooperative this evening with care. He has been compliant with taking his liquid meds with rest of his meds crushed and put in the liquid. No agitation or aggression noted at this time.
--- NOTE | 2019-03-06 04:11 | PN ---
DATE: 03/05/2019 SUBJECTIVE: The patient was seen today, met with the staff, chart reviewed, and covering for Dr. Hawk. Staff reports that the patient continues to have behavior problems, refusing to take his medications several days at a time, increased agitation, fluctuating mood. OBSERVATION: VITAL SIGNS: Temperature 97.4, blood pressure 150/75, pulse 78, respirations 22, O2 sat 95%. Slept about 4 hours last night. The patient's appetite decreased. MEDICATIONS: The patient's current medications include Risperdal 2 mg daily, trazodone 50 mg at night, mirtazapine 7.5 mg at night, Depakote 500 mg b.i.d., Risperdal 25 mg IM q. 2 weeks. The patient is also on p.r.n. olanzapine. The patient apparently has been noncompliant with the treatment, which led to his repeated hospitalizations. ASSESSMENT: 1. Schizoaffective disorder, bipolar type, mixed with psychotic features. 2. Anxiety disorder, unspecified. 3. Impulse control disorder, unspecified. PLAN: To continue with the current treatment plan. LUANN SIMON MD DR: JOSE MANUEL/jessica JOB#: [id number] / [id number]
[2019-03-06 06:19] VITALS: BP 105/70
[2019-03-06] MEDS: LACTOBACILLUS RHAMNOSUS GG 1 CAPSULE. PO SCH ×2 (07:39→19:50)
[2019-03-06] MEDS: VALPROATE ACID 250 MG/5 ML ORAL SOLUTION PO SCH ×3 (07:39→19:50)
[2019-03-06] MEDS: risperiDONE 2 MG TABLET. PO SCH (07:40)
[2019-03-06] MEDS: risperiDONE MICROSPHERES 25 MG/2 ML DISP.SYRIN. IM SCH (08:12)
--- NOTE | 2019-03-06 09:45 | NUR ---
Risperdal Consta given today in L deltoid. Patient tolerated procedure well.
--- NOTE | 2019-03-06 09:50 | NUR ---
PATIENT IS LOCATED IN DINING ROOM AT TIME OF MEDICATIONS AND ASSESSMENT. PATIENT IS CALM AND COOPERATIVE WITH MEDICATIONS AND ASSESSMENT THIS AM. PATIENT TAKES MEDICATIONS CRUSHED IN JUICE. PATENT IS SITTING IN DAY ROOM AT THIS TIME PARTICIPATING IN GROUP. WILL CONTINUE TO MONITOR.
[2019-03-06 16:43] VITALS: BP 120/66
[2019-03-06] MEDS: MIRTAZAPINE 7.5 MG TABLET. PO SCH (19:50)
[2019-03-06] MEDS: traZODone 50 MG TABLET. PO SCH (19:50)
--- NOTE | 2019-03-06 20:11 | PN ---
DATE: 03/04/2019 PSYCHIATRIC PROGRESS NOTE This late entry, 03/04/2019, covers the elements not covered in my initial note. SUBJECTIVE: I met with the patient in the morning at length. The patient slept 4 hours previous night. He remains somewhat anxious, restless, hyperverbal, paranoid and it is difficult to understand his speech, which is pressured and garbled at times, but it is quite evident even with this problem that he is quite delusional. He was again talking about prostitutes as I met with him that his was not ____, she was amongst other things and talking about million dollars. REVIEW OF SYSTEMS: No CV, , pulmonary, eye system symptoms on review. MENTAL STATUS EXAM: Oriented to himself and situation. Speech as above, abstraction fair, computation impaired, language function is intact, attention span is short. Mood and affect remains labile. LABORATORY DATA: Reviewed. IMPRESSION: Schizoaffective disorder, bipolar type, mixed with psychotic features, mild cognitive impairment; anxiety disorder, unspecified; psychotic disorder, unspecified. PLAN: No change from the initial note. We will maintain the oral Risperdal and encourage compliance. Continue Risperdal Consta. Adjust Depakote to reach therapeutic level. Dr. Loera will cover for me over the next few days during my vacation. MAN Barrera PEACE MD DR: WHITNEY/jessica JOB#: [id number] / [id number]
--- NOTE | 2019-03-07 00:29 | NUR ---
Nursing Note: Assumed care of pt. this evening, he was lying in his bed. He has been calm, cooperative, and at times have been hyperverbal this evening. He has been compliant with taking his HS meds. No agitation or aggression noted at this time.
--- NOTE | 2019-03-07 01:54 | PN ---
DATE: 03/06/2019 SUBJECTIVE: The patient was seen today, met with the staff, chart reviewed. Staff reports that the patient has been refusing to take his medications for several days. He gets agitated easily. Still confused and also exhibiting significant mood swings including irritability. OBSERVATION: VITAL SIGNS: Temperature 97.1, blood pressure 105/70, pulse 78, respiration 18, O2 sat 95%. Slept about 4 hours last night. The patient's appetite is fair. The patient weighs 192.2 pounds. MEDICATIONS: The patient's current medications include Risperdal 2 mg daily, trazodone 50 mg at night, mirtazapine 7.5 mg at night, Depakote 500 mg b.i.d. The patient is also on Risperdal 25 mg IM q. 2 weeks and the patient had Risperdal Consta 25 mg IM today as he is on it for every 2 weeks. The patient is also on p.r.n. olanzapine. The patient is not exhibiting any side effects. The patient's lab reviewed. ASSESSMENT: 1. Schizoaffective disorder, bipolar type, mixed with psychotic features. 2. Anxiety disorder, unspecified. 3. Impulse control disorder, unspecified. PLAN: To continue with the current treatment plan. LUANN SIMON MD DR: JOSE MANUEL/jessica JOB#: [id number] / [id number]
[2019-03-07 06:09] VITALS: BP 133/75
[2019-03-07] MEDS: LACTOBACILLUS RHAMNOSUS GG 1 CAPSULE. PO SCH ×2 (09:02→21:06)
[2019-03-07] MEDS: risperiDONE 2 MG TABLET. PO SCH (09:02)
[2019-03-07] MEDS: VALPROATE ACID 250 MG/5 ML ORAL SOLUTION PO SCH ×3 (09:03→21:05)
--- NOTE | 2019-03-07 11:56 | NUR ---
Nursing note: Pt has spent the morning in the day room, participating in groups. He has been calm and compliant with his morning meds and assessment. He took his meds whole. No behaviors noted at this time.
[2019-03-07 16:21] VITALS: BP 144/78
--- NOTE | 2019-03-07 21:05 | NUR ---
Pt sitting in dayroom this evening. Pt pleasant and interactive with staff and other pts. Pt is compliant with medications whole. No behaviors noted at this time
[2019-03-07] MEDS: MIRTAZAPINE 7.5 MG TABLET. PO SCH (21:06)
[2019-03-07] MEDS: traZODone 50 MG TABLET. PO SCH (21:06)
--- NOTE | 2019-03-08 05:43 | PN ---
DATE: 03/07/2019 SUBJECTIVE: The patient was seen today, met with the staff, chart reviewed. The patient's behavior fluctuates. The patient is still refusing medications at times. The patient also agitated easily. OBSERVATION: VITAL SIGNS: Temperature 97.2, today blood pressure 133/75, pulse 83, respirations 20, O2 sat 95%. GENERAL: Slept about 8 hours last night. The patient's appetite is fair. MEDICATIONS: The patient's current medications include Risperdal 2 mg daily, trazodone 50 mg at night, mirtazapine 7.5 mg at night, Depakote 500 mg b.i.d. The patient is also on Risperdal 25 mg IM q. 2 weeks. The patient is also on p.r.n. olanzapine. The patient is not having any side effects. LABORATORY DATA: The patient's lab reviewed. ASSESSMENT: 1. Schizoaffective disorder, bipolar type, mixed with psychotic features. 2. Anxiety disorder, unspecified. 3. Impulse control disorder, unspecified. LUANN SIMON MD DR: JOSE MANUEL/jessica JOB#: [id number] / [id number]
[2019-03-08 05:59] VITALS: BP 146/80
[2019-03-08 06:52] LABS: BASO % 0 % (0-3); EOS # 0.1 x10^3/uL (0.0-0.7); EOS % 2 % (0-3); HEMATOCRIT 43.5 % (39.0-53.0); HEMOGLOBIN 14.4 g/dL (13.0-17.5); LYMPH # 1.7 x10^3/uL (1.0-4.8); LYMPH % 26 % (24-48); MEAN CORPUSCULAR HEMOGLOBIN 32 pg (25-35); MEAN CORPUSCULAR HGB CONC 33 g/dL (31-37); MEAN CORPUSCULAR VOLUME 96 fL (79-100); MONO # 0.7 x10^3/uL (0.0-1.1); MONO % 11 % (0-9); NEUT # 4.1 x10^3uL (1.8-7.7); NEUT % 62 % (31-73); PLATELET COUNT 127 x10^3/uL (140-400); RED BLOOD COUNT 4.53 x10^6/uL (4.30-5.70); RED CELL DISTRIBUTION WIDTH 13.1 % (11.5-14.5); WHITE BLOOD COUNT 6.6 x10^3/uL (4.0-11.0)
[2019-03-08 07:05] LABS: VAL ACID 84 mcg/mL (50-100)
[2019-03-08 07:06] LABS: ALBUMIN 3.2 g/dL (3.4-5.0); ALBUMIN/GLOBULIN RATIO 0.8 (1.0-1.7); CREATININE 0.8 mg/dL (0.7-1.3); GFR 93.7; TOTAL BILIRUBIN 0.3 mg/dL (0.2-1.0); TOTAL PROTEIN 7.4 g/dL (6.4-8.2)
[2019-03-08] MEDS: VALPROATE ACID 250 MG/5 ML ORAL SOLUTION PO SCH ×3 (08:13→20:05)
[2019-03-08] MEDS: LACTOBACILLUS RHAMNOSUS GG 1 CAPSULE. PO SCH ×2 (08:13→20:05)
[2019-03-08] MEDS: risperiDONE 2 MG TABLET. PO SCH (08:14)
--- NOTE | 2019-03-08 11:31 | NUR ---
Patient was in the dining room during morning rounding, took medications, allowed for morning assessment. Patient is a little anxious, mentioned wanting to leave and go home. Staff reminded him that it was up to the doctor on a discharge. Patient denies pain, will continue to monitor.
--- NOTE | 2019-03-08 12:47 | NUR ---
WEEKLY ACTIVITY THERAPY NOTE Date of Admission: 02/17/2019 Date of AT Assessment: 02/21/2019 Goal aimed: to increase attention/concentration and leisure awareness Initial goal: Pt. will participate in at least one Activity Therapy group per day. Weekly progress towards goal: achieved when two groups were offered Group participation level: Weekly highlights: headphones/ joanne redirection when hyper focused on Wednesday afternoon Behaviors observed: similar behaviors to last week Plan: no change to goal Beneficial adaptations: walking unit or use of Joanne. wireless headphones-[employer] music to help refocus, gross motor activities, invitation to groups
[2019-03-08 16:15] VITALS: BP 123/79
[2019-03-08] MEDS: MIRTAZAPINE 7.5 MG TABLET. PO SCH (20:05)
[2019-03-08] MEDS: traZODone 50 MG TABLET. PO SCH (20:05)
--- NOTE | 2019-03-08 23:21 | NUR ---
Pt sitting quietly in the day room at shift change. Pt calm and cooperative this evening, no agitation or delusions noted thus far this shift. Pt compliant with assessment and medications administered whole.
[2019-03-09 06:35] VITALS: BP 119/76
[2019-03-09] MEDS: LACTOBACILLUS RHAMNOSUS GG 1 CAPSULE. PO SCH ×2 (08:27→20:23)
[2019-03-09] MEDS: VALPROATE ACID 250 MG/5 ML ORAL SOLUTION PO SCH ×3 (08:28→20:23)
[2019-03-09] MEDS: risperiDONE 2 MG TABLET. PO SCH (08:28)
--- NOTE | 2019-03-09 08:35 | PN ---
DATE: 03/08/2019 SUBJECTIVE: The patient was seen today, met with the staff, chart reviewed. The patient's behavior remains the same, unpredictable behaviors, increased agitation, not able to follow directions, also refusing medications. The patient's Depakote level was 68. The patient continues to exhibit high level of anxiety. OBSERVATION: VITAL SIGNS: Temperature 97.3, blood pressure 146/80, pulse 79, respirations 20, O2 sat 98%. Slept about 4 hours last night. CURRENT MEDICATIONS: The patient's current medications include Risperdal 2 mg daily, trazodone 50 mg at night, mirtazapine 7.5 mg at night, Depakote 500 mg b.i.d. The patient is also on Risperdal Consta 25 mg IM q. 2 weeks. The patient is not having any side effects. ASSESSMENT: 1. Schizoaffective disorder, bipolar type, mixed with psychotic features. 2. Anxiety disorder, unspecified. 3. Impulse control disorder, unspecified. PLAN: To continue with the treatment. LUANN SIMON MD DR: JOSE MANUEL/jessica JOB#: [id number] / [id number]
--- NOTE | 2019-03-09 12:56 | NUR ---
Pt is calm, cooperative, compliant. No hallucinations. Pt is delusional that "a woman put me here and I'll have her investigated by the FBI." He is compliant with his medication and assessment.
[2019-03-09 16:20] VITALS: BP 136/83
[2019-03-09] MEDS: MIRTAZAPINE 7.5 MG TABLET. PO SCH (20:23)
[2019-03-09] MEDS: traZODone 50 MG TABLET. PO SCH (20:23)
--- NOTE | 2019-03-09 22:13 | NUR ---
Nursing note: Assumed care of pt in his room. He was pleasant, cooperative, and interactive. No c/o pain, no agitation, no hallucinations or delusions tonight. Pt was preparing to go to bed.
[2019-03-10 06:05] VITALS: BP 125/76
[2019-03-10] MEDS: VALPROATE ACID 250 MG/5 ML ORAL SOLUTION PO SCH ×3 (08:16→20:00)
[2019-03-10] MEDS: risperiDONE 2 MG TABLET. PO SCH (08:16)
[2019-03-10] MEDS: LACTOBACILLUS RHAMNOSUS GG 1 CAPSULE. PO SCH ×2 (08:16→20:00)
--- NOTE | 2019-03-10 11:11 | NUR ---
Nursing note: Pt was in the dining room for meds and assessment. He was compliant with taking his meds whole. He has had no behaviors this morning. Pt has been walking the halls and is currently in the day room.
--- NOTE | 2019-03-10 15:11 | PN ---
DATE: 03/09/2019 SUBJECTIVE: The patient was seen today, met with the staff, chart reviewed. The patient continues to be agitated easily, hyperverbal, constantly complaining. The patient apparently slept fairly well. OBSERVATION: VITAL SIGNS: Temperature 97.4, blood pressure 119/76, pulse 89, respirations 20, O2 sat 94%. Slept about 5-1/2 hours last night. The patient's appetite is fair. CURRENT MEDICATIONS: Include Risperdal 2 mg daily, trazodone 50 mg at night, mirtazapine 7.5 mg at night, Depakote 500 mg b.i.d. The patient is also on Risperdal Consta 25 mg IM every 2 weeks. The patient has no major side effects. LABORATORY DATA: The patient's lab reviewed. ASSESSMENT: 1. Schizoaffective disorder, bipolar type with psychotic features. 2. Anxiety disorder, unspecified. 3. Impulse-control disorder, unspecified. PLAN: To continue with the treatment. LUANN SIMON MD DR: JOSE MANUEL/jesisca JOB#: [id number] / [id number]
[2019-03-10 17:16] VITALS: BP 145/75
[2019-03-10] MEDS: traZODone 50 MG TABLET. PO SCH (20:01)
[2019-03-10] MEDS: MIRTAZAPINE 7.5 MG TABLET. PO SCH (20:01)
--- NOTE | 2019-03-10 21:36 | NUR ---
Nursing note: Assumed care of pt in the day room. He was quiet and withdrawn, not talking or interacting with anyone. He was compliant with meds in juice. No c/o pain, no behaviors.
--- NOTE | 2019-03-11 02:14 | PN ---
DATE: 03/10/2019 SUBJECTIVE: The patient was seen today, met with the staff, chart reviewed. The patient apparently slept well last night. Continues to be demanding, hyperverbal at times, resistive to care and also difficult to redirect. OBSERVATION: VITAL SIGNS: Temperature 97.8, blood pressure 125/76, pulse 80, respirations 20, O2 sat 96%. GENERAL: Slept about 6 hours last night. The patient's appetite is fair. MEDICATIONS: The patient's current medications include Risperdal 2 mg daily, trazodone 50 mg at night, mirtazapine 7.5 mg at night, Depakote 500 mg b.i.d. and Risperdal Consta 25 mg IM q.2 weeks. The patient is not having any side effects to medications. LABORATORY DATA: The patient's lab reviewed. ASSESSMENT: 1. Schizoaffective disorder, bipolar type, with psychotic features. 2. Anxiety disorder, unspecified. 3. Impulse control disorder, unspecified. PLAN: To continue with the treatment. LUANN SIMON MD DR: JOSE MANUEL/jessica JOB#: [id number] / [id number]
[2019-03-11 05:21] VITALS: BP 143/82
[2019-03-11] MEDS: VALPROATE ACID 250 MG/5 ML ORAL SOLUTION PO SCH ×3 (08:20→20:07)
[2019-03-11] MEDS: risperiDONE 2 MG TABLET. PO SCH (08:20)
[2019-03-11] MEDS: LACTOBACILLUS RHAMNOSUS GG 1 CAPSULE. PO SCH ×2 (08:20→20:06)
[2019-03-11 15:48] VITALS: BP 157/71
--- NOTE | 2019-03-11 16:38 | NUR ---
Has been calm and cooperative with all cares today. Social with peers, caretaking room mate at times. Seated in dayroom when not eating meals. Hyper verbal at times, and difficult to understand, A & O X3, asking when he can go home.
[2019-03-11] MEDS: hydrOXYzine HCL 25 MG TABLET PO PRN (17:28)
--- NOTE | 2019-03-11 17:43 | NUR ---
After 16:00 began slowly escalating, hyper verbal, talking about "what do I need to do to get out of here?" During supper, in dining room, got loud and talking about getting a extrusion operator Took PO pills of Zyprexa and Atarax without hesitation. Has been med compliant today.
[2019-03-11] MEDS: MIRTAZAPINE 7.5 MG TABLET. PO SCH (20:06)
[2019-03-11] MEDS: traZODone 50 MG TABLET. PO SCH (20:07)
--- NOTE | 2019-03-11 21:18 | NUR ---
Nursing note: Assumed care of pt in his room. He was sleeping but easily awakened. He was pleasant and compliant taking his meds in juice. No agitation, delusions, or hallucinations at this time. No c/o pain. Pt got up to restroom then to day room for a snack.
[2019-03-12 07:18] VITALS: BP 134/84
[2019-03-12] MEDS: risperiDONE 2 MG TABLET. PO SCH (08:20)
[2019-03-12] MEDS: VALPROATE ACID 250 MG/5 ML ORAL SOLUTION PO SCH ×3 (08:20→21:21)
[2019-03-12] MEDS: LACTOBACILLUS RHAMNOSUS GG 1 CAPSULE. PO SCH ×2 (08:21→21:21)
[2019-03-12 15:45] VITALS: BP 138/85
--- NOTE | 2019-03-12 16:01 | NUR ---
Has been totally compliant with all medications, both whole pills and liquid Depakene. Behavior has been appropriate today, speech difficult to understand at times, but no ranting or agitation. visiting now at 16:00.
--- NOTE | 2019-03-12 17:48 | NUR ---
Visit from caused pt. to escalate and became agitated. Continues to have fixed delusion that she is cheating on him and wants to divorce her. He did take PO PRN's without hesitation in her presence. I asked her to come to hallway while we talked. She stated they had been for 58 years and had 3 sons, 2 of which have given up on their dad, one is still close. She also said "I hope everyone doesn't believe everything he's been saying about me". She is 77 y.o. and states Robby has only been to her. I witnessed him talking about 3 wives and ranting on about unfactual delusions. She stated if he does not take his meds he will not be able to return home because she can not handle him like this anymore. Reports he has been in many previous psych facilities in the past 30 years. She also states he is worse now than she has ever seen him. She was hoping this visit could get his medications regulated so he could be improved and return home. Stated she had talked to [facility] once and was awaiting her return call. was also concerned about how long the insurance would pay for his hospitalization. Robby ate his dinner in dining room after she left 10 minutes early and did not talk about her anymore after she left. Now in dayroom, awake, compliant with staff and seated with peers.
--- NOTE | 2019-03-12 18:31 | PN ---
DATE: 03/12/2019 SUBJECTIVE: The patient was seen today, met with the staff, chart reviewed. The patient's behavior has improved. Still confused, but no major behavior problems. Apparently, he is compliant with the treatment taking his medications. OBSERVATION: VITAL SIGNS: Temperature 97.8, blood pressure 134/84, pulse 70, respirations 21, O2 sat 96%. GENERAL: Slept about 5 hours last night. The patient's appetite improved. MEDICATIONS: Risperdal 2 mg daily, trazodone 50 mg at night, mirtazapine 7.5 mg at night, Depakote 500 mg b.i.d., and Risperdal Consta 25 mg IM q. 2 weeks. The patient denies of any side effects. LABORATORY DATA: The patient's lab reviewed. ASSESSMENT: 1. Schizoaffective disorder, bipolar type, with psychotic features. 2. Anxiety disorder, unspecified. 3. Impulse control disorder, unspecified. PLAN: To continue with the treatment. LUANN SIMON MD DR: JOSE MANUEL/jessica JOB#: [id number] / [id number]
[2019-03-12] MEDS: MIRTAZAPINE 7.5 MG TABLET. PO SCH (21:21)
[2019-03-12] MEDS: traZODone 50 MG TABLET. PO SCH (21:21)
--- NOTE | 2019-03-12 22:35 | PDOC ---
Exam Note: Preston Note: Please also refer to the separate dictated note~for this date of service dictated separately.~Patient seen individually. Discussed the patient with Nursing staff reviewed the chart.~Reviewed interim history and current functioning. Reviewed vital signs,~Labs/ Radiology~and current medications noted below. Continue current treatment with the changes noted in the dictated addendum note Assessment: Vital Signs/I&O: Vital Signs Date Time Temp Pulse Resp B/P (MAP) Pulse Ox O2 Delivery O2 Flow Rate FiO2 03/12/19 15:45 98.0 83 20 138/85 (102) 97 03/12/19 07:18 BiPAP/CPAP I & O 03/11/19 03/11/19 03/12/19 15:00 23:00 07:00 Intake Total 1200 ml 240 ml Balance 1200 ml 240 ml Current Medications: I have reviewed the current psychotropics carefully including drug interactions. Risk benefit ratio favors no change other than as noted in my dictated progress note. Diagnosis: Problems: (1) Schizoaffective disorder (2) Anxiety disorder (3) Bipolar affective, mixed, sev w/ psych (4) Impulse control disorder (5) Schizophrenia, paranoid, chronic with acute exacerbation (6) Schizoaffective disorder, bipolar type ARABELLA PEACE MD Mar 12, 2019 22:35
--- NOTE | 2019-03-13 02:14 | NUR ---
Nursing Note The patient was calm and compliant with his medication and assessment. The patient took his medication whole. The patient stated that he would only take his medication at home if it didn't cost "$54." The patient is currently sleeping in his room.
--- NOTE | 2019-03-13 04:14 | PDOC ---
Exam Note: Preston Note: Note: Dr. Peace was to see the patient on 03/12/[address] Loera continued coverage on the patient for 03/12/2019 and the note written was an error and should be disregarded. Please also refer to the separate dictated note~for this date of service dictated separately.~Patient seen individually. Discussed the patient with Nursing staff reviewed the chart.~Reviewed interim history and current functioning. Reviewed vital signs,~Labs/ Radiology~and current medications noted below. Continue current treatment with the changes noted in the dictated addendum note Assessment: Vital Signs/I&O: Vital Signs Date Time Temp Pulse Resp B/P (MAP) Pulse Ox O2 Delivery O2 Flow Rate FiO2 03/12/19 15:45 98.0 83 20 138/85 (102) 97 03/12/19 07:18 BiPAP/CPAP I & O 03/12/19 03/12/19 03/13/19 15:00 23:00 07:00 Intake Total 840 ml 480 ml 100 ml Balance 840 ml 480 ml 100 ml Current Medications: I have reviewed the current psychotropics carefully including drug interactions. Risk benefit ratio favors no change other than as noted in my dictated progress note. Diagnosis: Problems: (1) Schizoaffective disorder (2) Anxiety disorder (3) Bipolar affective, mixed, sev w/ psych (4) Impulse control disorder (5) Schizophrenia, paranoid, chronic with acute exacerbation (6) Schizoaffective disorder, bipolar type ARABELLA PEACE MD Mar 13, 2019 04:14
[2019-03-13 06:20] VITALS: BP 124/75
[2019-03-13] MEDS: LACTOBACILLUS RHAMNOSUS GG 1 CAPSULE. PO SCH ×2 (09:12→20:58)
[2019-03-13] MEDS: VALPROATE ACID 250 MG/5 ML ORAL SOLUTION PO SCH ×3 (09:12→20:58)
[2019-03-13] MEDS: risperiDONE 2 MG TABLET. PO SCH (09:12)
--- NOTE | 2019-03-13 11:37 | NUR ---
Nursing note: Pt was in the day room for meds and assessment. He was calm and compliant and took his meds whole. He participated in group this morning Later this morning he did become anxious and hyperverbal. He was delusional stating, "we need to call law enforcement and my haul truck driver because nothing is being done in these meetings." He has come up to this nurse several times, continues to be hyperverbal and delusional, making statements regarding $3000. Pt was given karen to listen to music, which has been effective. PRN not given at this time. He is currently in the day room. Will continue to monitor.
[2019-03-13 16:23] VITALS: BP 120/74
[2019-03-13] MEDS: traZODone 50 MG TABLET. PO SCH (20:58)
[2019-03-13] MEDS: MIRTAZAPINE 7.5 MG TABLET. PO SCH (20:58)
--- NOTE | 2019-03-13 21:55 | PDOC ---
Exam Note: Preston Note: Please also refer to the separate dictated note~for this date of service dictated separately.~Patient seen individually. Discussed the patient with Nursing staff reviewed the chart.~Reviewed interim history and current functioning. Reviewed vital signs,~Labs/ Radiology~and current medications noted below. Continue current treatment with the changes noted in the dictated addendum note Assessment: Vital Signs/I&O: Vital Signs Date Time Temp Pulse Resp B/P (MAP) Pulse Ox O2 Delivery O2 Flow Rate FiO2 03/13/19 16:23 97.4 80 16 120/74 (89) 97 03/13/19 06:20 Room Air I & O 03/12/19 03/12/19 03/13/19 14:59 22:59 06:59 Intake Total 840 ml 480 ml 100 ml Balance 840 ml 480 ml 100 ml Current Medications: I have reviewed the current psychotropics carefully including drug interactions. Risk benefit ratio favors no change other than as noted in my dictated progress note. Diagnosis: Problems: (1) Schizoaffective disorder (2) Anxiety disorder (3) Bipolar affective, mixed, sev w/ psych (4) Impulse control disorder (5) Schizophrenia, paranoid, chronic with acute exacerbation (6) Schizoaffective disorder, bipolar type ARABELLA PEACE MD Mar 13, 2019 21:55
--- NOTE | 2019-03-14 00:34 | NUR ---
Nursing Note The patient was located in his room for his medication and assessment. The patient took his medication whole. The patient is currently sleeping in his room.
[2019-03-14 06:33] VITALS: BP 145/83
[2019-03-14 06:43] LABS: BASO % 0 % (0-3); EOS # 0.1 x10^3/uL (0.0-0.7); EOS % 2 % (0-3); HEMATOCRIT 43.3 % (39.0-53.0); HEMOGLOBIN 14.4 g/dL (13.0-17.5); LYMPH # 1.4 x10^3/uL (1.0-4.8); LYMPH % 24 % (24-48); MEAN CORPUSCULAR HEMOGLOBIN 32 pg (25-35); MEAN CORPUSCULAR HGB CONC 33 g/dL (31-37); MEAN CORPUSCULAR VOLUME 96 fL (79-100); MONO # 0.7 x10^3/uL (0.0-1.1); MONO % 11 % (0-9); NEUT # 3.8 x10^3uL (1.8-7.7); NEUT % 63 % (31-73); PLATELET COUNT 111 x10^3/uL (140-400); RED BLOOD COUNT 4.52 x10^6/uL (4.30-5.70); RED CELL DISTRIBUTION WIDTH 13.3 % (11.5-14.5)
[2019-03-14 06:57] LABS: ALBUMIN/GLOBULIN RATIO 0.8 (1.0-1.7); CALCIUM 8.8 mg/dL (8.5-10.1); CREATININE 0.8 mg/dL (0.7-1.3); GFR 93.7; POTASSIUM 4.3 mmol/L (3.5-5.1); TOTAL BILIRUBIN 0.2 mg/dL (0.2-1.0)
[2019-03-14] MEDS: LACTOBACILLUS RHAMNOSUS GG 1 CAPSULE. PO SCH ×2 (09:27→19:42)
[2019-03-14] MEDS: VALPROATE ACID 250 MG/5 ML ORAL SOLUTION PO SCH ×3 (09:27→19:42)
[2019-03-14] MEDS: risperiDONE 0.5 MG TABLET. PO SCH (09:27)
[2019-03-14] MEDS: risperiDONE 2 MG TABLET. PO SCH (09:28)
--- NOTE | 2019-03-14 12:28 | NUR ---
Nursing note: Pt was in the day room for meds and assessment. He was calm and compliant with taking his meds whole. He participated in group and has spent most of the morning in they Addendum: 03/14/19 at 1233 by MARTINEZ EPPERSON RN RN day room. He is currently in his bedroom following lunch. He has had no behaviors this morning.
[2019-03-14 15:59] VITALS: BP 147/73
[2019-03-14] MEDS: MIRTAZAPINE 7.5 MG TABLET. PO SCH (19:42)
[2019-03-14] MEDS: traZODone 50 MG TABLET. PO SCH (19:42)
--- NOTE | 2019-03-14 21:33 | NUR ---
Nursing note: Assumed care of pt in his room. He was sleeping but easily awakened. He was pleasant and cooperative. No c/o pain. no agitation, hallucinations or delusions at this time. A&OX3
--- NOTE | 2019-03-14 21:56 | PDOC ---
Exam Note: Preston Note: Please also refer to the separate dictated note~for this date of service dictated separately.~Patient seen individually. Discussed the patient with Nursing staff reviewed the chart.~Reviewed interim history and current functioning. Reviewed vital signs,~Labs/ Radiology~and current medications noted below. Continue current treatment with the changes noted in the dictated addendum note Assessment: Vital Signs/I&O: Vital Signs Date Time Temp Pulse Resp B/P (MAP) Pulse Ox O2 Delivery O2 Flow Rate FiO2 03/14/19 15:59 97.5 80 18 147/73 (97) 97 03/13/19 06:20 Room Air I & O 03/13/19 03/13/19 03/14/19 14:59 22:59 06:59 Intake Total 1440 ml 240 ml 120 ml Balance 1440 ml 240 ml 120 ml Labs: Laboratory Tests Test 03/14/19 06:26 White Blood Count 6.0 x10^3/uL (4.0-11.0) Red Blood Count 4.52 x10^6/uL (4.30-5.70) Hemoglobin 14.4 g/dL (13.0-17.5) Hematocrit 43.3 % (39.0-53.0) Mean Corpuscular Volume 96 fL (79-100) Mean Corpuscular Hemoglobin 32 pg (25-35) Mean Corpuscular Hemoglobin Concent 33 g/dL (31-37) Red Cell Distribution Width 13.3 % (11.5-14.5) Platelet Count 111 x10^3/uL (140-400) L Neutrophils (%) (Auto) 63 % (31-73) Lymphocytes (%) (Auto) 24 % (24-48) Monocytes (%) (Auto) 11 % (0-9) H Eosinophils (%) (Auto) 2 % (0-3) Basophils (%) (Auto) 0 % (0-3) Neutrophils # (Auto) 3.8 x10^3uL (1.8-7.7) Lymphocytes # (Auto) 1.4 x10^3/uL (1.0-4.8) Monocytes # (Auto) 0.7 x10^3/uL (0.0-1.1) Eosinophils # (Auto) 0.1 x10^3/uL (0.0-0.7) Basophils # (Auto) 0.0 x10^3/uL (0.0-0.2) Sodium Level 143 mmol/L (136-145) Potassium Level 4.3 mmol/L (3.5-5.1) Chloride Level 104 mmol/L (98-107) Carbon Dioxide Level 34 mmol/L (21-32) H Anion Gap 5 (6-14) L Blood Urea Nitrogen 16 mg/dL (8-26) Creatinine 0.8 mg/dL (0.7-1.3) Estimated GFR (Cockcroft-Gault) 93.7 BUN/Creatinine Ratio 20 (6-20) Glucose Level 86 mg/dL (70-99) Calcium Level 8.8 mg/dL (8.5-10.1) Total Bilirubin 0.2 mg/dL (0.2-1.0) Aspartate Amino Transferase (AST) 13 U/L (15-37) L Alanine Aminotransferase (ALT) 16 U/L (16-63) Alkaline Phosphatase 71 U/L (46-116) Total Protein 7.0 g/dL (6.4-8.2) Albumin 3.0 g/dL (3.4-5.0) L Albumin/Globulin Ratio 0.8 (1.0-1.7) L Current Medications: Meds: Current Medications Medications (Trade) Dose Ordered Sig/Otto Route PRN Reason Start Time Stop Time Status Last Admin Dose Admin Risperidone (RisperDAL) 2 mg DAILY PO 03/14/19 09:00 03/14/19 09:28 Risperidone (RisperDAL) 0.5 mg DAILY PO 03/14/19 09:00 03/14/19 09:27 I have reviewed the current psychotropics carefully including drug interactions. Risk benefit ratio favors no change other than as noted in my dictated progress note. Diagnosis: Problems: (1) Anxiety disorder (2) Bipolar affective, mixed, sev w/ psych (3) Impulse control disorder (4) Schizophrenia, paranoid, chronic with acute exacerbation (5) Schizoaffective disorder, bipolar type ARABELLA PEACE MD Mar 14, 2019 21:56
--- NOTE | 2019-03-15 04:22 | PN ---
DATE: 03/13/2019 PSYCHIATRIC PROGRESS NOTE This late entry 03/13/2019 covers the elements not covered in my initial note. SUBJECTIVE: I met with the patient in the evening of 03/13/2019. Reviewed information from Dr. Loera regarding his coverage of the patient during my absence over the past 1 week. The patient slept 6-1/4 hours previous night. He is difficult to understand with some slurred speech, pressured speech, increasingly agitated in the morning. He gets worse after his visits. He is obsessed that he will not to take his psychotropics once he is discharged because of the cost. We will have social service staff looked into this. REVIEW OF SYSTEMS: No CV, , pulmonary, eye, ENT system symptoms on review. Reliability poor. MENTAL STATUS EXAM: Oriented to himself and situation. Speech as above. Abstraction fair, computation impaired, language function intact. Short term memory is impaired. Mood and affect remain somewhat anxious, labile, somewhat paranoid. LABORATORY DATA: Reviewed. IMPRESSION: Schizoaffective disorder, bipolar type, mixed with psychotic features; anxiety disorder, unspecified; mild cognitive impairment, impulse control disorder. Rest unchanged. PLAN: Increase Risperdal from 2 mg daily to 2.5 mg daily. Maintain Depakene, Risperdal Consta, Zyprexa p.r.n., Remeron, trazodone for now. ARABELLA PEACE MD DR: WHITNEY/jessica JOB#: [id number] / [id number]
[2019-03-15 05:44] VITALS: BP 166/89
[2019-03-15] MEDS: risperiDONE 0.5 MG TABLET. PO SCH (09:56)
[2019-03-15] MEDS: LACTOBACILLUS RHAMNOSUS GG 1 CAPSULE. PO SCH ×2 (09:56→20:12)
[2019-03-15] MEDS: risperiDONE 2 MG TABLET. PO SCH (09:56)
[2019-03-15] MEDS: VALPROATE ACID 250 MG/5 ML ORAL SOLUTION PO SCH ×3 (09:56→20:14)
--- NOTE | 2019-03-15 13:04 | NUR ---
Nursing note: Pt was in the day room for his morning meds and assessment. He was calm and compliant with taking his meds whole. He spent the morning in the day room reading a magazine and is currently in the day room for group. He has had no agitation or behaviors today.
--- NOTE | 2019-03-15 14:50 | NUR ---
Nursing note: Pt was becoming anxious and agitated in response to another pt's behaviors. A PRN Zyprexa was given @ 4594. Will continue to monitor.
[2019-03-15 17:03] VITALS: BP 137/83
[2019-03-15] MEDS: traZODone 50 MG TABLET. PO SCH (20:13)
[2019-03-15] MEDS: MIRTAZAPINE 7.5 MG TABLET. PO SCH (20:13)
--- NOTE | 2019-03-15 21:50 | PDOC ---
Exam Note: Preston Note: Please also refer to the separate dictated note~for this date of service dictated separately.~Patient seen individually. Discussed the patient with Nursing staff reviewed the chart.~Reviewed interim history and current functioning. Reviewed vital signs,~Labs/ Radiology~and current medications noted below. Continue current treatment with the changes noted in the dictated addendum note Assessment: Vital Signs/I&O: Vital Signs Date Time Temp Pulse Resp B/P (MAP) Pulse Ox O2 Delivery O2 Flow Rate FiO2 03/15/19 17:03 97.1 79 18 137/83 (101) 99 03/13/19 06:20 Room Air I & O 03/14/19 03/14/19 03/15/19 15:00 23:00 07:00 Intake Total 960 ml 600 ml Balance 960 ml 600 ml Current Medications: I have reviewed the current psychotropics carefully including drug interactions. Risk benefit ratio favors no change other than as noted in my dictated progress note. Diagnosis: Problems: (1) Schizoaffective disorder (2) Anxiety disorder (3) Bipolar affective, mixed, sev w/ psych (4) Impulse control disorder (5) Schizophrenia, paranoid, chronic with acute exacerbation (6) Schizoaffective disorder, bipolar type ARABELLA PEACE MD Mar 15, 2019 21:50
--- NOTE | 2019-03-15 23:12 | NUR ---
Nursing note: Assumed care of pt in his room. He was sleeping but woke easily. He was compliant and pleasant. No c/o pain, hallucinations, or delusions. A&OX4.
--- NOTE | 2019-03-16 | PN ---
DATE: 03/14/2019 PSYCHIATRIC PROGRESS NOTE. This late entry 03/14/2019 covers the elements not covered in my initial note. SUBJECTIVE: I met with the patient in the evening of 03/14/2019. Per PRETTY Joseph, the patient slept 5-1/2 hours previous night. He has been calm, compliant with less pressure of speech, easier to understand, compliant with medications, less psychotic. He was talking about wanting to be discharged. I addressed this with him at length. REVIEW OF SYSTEMS: No CV, , pulmonary, eye system symptoms on review. MENTAL STATUS EXAM: Oriented to himself and situation. Speech as above. Abstraction fair, computation impaired, language function intact. Mood and affect, somewhat anxious, at times withdrawn. LABORATORY DATA: Reviewed. IMPRESSION: Unchanged from initial note. PLAN: No change from initial note. MAN Barrera PEACE MD DR: WHITNEY/jessica JOB#: [id number] / [id number]
[2019-03-16 06:37] VITALS: BP 127/76
[2019-03-16] MEDS: LACTOBACILLUS RHAMNOSUS GG 1 CAPSULE. PO SCH ×2 (08:34→21:14)
[2019-03-16] MEDS: risperiDONE 0.5 MG TABLET. PO SCH (08:34)
[2019-03-16] MEDS: risperiDONE 2 MG TABLET. PO SCH (08:34)
[2019-03-16] MEDS: VALPROATE ACID 250 MG/5 ML ORAL SOLUTION PO SCH ×3 (08:35→21:14)
--- NOTE | 2019-03-16 10:48 | NUR ---
WEEKLY ACTIVITY THERAPY NOTE Date of Admission: 02/17/2019 Date of AT Assessment: 02/21/2019 Goal aimed: to increase attention/concentration and leisure awareness Initial goal: Pt. will participate in at least one Activity Therapy group per day. Weekly progress towards goal: did not achieve, three groups this week Group participation level: varied Weekly highlights: headphones/ joanne redirection Behaviors observed: similar to previous weeks: anxious, walking halls, difficulty sitting still for long, rambling Plan: no change to goal Beneficial adaptations: walking unit or use of Joanne. wireless [email or web address] music to help refocus, gross motor activities, invitation to groups
--- NOTE | 2019-03-16 15:40 | NUR ---
WEEKLY NOTE: Pt is eating 100% and sleeping 6 hours per night. Pt is compliant with medications and cares. Pt is pleasant and somewhat confused; but shows some irritability re: when he is able to discharge. SW has sent out referrals for respite as a step-down program and has been declined. [facility]ESS will send out a few more; in the event that pt cannot find respite, pt may have to discharge home with a safety hotline call to [facility].
[2019-03-16 16:26] VITALS: BP 151/87
--- NOTE | 2019-03-16 18:45 | NUR ---
Patient has been mostly calm, compliant , and cooperative today. He spent most of his time in the day room reading. He occasionally came up to the nurses' station to give a speech on how he wants a student counsellor because he was being held against his will or to rant about his . He did this much less than he has in the past, but his speech is still very garbled and difficult to understand at times. Will continue to monitor and report to oncoming shift.
[2019-03-16] MEDS: traZODone 50 MG TABLET. PO SCH (21:14)
[2019-03-16] MEDS: MIRTAZAPINE 7.5 MG TABLET. PO SCH (21:14)
--- NOTE | 2019-03-16 21:15 | PDOC ---
Exam Note: Preston Note: Please also refer to the separate dictated note~for this date of service dictated separately.~Patient seen individually. Discussed the patient with Nursing staff reviewed the chart.~Reviewed interim history and current functioning. Reviewed vital signs,~Labs/ Radiology~and current medications noted below. Continue current treatment with the changes noted in the dictated addendum note Assessment: Vital Signs/I&O: Vital Signs Date Time Temp Pulse Resp B/P (MAP) Pulse Ox O2 Delivery O2 Flow Rate FiO2 03/16/19 16:26 98.1 91 16 151/87 (108) 96 Room Air I & O 03/15/19 03/15/19 03/16/19 15:00 23:00 07:00 Intake Total 840 ml 240 ml Output Total 100 ml Balance 840 ml 240 ml -100 ml Current Medications: I have reviewed the current psychotropics carefully including drug interactions. Risk benefit ratio favors no change other than as noted in my dictated progress note. Diagnosis: Problems: (1) Schizoaffective disorder (2) Anxiety disorder (3) Bipolar affective, mixed, sev w/ psych (4) Impulse control disorder (5) Schizophrenia, paranoid, chronic with acute exacerbation (6) Schizoaffective disorder, bipolar type ARABELLA PEACE MD Mar 16, 2019 21:15
[2019-03-17 06:32] VITALS: BP 132/81
[2019-03-17] MEDS: LACTOBACILLUS RHAMNOSUS GG 1 CAPSULE. PO SCH (08:16)
[2019-03-17] MEDS: risperiDONE 0.5 MG TABLET. PO SCH (08:16)
[2019-03-17] MEDS: risperiDONE 2 MG TABLET. PO SCH (08:16)
[2019-03-17] MEDS: VALPROATE ACID 250 MG/5 ML ORAL SOLUTION PO SCH ×3 (08:18→21:00)
--- NOTE | 2019-03-17 12:55 | NUR ---
JESS escorted pt out to see how their visit went. Pt shook her head and felt that he wasn't much better than she sent him in. She is hopefully that JESS is able to find a step-down program as she cannot care for pt. JESS informed pt that she may need to consider this a permanent thing, in which she remains that after the step-down program she would like for pt to return home. JESS is continuing to sent out referrals and will update pt when possible.
[2019-03-17 15:55] VITALS: BP 146/83
--- NOTE | 2019-03-17 18:55 | PN ---
DATE: 03/15/2019 PSYCHIATRIC PROGRESS NOTE This late entry 03/15/2019 covers the elements not covered in my initial note. SUBJECTIVE: I met with the patient in the evening of 03/15/2019. Per PRETTY Garcia, the patient slept 7-3/4 hours previous night. He is compliant with his medications, less wandering less agitated, less pressured speech, paranoia is better as well, though minimally. He received Zyprexa at 1431 due to agitation, due to another female demented patient, but then did better after that. REVIEW OF SYSTEMS: No CV, , pulmonary, eye system symptoms on review. MENTAL STATUS EXAM: Oriented to himself and situation. Speech is less pressured, easier to understand. Abstraction fair, computation impaired, language function intact, attention span short. Mood and affect remain somewhat anxious, labile, but improved. LABORATORY DATA: Reviewed. IMPRESSION: Unchanged from initial note. PLAN: No change from initial note. MAN Barrera PEACE MD DR: WHITNEY/jessica JOB#: [id number] / [id number]
--- NOTE | 2019-03-17 19:52 | PN ---
DATE: 03/16/2019 PSYCHIATRIC PROGRESS NOTE This late entry 03/16/2019 covers elements not covered in my initial note. SUBJECTIVE: I met with the patient evening of 03/16/2019 and staffed at a treatment team meeting with the entire team in the morning. The patient slept 6-1/4 hours previous night. He is less paranoid, more compliant with medications. We had a lengthy discussion about ensuring compliance with his meds post-discharge since the is insistent on having him home and he has failed this 2 or 3 times in the past due to noncompliance. REVIEW OF SYSTEMS: No CV, , pulmonary, eye system symptoms on review. MENTAL STATUS EXAM: Oriented to himself and situation. Speech is less pressured. Abstraction fair, computation impaired, language function intact. Less paranoid. No active suicidal or homicidal ideation. LABORATORY DATA: Reviewed. IMPRESSION: Schizoaffective disorder, bipolar type, mixed with psychotic features. Rest unchanged. PLAN: No change from initial note. MAN Barrera PEACE MD DR: WHITNEY/jessica JOB#: [id number] / [id number]
[2019-03-17] MEDS: MIRTAZAPINE 7.5 MG TABLET. PO SCH (21:00)
[2019-03-17] MEDS: traZODone 50 MG TABLET. PO SCH (21:00)
--- NOTE | 2019-03-17 21:39 | PDOC ---
Exam Note: Preston Note: Please also refer to the separate dictated note~for this date of service dictated separately.~Patient seen individually. Discussed the patient with Nursing staff reviewed the chart.~Reviewed interim history and current functioning. Reviewed vital signs,~Labs/ Radiology~and current medications noted below. Continue current treatment with the changes noted in the dictated addendum note Assessment: Vital Signs/I&O: Vital Signs Date Time Temp Pulse Resp B/P (MAP) Pulse Ox O2 Delivery O2 Flow Rate FiO2 03/17/19 15:55 97.8 81 20 146/83 (104) 100 03/17/19 06:32 Room Air I & O 03/16/19 03/16/19 03/17/19 15:00 23:00 07:00 Intake Total 720 ml 360 ml 240 ml Balance 720 ml 360 ml 240 ml Current Medications: I have reviewed the current psychotropics carefully including drug interactions. Risk benefit ratio favors no change other than as noted in my dictated progress note. Diagnosis: Problems: (1) Schizoaffective disorder (2) Anxiety disorder (3) Bipolar affective, mixed, sev w/ psych (4) Impulse control disorder (5) Schizophrenia, paranoid, chronic with acute exacerbation (6) Schizoaffective disorder, bipolar type ARABELLA PEACE MD Mar 17, 2019 21:39
--- NOTE | 2019-03-18 02:24 | NUR ---
Pt has been in his room most of this shift. He would occasionally walk in [place] or go to day room. He took his meds without issue while in his garbled speech he was saying this is such a farce and something about someone being switched years ago. He has been calm and cooperative.
[2019-03-18 06:25] VITALS: BP 121/78
[2019-03-18] MEDS: VALPROATE ACID 250 MG/5 ML ORAL SOLUTION PO SCH ×3 (08:50→19:32)
[2019-03-18] MEDS: risperiDONE 2 MG TABLET. PO SCH (08:50)
[2019-03-18] MEDS: risperiDONE 0.5 MG TABLET. PO SCH (08:50)
--- NOTE | 2019-03-18 12:24 | NUR ---
Calm and compliant, out in day room if not at meals. Garbled speech, at breakfast talking about 1776, and laughing. He seems oblivious to conversation but continues to ramble. Calm and cooperative with cares and meds.
[2019-03-18 16:44] VITALS: BP 124/74
[2019-03-18] MEDS: MIRTAZAPINE 7.5 MG TABLET. PO SCH (19:31)
[2019-03-18] MEDS: traZODone 50 MG TABLET. PO SCH (19:31)
--- NOTE | 2019-03-18 21:38 | NUR ---
Nursing note: Assumed care of pt in the day room. He was sitting quietly watching tv, not interacting with peers at this time. He was pleasant and compliant, no rambling, no hallucinations, no delusions evident. No c/o pain. A&OX4
--- NOTE | 2019-03-18 23:27 | PDOC ---
Exam Note: Preston Note: Please also refer to the separate dictated note~for this date of service dictated separately.~Patient seen individually. Discussed the patient with Nursing staff reviewed the chart.~Reviewed interim history and current functioning. Reviewed vital signs,~Labs/ Radiology~and current medications noted below. Continue current treatment with the changes noted in the dictated addendum note Assessment: Vital Signs/I&O: Vital Signs Date Time Temp Pulse Resp B/P (MAP) Pulse Ox O2 Delivery O2 Flow Rate FiO2 03/18/19 16:44 97.4 83 18 124/74 (91) 95 03/18/19 06:25 Room Air I & O 03/17/19 03/17/19 03/18/19 15:00 23:00 07:00 Intake Total 1200 ml 240 ml 240 ml Balance 1200 ml 240 ml 240 ml Current Medications: I have reviewed the current psychotropics carefully including drug interactions. Risk benefit ratio favors no change other than as noted in my dictated progress note. Diagnosis: Problems: (1) Schizoaffective disorder (2) Anxiety disorder (3) Bipolar affective, mixed, sev w/ psych (4) Impulse control disorder (5) Schizophrenia, paranoid, chronic with acute exacerbation (6) Schizoaffective disorder, bipolar type ARABELLA PEACE MD Mar 18, 2019 23:27
[2019-03-19 05:50] VITALS: BP 122/77
[2019-03-19] MEDS: risperiDONE 2 MG TABLET. PO SCH (08:26)
[2019-03-19] MEDS: VALPROATE ACID 250 MG/5 ML ORAL SOLUTION PO SCH ×3 (08:26→20:09)
[2019-03-19] MEDS: risperiDONE 0.5 MG TABLET. PO SCH (08:26)
--- NOTE | 2019-03-19 11:36 | NUR ---
Pt. greeted me upon arrival, he was ambulating halls and stated very clearly "I need to get my exercise". Took pills and liquid meds without hesitation. Speech hyperverbal and difficult to understand at breakfast. Participated in a.m. group. Will continue to monitor torin care as needed to prevent breakdown, as pt. is independent in toileting but not cleaning self well.
--- NOTE | 2019-03-19 15:29 | NUR ---
Pt. took a brief nap around 14:00, awoke then given scheduled meds, also had slightly elevated temp 99.1, given PRN tylenol and PRN Zyprexa. Noted drooling while seated in dayroom, talking non stop to himself. Compliant and pleasant with medical delivery technician.
[2019-03-19 16:21] VITALS: BP 129/76
[2019-03-19] MEDS: MIRTAZAPINE 7.5 MG TABLET. PO SCH (20:08)
[2019-03-19] MEDS: traZODone 50 MG TABLET. PO SCH (20:08)
--- NOTE | 2019-03-19 21:55 | PDOC ---
Exam Note: Preston Note: Please also refer to the separate dictated note~for this date of service dictated separately.~Patient seen individually. Discussed the patient with Nursing staff reviewed the chart.~Reviewed interim history and current functioning. Reviewed vital signs,~Labs/ Radiology~and current medications noted below. Continue current treatment with the changes noted in the dictated addendum note Assessment: Vital Signs/I&O: Vital Signs Date Time Temp Pulse Resp B/P (MAP) Pulse Ox O2 Delivery O2 Flow Rate FiO2 03/19/19 16:21 99.2 92 20 129/76 (93) 97 03/18/19 06:25 Room Air I & O 03/18/19 03/18/19 03/19/19 15:00 23:00 07:00 Intake Total 840 ml 360 ml Balance 840 ml 360 ml Current Medications: I have reviewed the current psychotropics carefully including drug interactions. Risk benefit ratio favors no change other than as noted in my dictated progress note. Diagnosis: Problems: (1) Schizoaffective disorder (2) Anxiety disorder (3) Bipolar affective, mixed, sev w/ psych (4) Impulse control disorder (5) Schizophrenia, paranoid, chronic with acute exacerbation (6) Schizoaffective disorder, bipolar type ARABELLA PEACE MD Mar 19, 2019 21:55
--- NOTE | 2019-03-19 23:30 | NUR ---
Nursing note: Assumed care of pt in his room. He was sleeping but easily awakened. He was compliant with meds and assessment and went back to sleep. No agitation, no pain.
[2019-03-20 05:42] VITALS: BP 145/79
--- NOTE | 2019-03-20 07:30 | PN ---
DATE: 03/17/2019 PSYCHIATRIC PROGRESS NOTE This late entry 03/17/2019 covers elements not covered in my initial note. SUBJECTIVE: I met with the patient evening of 03/17/2019. Per PRETTY Smiley, the patient slept 3-1/2 hours previous night. He has been less hyperverbal, less paranoid. No CV, , pulmonary, eye system symptoms on review. MENTAL STATUS EXAM: Oriented to himself and situation. Speech coherent, still somewhat pressured, less so than before. Abstraction fair, computation impaired, language function intact. Mood and affect remain somewhat paranoid, anxious, labile at times, less so than before. LABORATORY DATA: Reviewed. IMPRESSION: Unchanged from initial note. PLAN: No change from initial note. He is on Depakene 750 t.i.d. Valproic level is therapeutic at 84. He is on Risperdal Consta, we will increase the trazodone 50 mg at bedtime, may repeat x 1 to 100 mg at bedtime, may repeat x 1 given his ongoing insomnia. Rest unchanged. MAN Barrera PEACE MD DR: WHITNEY/jessica JOB#: [id number] / [id number]
[2019-03-20] MEDS: VALPROATE ACID 250 MG/5 ML ORAL SOLUTION PO SCH ×3 (08:12→19:54)
[2019-03-20] MEDS: risperiDONE 0.5 MG TABLET. PO SCH (08:12)
[2019-03-20] MEDS: risperiDONE 2 MG TABLET. PO SCH (08:12)
--- NOTE | 2019-03-20 09:51 | NUR ---
Pt is calm and cooperative this shift. Upon my arrival to unit this AM patient was wandering halls. Pt currently in day room. Pt is difficult to understand when verbalizing d/t garbling words. Pt took meds whole this AM calm and cooperatively. No concerns at this time.
[2019-03-20] MEDS: risperiDONE MICROSPHERES 25 MG/2 ML DISP.SYRIN. IM SCH (15:03)
[2019-03-20 16:08] VITALS: BP 109/59
[2019-03-20] MEDS: traZODone 50 MG TABLET. PO SCH (19:54)
[2019-03-20] MEDS: MIRTAZAPINE 7.5 MG TABLET. PO SCH (19:54)
--- NOTE | 2019-03-20 21:17 | PDOC ---
Exam Note: Preston Note: Please also refer to the separate dictated note~for this date of service dictated separately.~Patient seen individually. Discussed the patient with Nursing staff reviewed the chart.~Reviewed interim history and current functioning. Reviewed vital signs,~Labs/ Radiology~and current medications noted below. Continue current treatment with the changes noted in the dictated addendum note Assessment: Vital Signs/I&O: Vital Signs Date Time Temp Pulse Resp B/P (MAP) Pulse Ox O2 Delivery O2 Flow Rate FiO2 03/20/19 16:08 98.6 76 18 109/59 (76) 96 03/18/19 06:25 Room Air I & O 03/19/19 03/19/19 03/20/19 15:00 23:00 07:00 Intake Total 600 ml 240 ml 0 ml Balance 600 ml 240 ml 0 ml Current Medications: I have reviewed the current psychotropics carefully including drug interactions. Risk benefit ratio favors no change other than as noted in my dictated progress note. Diagnosis: Problems: (1) Schizoaffective disorder (2) Anxiety disorder (3) Bipolar affective, mixed, sev w/ psych (4) Impulse control disorder (5) Schizophrenia, paranoid, chronic with acute exacerbation (6) Schizoaffective disorder, bipolar type ARABELLA PEACE MD Mar 20, 2019 21:17
--- NOTE | 2019-03-20 23:04 | NUR ---
Nursing Note Pt resistive to meds, mumbles constantly and interjects weird comments here and there with curse words. One statement made no sense at all, claimed that we are all fuckers, and would not elaborate. Angry and difficult to redirect.
--- NOTE | 2019-03-21 01:02 | PN ---
DATE: 03/18/2019 PSYCHIATRIC PROGRESS NOTE. This late entry of 03/18/2019 covers the elements not covered in my initial note. SUBJECTIVE: I met with the patient in the evening of 03/18/2019. The patient slept 8-1/4 hours previous night. He is less pressured in his speech, less paranoid, less delusional. REVIEW OF SYSTEMS: No CV, , pulmonary, eye, ENT system symptoms on review. I met with him in his room. MENTAL STATUS EXAM: Oriented to himself and situation. Speech coherent, less pressured. Abstraction fair, computation impaired, language function intact, attention span short. Mood and affect less grandiose and psychotic. LABORATORY DATA: Reviewed. IMPRESSION: Bipolar disorder, mixed with psychotic features, in partial remission; schizoaffective disorder, bipolar type, mixed with psychotic features, in partial remission; mild cognitive impairment. Rest unchanged. PLAN: Continue psychotropics from my initial note. Valproic acid level is therapeutic at 82. Maintain Risperdal Consta, Depakene, oral Risperdal, hydroxyzine p.r.n., Remeron and Trazodone. MAN Barrera PEACE MD DR: WHITNEY/jessica JOB#: [id number] / [id number]
--- NOTE | 2019-03-21 01:04 | PN ---
DATE: 03/19/2019 PSYCHIATRIC PROGRESS NOTE This late entry 03/19/2019 covers the elements not covered in my initial note. SUBJECTIVE: I met with the patient in the evening of 03/19/2019. The patient slept 6-1/4 hours previous night. For the most part, he has done better. He has a sebaceous cyst on the back and I will defer to Dr. Torres. He is less hyperverbal, less paranoid, more accepting of conversing with his . REVIEW OF SYSTEMS: No CV, , pulmonary, eye system symptoms on review. Speech is still a little difficult to understand, but better than before, less pressured. MENTAL STATUS EXAM: Abstraction fair, computation impaired, language function intact, attention span short. Mood and affect less grandiose and psychotic. No suicidal or homicidal ideation. LABORATORY DATA: Reviewed. IMPRESSION: Schizoaffective disorder, bipolar type, mixed with psychotic features, in partial remission; mild cognitive impairment. PLAN: Continue psychotropics from initial note. We may try and reduce the oral Risperdal gradually, but for now, we will maintain together with therapeutic level of Depakene. MAN Barrera PEACE MD DR: WHITNEY/jessica JOB#: [id number] / [id number]
[2019-03-21 04:19] VITALS: BP 138/79
[2019-03-21] MEDS: risperiDONE 0.5 MG TABLET. PO SCH ×2 (08:00→09:00)
[2019-03-21] MEDS: VALPROATE ACID 250 MG/5 ML ORAL SOLUTION PO SCH ×4 (08:00→21:00)
[2019-03-21 17:18] VITALS: BP 109/53
--- NOTE | 2019-03-21 17:40 | NUR ---
Patient has been mostly calm and cooperative today. He spent most of his time sitting either in the day room, the hallway, or his room. He occasionally came up to the nurses' station to give a speech on how he wants a admissions coordinator because he was being held against his will or to rant about his . His speech is still very garbled and difficult to understand. He has refused all medications on this shift. Attempted to provide morning dose of depakote hidden in grape juice at breakfast, he refused to drink it. Pulled another dose and attempted to hide in his coffee at lunch, he only drank half of the coffee. Will continue to monitor and report to oncoming shift.
[2019-03-21] MEDS: MIRTAZAPINE 7.5 MG TABLET. PO SCH (21:00)
[2019-03-21] MEDS: traZODone 50 MG TABLET. PO SCH (21:00)
--- NOTE | 2019-03-21 21:11 | PDOC ---
Exam Note: Preston Note: Please also refer to the separate dictated note~for this date of service dictated separately.~Patient seen individually. Discussed the patient with Nursing staff reviewed the chart.~Reviewed interim history and current functioning. Reviewed vital signs,~Labs/ Radiology~and current medications noted below. Continue current treatment with the changes noted in the dictated addendum note Assessment: Vital Signs/I&O: Vital Signs Date Time Temp Pulse Resp B/P (MAP) Pulse Ox O2 Delivery O2 Flow Rate FiO2 03/21/19 17:18 98.2 77 16 109/53 (71) 96 03/21/19 04:19 Room Air I & O 03/20/19 03/20/19 03/21/19 15:00 23:00 07:00 Intake Total 960 ml 480 ml Balance 960 ml 480 ml Current Medications: I have reviewed the current psychotropics carefully including drug interactions. Risk benefit ratio favors no change other than as noted in my dictated progress note. Diagnosis: Problems: (1) Schizoaffective disorder (2) Anxiety disorder (3) Bipolar affective, mixed, sev w/ psych (4) Impulse control disorder (5) Schizophrenia, paranoid, chronic with acute exacerbation (6) Schizoaffective disorder, bipolar type ARABELLA PEACE MD Mar 21, 2019 21:11
--- NOTE | 2019-03-21 22:40 | PN ---
DATE: 03/20/2019 PSYCHIATRIC PROGRESS NOTE. This late entry of 03/20/2019 covers the elements not covered in my initial note. SUBJECTIVE: I met with the patient in the evening of 03/20/2019. Per PRETTY Hutchison, the patient slept 8 hours previous night, has been cooperative, still somewhat hyperverbal, less so than before. REVIEW OF SYSTEMS: No CV, , pulmonary, eye, ENT system symptoms on review. He is quite paranoid, difficult to understand as I met with him. He was making some statements that he would not take his psychotropics once he leaves here. MENTAL STATUS EXAM: Oriented to himself and situation. Speech rapid at times. Abstraction fair, computation impaired, language function intact, attention span short. Mood and affect still somewhat anxious, labile, grandiose at times. LABORATORY DATA: Reviewed. IMPRESSION: Unchanged from initial note. PLAN: No change from initial note. MAN Barrera PEACE MD DR: WHITNEY/jessica JOB#: [id number] / [id number]
--- NOTE | 2019-03-22 04:46 | NUR ---
Nursing Note Pt resistive to meds and interaction isolates to room and refuses HS meds. States he would rather than take meds from me.
[2019-03-22 04:48] VITALS: BP 112/72
[2019-03-22 07:44] LABS: BASO % 0 % (0-3); EOS # 0.1 x10^3/uL (0.0-0.7); EOS % 1 % (0-3); HEMATOCRIT 39.1 % (39.0-53.0); HEMOGLOBIN 13.3 g/dL (13.0-17.5); LYMPH # 1.2 x10^3/uL (1.0-4.8); LYMPH % 13 % (24-48); MEAN CORPUSCULAR HEMOGLOBIN 32 pg (25-35); MEAN CORPUSCULAR HGB CONC 34 g/dL (31-37); MEAN CORPUSCULAR VOLUME 95 fL (79-100); MONO # 1.3 x10^3/uL (0.0-1.1); MONO % 14 % (0-9); NEUT # 6.7 x10^3uL (1.8-7.7); NEUT % 71 % (31-73); PLATELET COUNT 95 x10^3/uL (140-400); RED CELL DISTRIBUTION WIDTH 13.5 % (11.5-14.5); WHITE BLOOD COUNT 9.5 x10^3/uL (4.0-11.0)
[2019-03-22] MEDS: VALPROATE ACID 250 MG/5 ML ORAL SOLUTION PO SCH ×2 (07:51→08:45)
[2019-03-22] MEDS: risperiDONE 0.5 MG TABLET. PO SCH ×2 (07:52→08:45)
[2019-03-22 07:53] LABS: ALBUMIN 2.7 g/dL (3.4-5.0); ALBUMIN/GLOBULIN RATIO 0.7 (1.0-1.7); CALCIUM 8.6 mg/dL (8.5-10.1); CREATININE 0.8 mg/dL (0.7-1.3); GFR 93.7; POTASSIUM 4.4 mmol/L (3.5-5.1); TOTAL BILIRUBIN 0.2 mg/dL (0.2-1.0); TOTAL PROTEIN 6.4 g/dL (6.4-8.2)
--- NOTE | 2019-03-22 08:52 | NUR ---
Attempted to give pt morning medications hidden in black coffee. Patient was suspicious and refused medications and stated " I would only take water from you and that's it."
[2019-03-22] MEDS: DIVALPROEX 125 MG CAP.SPRINK PO SCH ×2 (13:42→20:16)
[2019-03-22 16:00] VITALS: BP 106/66
[2019-03-22] MEDS: traZODone 50 MG TABLET. PO SCH (20:16)
[2019-03-22] MEDS: MIRTAZAPINE 7.5 MG TABLET. PO SCH (20:16)
[2019-03-22] MEDS ORDERED: risperiDONE MICROSPHERES 25 MG/2 ML DISP.SYRIN. IM ONE (21:00)
--- NOTE | 2019-03-22 21:45 | PDOC ---
Exam Note: Preston Note: Please also refer to the separate dictated note~for this date of service dictated separately.~Patient seen individually. Discussed the patient with Nursing staff reviewed the chart.~Reviewed interim history and current functioning. Reviewed vital signs,~Labs/ Radiology~and current medications noted below. Continue current treatment with the changes noted in the dictated addendum note Assessment: Vital Signs/I&O: Vital Signs Date Time Temp Pulse Resp B/P (MAP) Pulse Ox O2 Delivery O2 Flow Rate FiO2 03/22/19 16:00 98.0 65 18 106/66 (79) 100 03/21/19 04:19 Room Air I & O 03/21/19 03/21/19 03/22/19 15:00 23:00 07:00 Intake Total 960 ml 240 ml 240 ml Balance 960 ml 240 ml 240 ml Labs: Laboratory Tests Test 03/22/19 07:09 White Blood Count 9.5 x10^3/uL (4.0-11.0) Red Blood Count 4.10 x10^6/uL (4.30-5.70) L Hemoglobin 13.3 g/dL (13.0-17.5) Hematocrit 39.1 % (39.0-53.0) Mean Corpuscular Volume 95 fL (79-100) Mean Corpuscular Hemoglobin 32 pg (25-35) Mean Corpuscular Hemoglobin Concent 34 g/dL (31-37) Red Cell Distribution Width 13.5 % (11.5-14.5) Platelet Count 95 x10^3/uL (140-400) L Neutrophils (%) (Auto) 71 % (31-73) Lymphocytes (%) (Auto) 13 % (24-48) L Monocytes (%) (Auto) 14 % (0-9) H Eosinophils (%) (Auto) 1 % (0-3) Basophils (%) (Auto) 0 % (0-3) Neutrophils # (Auto) 6.7 x10^3uL (1.8-7.7) Lymphocytes # (Auto) 1.2 x10^3/uL (1.0-4.8) Monocytes # (Auto) 1.3 x10^3/uL (0.0-1.1) H Eosinophils # (Auto) 0.1 x10^3/uL (0.0-0.7) Basophils # (Auto) 0.0 x10^3/uL (0.0-0.2) Sodium Level 142 mmol/L (136-145) Potassium Level 4.4 mmol/L (3.5-5.1) Chloride Level 105 mmol/L (98-107) Carbon Dioxide Level 31 mmol/L (21-32) Anion Gap 6 (6-14) Blood Urea Nitrogen 18 mg/dL (8-26) Creatinine 0.8 mg/dL (0.7-1.3) Estimated GFR (Cockcroft-Gault) 93.7 BUN/Creatinine Ratio 23 (6-20) H Glucose Level 87 mg/dL (70-99) Calcium Level 8.6 mg/dL (8.5-10.1) Total Bilirubin 0.2 mg/dL (0.2-1.0) Aspartate Amino Transferase (AST) 15 U/L (15-37) Alanine Aminotransferase (ALT) 17 U/L (16-63) Alkaline Phosphatase 57 U/L (46-116) Total Protein 6.4 g/dL (6.4-8.2) Albumin 2.7 g/dL (3.4-5.0) L Albumin/Globulin Ratio 0.7 (1.0-1.7) L Current Medications: Meds: Current Medications Medications (Trade) Dose Ordered Sig/Otto Route PRN Reason Start Time Stop Time Status Last Admin Dose Admin Divalproex Sodium (Depakote Sprinkles) 750 mg TID PO 03/22/19 14:00 03/22/19 20:16 I have reviewed the current psychotropics carefully including drug interactions. Risk benefit ratio favors no change other than as noted in my dictated progress note. Diagnosis: Problems: (1) Schizoaffective disorder (2) Anxiety disorder (3) Bipolar affective, mixed, sev w/ psych (4) Impulse control disorder (5) Schizophrenia, paranoid, chronic with acute exacerbation (6) Schizoaffective disorder, bipolar type ARABELLA PEACE MD Mar 22, 2019 21:45
[2019-03-23 05:22] VITALS: BP 127/76
[2019-03-23] MEDS: DIVALPROEX 125 MG CAP.SPRINK PO SCH ×3 (08:20→20:09)
[2019-03-23] MEDS: risperiDONE 0.5 MG TABLET. PO SCH (08:21)
[2019-03-23] MEDS ORDERED: HALOPERIDOL LACT 5 MG/ML VIAL. IM SCH (09:00)
[2019-03-23] MEDS ORDERED: risperiDONE MICROSPHERES 25 MG/2 ML DISP.SYRIN. IM ONE (09:00)
[2019-03-23] MEDS: HALOPERIDOL LACT 5 MG/ML VIAL. IM SCH (09:00)
--- NOTE | 2019-03-23 09:04 | NUR ---
WEEKLY ACTIVITY THERAPY NOTE Date of Admission: 02/17/2019 Date of AT Assessment: 02/21/2019 Goal aimed: to increase attention/concentration and leisure awareness Initial goal: Pt. will participate in at least one Activity Therapy group per day. Weekly progress towards goal:did not achieve, 3 groups this week Group participation level: two full groups, one moderate Weekly highlights: fully engaged in sermon/ gospel songs on Wednesday and independenlty painting pumpkin Behaviors observed: decreased paranoid comments/ behaviors, appeared to be less restless, patient and chatty with peer, listened to music with head phones, more quiet this week Plan: no change to goal Beneficial adaptations: walking unit or use of Joanne. wireless headphones-[employer] music to help refocus, gross motor activities, invitation to groups, sitting close to escrow officer
--- NOTE | 2019-03-23 09:39 | PN ---
DATE: 03/21/2019 PSYCHIATRIC PROGRESS NOTE This late entry 03/21/2019 covers the elements not covered in my initial note. SUBJECTIVE: I met with the patient in the evening of 03/21/2019. Per PRETTY Smiley, the patient slept 5-1/4 hours previous night. He has refused his meds all day and I discussed this with him at great length. He remains paranoid. He does not believe he is ever going to leave here, still psychotic. REVIEW OF SYSTEMS: No CV, , pulmonary, eye system symptoms on review. MENTAL STATUS EXAM: Oriented to himself and situation. Speech little more pressured as he has been noncompliant with psychotropics, difficult to understand. Abstraction fair, computation impaired, and language function intact. Mood and affect remains somewhat anxious, grandiose, and labile at times. LABORATORY DATA: Reviewed. IMPRESSION: Unchanged from initial note. PLAN: No change from initial note. ARABELLA PEACE MD DR: WHITNEY/jessica JOB#: [id number] / [id number]
[2019-03-23 15:43] VITALS: BP 117/71
--- NOTE | 2019-03-23 18:30 | NUR ---
Patient has been mostly calm and cooperative today. He was compliant with all medications. Patient participated in group activities and has been social with other patients. Will continue to monitor and report to oncoming shift.
[2019-03-23] MEDS: MIRTAZAPINE 7.5 MG TABLET. PO SCH (20:09)
[2019-03-23] MEDS: traZODone 50 MG TABLET. PO SCH (20:09)
--- NOTE | 2019-03-23 21:41 | PDOC ---
Exam Note: Preston Note: Please also refer to the separate dictated note~for this date of service dictated separately.~Patient seen individually. Discussed the patient with Nursing staff reviewed the chart.~Reviewed interim history and current functioning. Reviewed vital signs,~Labs/ Radiology~and current medications noted below. Continue current treatment with the changes noted in the dictated addendum note Assessment: Vital Signs/I&O: Vital Signs Date Time Temp Pulse Resp B/P (MAP) Pulse Ox O2 Delivery O2 Flow Rate FiO2 03/23/19 15:43 98.2 68 18 117/71 (86) 97 03/21/19 04:19 Room Air I & O 03/22/19 03/22/19 03/23/19 15:00 23:00 07:00 Intake Total 600 ml 480 ml 240 ml Balance 600 ml 480 ml 240 ml Current Medications: Meds: Current Medications Medications (Trade) Dose Ordered Sig/Otto Route PRN Reason Start Time Stop Time Status Last Admin Dose Admin Risperidone (RisperDAL CONSTA) 25 mg 1X ONCE IM 03/23/19 09:00 03/23/19 09:01 DC 03/23/19 09:00 I have reviewed the current psychotropics carefully including drug interactions. Risk benefit ratio favors no change other than as noted in my dictated progress note. Diagnosis: Problems: (1) Schizoaffective disorder (2) Anxiety disorder (3) Bipolar affective, mixed, sev w/ psych (4) Impulse control disorder (5) Schizophrenia, paranoid, chronic with acute exacerbation (6) Schizoaffective disorder, bipolar type ARABELLA PEACE MD Mar 23, 2019 21:41
--- NOTE | 2019-03-24 00:37 | NUR ---
Patient in room at time of medication administration and assessments. Patient calm, cooperative and compliant. Patient not very verbal or expressive at this time. No other notable behaviors at this time.
[2019-03-24 05:40] VITALS: BP 132/55
[2019-03-24] MEDS: risperiDONE 0.5 MG TABLET. PO SCH (08:15)
[2019-03-24] MEDS: DIVALPROEX 125 MG CAP.SPRINK PO SCH ×3 (08:15→19:51)
[2019-03-24] MEDS: HALOPERIDOL LACT 5 MG/ML VIAL. IM SCH (09:00)
--- NOTE | 2019-03-24 11:52 | NUR ---
Patient has had a good morning, was in the dining room during rounding, took medications, allowed for morning assessment. No signs of agitation noted, pt said he slept "good." Patient denies pain, will continue to monitor.
[2019-03-24 16:10] VITALS: BP 107/69
[2019-03-24] MEDS: ATORVASTATIN CALCIUM 10 MG TABLET. PO SCH (19:51)
[2019-03-24] MEDS: traZODone 50 MG TABLET. PO SCH (19:51)
[2019-03-24] MEDS: MIRTAZAPINE 7.5 MG TABLET. PO SCH (19:51)
--- NOTE | 2019-03-24 21:35 | PDOC ---
Exam Note: Preston Note: Please also refer to the separate dictated note~for this date of service dictated separately.~Patient seen individually. Discussed the patient with Nursing staff reviewed the chart.~Reviewed interim history and current functioning. Reviewed vital signs,~Labs/ Radiology~and current medications noted below. Continue current treatment with the changes noted in the dictated addendum note Assessment: Vital Signs/I&O: Vital Signs Date Time Temp Pulse Resp B/P (MAP) Pulse Ox O2 Delivery O2 Flow Rate FiO2 03/24/19 16:10 97.8 68 16 107/69 (82) 95 03/21/19 04:19 Room Air I & O 03/23/19 03/23/19 03/24/19 15:00 23:00 07:00 Intake Total 960 ml 600 ml 240 ml Balance 960 ml 600 ml 240 ml Current Medications: Meds: Current Medications Medications (Trade) Dose Ordered Sig/Otto Route PRN Reason Start Time Stop Time Status Last Admin Dose Admin Atorvastatin Calcium (Lipitor) 10 mg QHS PO 03/24/19 21:00 03/24/19 19:51 I have reviewed the current psychotropics carefully including drug interactions. Risk benefit ratio favors no change other than as noted in my dictated progress note. Diagnosis: Problems: (1) Anxiety disorder (2) Bipolar affective, mixed, sev w/ psych (3) Impulse control disorder (4) Schizophrenia, paranoid, chronic with acute exacerbation (5) Schizoaffective disorder, bipolar type ARABELLA PEACE MD Mar 24, 2019 21:35
--- NOTE | 2019-03-24 22:42 | NUR ---
Pt sitting quietly in the day room at shift change. Pt calm, pleasant this evening. Pt cooperative with assessment and compliant with medications administered whole.
--- NOTE | 2019-03-25 00:56 | PN ---
DATE: 03/22/2019 PSYCHIATRIC PROGRESS NOTE This late entry 03/22/2019 covers elements not covered in my initial note. SUBJECTIVE: I met with the patient in the evening of 03/22/2019. Per PRETTY Polanco, the patient slept 5 hours previous night. He has refused all his psychotropics all day. Depakote has been changed to Sprinkles to help with compliance given in vanilla ice cream. He has been more paranoid, suspicious, and agitated as I met with him, hyperverbal. REVIEW OF SYSTEMS: No CV, , pulmonary, eye, ENT system symptoms on review. MENTAL STATUS EXAM: Oriented to himself oriented to himself. Speech rapid, difficult to understand. Abstraction fair, computation impaired. Attention span short. Language function intact. He is quite paranoid. No active suicidal or homicidal ideation. He is making repeated statements that he will just here and gets agitated. I discussed at length medication compliance with him. No active suicidal or homicidal ideation. LABORATORY DATA: Reviewed. IMPRESSION: Schizoaffective disorder, bipolar type, mixed with psychotic features; anxiety disorder, unspecified. Rest unchanged. PLAN: Continue to encourage compliance. Restart his psychotropics. May need to increase the Risperdal Consta given his noncompliance and emerging psychotic symptoms and agitation and in fact, we will go ahead and increase the Risperdal Consta to 50 mg IM every 2 weeks with an extra 25 mg dosage to make up for the 25 mg that was given two days back. Rest unchanged for now. ARABELLA PEACE MD DR: WHITNEY/jessica JOB#: [id number] / [id number]
[2019-03-25 05:49] VITALS: BP 129/68
[2019-03-25] MEDS: risperiDONE 0.5 MG TABLET. PO SCH (07:43)
[2019-03-25] MEDS: DIVALPROEX 125 MG CAP.SPRINK PO SCH ×3 (07:43→19:55)
[2019-03-25] MEDS: TAMSULOSIN 0.4 MG CAP.ER.24H. PO SCH (07:43)
[2019-03-25] MEDS ORDERED: CHOLECALCIFEROL (VITAMIN D3) 50,000 UNIT CAPSULE PO SCH (09:00)
[2019-03-25] MEDS: HALOPERIDOL LACT 5 MG/ML VIAL. IM SCH (09:00)
--- NOTE | 2019-03-25 10:09 | NUR ---
Patient was sitting in the dayroom quietly this morning, took medications, allowed for morning assessment. Patient then went on to breakfast. Patient has kept to himself, has been sitting in the dayroom or his room looking at the newspaper, no agitation noted at this time. Will continue to monitor.
--- NOTE | 2019-03-25 11:14 | PN ---
DATE: 03/23/2019 PSYCHIATRIC PROGRESS NOTE This late entry 03/23/2019 covers the elements not covered in my initial note. SUBJECTIVE: I met with the patient in the evening of 03/23/2019. I staffed at treatment team meeting with the entire team in the morning. The patient is sleeping average 7 hours. Appetite 100%, refusing his medications, which is problematic. However, by the end of the day 03/23/2019, he was more compliant with his medications. We have increased his Risperdal Consta to 50 mg IM every 2 weeks. REVIEW OF SYSTEMS: No CV, , pulmonary, eye system symptoms on review. Reliability poor. MENTAL STATUS EXAM: Reasonably oriented. Speech pressured, difficult to understand. Abstraction fair, computation impaired. He is quite paranoid, anxious, restless at times, quite abrasive with me, suspicious. No active suicidal or homicidal ideation. We discussed his medication compliance at length, poor insight. LABORATORY DATA: Reviewed. IMPRESSION: Schizoaffective disorder, bipolar type, mixed with psychotic features, medication noncompliance; anxiety disorder, unspecified; impulse control disorder, unspecified. PLAN: Encourage medication compliance. Continue Depakote, oral Risperdal, Risperdal Consta, Remeron along with Zyprexa p.r.n., hydroxyzine p.r.n. Rest unchanged for now. ARABELLA PEACE MD DR: WHITNEY/jessica JOB#: [id number] / [id number]
[2019-03-25 15:46] VITALS: BP 134/85
[2019-03-25] MEDS: ATORVASTATIN CALCIUM 10 MG TABLET. PO SCH (19:55)
[2019-03-25] MEDS: traZODone 50 MG TABLET. PO SCH (19:55)
[2019-03-25] MEDS: MIRTAZAPINE 7.5 MG TABLET. PO SCH (19:55)
--- NOTE | 2019-03-25 23:22 | PDOC ---
Exam Note: Preston Note: Please also refer to the separate dictated note~for this date of service dictated separately.~Patient seen individually. Discussed the patient with Nursing staff reviewed the chart.~Reviewed interim history and current functioning. Reviewed vital signs,~Labs/ Radiology~and current medications noted below. Continue current treatment with the changes noted in the dictated addendum note Assessment: Vital Signs/I&O: Vital Signs Date Time Temp Pulse Resp B/P (MAP) Pulse Ox O2 Delivery O2 Flow Rate FiO2 03/25/19 15:46 98.2 66 20 134/85 (101) 99 03/21/19 04:19 Room Air I & O 03/24/19 03/24/19 03/25/19 15:00 23:00 07:00 Intake Total 780 ml 360 ml Balance 780 ml 360 ml Current Medications: Meds: Current Medications Medications (Trade) Dose Ordered Sig/Otto Route PRN Reason Start Time Stop Time Status Last Admin Dose Admin Vitamin D (Vitamin D3) 50,000 unit WEEKLY PO 03/25/19 09:00 03/25/19 07:43 Tamsulosin HCl (Flomax) 0.4 mg DAILY PO 03/25/19 09:00 03/25/19 07:43 I have reviewed the current psychotropics carefully including drug interactions. Risk benefit ratio favors no change other than as noted in my dictated progress note. Diagnosis: Problems: (1) Schizoaffective disorder (2) Anxiety disorder (3) Bipolar affective, mixed, sev w/ psych (4) Impulse control disorder (5) Schizophrenia, paranoid, chronic with acute exacerbation (6) Schizoaffective disorder, bipolar type ARABELLA PEACE MD Mar 25, 2019 23:22
--- NOTE | 2019-03-26 00:19 | NUR ---
Pt sitting quietly in the day room at shift change. Pt calm but slightly irritable this evening. Pt cooperative with assessment and compliant with medications administered whole.
[2019-03-26 06:05] VITALS: BP 99/56
[2019-03-26] MEDS: risperiDONE 0.5 MG TABLET. PO SCH (08:11)
[2019-03-26] MEDS: TAMSULOSIN 0.4 MG CAP.ER.24H. PO SCH (08:11)
[2019-03-26] MEDS: DIVALPROEX 125 MG CAP.SPRINK PO SCH ×3 (08:11→19:52)
[2019-03-26] MEDS: HALOPERIDOL LACT 5 MG/ML VIAL. IM SCH (09:00)
--- NOTE | 2019-03-26 11:22 | NUR ---
Pt is calm, cooperative, and compliant. No agitation, no aggression, no hallucinations or delusions. He is compliant with his medication and assessment.
[2019-03-26 15:48] VITALS: BP 147/71
[2019-03-26] MEDS: ATORVASTATIN CALCIUM 10 MG TABLET. PO SCH (19:52)
[2019-03-26] MEDS: traZODone 50 MG TABLET. PO SCH (19:52)
[2019-03-26] MEDS: MIRTAZAPINE 7.5 MG TABLET. PO SCH (19:52)
--- NOTE | 2019-03-26 20:39 | PDOC ---
Exam Note: Preston Note: Please also refer to the separate dictated note~for this date of service dictated separately.~Patient seen individually. Discussed the patient with Nursing staff reviewed the chart.~Reviewed interim history and current functioning. Reviewed vital signs,~Labs/ Radiology~and current medications noted below. Continue current treatment with the changes noted in the dictated addendum note Assessment: Vital Signs/I&O: Vital Signs Date Time Temp Pulse Resp B/P (MAP) Pulse Ox O2 Delivery O2 Flow Rate FiO2 03/26/19 15:48 97.3 60 16 147/71 (96) 98 03/26/19 06:05 Room Air I & O 03/25/19 03/25/19 03/26/19 15:00 23:00 07:00 Intake Total 1160 ml 240 ml 240 ml Balance 1160 ml 240 ml 240 ml Current Medications: I have reviewed the current psychotropics carefully including drug interactions. Risk benefit ratio favors no change other than as noted in my dictated progress note. Diagnosis: Problems: (1) Schizoaffective disorder (2) Anxiety disorder (3) Bipolar affective, mixed, sev w/ psych (4) Impulse control disorder (5) Schizophrenia, paranoid, chronic with acute exacerbation (6) Schizoaffective disorder, bipolar type ARABELLA PEACE MD Mar 26, 2019 20:39
--- NOTE | 2019-03-26 23:32 | NUR ---
Pt withdrawn to his room all evening. Compliant with whole medications. Calm and cooperative.
[2019-03-27 05:22] VITALS: BP 112/70
[2019-03-27] MEDS: HALOPERIDOL LACT 5 MG/ML VIAL. IM SCH (09:00)
[2019-03-27] MEDS: DIVALPROEX 125 MG CAP.SPRINK PO SCH ×3 (09:07→20:27)
[2019-03-27] MEDS: risperiDONE 0.5 MG TABLET. PO SCH (09:07)
[2019-03-27] MEDS: TAMSULOSIN 0.4 MG CAP.ER.24H. PO SCH (09:07)
--- NOTE | 2019-03-27 10:41 | NUR ---
He is compliant with his medication and assessment. Pt is calm, cooperative, and compliant. No agitation, no aggression, no hallucinations or delusions.
--- NOTE | 2019-03-27 12:45 | NUR ---
JESS, pt , and Lelo, the customer assistance representative for the [employer] met to discuss pt care from here on out. Pt reports that she cannot pay for placement as a few referrals have reached out to her. Within the Care Assessment, pt would easily trigger for a level II. However, pt does not wish for him to go to placement and states that she feels that pt is making progress and really just wants to ensure that pt is on his medications at discharge. JESS called out pt in that pt is non-compliant with medications and once he returns home, there is a good chance he will not take them. Lelo mentioned to pt , that it would be pertinent for her to apply for Medicaid [place] as it appears that home may not be the best environment for pt. In the event that pt is not willing to do placement, Lelo will have pt categorized as a Level I; however, if pt is hospitalized again, he will need to be a Level II and have that process started [place]. Pt felt that pt would be fine at home and she can manage him as long as he takes medications. Pt was very "blaming" of [facility] for his last episode of not taking meds because "they did not send scripts into the pharmacy and so they didn't fill them". JESS explained that the nursing staff takes care of that first thing in the AM so that the pharmacy has a chance to fill everything. The only way they could not fill a medication is if they didn't have it. Pt appears to be aloof about safety concerns and will plan to pick pt up on Wednesday at 1100.
[2019-03-27 16:26] VITALS: BP 115/71
[2019-03-27] MEDS: traZODone 50 MG TABLET. PO SCH (20:27)
[2019-03-27] MEDS: ATORVASTATIN CALCIUM 10 MG TABLET. PO SCH (20:27)
[2019-03-27] MEDS: MIRTAZAPINE 7.5 MG TABLET. PO SCH (20:27)
--- NOTE | 2019-03-27 20:38 | PDOC ---
Exam Note: Preston Note: Please also refer to the separate dictated note~for this date of service dictated separately.~Patient seen individually. Discussed the patient with Nursing staff reviewed the chart.~Reviewed interim history and current functioning. Reviewed vital signs,~Labs/ Radiology~and current medications noted below. Continue current treatment with the changes noted in the dictated addendum note Assessment: Vital Signs/I&O: Vital Signs Date Time Temp Pulse Resp B/P (MAP) Pulse Ox O2 Delivery O2 Flow Rate FiO2 03/27/19 16:26 98.5 71 18 115/71 (86) 97 03/26/19 06:05 Room Air I & O 03/26/19 03/26/19 03/27/19 15:00 23:00 07:00 Intake Total 960 ml 240 ml 100 ml Balance 960 ml 240 ml 100 ml Current Medications: I have reviewed the current psychotropics carefully including drug interactions. Risk benefit ratio favors no change other than as noted in my dictated progress note. Diagnosis: Problems: (1) Schizoaffective disorder (2) Anxiety disorder (3) Bipolar affective, mixed, sev w/ psych (4) Impulse control disorder (5) Schizophrenia, paranoid, chronic with acute exacerbation (6) Schizoaffective disorder, bipolar type ARABELLA PEACE MD Mar 27, 2019 20:38
--- NOTE | 2019-03-27 22:47 | PN ---
DATE: 03/24/2019 PSYCHIATRIC PROGRESS NOTE. This late entry of 03/24/2019 covers elements not covered in my initial note. SUBJECTIVE: I met with the patient in the evening of 03/24/2019. Per PRETTY Garcia, the patient slept 6-1/4 hours previous night. He has had a good day, compliant with medications, a little bit better. However, as I met with him, he is quite paranoid, talking about wanting to fix wires in his home when he gets there, blaming staff for keeping him here. REVIEW OF SYSTEMS: No CV, , pulmonary, eye, ENT system symptoms on review. MENTAL STATUS EXAM: Oriented to himself and situation. Speech coherent, rapid at times. Abstraction fair, computation impaired, language function intact, attention span short. Mood and affect somewhat anxious, labile. LABORATORY DATA: Reviewed. IMPRESSION: Unchanged from initial note. PLAN: No change from initial note. MAN Barrera PEACE MD DR: WHITNEY/jessica JOB#: [id number] / [id number]
--- NOTE | 2019-03-27 23:53 | PN ---
DATE: 03/26/2019 PSYCHIATRIC PROGRESS NOTE This late entry 03/26/2019 covers the elements not covered in my initial note. SUBJECTIVE: I met with the patient in the evening of 03/26/2019. The patient has been compliant on the unit, but again paranoid as I met with him, hyperverbal, though at times, lesser than before. REVIEW OF SYSTEMS: No CV, , pulmonary, eye, ENT system symptoms on review. MENTAL STATUS EXAM: Oriented to himself and situation. Speech coherent, rapid at times. Abstraction fair, computation impaired, language function intact. Mood and affect, lability despite persisting is improved. LABORATORY DATA: Reviewed. IMPRESSION: Unchanged from initial note. PLAN: No change from initial note. MAN Barrera PEACE MD DR: WHITNEY/jessica JOB#: [id number] / [id number]
--- NOTE | 2019-03-28 00:32 | NUR ---
Nursing Note Pt isolates to room, sleeping during assessment awakens and is med compliant. Mumbles an odd sentence to me then lays back down to sleep.
[2019-03-28 05:48] VITALS: BP 117/73
[2019-03-28] MEDS: risperiDONE 0.5 MG TABLET. PO SCH (09:07)
[2019-03-28] MEDS: DIVALPROEX 125 MG CAP.SPRINK PO SCH ×3 (09:07→20:38)
[2019-03-28] MEDS: TAMSULOSIN 0.4 MG CAP.ER.24H. PO SCH (09:07)
--- NOTE | 2019-03-28 09:53 | NUR ---
Pt is calm, cooperative, and compliant. He is compliant with his medication and assessment. No agitation, no aggression, no hallucinations or delusions.
--- NOTE | 2019-03-28 11:58 | PN ---
DATE: 03/25/2019 PSYCHIATRIC PROGRESS NOTE This late entry, 03/25/2019, covers the elements not covered in my initial note. SUBJECTIVE: I met with the patient in the evening. The patient has been more compliant, but quite paranoid, as I met with him in the evening, somewhat hyperverbal. REVIEW OF SYSTEMS: No CV, , pulmonary, eye, ENT system symptoms on review. MENTAL STATUS EXAM: Oriented to himself and situation. Speech coherent, rapid at times. Abstraction fair, computation impaired, language function intact. Mood and affect, lability, grandiosity despite persisting is improved. LABORATORY DATA: Reviewed. IMPRESSION: Unchanged from initial note. PLAN: No change from initial note. MAN Barrera PEACE MD DR: WHITNEY/jessica JOB#: [id number] / [id number]
[2019-03-28 16:23] VITALS: BP 119/68
[2019-03-28] MEDS: ATORVASTATIN CALCIUM 10 MG TABLET. PO SCH (20:38)
[2019-03-28] MEDS: traZODone 50 MG TABLET. PO SCH (20:38)
[2019-03-28] MEDS: MIRTAZAPINE 7.5 MG TABLET. PO SCH (20:38)
--- NOTE | 2019-03-28 20:43 | PDOC ---
Exam Note: Preston Note: Please also refer to the separate dictated note~for this date of service dictated separately.~Patient seen individually. Discussed the patient with Nursing staff reviewed the chart.~Reviewed interim history and current functioning. Reviewed vital signs,~Labs/ Radiology~and current medications noted below. Continue current treatment with the changes noted in the dictated addendum note Assessment: Vital Signs/I&O: Vital Signs Date Time Temp Pulse Resp B/P (MAP) Pulse Ox O2 Delivery O2 Flow Rate FiO2 03/28/19 16:23 98.5 65 16 119/68 (85) 94 03/26/19 06:05 Room Air I & O 03/27/19 03/27/19 03/28/19 15:00 23:00 07:00 Intake Total 840 ml 600 ml Balance 840 ml 600 ml Current Medications: I have reviewed the current psychotropics carefully including drug interactions. Risk benefit ratio favors no change other than as noted in my dictated progress note. Diagnosis: Problems: (1) Anxiety disorder (2) Bipolar affective, mixed, sev w/ psych (3) Impulse control disorder (4) Schizophrenia, paranoid, chronic with acute exacerbation (5) Schizoaffective disorder, bipolar type ARABELLA PEACE MD Mar 28, 2019 20:43
--- NOTE | 2019-03-28 23:30 | NUR ---
Nsg Note: Patient was in room sleeping at time of medication administration and assessments. Patient woke up and was calm, cooperative and compliant and hypoverbal towards staff. Patient went to sleep immediately after this encounter. No other notable behaviors at this time.
[2019-03-29 05:30] VITALS: BP 107/58
[2019-03-29] MEDS: risperiDONE 0.5 MG TABLET. PO SCH (08:32)
[2019-03-29] MEDS: TAMSULOSIN 0.4 MG CAP.ER.24H. PO SCH (08:32)
[2019-03-29] MEDS: DIVALPROEX 125 MG CAP.SPRINK PO SCH ×3 (08:32→21:01)
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
--- NOTE | 2019-03-29 15:46 | NUR ---
Patient has been mostly calm and cooperative today. He was compliant with all medications. Patient participated in afternoon group activities; he sat in on morning group but did not participate. Will continue to monitor and report to oncoming shift.
[2019-03-29 15:59] VITALS: BP 109/68
--- NOTE | 2019-03-29 20:48 | PDOC ---
Exam Note: Preston Note: Please also refer to the separate dictated note~for this date of service dictated separately.~Patient seen individually. Discussed the patient with Nursing staff reviewed the chart.~Reviewed interim history and current functioning. Reviewed vital signs,~Labs/ Radiology~and current medications noted below. Continue current treatment with the changes noted in the dictated addendum note Assessment: Vital Signs/I&O: Vital Signs Date Time Temp Pulse Resp B/P (MAP) Pulse Ox O2 Delivery O2 Flow Rate FiO2 03/29/19 15:59 98.5 64 16 109/68 (82) 95 03/26/19 06:05 Room Air I & O 03/28/19 03/28/19 03/29/19 15:00 23:00 07:00 Intake Total 720 ml 240 ml 100 ml Balance 720 ml 240 ml 100 ml Current Medications: I have reviewed the current psychotropics carefully including drug interactions. Risk benefit ratio favors no change other than as noted in my dictated progress note. Diagnosis: Problems: (1) Anxiety disorder (2) Bipolar affective, mixed, sev w/ psych (3) Impulse control disorder (4) Schizophrenia, paranoid, chronic with acute exacerbation (5) Schizoaffective disorder, bipolar type ARABELLA PEACE MD Mar 29, 2019 20:48
[2019-03-29] MEDS: MIRTAZAPINE 7.5 MG TABLET. PO SCH (21:01)
[2019-03-29] MEDS: traZODone 50 MG TABLET. PO SCH (21:01)
[2019-03-29] MEDS: ATORVASTATIN CALCIUM 10 MG TABLET. PO SCH (21:01)
--- NOTE | 2019-03-30 03:16 | PN ---
DATE: 03/28/2019 PSYCHIATRIC PROGRESS NOTE This late entry 03/28/2019 covers elements not covered in my initial note. SUBJECTIVE: I met with the patient evening of 03/28/2019. The patient slept 8 hours previous night. Overall, per nursing report, the patient is doing a little better. Less pressure of speech. REVIEW OF SYSTEMS: No CV, , pulmonary, eye system symptoms on review, still remains somewhat paranoid. MENTAL STATUS EXAM: Oriented to himself and situation. Speech as above. Abstraction fair, computation impaired, language function intact, attention span short. Mood and affect remain somewhat anxious, labile. LABORATORY DATA: Reviewed. IMPRESSION: Unchanged from initial note. No active suicidal ideation. PLAN: No change from initial note. MAN Barrera PEACE MD DR: WHITNEY/jessica JOB#: [id number] / [id number]
--- NOTE | 2019-03-30 03:18 | PN ---
DATE: 03/27/2019 PSYCHIATRIC PROGRESS NOTE This late entry 03/27/2019 covers elements not covered in my initial note. SUBJECTIVE: I met with the patient evening of 03/27/2019. Per nursing report, the patient slept 8 hours previous night per PRETTY Welch. He has been having some drooling, leaning forward. REVIEW OF SYSTEMS: No CV, , pulmonary, eye system symptoms on review. MENTAL STATUS EXAM: Oriented to himself and situation. Speech is coherent, a little pressured. Abstraction fair, computation impaired, language function intact, attention span short. Mood and affect remain somewhat grandiose, manic, but less so than before. LABORATORY DATA: Reviewed. IMPRESSION: Unchanged from initial note. PLAN: No change from initial note. MAN Barrera PEACE MD DR: WHITNEY/jessica JOB#: [id number] / [id number]
--- NOTE | 2019-03-30 04:06 | NUR ---
Nsg Note: Patient was in his room at time of medication administration and assessments. Patient was hypoverbal and withdrawn but compliant and cooperative. Patient went back to sleep immediately after this interaction. No other notable behaviors at this time.
[2019-03-30 06:06] VITALS: BP 122/79
[2019-03-30 07:57] LABS: BASO % 0 % (0-3); EOS # 0.2 x10^3/uL (0.0-0.7); EOS % 3 % (0-3); HEMOGLOBIN 13.8 g/dL (13.0-17.5); LYMPH # 1.5 x10^3/uL (1.0-4.8); LYMPH % 29 % (24-48); MEAN CORPUSCULAR HEMOGLOBIN 32 pg (25-35); MEAN CORPUSCULAR HGB CONC 34 g/dL (31-37); MEAN CORPUSCULAR VOLUME 96 fL (79-100); MONO # 0.7 x10^3/uL (0.0-1.1); MONO % 14 % (0-9); NEUT # 2.7 x10^3uL (1.8-7.7); NEUT % 54 % (31-73); PLATELET COUNT 105 x10^3/uL (140-400); RED BLOOD COUNT 4.28 x10^6/uL (4.30-5.70); RED CELL DISTRIBUTION WIDTH 14.1 % (11.5-14.5)
[2019-03-30 08:07] LABS: ALBUMIN 2.8 g/dL (3.4-5.0); ALBUMIN/GLOBULIN RATIO 0.7 (1.0-1.7); CALCIUM 8.2 mg/dL (8.5-10.1); CREATININE 0.9 mg/dL (0.7-1.3); GFR 81.8; POTASSIUM 4.5 mmol/L (3.5-5.1); TOTAL BILIRUBIN 0.2 mg/dL (0.2-1.0); TOTAL PROTEIN 6.6 g/dL (6.4-8.2)
[2019-03-30] MEDS: TAMSULOSIN 0.4 MG CAP.ER.24H. PO SCH (09:23)
[2019-03-30] MEDS: risperiDONE 0.5 MG TABLET. PO SCH (09:23)
[2019-03-30] MEDS: DIVALPROEX 125 MG CAP.SPRINK PO SCH ×3 (09:24→20:06)
--- NOTE | 2019-03-30 10:19 | NUR ---
WEEKLY ACTIVITY THERAPY NOTE Date of Admission: 02/17/2019 Date of AT Assessment: 02/21/2019 Goal aimed: to increase attention/concentration and leisure awareness Initial goal: Pt. will participate in at least one Activity Therapy group per day. Weekly progress towards goal: achieved Group participation level: moderate to full Weekly highlights: joined group twice with invite and pleasantly engage the entire time Behaviors observed: decreased restlessness, open to groups, calm and smiling often Plan: no change to goal Beneficial adaptations: walking unit or use of Joanne. wireless headphones-[employer] music to help refocus, gross motor activities, invitation to groups, sitting close to weather anchor
[2019-03-30 16:23] VITALS: BP 118/68
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
--- NOTE | 2019-03-30 18:00 | NUR ---
Patient has been mostly flat and cooperative today. He was compliant with all medications. Patient participated in afternoon group activities. Will continue to monitor and report to oncoming shift.
--- NOTE | 2019-03-30 18:46 | NUR ---
[facility] Social Work Discharge Planning Form Patient Name HERBERT WINTERS Admit Date: 02/17/19 DISCHARGE PLAN Discharge Destination: Pt to discharge home with . Care Assessment: Completed Level II Assessment: Will not meet criteria at this time; if pt is admitted again, will trigger for a Level II. Transportation: Pt to pick pt up around 1100. Special Instructions/Notes: Please fax all discharge information to fax numbers listed below. DISCHARGE TO HOME: Address: [address] [place] [address]; [place] [address] Responsible Libertarian: Pt , Valeriy Winters Pharmacy: [facility]; [address] [place] [address] [place] [address] Contact Information: Note: The fax has not been working and you may need to give verbals over the phone. Primary Care Follow Up: Dr. Belinda Miller Contact Information: [id number], [place] [address] Appointment: Psychiatry/Mental Health Follow-up: [facility] Contact Information: [address], [address] [place] [address] Appointment: [facility] has walk-in hours for new patients to establish care. Wednesday through Wednesday [phone]
[2019-03-30] MEDS: traZODone 50 MG TABLET. PO SCH (20:06)
[2019-03-30] MEDS: MIRTAZAPINE 7.5 MG TABLET. PO SCH (20:06)
[2019-03-30] MEDS: ATORVASTATIN CALCIUM 10 MG TABLET. PO SCH (20:06)
--- NOTE | 2019-03-30 20:59 | PDOC ---
Exam Note: Preston Note: Please also refer to the separate dictated note~for this date of service dictated separately.~Patient seen individually. Discussed the patient with Nursing staff reviewed the chart.~Reviewed interim history and current functioning. Reviewed vital signs,~Labs/ Radiology~and current medications noted below. Continue current treatment with the changes noted in the dictated addendum note Assessment: Vital Signs/I&O: Vital Signs Date Time Temp Pulse Resp B/P (MAP) Pulse Ox O2 Delivery O2 Flow Rate FiO2 03/30/19 16:23 97.6 64 16 118/68 (85) 100 03/26/19 06:05 Room Air I & O 03/29/19 03/29/19 03/30/19 15:00 23:00 07:00 Intake Total 960 ml 360 ml Balance 960 ml 360 ml Labs: Laboratory Tests Test 03/30/19 07:16 White Blood Count 5.0 x10^3/uL (4.0-11.0) Red Blood Count 4.28 x10^6/uL (4.30-5.70) L Hemoglobin 13.8 g/dL (13.0-17.5) Hematocrit 41.0 % (39.0-53.0) Mean Corpuscular Volume 96 fL (79-100) Mean Corpuscular Hemoglobin 32 pg (25-35) Mean Corpuscular Hemoglobin Concent 34 g/dL (31-37) Red Cell Distribution Width 14.1 % (11.5-14.5) Platelet Count 105 x10^3/uL (140-400) L Neutrophils (%) (Auto) 54 % (31-73) Lymphocytes (%) (Auto) 29 % (24-48) Monocytes (%) (Auto) 14 % (0-9) H Eosinophils (%) (Auto) 3 % (0-3) Basophils (%) (Auto) 0 % (0-3) Neutrophils # (Auto) 2.7 x10^3uL (1.8-7.7) Lymphocytes # (Auto) 1.5 x10^3/uL (1.0-4.8) Monocytes # (Auto) 0.7 x10^3/uL (0.0-1.1) Eosinophils # (Auto) 0.2 x10^3/uL (0.0-0.7) Basophils # (Auto) 0.0 x10^3/uL (0.0-0.2) Sodium Level 142 mmol/L (136-145) Potassium Level 4.5 mmol/L (3.5-5.1) Chloride Level 104 mmol/L (98-107) Carbon Dioxide Level 32 mmol/L (21-32) Anion Gap 6 (6-14) Blood Urea Nitrogen 23 mg/dL (8-26) Creatinine 0.9 mg/dL (0.7-1.3) Estimated GFR (Cockcroft-Gault) 81.8 BUN/Creatinine Ratio 26 (6-20) H Glucose Level 80 mg/dL (70-99) Calcium Level 8.2 mg/dL (8.5-10.1) L Total Bilirubin 0.2 mg/dL (0.2-1.0) Aspartate Amino Transferase (AST) 15 U/L (15-37) Alanine Aminotransferase (ALT) 17 U/L (16-63) Alkaline Phosphatase 58 U/L (46-116) Total Protein 6.6 g/dL (6.4-8.2) Albumin 2.8 g/dL (3.4-5.0) L Albumin/Globulin Ratio 0.7 (1.0-1.7) L Current Medications: I have reviewed the current psychotropics carefully including drug interactions. Risk benefit ratio favors no change other than as noted in my dictated progress note. Diagnosis: Problems: (1) Schizoaffective disorder (2) Anxiety disorder (3) Bipolar affective, mixed, sev w/ psych (4) Impulse control disorder (5) Schizophrenia, paranoid, chronic with acute exacerbation (6) Schizoaffective disorder, bipolar type ARABELLA PEACE MD Mar 30, 2019 20:59
[2019-03-31] MEDS ORDERED: DIVA125C2 PO (02:46)
[2019-03-31] MEDS ORDERED: OLAN5TAB5 PO (02:49)
[2019-03-31] MEDS ORDERED: RISP1TAB43 PO (02:50)
[2019-03-31 06:07] VITALS: BP 158/78
[2019-03-31] MEDS: TAMSULOSIN 0.4 MG CAP.ER.24H. PO SCH (08:11)
[2019-03-31] MEDS: risperiDONE 0.5 MG TABLET. PO SCH (08:11)
[2019-03-31] MEDS: DIVALPROEX 125 MG CAP.SPRINK PO SCH (08:11)
--- NOTE | 2019-03-31 11:24 | NUR ---
Transition Record was faxed to follow-up provider with the following elements: Reason for admission, procedures, tests, principal diagnosis, pending studies, patient instructions, 14/12 contact information for unit, phone number to obtain pending test results, plan for follow-up care, physician follow-up, advanced directive information, and medication list with dose, duration and instructions. This information was included in the following documents: History and physical, lab results, study results, progress notes, social work planning form, DC instruction form, patient visit summary, and medication reconciliation form. 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 This nurse educated patient's on following up with PCP with in 7 days, mental health appointment as soon as possible, educated on patient's medications and informing that all patient's medications were called into [facility] and will be ready for quill picking machine operator this evening. Patient's verbalized understanding of education received. Patient left unit with , escorted out by MAYELIN Dowd.
[2019-03-31] MEDS ORDERED: risperiDONE MICROSPHERES 50 MG/2 ML DISP.SYRIN. IM ONE (12:00)
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
--- NOTE | 2019-03-31 20:18 | PDOC ---
Exam Note: [place] Note: Please also refer to the separate dictated note~for this date of service dictated separately.~Patient seen individually. Discussed the patient with Nursing staff reviewed the chart.~Reviewed interim history and current functioning. Reviewed vital signs,~Labs/ Radiology~and current medications noted below. Continue current treatment with the changes noted in the dictated addendum note Assessment: Vital Signs/I&O: Vital Signs Date Time Temp Pulse Resp B/P (MAP) Pulse Ox O2 Delivery O2 Flow Rate FiO2 03/31/19 06:07 97.1 61 20 158/78 (104) 96 03/26/19 06:05 Room Air I & O 03/30/19 03/30/19 03/31/19 15:00 23:00 07:00 Intake Total 720 ml 240 ml 120 ml Balance 720 ml 240 ml 120 ml Current Medications: Meds: Current Medications Medications (Trade) Dose Ordered Sig/Otto Route PRN Reason Start Time Stop Time Status Last Admin Dose Admin Risperidone (RisperDAL CONSTA) 50 mg 1X ONCE IM 03/31/19 12:00 03/31/19 11:29 DC 03/31/19 10:26 I have reviewed the current psychotropics carefully including drug interactions. Risk benefit ratio favors no change other than as noted in my dictated progress note. Diagnosis: Problems: (1) Schizoaffective disorder (2) Anxiety disorder (3) Bipolar affective, mixed, sev w/ psych (4) Impulse control disorder (5) Schizophrenia, paranoid, chronic with acute exacerbation (6) Schizoaffective disorder, bipolar type ARABELLA PEACE MD Mar 31, 2019 20:18
--- NOTE | 2019-04-01 04:49 | PN ---
DATE: 03/29/2019 PSYCHIATRIC PROGRESS NOTE This late entry 03/29/2019 covers elements not covered in my initial note. SUBJECTIVE: I met with the patient evening of 03/29/2019. Per PRETTY Smiley, the patient slept 7-1/2 hours previous night. He has been less paranoid, less muttering under his breath, slower speech, sat in the morning groups, participated in the p.m. group as well, quite an improvement. We will increase his Risperdal Consta to 50 mg every 2 weeks. He is less psychotic. REVIEW OF SYSTEMS: No CV, , pulmonary, eye system symptoms on review. MENTAL STATUS EXAM: Oriented reasonably to himself and situation. Speech as above. Abstraction fair, computation impaired, language function intact, attention span short. Mood and affect improved. LABORATORY DATA: Reviewed. IMPRESSION: Unchanged from initial note. PLAN: No change from initial note. MAN Barrera PEACE MD DR: WHITNEY/jessica JOB#: [id number] / [id number]
--- NOTE | 2019-04-01 04:55 | PN ---
DATE: 03/30/2019 PSYCHIATRIC PROGRESS NOTE This late entry 03/30/2019 covers elements not covered in my initial note. SUBJECTIVE: I met with the patient evening of 03/30/2019 and staffed treatment team meeting with the entire team in the morning. Appetite 100%. He slept 10 hours previous night, less psychotic, paranoid, less pressure of speech. REVIEW OF SYSTEMS: No CV, , pulmonary, eye system symptoms on review. Staffed in the morning and seen individually at length in the evening of 03/30/2019 by me. MENTAL STATUS EXAM: Reasonably oriented. Speech is less pressured. Abstraction fair, computation impaired, language function intact, attention span short. Mood and affect less labile. LABORATORY DATA: Reviewed. IMPRESSION: Unchanged from initial note. PLAN: No change from initial note with discharge to outpatient treatment starting March 31. MAN Barrera PEACE MD DR: WHITNEY/jessica JOB#: [id number] / [id number]
[2019-04-04] MEDS ORDERED: risperiDONE MICROSPHERES 50 MG/2 ML DISP.SYRIN. IM SCH (09:00)
== END 2019-03-31 11:29 | disposition home or self-care (01) | DRG 885 ==
LOC: GEROPSY 02-17 00:45
PROVIDERS: ADMIT Psychiatry & Neurology Psychiatry; ATTEND Psychiatry & Neurology Psychiatry
PROC: 5A09357 Assistance with Respiratory Ventilation, Less than 24 Consecutive Hours, Continuous Positive Airway Pressure (ICD-10-PCS; principal; 2019-03-12)
DX: F25.0 Schizoaffective disorder, bipolar type (principal); N39.0 Urinary tract infection, site not specified; F63.9 Impulse disorder, unspecified; F03.90 Unspecified dementia, unspecified severity, without behavioral disturbance, psychotic disturbance, mood disturbance, and anxiety; Z91.5 Personal history of self-harm; Z91.19 Patient's noncompliance with other medical treatment and regimen; Z91.14 Patient's other noncompliance with medication regimen; Z90.49 Acquired absence of other specified parts of digestive tract; Z87.891 Personal history of nicotine dependence; Z85.828 Personal history of other malignant neoplasm of skin; Z79.899 Other long term (current) drug therapy; F41.9 Anxiety disorder, unspecified; G47.00 Insomnia, unspecified; N40.0 Benign prostatic hyperplasia without lower urinary tract symptoms; L72.3 Sebaceous cyst
CPT/HCPCS: 36415; 80053; 80061; 80164; 81001; 82306; 83036; 83540; 83550; 83735; 85025; 86592; 87086; 90471; 90686; J2794